=== PATIENT | male | born 1940 | race Caucasian/White ===

== ENCOUNTER 2020-08-29 13:04 | Outpatient (REF) | payer MEDICARE, SELFPAY ==
[2020-08-29 14:06] LABS: MANUAL DIFF FLAG NO
[2020-08-29 14:11] LABS: Basophils Absolute Auto 0.1 X10*3/uL (0.0-0.2); Eosinophils Absolute Auto 0.3 X10*3/uL (0.0-0.4); Hematocrit 43.5 % (42-52); Imm Gran Abs Auto 0.04 X10*3/uL (0.00-0.03); Imm Gran Pct Auto 0.7 % (0.0-0.4); Lymphocytes Absolute Auto 1.8 X10*3/uL (1.2-4.9); Lymphocytes Percent Auto 30.3 % (20-40); Mean Corpuscular HGB Conc 34.5 g/dl (31.0-36.0); Mean Corpuscular Hemoglobin 32.4 pg (27.0-33.0); Mean Platelet Volume 9.2 fL (9.4-12.4); Monocytes Absolute Auto 0.5 X10*3/uL (0.1-1.2); Monocytes Percent Auto 8.5 % (2-11); Neutrophils Absolute Auto 3.3 X10*3/uL (2.0-8.3); Neutrophils Percent Auto 54.5 % (45-73); Platelet Count 287 X10*3/uL (160-400); Red Blood Count 4.63 X10*6/uL (4.60-5.80); Red Cell Distribution Width 11.5 % (11.0-16.0)
[2020-08-29 14:41] LABS: Alanine Aminotransferase 24 U/L (0-40); Albumin Level 4.3 g/dL (3.5-5.0); Alkaline Phosphatase 68 U/L (39-117); Anion Gap 13 (12-20); Aspartate Amino Transferase 23 U/L (5-37); Bilirubin Total 0.6 mg/dL (0.0-1.0); Blood Urea Nitrogen 20 mg/dL (9-16); Calcium 9.3 mg/dL (8.4-10.2); Carbon Dioxide 26 mmol/L (22-29); Chloride 100 mmol/L (96-108); Estimated Glomerular Filt Rate > 60; Glucose Random 82 mg/dL (60-115); Sodium 134 mmol/L (135-145); Total Protein 6.9 g/dL (6.5-8.0)
[2020-08-29 15:11] LABS: Erythrocyte Sedimentation Rate 7 MM/HR (0-15)
[2020-09-02 12:42] LABS: Angiotensin Converting Enzyme 77 U/L (9-67)
== END 2020-08-29 13:05 | disposition home or self-care (01) ==
LOC: HO.10HDL 13:04
PROVIDERS: PCP Family Medicine; Visit Provider Family Medicine
DX: R53.83 Other fatigue (principal); R06.02 Shortness of breath; D86.9 Sarcoidosis, unspecified
CPT/HCPCS: 36415; 80053; 82164; 85025; 85652

== ENCOUNTER → 2021-01-02 14:10 | Outpatient (REF) | payer MEDICARE, SELFPAY ==
--- NOTE | 2021-01-02 14:22 | ECG_ITS ---
Test Reason : TACHYCARDIA Blood Pressure : / mmHG Vent. Rate : 094 BPM Atrial Rate : 094 BPM P-R Int : 166 ms QRS Dur : 070 ms QT Int : 338 ms P-R-T Axes : 064 027 054 degrees QTc Int : 422 ms Normal sinus rhythm Normal ECG No previous ECGs available Referred By: Robert Lundberg Electronically Signed By:FREDDY ROBERT
== END ==
LOC: HO.CARD 14:10
PROVIDERS: PCP Family Medicine; Visit Provider Family Medicine
DX: R00.0 Tachycardia, unspecified (principal)
CPT/HCPCS: 93005

== ENCOUNTER 2021-03-01 09:41 | Outpatient (REF) | payer MEDICARE, SELFPAY ==
--- NOTE | ~2021-03-01 | CT_ITS ---
EXAMINATION: CT CHEST WITHOUT CONTRAST CLINICAL INFORMATION: Solitary pulmonary nodule. COMPARISON: CT chest 10/19/2019 TECHNIQUE: Multidetector volumetric CT imaging of the chest was done. Axial MIP volume rendering provided. Sagittal and coronal reformatted images were obtained. This CT examination was performed using dose optimization techniques as appropriate, variously including the following: *Automated exposure control *Adjustment of mA and/or kV according to patient size (this includes techniques or standardized protocols for targeted exams where dose is matched to indication/reason for exam; i.e. extremities or head) *Use of iterative reconstruction technique DLP: 218 mGy-cm FINDINGS: CARDIOGRAPH OPERATOR: Unremarkable. LUNGS: There is diffuse centrilobular and paraseptal emphysema with areas of parenchymal thickening and scarring in both upper lobes. There are multiple pulmonary nodules. The most significant nodule in the right upper lobe, tubular shape measuring 1.1 x 0.5 cm on axial image 183/9. The largest nodule in the left upper lobe measures 1.3 x 0.8 cm on axial image 179/9, the slightly lobulated nodule in the left upper lobe axial image 111/9 measures 1.5 x 1.7 cm. These nodules are changing shape slightly, hence, the measurements may not be the same but visually they appear the same size. There is broad-based thickening of inferior left major fissure. There are subpleural cysts seen in both lung bases. There is no bronchiectasis. No intrabronchial debris or lesions seen at this time. The pulmonary secondary and third branches are enlarged especially in the right lower lobe likely from pulmonary arterial hypertension. MEDIASTINUM: The thyroid lobes are symmetric and normal. The central trachea and the bronchi are widely patent. There are multiple small mediastinal lymph nodes. The heart size and the great vessels are normal caliber. Mild coronary artery calcifications are seen. The main pulmonary artery is mildly dilated compared to the aortic root. PLEURA: There is no pleural effusion. No pleural mass or thickening. AXILLA: No abnormal axillary lymph nodes seen. The chest wall appears unremarkable. UPPER ABDOMEN: Visualized liver, spleen, pancreas, and bilateral adrenal glands are unremarkable. No radiopaque gallstones seen. OSSEOUS STRUCTURES: There is moderate ventral spondylosis with bridging osteophytes in the mid and lower dorsal spine. No lytic or sclerotic process seen. CT/CT chest wo con IMPRESSION: Centrilobular and paraseptal emphysema with areas of bilateral parenchymal thickening and multiple pulmonary nodules which are stable. The shape of the nodules may differ but overall the size is the same. No new nodules seen. Pulmonary arteries are enlarged likely from pulmonary artery hypertension.
[2021-03-01 10:40] LABS: MANUAL DIFF FLAG NO
[2021-03-01 10:55] LABS: Basophils Absolute Auto 0.1 X10*3/uL (0.0-0.2); Basophils Percent Auto 1.1 % (0-2); Eosinophils Absolute Auto 0.2 X10*3/uL (0.0-0.4); Eosinophils Percent Auto 3.2 % (0-4); Hematocrit 42.8 % (42-52); Hemoglobin 14.5 g/dl (14.0-18.0); Imm Gran Abs Auto 0.03 X10*3/uL (0.00-0.03); Imm Gran Pct Auto 0.4 % (0.0-0.4); Lymphocytes Absolute Auto 1.7 X10*3/uL (1.2-4.9); Lymphocytes Percent Auto 24.4 % (20-40); Mean Corpuscular HGB Conc 33.9 g/dl (31.0-36.0); Mean Corpuscular Hemoglobin 31.9 pg (27.0-33.0); Mean Corpuscular Volume 94.1 fL (80-98); Mean Platelet Volume 9.1 fL (9.4-12.4); Monocytes Absolute Auto 0.7 X10*3/uL (0.1-1.2); Monocytes Percent Auto 9.4 % (2-11); Neutrophils Absolute Auto 4.4 X10*3/uL (2.0-8.3); Neutrophils Percent Auto 61.5 % (45-73); Platelet Count 273 X10*3/uL (160-400); Red Blood Count 4.55 X10*6/uL (4.60-5.80); Red Cell Distribution Width 11.8 % (11.0-16.0); White Blood Count 7.1 X10*3/uL (4.8-10.8)
[2021-03-01 11:40] LABS: Alanine Aminotransferase 24 U/L (0-40); Albumin Level 4.2 g/dL (3.5-5.0); Alkaline Phosphatase 69 U/L (39-117); Anion Gap 11 (12-20); Aspartate Amino Transferase 21 U/L (5-37); Bilirubin Total 0.6 mg/dL (0.0-1.0); Blood Urea Nitrogen 18 mg/dL (9-16); Calcium 9.5 mg/dL (8.4-10.2); Carbon Dioxide 26 mmol/L (22-29); Chloride 104 mmol/L (96-108); Estimated Glomerular Filt Rate > 60; Glucose Random 76 mg/dL (60-115); Potassium 4.9 mmol/L (3.3-5.1); Sodium 136 mmol/L (135-145); Total Protein 6.7 g/dL (6.5-8.0)
[2021-03-01 12:22] LABS: Free T4 (Free Thyroxine) 0.95 ng/dL (0.71-1.85)
[2021-03-04 22:02] LABS: Angiotensin Converting Enzyme 45 U/L (9-67)
== END 2021-03-01 09:42 | disposition home or self-care (01) ==
LOC: HO.CT 09:41
PROVIDERS: PCP Family Medicine; Visit Provider Surgery
DX: R91.1 Solitary pulmonary nodule (principal)
CPT/HCPCS: 36415; 71250; 80053; 82164; 84439; 85025

== ENCOUNTER 2021-05-05 15:24 | Outpatient (REF) | payer MEDICARE, SELFPAY ==
--- NOTE | 2021-05-05 | PFT_ITS ---
Forced vital capacity, FEV1, LWI14-49, and MVV are all normal. Postbronchodilator therapy, no significant change noted. Total lung capacity, normal. Residual volume slightly decreased. Diffusion capacity is markedly decreased. CONCLUSION: Normal pulmonary function test. No significant obstructive airway disorder is noted. No significant response to bronchodilator therapy. Diffusion capacity is markedly decreased and this may be due to nonspecific factors, presence of pulmonary emphysema, and nonpulmonary factors. Clinical correlation is recommended. MD OPAL Browne/MODL / [id number]
== END 2021-05-05 15:25 | disposition home or self-care (01) ==
LOC: HO.RESP 15:24
PROVIDERS: PCP Family Medicine; Visit Provider Family Medicine
DX: R06.02 Shortness of breath (principal); J43.1 Panlobular emphysema
CPT/HCPCS: 94060; 94727; 94729

== ENCOUNTER → 2021-05-12 08:48 | Outpatient (BNVA) | payer MEDICARE, SELFPAY | PROVIDERS: PCP Family Medicine; Visit Provider Surgery | DX: R91.8 Other nonspecific abnormal finding of lung field (principal); J43.9 Emphysema, unspecified; Z87.891 Personal history of nicotine dependence | CPT/HCPCS: 99212 ==

== ENCOUNTER 2021-09-25 10:55 | Outpatient (REF) | payer MEDICARE, SELFPAY ==
[2021-09-25 13:39] LABS: MANUAL DIFF FLAG NO
[2021-09-25 13:44] LABS: Basophils Absolute Auto 0.1 X10*3/uL (0.0-0.2); Basophils Percent Auto 0.9 % (0-2); Eosinophils Absolute Auto 0.3 X10*3/uL (0.0-0.4); Eosinophils Percent Auto 5.2 % (0-4); Hematocrit 41.5 % (42.0-52.0); Hemoglobin 13.9 g/dl (14.0-18.0); Imm Gran Abs Auto 0.03 X10*3/uL (0.00-0.03); Imm Gran Pct Auto 0.6 % (0.0-0.4); Lymphocytes Absolute Auto 1.4 X10*3/uL (1.2-4.9); Lymphocytes Percent Auto 25.5 % (20-40); Mean Corpuscular HGB Conc 33.5 g/dl (31.0-36.0); Mean Corpuscular Hemoglobin 31.9 pg (27.0-33.0); Mean Corpuscular Volume 95.2 fL (80.0-98.0); Monocytes Absolute Auto 0.7 X10*3/uL (0.1-1.2); Monocytes Percent Auto 13.1 % (2-11); Neutrophils Absolute Auto 2.9 x10*3/uL (2.0-8.3); Neutrophils Percent Auto 54.7 % (45-73); Platelet Count 319 X10*3/uL (160-400); Red Blood Count 4.36 X10*6/uL (4.60-5.80); Red Cell Distribution Width 11.9 % (11.0-16.0); White Blood Count 5.3 X10*3/uL (4.8-10.8)
[2021-09-25 14:06] LABS: Anion Gap 11 (12-20); Blood Urea Nitrogen 14 mg/dL (9-16); Carbon Dioxide 26 mmol/L (22-29); Chloride 103 mmol/L (96-108); Estimated Glomerular Filt Rate > 60; Sodium 135 mmol/L (135-145)
== END 2021-09-25 10:56 | disposition home or self-care (01) ==
LOC: HO.HMGCLDS 10:55
PROVIDERS: PCP Family Medicine; Visit Provider Family Medicine
DX: I10 Essential (primary) hypertension (principal); N40.1 Benign prostatic hyperplasia with lower urinary tract symptoms; N13.8 Other obstructive and reflux uropathy; R53.83 Other fatigue
CPT/HCPCS: 36415; 80051; 82565; 84520; 85025

== ENCOUNTER → 2022-03-27 14:30 | Outpatient (REF) | payer MEDICARE, SELFPAY ==
--- NOTE | 2022-03-27 14:33 | CA_ITS ---
Transthoracic Echocardiogram Patient (Last, First, Middle): Braulio Stone F Gender: Male Date of : 1940 Age: 81 Procedure Date: 03/27/2022 Procedure Type: Transthoracic Echocardiogram Location: OP Height: 175.26 cm Weight: 83.92 kg BSA: 2.00 m2 Heart Rate: bpm BP: 124 / 70 mmHg Windows Systems Architect: Referring MD: Robert Lundberg MD Symptoms: R06.02 SOB, R53.83 FATIGUE, R06.01 ORTHOPNEA R.O CHF Study Quality: Adequate ECG Rhythm: Sinus Conclusions: - The left ventricular systolic function is normal. The visually estimated ejection fraction is between 55-60%. - Mildly increased right ventricular cavity size. - No obvious valvular pathology seen on this study. Findings Left Ventricle Normal left ventricular cavity size. There is mildly increased left ventricular wall thickness. The left ventricular systolic function is normal. The visually estimated ejection fraction is between 55-60%. There is no evidence of regional wall motion abnormalities. Diastolic function is normal for age. Right Ventricle Mildly increased right ventricular cavity size. There is normal right ventricular systolic function. Atria Both atria are normal in size. Aortic Valve There is a normal trileaflet aortic valve. There is no aortic valve stenosis. There is no aortic valve regurgitation. Mitral Valve The mitral valve appears normal. There is trace mitral valve regurgitation. There is no mitral valve stenosis. Pulmonic Valve The pulmonic valve is likely normal. Tricuspid Valve Normal tricuspid valve structure. There is trace tricuspid valve regurgitation. The pulmonary artery systolic pressure is normal. Great Vessels The asc aorta is normal in size. Venous The inferior vena cava is normal in size and collapses greater than 50% with inspiration. Pericardium/Pleural There is no evidence of pericardial effusion. Recommendations, Care & Conclusions No obvious valvular pathology seen on this study. Measurements 2D Linear Measurements IVSd: 1.23 0.6-0.9/0.6-1.0 cm LVIDd: 4.76 3.9-5.3/4.2-5.9 cm LVIDd Index: 2.38 2.4-3.2/2.2-3.1 cm/m2 LVIDs: 2.99 2.0-3.6 cm LVPWd: 1.16 0.7-1.1 cm Ao Root: 4.20 2.1-3.5 cm LA Diam: 3.60 2.7-3.8/3.0-4.0 cm LAIDs Index: 1.80 1.5-2.3 cm/m2 LV Mass: 267.98 67-162/88-224 g LV Mass Index: 133.99 43-95/49-115 g/m2 LVOT Diam: 2.40 3.0+(-)1.3 cm 2D Systolic Function EF 4C: 52.90 >55% EF 2C: 68.60 >55% EF BiP: 60.00 >55% Mitral Valve MV Pk E: 0.69 MV PK A: 0.63 MV Decel Time: 173.00 E/A: 1.10 E'Lateral: 10.20 E'Medial: 6.64 E/E' Med: 10.50 E/E' Lat: 6.80 PHT: 51.00 MVA PHT: 4.31 Decel [place]: 4.02 Aortic Valve AoV Pk Daniel: 1.23 AoV Mn Daniel: 0.70 AoV VTI: 0.27 AoV Pk Grad: 6.00 Aov Mn Grad: 2.00 BRIAN Cont.VTI: 3.33 LVOT LVOT Pk Daniel: 0.73 LVOT Mn Daniel: 0.46 LVOT VTI: 0.20 LVOT Pk Grad: 2.00 LVOT Mn Grad: 1.00 LVOT Diam: 2.40 LVOT Area: 4.52 Diastolic Function MV Pk E: 0.69 MV Pk A: 0.63 E/A: 1.10 E'Medial: 6.64 E/E' Med: 10.50 E' Laterial: 10.20 E/E' Lat: 6.80 Right Ventricle TAPSE (mm): 30.00 TVS' Daniel: 10.00 Tricuspid Valve TR Pk Daniel: 2.20 TR Pk Grad: 19.00 RA Press: 3.00 RVSP: 22.00 Great Vessels Aorta Ao Root-2D: 4.20 2.0-3.7 cm Ao Asc: 3.60 2.1-3.4 cm Pulmonary Valve PV Pk Daniel: 0.88 Peak PV Grad: 3.00 Updated in Other Vendor System with Status of Final Dereck Copeland MD electronically signed on 03/27/2022 4:29:52 PM with status of Final
== END ==
LOC: HO.CARD 14:30
PROVIDERS: PCP Family Medicine; Visit Provider Family Medicine
DX: R06.02 Shortness of breath (principal); R53.83 Other fatigue; R06.01 Orthopnea
CPT/HCPCS: 93306

== ENCOUNTER 2022-05-14 10:35 | Inpatient (IN) | payer MEDICARE, SELFPAY ==
[2022-05-14] VITALS (14 sets, daily range): BP systolic 92–139; BP diastolic 51–69; PULSE 68–93; RESP 14–26; TEMP 36.4–37.1; O2SAT 90–98; BMI 28.0
--- NOTE | ~2022-05-14 | XR_ITS ---
EXAMINATION: XR CHEST CLINICAL INFORMATION: Chest pain COMPARISON: Previous chest x-ray most recent March [address] February 2021 TECHNIQUE: Frontal view of the chest was obtained. FINDINGS: The cardiac and mediastinal contours are stable. There are emphysematous changes. There is new multilobar left-sided airspace disease greatest in the left upper lobe and airspace disease at the right lung base. This probably represents pneumonia. There is no pleural effusion or pneumothorax. There are degenerative changes of the spine. XR/XR chest 1V IMPRESSION: Bilateral airspace disease greatest in the left upper lobe probably representing pneumonia.
--- NOTE | ~2022-05-14 | US_ITS ---
EXAMINATION: US ABDOMEN LIMITED CLINICAL INFORMATION: Right upper quadrant pain, chills. COMPARISON: None TECHNIQUE: Real-time imaging of the right upper quadrant abdominal viscera. FINDINGS: PANCREAS: Visualized portions unremarkable. LIVER: Diffuse increased echotexture without focal abnormality. GALLBLADDER: Remarkable. COMMON BILE DUCT: Normal in caliber measuring 0.4 cm in diameter. RIGHT KIDNEY: 11.4 cm. Unremarkable. FREE FLUID: None. US/US abdomen limited IMPRESSION: Hepatic steatosis.
--- NOTE | ~2022-05-14 | CT_ITS ---
EXAMINATION: CT ANGIOGRAM OF THE CHEST WITH AND WITHOUT CONTRAST (CT PULMONARY ANGIOGRAM FOR PE) CLINICAL INFORMATION: Reason for Exam SOB, chest pain COMPARISON: Chest radiograph 05/14/2022, CT chest 03/01/2021 TECHNIQUE: Prior to contrast administration, noncontrast localization images were obtained. Subsequently, multidetector volumetric imaging was performed from the thoracic inlet to the pubic symphysis through the chest, abdomen, and pelvis following the administration of 70 mL Omnipaque 350 intravenous contrast. No contrast reaction reported Sagittal, coronal, and MIP oblique sagittal (through the chest only) reformatted images were obtained on the CT workstation, uploaded to PACS, and reviewed. This CT examination was performed using dose optimization techniques as appropriate, variously including the following: *Automated exposure control *Adjustment of mA and/or kV according to patient size (this includes techniques or standardized protocols for targeted exams where dose is matched to indication/reason for exam; i.e. extremities or head) *Use of iterative reconstruction technique Total exam dose-length product: 333 mGy-cm FINDINGS: QUALITY OF STUDY/CONTRAST BOLUS: Satisfactory bolus. Significant motion artifact, especially at the lung bases PULMONARY ARTERIES: No central or large segmental pulmonary emboli. THORACIC AORTA: No aneurysm or dissection. LUNG: Severe emphysematous changes are present throughout the lungs with some predominance of subpleural cysts. Extensive cystic change with fluid is present in the left upper lobe corresponding with the pneumonia seen on chest radiograph. Multiple pulmonary nodules are again seen, some irregular in shape but unchanged when compared to 03/01/2021. One of the larger areas is in the right upper lobe and is oval in shape measuring 1.2 x 0.6 cm (5:201). PLEURA: There is a new trace left pleural effusion. No right-sided effusion. MEDIASTINUM: Normal heart size. No pericardial effusion. Prominent mediastinal and hilar lymph nodes appear larger than prior, most likely reactive.. No evidence of septal bowing or right heart strain. CHEST WALL/AXILLA: No axillary or internal mammary lymphadenopathy. OSSEOUS STRUCTURES: No acute or suspicious osseous abnormality. VISUALIZED ABDOMEN: No significant findings in the upper abdomen. CT/CT angio chest aorta IMPRESSION: No convincing evidence of pulmonary emboli. Study is limited at the lung bases where there is significant motion artifact. Severe extensive emphysema with new area of infiltrate/air space disease in the left upper lobe, similar to the chest radiograph. Trace new left pleural effusion. Stable pulmonary nodules. VTE: Negative, but limited Fleischner guidelines were followed.
--- NOTE | 2022-05-14 10:37 | ECG_ITS ---
Test Reason : cp Blood Pressure : / mmHG Vent. Rate : 087 BPM Atrial Rate : 087 BPM P-R Int : 158 ms QRS Dur : 072 ms QT Int : 348 ms P-R-T Axes : 049 015 062 degrees QTc Int : 418 ms Normal sinus rhythm Nonspecific T wave abnormality Abnormal ECG When compared with ECG of 02-JAN-2021 14:29, T wave inversion now evident in Anterior leads Referred By: Generic ED Physician Electronically Signed By:COLIN JONES MD
[2022-05-14 10:59] LABS: MANUAL DIFF FLAG NO
[2022-05-14 11:00] LABS: Basophils Percent Auto 0.3 % (0-2); Eosinophils Absolute Auto 0.4 X10*3/uL (0.0-0.4); Eosinophils Percent Auto 3.2 % (0-4); Hematocrit 38.2 % (42.0-52.0); Hemoglobin 13.1 g/dl (14.0-18.0); Imm Gran Abs Auto 0.09 X10*3/uL (0.00-0.03); Imm Gran Pct Auto 0.8 % (0.0-0.4); Lymphocytes Absolute Auto 0.9 X10*3/uL (1.2-4.9); Lymphocytes Percent Auto 7.7 % (20-40); Mean Corpuscular HGB Conc 34.3 g/dl (31.0-36.0); Mean Corpuscular Hemoglobin 31.6 pg (27.0-33.0); Mean Corpuscular Volume 92.3 fL (80.0-98.0); Mean Platelet Volume 9.1 fL (9.4-12.4); Monocytes Percent Auto 9.2 % (2-11); Neutrophils Absolute Auto 8.8 x10*3/uL (2.0-8.3); Neutrophils Percent Auto 78.8 % (45-73); Platelet Count 244 X10*3/uL (160-400); Red Blood Count 4.14 X10*6/uL (4.60-5.80); Red Cell Distribution Width 11.5 % (11.0-16.0); White Blood Count 11.1 X10*3/uL (4.8-10.8)
[2022-05-14 11:14] LABS: Anion Gap 12 (12-20); Blood Urea Nitrogen 13 mg/dL (9-16); Calcium 8.3 mg/dL (8.4-10.2); Carbon Dioxide 23 mmol/L (22-29); Chloride 100 mmol/L (96-108); Creatinine Clr Calc Pharmacy 78.4; Estimated Glomerular Filt Rate > 60; Glucose Random 112 mg/dL (60-115); Potassium 4.4 mmol/L (3.3-5.1); Sodium 131 mmol/L (135-145)
[2022-05-14 11:19] LABS: COVID-19 Test Negative (Negative)
[2022-05-14 11:22] LABS: Troponin-I High Sensitivity 3.8 ng/L (<3.5-35.0)
--- NOTE | 2022-05-14 12:04 | ED.CHESTPAIN ---
HPI - Chest Pain General Chief Complaint: Chest Pain Stated Complaint: chest pain Time Seen by Provider: 05/14/22 12:02 Source: patient Mode of arrival: ambulatory History of Present Illness HPI narrative: 81-year-old male who presents with complaints left-sided chest pain since last night at 19:00 and he states that pain has gotten worse and it worsens with deep inspiration but denies any worsening with movement and denies any associated dizziness/diaphoresis/nausea. Otherwise, patient denies any GI or symptoms, denies any falls. Related Data Home Medications Medication Instructions Recorded Confirmed ibuprofen 600 mg tablet 600 mg PO BEDTIME PRN Pain 05/14/22 05/14/22 modafinil 200 mg tablet 200 mg PO BID 05/14/22 05/14/22 multivitamin 1 tab PO DAILY 05/14/22 05/14/22 terazosin 5 mg capsule 1 cap PO BEDTIME 05/14/22 05/14/22 Allergies Allergy/AdvReac Type Severity Reaction Status Date / Time No Known Allergies Allergy Verified 05/12/21 09:14 Review of Systems Review of Systems: Pertinent positives and negatives as stated in HPI 10 point review of systems is otherwise negative. PMFSH Past Medical History Source: nursing notes reviewed Medical History Former smoker, stopped smoking in distant past Multiple pulmonary nodules Pulmonary emphysema Social History Social History Patient Tobacco Use Status: Former Tobacco user Advance Directives: Yes Advance Directives Information Provided: No Advance Directives on File: No Physical Exam Vital Signs: Vital Signs: Last Vital Signs Temp 98.3 F 05/14/22 11:42 Pulse 72 05/14/22 15:16 Resp 14 05/14/22 15:16 BP 106/69 05/14/22 15:16 Pulse Ox 96 05/14/22 15:16 O2 Del Method 05/14/22 15:16 O2 Flow Rate 2 05/14/22 15:16 BMI result Body Mass Index 28.0 VITAL SIGNS: Reviewed. GENERAL: Well developed, well nourished, in no acute distress. HEAD: Normocephalic/atraumatic EYES: PERRLA, EOMI EARS: Ext canals without abnormality NOSE: Nares patent bilateral OROPHARYNX: no oral lesions noted, posterior pharynx clear LUNGS: Good inspiratory effort but patient reports pain and has to do this slowly, decreased breath sounds primarily on the left, no appreciable wheeze/rhonchi/rales. SpO2<93> room air; CHEST WALL: No pain on palpation, deformity, crepitus CARDIOVASCULAR: Regular rate and rhythm without noted murmurs, no JVD or lower extremity edema. ABDOMEN: Soft, non-tender, non-distended with bowel sounds. MUSCULOSKELETAL: No tenderness, deformities, or effusions noted on gross inspection. EXTREMITIES: No cyanosis, clubbing or edema. SKIN: Inspection of the skin reveals no rashes NEUROLOGIC: Alert and oriented x 4. Strength and sensation to light touch were grossly intact x 4. Course Course Course Narrative: 1050: 81-year-old male with history and clinical presentation and will rule out possible pleuritis, pneumonia and less likely felt to be COPD exacerbation. Patient did receive an albuterol treatment and states he does not feel any better. He was provided with combination analgesics, review of D-dimer shows elevation and chest x-ray have concerning findings that when compared to prior may be progression underlying illness. 1245: I suspect infection. Lactic acid/but culture/antibiotics given/order. 1400: Patient requiring 2 L of nasal cannula, for SpO2-86 % and on re-evaluation states that he feels better. 1414: Nursing endorses that patient is noted to have serial SBP less than 100 and sepsis fluids order. 1514: Patient doing well on 2 L nasal cannula and blood pressure has responded well to IV fluids. I discussed the case with inpatient hospitalist who accepts admission. MDM - Chest Pain Lab Data Result diagrams: 05/14/22 10:55 05/14/22 10:55 Labs: Lab Results 05/14/22 05/14/22 05/14/22 Range/Units 10:55 10:55 10:55 WBC 11.1 H (4.8-10.8) X10*3/uL RBC 4.14 L (4.60-5.80) X10*6/uL Hgb 13.1 L (14.0-18.0) g/dl Hct 38.2 L (42.0-52.0) % MCV 92.3 (80.0-98.0) fL MCH 31.6 (27.0-33.0) pg MCHC 34.3 (31.0-36.0) g/dl RDW 11.5 (11.0-16.0) % Plt Count 244 (160-400) X10*3/uL MPV 9.1 L (9.4-12.4) fL Immature Gran % (Auto) 0.8 H (0.0-0.4) % Neut % (Auto) 78.8 H (45-73) % Lymph % (Auto) 7.7 L (20-40) % Blount % (Auto) 9.2 (2-11) % Eos % (Auto) 3.2 (0-4) % Baso % (Auto) 0.3 (0-2) % Lymph # (Auto) 0.9 L (1.2-4.9) X10*3/uL Blount # (Auto) 1.0 (0.1-1.2) X10*3/uL Eos # (Auto) 0.4 (0.0-0.4) X10*3/uL Baso # (Auto) 0.0 (0.0-0.2) X10*3/uL Abs Immat Gran (auto) 0.09 H (0.00-0.03) X10*3/uL Absolute Neuts (auto) 8.8 H (2.0-8.3) x10*3/uL Absolute Nucleated RBC 0.000 (0.0-0.012) X10*3/uL Nucleated RBC % (auto) 0.0 (0.0-0.2) /100WBC D-Dimer High Sensitivty NG/ML VBG pH (7.32-7.43) VBG pCO2 mmHg VBG pO2 mmHg VBG HCO3 (22-26) mmol/L VBG O2 Saturation % VBG Base Excess mmol/L Sodium 131 L (135-145) mmol/L Potassium 4.4 (3.3-5.1) mmol/L Chloride 100 (96-108) mmol/L Carbon Dioxide 23 (22-29) mmol/L Anion Gap 12 (12-20) BUN 13 (9-16) mg/dL Creatinine 0.83 (0.5-1.4) mg/dL Estim Creat Clear Calc 78.4 Estimated GFR > 60 Random Glucose 112 D (60-115) mg/dL Lactic Acid (0.5-2.0) mmol/L Calcium 8.3 L D (8.4-10.2) mg/dL Total Bilirubin 2.1 H (0.0-1.0) mg/dL Direct Bilirubin 0.8 H (0.0-0.5) mg/dL AST 40 H D (5-37) U/L ALT 48 H (0-40) U/L Alkaline Phosphatase 95 D (39-117) U/L Troponin I High Sens 3.8 (<3.5-35.0) ng/L C-Reactive Protein 17.91 H (< or = 0.50) mg/dL B-Natriuretic Peptide 70 (<100) pg/mL Total Protein 6.2 L (6.5-8.0) g/dL Albumin 3.7 (3.5-5.0) g/dL Lipase 16 (8-78) U/L COVID-19 (NAN) (Negative) COVID-19 Clin Com 05/14/22 05/14/22 05/14/22 Range/Units 10:55 12:22 12:22 WBC (4.8-10.8) X10*3/uL RBC (4.60-5.80) X10*6/uL Hgb (14.0-18.0) g/dl Hct (42.0-52.0) % MCV (80.0-98.0) fL MCH (27.0-33.0) pg MCHC (31.0-36.0) g/dl RDW (11.0-16.0) % Plt Count (160-400) X10*3/uL MPV (9.4-12.4) fL Immature Gran % (Auto) (0.0-0.4) % Neut % (Auto) (45-73) % Lymph % (Auto) (20-40) % Blount % (Auto) (2-11) % Eos % (Auto) (0-4) % Baso % (Auto) (0-2) % Lymph # (Auto) (1.2-4.9) X10*3/uL Blount # (Auto) (0.1-1.2) X10*3/uL Eos # (Auto) (0.0-0.4) X10*3/uL Baso # (Auto) (0.0-0.2) X10*3/uL Abs Immat Gran (auto) (0.00-0.03) X10*3/uL Absolute Neuts (auto) (2.0-8.3) x10*3/uL Absolute Nucleated RBC (0.0-0.012) X10*3/uL Nucleated RBC % (auto) (0.0-0.2) /100WBC D-Dimer High Sensitivty 385 NG/ML VBG pH (7.32-7.43) VBG pCO2 mmHg VBG pO2 mmHg VBG HCO3 (22-26) mmol/L VBG O2 Saturation % VBG Base Excess mmol/L Sodium (135-145) mmol/L Potassium (3.3-5.1) mmol/L Chloride (96-108) mmol/L Carbon Dioxide (22-29) mmol/L Anion Gap (12-20) BUN (9-16) mg/dL Creatinine (0.5-1.4) mg/dL Estim Creat Clear Calc Estimated GFR Random Glucose (60-115) mg/dL Lactic Acid (0.5-2.0) mmol/L Calcium (8.4-10.2) mg/dL Total Bilirubin (0.0-1.0) mg/dL Direct Bilirubin (0.0-0.5) mg/dL AST (5-37) U/L ALT (0-40) U/L Alkaline Phosphatase (39-117) U/L Troponin I High Sens 4.2 (<3.5-35.0) ng/L C-Reactive Protein (< or = 0.50) mg/dL B-Natriuretic Peptide (<100) pg/mL Total Protein (6.5-8.0) g/dL Albumin (3.5-5.0) g/dL Lipase (8-78) U/L COVID-19 (NAN) Negative (Negative) COVID-19 Clin Com See Note 05/14/22 05/14/22 05/14/22 Range/Units 12:26 12:45 14:33 WBC (4.8-10.8) X10*3/uL RBC (4.60-5.80) X10*6/uL Hgb (14.0-18.0) g/dl Hct (42.0-52.0) % MCV (80.0-98.0) fL MCH (27.0-33.0) pg MCHC (31.0-36.0) g/dl RDW (11.0-16.0) % Plt Count (160-400) X10*3/uL MPV (9.4-12.4) fL Immature Gran % (Auto) (0.0-0.4) % Neut % (Auto) (45-73) % Lymph % (Auto) (20-40) % Blount % (Auto) (2-11) % Eos % (Auto) (0-4) % Baso % (Auto) (0-2) % Lymph # (Auto) (1.2-4.9) X10*3/uL Blount # (Auto) (0.1-1.2) X10*3/uL Eos # (Auto) (0.0-0.4) X10*3/uL Baso # (Auto) (0.0-0.2) X10*3/uL Abs Immat Gran (auto) (0.00-0.03) X10*3/uL Absolute Neuts (auto) (2.0-8.3) x10*3/uL Absolute Nucleated RBC (0.0-0.012) X10*3/uL Nucleated RBC % (auto) (0.0-0.2) /100WBC D-Dimer High Sensitivty NG/ML VBG pH 7.38 7.44 H (7.32-7.43) VBG pCO2 42 32 mmHg VBG pO2 34 61 mmHg VBG HCO3 26 22 (22-26) mmol/L VBG O2 Saturation 49.0 88.0 % VBG Base Excess 0.9 -0.8 mmol/L Sodium (135-145) mmol/L Potassium (3.3-5.1) mmol/L Chloride (96-108) mmol/L Carbon Dioxide (22-29) mmol/L Anion Gap (12-20) BUN (9-16) mg/dL Creatinine (0.5-1.4) mg/dL Estim Creat Clear Calc Estimated GFR Random Glucose (60-115) mg/dL Lactic Acid 1.1 (0.5-2.0) mmol/L Calcium (8.4-10.2) mg/dL Total Bilirubin (0.0-1.0) mg/dL Direct Bilirubin (0.0-0.5) mg/dL AST (5-37) U/L ALT (0-40) U/L Alkaline Phosphatase (39-117) U/L Troponin I High Sens (<3.5-35.0) ng/L C-Reactive Protein (< or = 0.50) mg/dL B-Natriuretic Peptide (<100) pg/mL Total Protein (6.5-8.0) g/dL Albumin (3.5-5.0) g/dL Lipase (8-78) U/L COVID-19 (NAN) (Negative) COVID-19 Clin Com ECG Data ECG #1: Attestation: I personally reviewed and interpreted this ECG as follows: Prior ECG tracings: available for review Interpretation: NSR, HR-87, no STEMI, ND/QRS/QTC are within normal limits. Critical Care Time Critical Care Time Critical Care Time: Yes Total Critical Care Time: 30 Attestation: I personally attest to this time spent taking care of the patient. Discharge Plan Discharge Clinical Impression: Sepsis, Pneumonia, Hypoxia Patient Disposition: Admitted As Inpatient
[2022-05-14] MEDS: Albuterol Sulfate (0.083%) 2.5 MG/3 ML VIAL.NEB 5 MG INHALE (12:27)
[2022-05-14] MEDS: Acetaminophen 325 MG TABLET 975 MG PO (12:33)
[2022-05-14 12:34] LABS: Venous Blood Gas Refer to POC result
[2022-05-14] MEDS: Ketorolac Tromethamine 30 MG/ML VIAL 15 MG IVPUSH (12:34)
[2022-05-14 12:35] LABS: VBG Base Excess 0.9 mmol/L; VBG HCO3 26 mmol/L (22-26); VBG pCO2 42 mmHg; VBG pH 7.38 (7.32-7.43); VBG pO2 34 mmHg
[2022-05-14 12:38] LABS: D Dimer High Sensitivity 385 NG/ML
[2022-05-14 12:41] LABS: Alanine Aminotransferase 48 U/L (0-40); Albumin Level 3.7 g/dL (3.5-5.0); Alkaline Phosphatase 95 U/L (39-117); Aspartate Amino Transferase 40 U/L (5-37); Bilirubin Direct 0.8 mg/dL (0.0-0.5); Bilirubin Total 2.1 mg/dL (0.0-1.0); Lipase 16 U/L (8-78); Total Protein 6.2 g/dL (6.5-8.0)
[2022-05-14 12:47] LABS: B Type Natriuretic Peptide 70 pg/mL (<100)
[2022-05-14 12:50] LABS: Troponin-I High Sensitivity 4.2 ng/L (<3.5-35.0)
[2022-05-14 13:01] LABS: Lactic Acid 1.1 mmol/L (0.5-2.0)
[2022-05-14] MEDS: iohexoL 350 MG/ML 100 ML INFUS..BTL IV (13:04)
[2022-05-14] MEDS: Piperacillin Sodium/Tazobactam 3.375 GM in 0.9 % Sodium Chloride 50 ML IV (14:21)
[2022-05-14] MEDS: 0.9 % Sodium Chloride 2,585.49 ML 2585.49 ML IV (14:22)
--- NOTE | 2022-05-14 14:28 | PC.NURSE ---
PT AND FAMILY AWARE OF PLAN FOR ADMISSION. [facility] WENT TO GET PT CPAP
[2022-05-14 14:37] LABS: Venous Blood Gas Refer to POC result
[2022-05-14 14:38] LABS: VBG Base Excess -0.8 mmol/L; VBG HCO3 22 mmol/L (22-26); VBG pCO2 32 mmHg; VBG pH 7.44 (7.32-7.43); VBG pO2 61 mmHg
[2022-05-14 14:41] LABS: C Reactive Protein 17.91 mg/dL (< or = 0.50)
--- NOTE | 2022-05-14 15:44 | PHA.MEDREC ---
Pharmacy Consult ? Medication Reconciliation Pharmacy has completed the medication reconciliation.
--- NOTE | 2022-05-14 15:57 | P.HPHOSP_ITS ---
History of Present Illness Date of Service: 05/14/22 Chief Complaint: chest pain, difficulty breathing a 81 years old male with PMH of emphysema, pulmonary nodules, neck roll lip C who presents to the hospital complaining of left-sided chest/axilla pain since last night. The patient reports that he started to feel pain in the left side of his chest wall axillary area yesterday evening that was associated with movement, deep breath and had Got worsen overnight. He reports feeling chills and having cough which is worse than his baseline cough. denies fevers, Sweating, palpitation, nausea, vomiting, change in bowel habit or urinary symptoms. Reports feeling short of breath after short distance usually but that had got worsened since last night. In the emergency CXR and CTA were both concerning for left-sided pneumonia with pleural effusion. Troponin negative as EKG showed new T-wave inversion in 1 lead. CTA negative for PE. Will be admitted for further evaluation and treatment. Review of Systems Review of Systems: No fever but reporting chills and weakness left-sided chest, axilla pain with nopalpitation increased shortness of breath and coughing No abdominal pain, nausea or vomiting No urinary symptoms No any rash or wounds [facility] Medical History Former smoker, stopped smoking in distant past Multiple pulmonary nodules Pulmonary emphysema Social History Household Members: Spouse and Family Housing: House Do you presently have visiting nurse or other home services: No Patient Tobacco Use Status: Former Tobacco user Quit Date: 1989 Use of substances other than those prescribed or required for medical reasons: No Currently Displaying Signs/Symptoms of Drug Intoxication Withdrawal: No Have you been hit, kicked, punched, or otherwise hurt by someone within the past year? If so, by whom?: No Do you feel safe in your current relationship?: Yes Is there a partner from a previous relationship who is making you feel unsafe now?: No Are you made to feel afraid or neglected: No Advance Directives: Yes Advance Directives Information Provided: No Advance Directives on File: No Advance Directives Date on File: 05/15/22 Do you have thoughts of harming others: None Do you have a plan to hurt others: No Plan Recently lost weight without trying: No How much weight loss: Not applicable Eating poorly because of decreased appetite: No Nutrition screen score: 0 Nutrition Risks: No Nutritional Risk Poor oral hygiene: No service: Yes Current occupational status: retired Meds Allergies Allergy/AdvReac Type Severity Reaction Status Date / Time No Known Allergies Allergy Verified 05/12/21 09:14 Active Medications: Current Medications Acetaminophen (Acetaminophen 325 Mg Tablet) 650 mg PO Q6H PRN PRN Reason: Pain, Mild (Pain Scale 1-3) Al Hydroxide/Mg Hydroxide (Magnesium Hydrox/Alum Hydrox 30 Ml Oral.Susp) 30 ml PO Q4H PRN PRN Reason: Heartburn/Nausea Albuterol/Ipratropium (Albuterol/Iprat 2.5/0.5mg 3 Ml Ampul.Neb) 3 ml INHALE RQ4H WHILE AWAKE [facility] Benzonatate (Benzonatate 100 Mg Capsule) 100 mg PO TID PRN PRN Reason: Cough Enoxaparin Sodium (Enoxaparin Sodium 40 Mg/0.4 Ml Syringe) 40 mg SUBCUT Q24H [facility] Azithromycin 500 mg/ Sodium (Chloride) 250 mls @ 125 mls/hr IV Q24H [facility] Ceftriaxone Sodium 1 gm/ (Sodium Chloride) 50 mls @ 100 mls/hr IV Q24H [facility] Magnesium Hydroxide (Milk Of Magnesia 30 Ml Oral.Susp) 30 ml PO DAILY PRN PRN Reason: Constipation Methylprednisolone Sodium Succinate (Methylprednisolone Sod Succ 40 Mg/Ml Vial) 40 mg IVPUSH Q12H [facility] Modafinil (Modafinil 100 Mg Tablet) 200 mg PO BID [facility] Multivitamins/Vitamin C (Multivitamin Tablet) 1 tab PO DAILY [facility] Non-Formulary Medication (Terazosin) 1 cap PO BEDTIME [facility] Ondansetron HCl (Ondansetron Hcl 4 Mg/2 Ml Vial) 4 mg IVPUSH Q8H PRN PRN Reason: Nausea and Vomiting Pharmacy Consult (Consult Rx Perform Med Rec) 1 each MISCELLANE ONCE PRN PRN Reason: Consult order Sodium Chloride (0.9 % Sodium Chloride Flush 3 Ml Syringe) 3 ml IVFLUSH QSHIFT [facility] Home Medications Medication Instructions Recorded Confirmed Last Taken Type ibuprofen 600 mg tablet 600 mg PO BEDTIME PRN Pain 05/14/22 05/14/22 05/13/22 History modafinil 200 mg tablet 200 mg PO BID 05/14/22 05/14/22 05/13/22 History multivitamin 1 tab PO DAILY 05/14/22 05/14/22 05/13/22 History terazosin 5 mg capsule 1 cap PO BEDTIME 05/14/22 05/14/22 05/13/22 History Physical Exam Vital Signs and Narrative: Vital Signs: Last Vital Signs Temp 98.3 F 05/14/22 11:42 Pulse 72 05/14/22 15:16 Resp 14 05/14/22 15:16 BP 106/69 05/14/22 15:16 Pulse Ox 96 05/14/22 15:16 O2 Del Method 05/14/22 15:16 O2 Flow Rate 2 05/14/22 15:16 BMI result Body Mass Index 28.0 Const: Other: Constitutional : Alert, interactive, not in distress Neck : Normal inspection, Supple Cardiovascular : RRR, no JVP, no lower extremity edema Respiratory : fair bilateral air entry, basal fine left-sided crackles, bilateral expiratory wheezes, on oxygen supplement Gastrointestinal: soft, lax, Normal bowel sounds, Non tender Skin : Warm, Dry Neurological : Alert & oriented x3, No focal deficit , CN 2-12 within normal Results Labs CBC and Chem 7: 05/15/22 05:51 05/15/22 05:51 Labs: Laboratory Results - last 24 hr 05/14/22 05/14/22 05/14/22 10:55 10:55 10:55 MCV 92.3 MCH 31.6 MCHC 34.3 RDW 11.5 Plt Count 244 MPV 9.1 L Immature Gran % (Auto) 0.8 H Neut % (Auto) 78.8 H Lymph % (Auto) 7.7 L [place] % (Auto) 9.2 Eos % (Auto) 3.2 Baso % (Auto) 0.3 Lymph # (Auto) 0.9 L [place] # (Auto) 1.0 Eos # (Auto) 0.4 Baso # (Auto) 0.0 Abs Immat Gran (auto) 0.09 H Absolute Neuts (auto) 8.8 H Absolute Nucleated RBC 0.000 Nucleated RBC % (auto) 0.0 D-Dimer High Sensitivty VBG pH VBG pCO2 VBG pO2 VBG HCO3 VBG O2 Saturation VBG Base Excess Anion Gap 12 Estim Creat Clear Calc 78.4 Estimated GFR > 60 Random Glucose 112 D Lactic Acid Calcium 8.3 L D Total Bilirubin 2.1 H Direct Bilirubin 0.8 H AST 40 H D ALT 48 H Alkaline Phosphatase 95 D C-Reactive Protein 17.91 H B-Natriuretic Peptide 70 Total Protein 6.2 L Albumin 3.7 Lipase 16 COVID-19 (NAN) COVID-19 Clin Com 05/14/22 05/14/22 05/14/22 10:55 12:22 12:26 MCV MCH MCHC RDW Plt Count MPV Immature Gran % (Auto) Neut % (Auto) Lymph % (Auto) [place] % (Auto) Eos % (Auto) Baso % (Auto) Lymph # (Auto) [place] # (Auto) Eos # (Auto) Baso # (Auto) Abs Immat Gran (auto) Absolute Neuts (auto) Absolute Nucleated RBC Nucleated RBC % (auto) D-Dimer High Sensitivty 385 VBG pH 7.38 VBG pCO2 42 VBG pO2 34 VBG HCO3 26 VBG O2 Saturation 49.0 VBG Base Excess 0.9 Anion Gap Estim Creat Clear Calc Estimated GFR Random Glucose Lactic Acid Calcium Total Bilirubin Direct Bilirubin AST ALT Alkaline Phosphatase C-Reactive Protein B-Natriuretic Peptide Total Protein Albumin Lipase COVID-19 (NAN) Negative COVID-19 Clin Com See Note 05/14/22 05/14/22 12:45 14:33 MCV MCH MCHC RDW Plt Count MPV Immature Gran % (Auto) Neut % (Auto) Lymph % (Auto) [place] % (Auto) Eos % (Auto) Baso % (Auto) Lymph # (Auto) [place] # (Auto) Eos # (Auto) Baso # (Auto) Abs Immat Gran (auto) Absolute Neuts (auto) Absolute Nucleated RBC Nucleated RBC % (auto) D-Dimer High Sensitivty VBG pH 7.44 H VBG pCO2 32 VBG pO2 61 VBG HCO3 22 VBG O2 Saturation 88.0 VBG Base Excess -0.8 Anion Gap Estim Creat Clear Calc Estimated GFR Random Glucose Lactic Acid 1.1 Calcium Total Bilirubin Direct Bilirubin AST ALT Alkaline Phosphatase C-Reactive Protein B-Natriuretic Peptide Total Protein Albumin Lipase COVID-19 (NAN) COVID-19 Clin Com Imaging Radiologist's Impressions: Impressions Chest X-Ray 05/14/22 11:12 IMPRESSION: Bilateral airspace disease greatest in the left upper lobe probably representing pneumonia. Chest CTA 05/14/22 12:50 IMPRESSION: No convincing evidence of pulmonary emboli. Study is limited at the lung bases where there is significant motion artifact. Severe extensive emphysema with new area of infiltrate/air space disease in the left upper lobe, similar to the chest radiograph. Trace new left pleural effusion. Stable pulmonary nodules. VTE: Negative, but limited Fleischner guidelines were followed. Abdomen Ultrasound 05/14/22 12:53 IMPRESSION: Hepatic steatosis. Assessment and Plan (1) Pneumonia: Status: Acute (2) Hypoxia: Status: Acute (3) Pulmonary emphysema: Status: Acute (4) COPD exacerbation: Status: Acute Plan a 81 years old male with PMH of emphysema, pulmonary nodules, neck roll lip C who presents to the hospital complaining of left-sided chest/axilla pain since last night. hypoxia Secondary to pneumonia, COPD exacerbation Patient does not meet sepsis criteria CTA negative for any acute PE But showed left-sided pneumonia with effusion Start azithromycin and ceftriaxone Start IV steroids Bronchodilator nebulizers Use CPAP at night Consider pulmonology event if no improvement Pending blood cultures Chest pain Seems to be related to pneumonia EKG showing 1 lead T-wave inversion, troponin negative Monitor on telemetry for now and repeat EKG in the morning Hyponatremia Seems to be secondary to acute illness at 131, chronically low to low normal Concern with his history of lung nodules Monitor BMP Transaminitis Ultrasound showing Hepatic steatosis Could be secondary to infection, steatosis Monitor LFT CHAVA/Nacrolepsy Use Modafinil and CPAP DVT PPX Lovenox The patient will likely need 2. Overnight hospital stay for treatment of hypoxia, pneumonia and COPD exacerbation pending final blood cultures to prevent possible decompensation into sepsis. Quality Stroke Does the patient have a stroke diagnosis?: No VTE Prior VTE?: No VTE Risk Level:: Medical - moderate - high VTE Device Contraindication: Treatment Not Indicated VTE Drug Contraindication: N/A - Med Ordered
[2022-05-14] MEDS: Albuterol/Iprat 2.5/0.5MG 3 ML AMPUL.NEB INHALE ×2 (17:03→19:15)
[2022-05-14] MEDS: methylPREDNISolone Sod Succ 40 MG/ML VIAL IVPUSH (17:14)
[2022-05-14] MEDS: Enoxaparin Sodium 40 MG/0.4 ML SYRINGE SUBCUT (17:14)
[2022-05-14] MEDS: cefTRIAXone sodium 1 GM in 0.9 % Sodium Chloride 50 ML IV (17:15)
[2022-05-14] MEDS: Azithromycin 500 MG in 0.9 % Sodium Chloride 250 ML 125 MG IV (17:56)
--- NOTE | 2022-05-14 19:00 | PC.NURSE ---
Assumed care of this pt. at 1900 - report from Ana Lopez RN
[2022-05-15] VITALS (11 sets, daily range): BP systolic 114–134; BP diastolic 57–68; PULSE 58–106; RESP 14–22; TEMP 36.2–37; O2SAT 88–99; BMI 28.0
[2022-05-15] MEDS: methylPREDNISolone Sod Succ 40 MG/ML VIAL IVPUSH ×2 (04:48→16:48)
[2022-05-15 05:58] LABS: Hematocrit 34.6 % (42.0-52.0); Hemoglobin 11.9 g/dl (14.0-18.0); Mean Corpuscular HGB Conc 34.4 g/dl (31.0-36.0); Mean Corpuscular Hemoglobin 32.1 pg (27.0-33.0); Mean Corpuscular Volume 93.3 fL (80.0-98.0); Mean Platelet Volume 9.4 fL (9.4-12.4); Platelet Count 233 X10*3/uL (160-400); Red Blood Count 3.71 X10*6/uL (4.60-5.80); Red Cell Distribution Width 11.4 % (11.0-16.0); White Blood Count 11.9 X10*3/uL (4.8-10.8)
[2022-05-15 06:20] LABS: Alanine Aminotransferase 30 U/L (0-40); Albumin Level 3.3 g/dL (3.5-5.0); Alkaline Phosphatase 79 U/L (39-117); Anion Gap 14 (12-20); Aspartate Amino Transferase 20 U/L (5-37); Bilirubin Direct 0.4 mg/dL (0.0-0.5); Bilirubin Total 0.9 mg/dL (0.0-1.0); Blood Urea Nitrogen 13 mg/dL (9-16); Calcium 8.1 mg/dL (8.4-10.2); Carbon Dioxide 21 mmol/L (22-29); Chloride 104 mmol/L (96-108); Creatinine Clr Calc Pharmacy 79.3; Estimated Glomerular Filt Rate > 60; Glucose Random 149 mg/dL (60-115); Potassium 4.6 mmol/L (3.3-5.1); Sodium 134 mmol/L (135-145); Total Protein 5.7 g/dL (6.5-8.0)
[2022-05-15] MEDS: Albuterol/Iprat 2.5/0.5MG 3 ML AMPUL.NEB INHALE ×4 (07:45→20:23)
--- NOTE | 2022-05-15 08:00 | ECG_ITS ---
Test Reason : f/u p wave Blood Pressure : / mmHG Vent. Rate : 088 BPM Atrial Rate : 088 BPM P-R Int : 164 ms QRS Dur : 080 ms QT Int : 362 ms P-R-T Axes : 066 022 062 degrees QTc Int : 438 ms Sinus rhythm with occasional Premature ventricular complexes Nonspecific T wave abnormality Abnormal ECG When compared with ECG of 14-MAY-2022 10:38, Premature ventricular complexes are now Present Referred By: Corona Sanchez Electronically Signed By:COLIN JONES MD
--- NOTE | 2022-05-15 08:19 | P.CDIC_ITS ---
CDI Concurrent Query Documentation Clarification: PHYSICIAN'S DOCUMENTATION REQUEST Date of Query: 05/15/22820 Patient Name: Braulio Stone Admit Date: 05/14/22 Dear Doctor, A review of the medical record indicates additional documentation may be needed. Please review below and update the documentation accordingly. Risk Factors/Clinical Indicators/Treatments 05/14/22: sodium 131 Received IVF NS 2,585.49 mls at 2585.49 mls/ hour Q1H STA 05/15/22: sodium 134 Based on the above, could you clarify in the Progress Notes the appropriate diagnosis, if significant, that supports the above abnormalities and additional evaluation, monitoring, and/or treatment rendered: * Based on the above, could you provide an associated diagnosis that would support the low sodium requiring additional treatment, evaluation and monitoring * Other (please specify) * Unable to determine Use of terms such as suspected, likely, concern for, or probable (associated with a specific diagnosis that is being evaluated, monitored, or treated as if it exists) are acceptable and can be coded in the inpatient setting, when documented at the time of discharge. Thank you, Nany Rivera RN Extension: [phone] Please use your independent medical judgment in providing your response. THIS QUERY IS PART OF THE PERMANENT MEDICAL RECORD Provider Response: Other Other Diagnosis: discussed in note
[2022-05-15] MEDS: 0.9 % Sodium Chloride Flush 3 ML SYRINGE IVFLUSH ×3 (08:22→21:34)
[2022-05-15] MEDS: modafiniL 100 MG TABLET 200 MG PO ×2 (08:25→13:02)
[2022-05-15] MEDS: Multivitamin TABLET 1 TAB PO (08:27)
--- NOTE | 2022-05-15 09:17 | MHC.CM.PN ---
PT REPORTS HE LIVES AT HOME WITH HIS AND IS INDEPENDENT WITH CARE PT REPORTS HE USES A CPAP FOR DME AND HAS NO HOME SERVICES PT IS A AND IS SERVICE CONNECTED PT REPORTS HIS IS HIS HCP-COPY REQUESTED PT REPORTS BEING COVID VACCINATED, NOT BOOSTED PCP: LUIS RAMOS IMM DELIVERED CURRENT DC PLAN IS HOME WITH NO SERVICES TO TRANSPORT
--- NOTE | 2022-05-15 13:53 | P.PNIM_ITS ---
Subjective Subjective Date of Service: 05/15/22 Interval History: seen and evaluated this morning Feels more comfortable, less pain and difficulty breathing No reported overnight events Review of Systems No fever but reporting chills and weakness significantly improved left-sided chest, axilla pain with nopalpitation improved shortness of breath and coughing No abdominal pain, nausea or vomiting No urinary symptoms No any rash or wounds Physical Exam Vital Signs: Vital Signs: Last Vital Signs Temp 97.2 F 05/15/22 12:00 Pulse 70 05/15/22 12:00 Resp 18 05/15/22 12:00 BP 134/64 05/15/22 12:00 Pulse Ox 94 05/15/22 12:00 O2 Del Method 05/15/22 12:00 O2 Flow Rate 2 05/14/22 21:28 BMI result Body Mass Index 28.0 Const: Other: Constitutional : Alert, interactive, not in distress Neck : Normal inspection, Supple Cardiovascular : RRR, no JVP, no lower extremity edema Respiratory : fair bilateral air entry, basal fine left-sided crackles, decreased bilateral expiratory wheezes, Gastrointestinal: soft, lax, Normal bowel sounds, Non tender Skin : Warm, Dry Neurological : Alert & oriented x3, No focal deficit , CN 2-12 within normal Objective Data Active Medications Acetaminophen (Acetaminophen 325 Mg Tablet) 650 mg PO Q6H PRN PRN Reason: Pain, Mild (Pain Scale 1-3) Al Hydroxide/Mg Hydroxide (Magnesium Hydrox/Alum Hydrox 30 Ml Oral.Susp) 30 ml PO Q4H PRN PRN Reason: Heartburn/Nausea Albuterol/Ipratropium (Albuterol/Iprat 2.5/0.5mg 3 Ml Ampul.Neb) 3 ml INHALE RQ4H WHILE AWAKE [facility] Last Admin: 05/15/22 11:05 Dose: 3 ml Documented By: MADAI Benzonatate (Benzonatate 100 Mg Capsule) 100 mg PO TID PRN PRN Reason: Cough Doxazosin Mesylate (Doxazosin Mesylate 2 Mg Tablet) 4 mg PO BEDTIME [facility] Last Admin: 05/15/22 01:16 Dose: Not Given Documented By: LIZ Non-Admin Reason: ED Enoxaparin Sodium (Enoxaparin Sodium 40 Mg/0.4 Ml Syringe) 40 mg SUBCUT Q24H [facility] Last Admin: 05/14/22 17:14 Dose: 40 mg Documented By: DEIRDRE Azithromycin 500 mg/ Sodium (Chloride) 250 mls @ 125 mls/hr IV Q24H [facility] Last Infusion: 05/15/22 01:33 Dose: 0 mls/hr Documented By: LIZ Ceftriaxone Sodium 1 gm/ (Sodium Chloride) 50 mls @ 100 mls/hr IV Q24H [facility] Last Infusion: 05/14/22 17:56 Dose: 0 mls/hr Documented By: DEIRDRE Magnesium Hydroxide (Milk Of Magnesia 30 Ml Oral.Susp) 30 ml PO DAILY PRN PRN Reason: Constipation Methylprednisolone Sodium Succinate (Methylprednisolone Sod Succ 40 Mg/Ml Vial) 40 mg IVPUSH Q12H [facility] Last Admin: 05/15/22 04:48 Dose: 40 mg Documented By: LIZ Modafinil (Modafinil 100 Mg Tablet) 200 mg PO BID@0800,1200 [facility] Last Admin: 05/15/22 13:02 Dose: 200 mg Documented By: MARGO Multivitamins/Vitamin C (Multivitamin Tablet) 1 tab PO DAILY [facility] Last Admin: 05/15/22 08:27 Dose: 1 tab Documented By: MARGO Ondansetron HCl (Ondansetron Hcl 4 Mg/2 Ml Vial) 4 mg IVPUSH Q8H PRN PRN Reason: Nausea and Vomiting Pharmacy Consult (Consult Rx Perform Med Rec) 1 each MISCELLANE ONCE PRN PRN Reason: Consult order Sodium Chloride (0.9 % Sodium Chloride Flush 3 Ml Syringe) 3 ml IVFLUSH QSHIFT [facility] Last Admin: 05/15/22 08:22 Dose: 3 ml Documented By: MARGO Labs CBC & Chem 7: 05/15/22 05:51 05/15/22 05:51 Labs: Laboratory Results - last 24 hr 05/14/22 05/14/22 05/15/22 10:55 14:33 05:51 MCV 93.3 MCH 32.1 MCHC 34.4 RDW 11.4 Plt Count 233 MPV 9.4 Absolute Nucleated RBC 0.000 Nucleated RBC % (auto) 0.0 VBG pH 7.44 H VBG pCO2 32 VBG pO2 61 VBG HCO3 22 VBG O2 Saturation 88.0 VBG Base Excess -0.8 Anion Gap Estim Creat Clear Calc Estimated GFR Random Glucose Calcium Total Bilirubin Direct Bilirubin AST ALT Alkaline Phosphatase C-Reactive Protein 17.91 H Total Protein Albumin 05/15/22 05:51 MCV MCH MCHC RDW Plt Count MPV Absolute Nucleated RBC Nucleated RBC % (auto) VBG pH VBG pCO2 VBG pO2 VBG HCO3 VBG O2 Saturation VBG Base Excess Anion Gap 14 Estim Creat Clear Calc 79.3 Estimated GFR > 60 Random Glucose 149 H Calcium 8.1 L Total Bilirubin 0.9 Direct Bilirubin 0.4 AST 20 D ALT 30 Alkaline Phosphatase 79 C-Reactive Protein Total Protein 5.7 L Albumin 3.3 L Assessment and Plan (1) COPD exacerbation: Status: Acute (2) Pneumonia: Status: Acute Plan a 81 years old male with PMH of emphysema, pulmonary nodules, neck roll lip C who presents to the hospital complaining of left-sided chest/axilla pain since last night. hypoxia Secondary to pneumonia, COPD exacerbation CTA negative for any acute PE But showed left-sided pneumonia with effusion continue azithromycin and ceftriaxone continue IV steroids Bronchodilator nebulizers Use CPAP at night Pending blood cultures Chest pain Seems to be related to pneumonia troponin negative Monitor on telemetry Repeated EKG showing nonspecific T-wave changes Hyponatremia Seems to be secondary to acute illness , chronically low to low normal Concern with his history of lung nodules improved to 134 Monitor BMP Transaminitis , resolved Ultrasound showing Hepatic steatosis Could be secondary to infection, steatosis Trended down CHAVA/Nacrolepsy Use Modafinil and CPAP DVT PPX Lovenox The patient will likely need Overnight hospital stay for treatment of hypoxia, pneumonia and COPD exacerbation pending final blood cultures to prevent possible decompensation into sepsis. Quality Stroke Does the patient have a stroke diagnosis?: No VTE Prior VTE?: No VTE Risk Level:: Medical - moderate - high VTE Device Contraindication: Treatment Not Indicated VTE Drug Contraindication: N/A - Med Ordered
[2022-05-15] MEDS: Enoxaparin Sodium 40 MG/0.4 ML SYRINGE SUBCUT (16:47)
[2022-05-15] MEDS: cefTRIAXone sodium 1 GM in 0.9 % Sodium Chloride 50 ML IV (16:48)
[2022-05-15] MEDS: Azithromycin 500 MG in 0.9 % Sodium Chloride 250 ML 125 MG IV (17:37)
[2022-05-15] MEDS: Doxazosin Mesylate 2 MG TABLET 4 MG PO (21:33)
[2022-05-16 03:13] VITALS: BP 116/60; PULSE 65; RESP 16; TEMP 36.4; O2SAT 92
[2022-05-16] MEDS: methylPREDNISolone Sod Succ 40 MG/ML VIAL IVPUSH (03:25)
[2022-05-16 07:29] VITALS: BP 143/75; PULSE 73; RESP 19; TEMP 36; O2SAT 97
[2022-05-16 07:46] LABS: Anion Gap 14 (12-20); Blood Urea Nitrogen 19 mg/dL (9-16); Calcium 8.4 mg/dL (8.4-10.2); Carbon Dioxide 21 mmol/L (22-29); Chloride 102 mmol/L (96-108); Creatinine Clr Calc Pharmacy 79.3; Estimated Glomerular Filt Rate > 60; Glucose Random 131 mg/dL (60-115); Potassium 4.8 mmol/L (3.3-5.1); Sodium 132 mmol/L (135-145)
[2022-05-16] MEDS: Albuterol/Iprat 2.5/0.5MG 3 ML AMPUL.NEB INHALE ×2 (07:56→11:07)
[2022-05-16 07:57] VITALS: PULSE 84; RESP 20; O2SAT 93
[2022-05-16] MEDS: Multivitamin TABLET 1 TAB PO (08:26)
[2022-05-16] MEDS: modafiniL 100 MG TABLET 200 MG PO (08:26)
[2022-05-16] MEDS: 0.9 % Sodium Chloride Flush 3 ML SYRINGE IVFLUSH (08:27)
--- NOTE | 2022-05-16 10:54 | PM.DS ---
DS: Providers Provider Date of Service: 05/16/22 Date of admission: 05/14/22 15:52 Primary care physician: Robert Lundberg MD DS: Diagnosis Discharge Diagnosis (1) COPD exacerbation: Status: Acute (2) Pneumonia: Status: Acute DS: Summary Hospital Course Hospital Course: admission note HPI ?a 81 years old male with PMH of emphysema, pulmonary nodules, neck roll lip C who presents to the hospital complaining of left-sided chest/axilla pain since last night.? The patient reports that he started to feel pain in the left side of his chest wall axillary area yesterday evening that was associated with movement, deep breath and had ? Got worsen overnight.? He reports feeling chills and having cough which is worse than his baseline cough. denies fevers,? Sweating, palpitation, nausea, vomiting, change in bowel habit or urinary symptoms. Reports feeling short of breath after short distance usually but that had got worsened since last night.? In the emergency CXR and CTA were both concerning for left-sided pneumonia with pleural effusion.? Troponin negative as EKG showed? new T-wave inversion in 1 lead.? CTA negative for PE. Hospital course The patient was admitted for difficulty breathing and left-sided chest pain. Found to have an evidence of left-sided pneumonia with small pleural effusion. CTA was negative for any acute PE. Started on IV antibiotics of azithromycin and ceftriaxone, IV steroids and bronchodilator nebulizers for an evidence of wheezing and decrease airflow on examination. Responded well to the treatment as he was weaned off the oxygen and became able to ambulate on room air with no significant dyspnea. Blood cultures remain negative and chest pain resolved. Noted to have hyponatremia which seems to be chronic and mild. He will need further follow-up with pulmonology as outpatient for lung nodules. Noted to have transaminitis at presentation believed to be secondary to infection that resolved the next morning as an ultrasound showed an evidence of hepatic steatosis. continue azithromycin and Ceftin as prescribed continue prednisone as prescribed Cough medication as needed to follow-up with pulmonology as outpatient for the lung nodules Time Spent with Patient Time attestation: Total time spent providing and/or coordinating discharge services: Discharge coordination time: Greater than 30 minutes Quality: Safe Use of Opioids Does Pt have an Active Cancer Diagnosis on the Problem List?: No Quality: Stroke Does the patient have a stroke diagnosis?: No Physical Exam Vital Signs: Vital Signs: Last Vital Signs Temp 96.8 F 05/16/22 07:29 Pulse 84 05/16/22 07:57 Resp 20 05/16/22 07:57 BP 143/75 H 05/16/22 07:29 Pulse Ox 97 05/16/22 07:29 O2 Del Method 05/16/22 07:29 O2 Flow Rate 2 05/14/22 21:28 BMI result Body Mass Index 28.0 Const: Other: Constitutional : Alert, interactive, not in distress Neck : Normal inspection, Supple Cardiovascular : RRR, no JVP, no lower extremity edema Respiratory : fair bilateral air entry, Decreased basal fine left-sided crackles, no expiratory wheezes, Gastrointestinal: soft, lax, Normal bowel sounds, Non tender Skin : Warm, Dry Neurological : Alert & oriented x3, No focal deficit , CN 2-12 within normal DS: Data Data Completed and Pending Labs on day of discharge: Laboratory Results - last 24 hr 05/16/22 06:42 Sodium 132 L Potassium 4.8 Chloride 102 Carbon Dioxide 21 L Anion Gap 14 BUN 19 H Creatinine 0.82 Estim Creat Clear Calc 79.3 Estimated GFR > 60 Random Glucose 131 H Calcium 8.4 Preliminary micro results at discharge 05/14/22 13:29 Blood Culture - Preliminary Blood - Venous No growth after 24 hours. 05/14/22 12:45 Blood Culture - Preliminary Blood - Venous No growth after [address] scan - chest: Radiologist's impression: ITS Impressions Chest X-Ray 05/14/22 11:12 IMPRESSION: Bilateral airspace disease greatest in the left upper lobe probably representing pneumonia. Chest CTA 05/14/22 12:50 IMPRESSION: No convincing evidence of pulmonary emboli. Study is limited at the lung bases where there is significant motion artifact. Severe extensive emphysema with new area of infiltrate/air space disease in the left upper lobe, similar to the chest radiograph. Trace new left pleural effusion. Stable pulmonary nodules. VTE: Negative, but limited Fleischner guidelines were followed. Abdomen Ultrasound 05/14/22 12:53 IMPRESSION: Hepatic steatosis. Discharge Plan Discharge Patient Disposition: Home, Self-Care Discharge Diagnosis: Hypoxia COPD exacerbation Pneumonia Referrals: Robert Lundberg MD [Primary Care Provider] - 1 Week Discharge Medications: New azithromycin 500 mg tablet 500 mg PO DAILY 5 Days Qty: 5 0RF cefuroxime axetil 500 mg tablet 500 mg PO BID Qty: 10 0RF benzonatate 100 mg Capsule 100 mg PO TID PRN (Reason: Cough) Qty: 20 0RF prednisone 20 mg tablet 40 mg PO DAILY Qty: 6 0RF Continued terazosin 5 mg capsule 1 cap PO BEDTIME multivitamin Tablet 1 tab PO DAILY modafinil 200 mg Tablet 200 mg PO BID ibuprofen 600 mg Tablet 600 mg PO BEDTIME PRN (Reason: Pain) Discharge Orders: Discharge Order (Routine); Ordered 05/16/22 Ordered By: Corona Sanchez Diet: Advance to usual diet Activity on Discharge: As tolerated Stand Alone Forms: Patient Portal Discharge page Care Plan Goals: Read below Health Concerns: Read below Plan of Treatment: Read below Assessment: you were admitted to the hospital for evaluation of chest pain and difficulty breathing. Found to have and evidence of pneumonia on your left lung and COPD exacerbation. Treated with IV antibiotics, bronchodilator nebulizers and steroids with good response over the course of hospital stay as you were weaned off the oxygen and your chest pain resolved. continue azithromycin and Ceftin as prescribed continue prednisone as prescribed Cough medication as needed to follow-up with pulmonology as outpatient for the lung nodules
--- NOTE | 2022-05-16 10:57 | MHC.CM.PN ---
Patient has been medically cleared for discharge today to Home (self-care). No 2nd IMM required.
[2022-05-16 11:09] VITALS: PULSE 91; RESP 16; O2SAT 93
== END 2022-05-16 11:49 | disposition home or self-care (01) | DRG 190 ==
LOC: HO.ED 15:14 → HO.EDOVER 16:21 → HO.IMC 20:52
PROVIDERS: Admitting Provider Student in an Organized Health Care Education/Training Program; Emergency Provider Student in an Organized Health Care Education/Training Program; PCP Family Medicine; Visit Provider Student in an Organized Health Care Education/Training Program
DX: J43.9 Emphysema, unspecified (principal); J18.9 Pneumonia, unspecified organism; E87.1 Hypo-osmolality and hyponatremia; J91.8 Pleural effusion in other conditions classified elsewhere; G47.33 Obstructive sleep apnea (adult) (pediatric); G47.429 Narcolepsy in conditions classified elsewhere without cataplexy; Z20.822 Contact with and (suspected) exposure to COVID-19; R09.02 Hypoxemia; K76.0 Fatty (change of) liver, not elsewhere classified; Z87.891 Personal history of nicotine dependence
CPT/HCPCS: 36415; 71045; 71275; 76705; 80048; 80076; 82803; 83605; 83690; 83880; 84484; 85025; 85027; 85379; 86140; 87040; 87635; 93005; 94640; 96361; 96374; 96375; 99285; J0456; J0696; J1650; J1885; J2543; J2920; Q9967

== ENCOUNTER 2023-08-13 01:54 | Emergency (ER) | payer MEDICARE, SELFPAY ==
--- NOTE | ~2023-08-13 | XR_ITS ---
EXAMINATION: XR CHEST CLINICAL INFORMATION: Pain. COMPARISON: 05/14/2022. TECHNIQUE: Frontal view of the chest was obtained. FINDINGS: The cardiomediastinal silhouette is within normal limits and stable. The lungs are hyperinflated. There is apparent atelectatic change or scarring at the left lung base. There is also right mid to upper lung field atelectatic change or scarring. Left perihilar scarring also noted. There is no definitive active infiltrate or significant pleural effusion. The bony structures and soft tissues are unremarkable. XR/XR chest 1V IMPRESSION: Hyperinflation suggests COPD. There appear to be areas of scarring and/or subsegmental atelectasis right mid to upper lung field, left perihilar region and left lung base. No definitive active infiltrate.
--- NOTE | ~2023-08-13 | CT_ITS ---
EXAMINATION: CT CERVICAL SPINE WITHOUT CONTRAST CLINICAL INFORMATION: Pain. COMPARISON: None available. TECHNIQUE: Contiguous axial noncontrast images of the cervical spine obtained. Sagittal and coronal reformatted images also obtained. This CT examination was performed using dose optimization techniques as appropriate, variously including the following: *Automated exposure control *Adjustment of mA and/or kV according to patient size (this includes techniques or standardized protocols for targeted exams where dose is matched to indication/reason for exam; i.e. extremities or head) *Use of iterative reconstruction technique DLP: 478 mGy-cm FINDINGS: There is mild diffuse thoracolumbar disc degenerative change with mild loss of disc space, endplate change and posterior osteophytes associated with diffuse facet osteoarthritic hypertrophic change with mild C6-C7 spinal canal and multilevel mild neuroforaminal narrowing. There is no fracture. The soft tissues are unremarkable. The visualized upper lung yeh are clear. CT/CT cervical spine wo IV con IMPRESSION: Cervical disc degenerative change. No fracture. Fleischner guidelines were followed.
--- NOTE | 2023-08-13 01:56 | ECG_ITS ---
Test Reason : CHEST PAIN Blood Pressure : / mmHG Vent. Rate : 090 BPM Atrial Rate : 090 BPM P-R Int : 162 ms QRS Dur : 072 ms QT Int : 364 ms P-R-T Axes : 048 -21 049 degrees QTc Int : 445 ms Normal sinus rhythm Low voltage QRS Nonspecific T wave abnormality Abnormal ECG When compared with ECG of 15-MAY-2022 08:43, Premature ventricular complexes are no longer Present Referred By: Generic ED Physician Electronically Signed By:HUY DIAZ MD
--- NOTE | 2023-08-13 01:59 | ED_ITS ---
HPI - Chest Pain General Chief Complaint: Chest Pain Stated Complaint: Chest pain Time Seen by Provider: 08/13/23 01:59 Source: patient Mode of arrival: ambulatory Limitations: no limitations History of Present Illness HPI narrative: 83 yo male with PMH of emphysema, pulmonary nodules, pneumonia presents with 4 days of L sided atraumatic neck pain worse with movements that radiates down L arm and L shoulder/pectoralis area. He has no hx of this, no rash, no fevers, no sore throat. He woke up like this and it has gotten worse. He also worked x 12 hours today and didn't take it easy. He can reproduce the pain with touching and moving. MD complaint: other (L sided neck pain) Onset (ago): day(s) (4) Timing of current episode: constant Prior episodes: No Onset: during rest Pain location: other (L neck) Pain radiation: left arm Severity: severe Quality: sharp Relieving factors: nothing Exacerbating factors: palpation and movement Treatment prior to arrival: none Related Data Home Medications Medication Instructions Recorded Confirmed ibuprofen 600 mg tablet 600 mg PO BEDTIME PRN Pain 05/14/22 05/14/22 modafinil 200 mg tablet 200 mg PO BID 05/14/22 05/14/22 multivitamin 1 tab PO DAILY 05/14/22 05/14/22 terazosin 5 mg capsule 1 cap PO BEDTIME 05/14/22 05/14/22 Previous Rx's Medication Instructions Recorded azithromycin 500 mg tablet 500 mg PO DAILY 5 days #5 tabs 05/16/22 benzonatate 100 mg capsule 100 mg PO TID PRN Cough #20 caps 05/16/22 cefuroxime axetil 500 mg tablet 500 mg PO BID #10 tabs 05/16/22 prednisone 20 mg tablet 40 mg (2 x 20 mg) PO DAILY #6 tabs 05/16/22 lidocaine 5 % topical patch 1 patch topical DAILY #30 ea 08/13/23 morphine 15 mg immediate release 15 mg PO TID PRN pain #10 tabs 08/13/23 tablet Allergies Allergy/AdvReac Type Severity Reaction Status Date / Time No Known Allergies Allergy Verified 05/12/21 09:14 Review of Systems 2 Review of Systems: Constitutional : No Fever, No Chills, No Fatigue ENT/Mouth : No sore throat, No Rhinorrhea Eyes: No Eye Pain, No Swelling, No Redness Cardiovascular : pos Chest Pain, No SOB, No Dyspnea on Exertion Respiratory : No Cough, No Sputum Gastrointestinal : No Nausea, No Vomiting, No Diarrhea, No abdominal Pain Genitourinary : No Dysuria, No Urinary Frequency, No Hematuria, Musculoskeletal : No joint pain, No Myalgias, No Joint Swelling, pos neck pain Skin : No Skin Lesions, No rash Neuro : No Weakness, No Numbness, No Dizziness, no Headache Psych : No Anxiety/Panic, No Depression Heme/Lymph: No Bruising, No Bleeding,No Lymphadenopathy Endocrine : No Polyuria, No Polydipsia All other systems reviewed and are negative [facility] Past Medical History Attestation statement: The following information was validated with the patient. Source: old records reviewed Medical History Former smoker, stopped smoking in distant past Pulmonary emphysema Multiple pulmonary nodules Social History Social History Household Members: Spouse and Family Housing: House Do you presently have visiting nurse or other home services: No Patient Tobacco Use Status: Former Tobacco user Quit Date: 1989 Smoked in Last 30 Days: No Use of substances other than those prescribed or required for medical reasons: No Advance Directives: Yes Advance Directives on File: Yes Advance Directives Date on File: 05/15/22 service: Yes Current occupational status: retired Physical Exam 2 Vital Signs: Vital Signs: Last Vital Signs Temp 97.7 F 08/13/23 04:28 Pulse 66 08/13/23 04:28 Resp 14 08/13/23 04:28 BP 142/83 H 08/13/23 04:28 Pulse Ox 93 08/13/23 04:28 O2 Del Method Room Air 08/13/23 04:28 BMI result Body Mass Index 29.5 Appearance: Alert. Oriented X3. No acute distress. Eyes: Pupils equal, round and reactive to light. ENT: Pharynx normal. Neck: no mass noted sig ttp along lateral cervical spine C4-C6 that reproduces pain, neg spurling Chest: ttp along L pectoralis, pain in neck and chest with raising L arm - distal L arm SILT and strength 5/5 2+ radial pulse CVS: Normal heart rate and rhythm. Pulses normal. Respiratory: No respiratory distress. Breath sounds normal. Abdomen: Soft and nontender. Skin: Skin warm and dry. Normal skin color. Normal skin turgor. Extremities: No lower extremity edema. No calf ttp Neuro: Oriented X 3. No motor deficit. No sensory deficit. Medications Administered Discontinued Medications Generic Name Dose Route Start Last Admin Trade Name Jeffery PRN Reason Stop Dose Admin Morphine Sulfate 4 mg 08/13/23 02:34 08/13/23 02:59 Morphine Sulfate 4 Mg/Ml Cartridge IVPUSH 08/13/23 02:35 4 mg ONCE ONE Administration Protocol Ondansetron HCl 4 mg 08/13/23 02:34 08/13/23 02:59 Ondansetron Hcl 4 Mg/2 Ml Vial IVPUSH 08/13/23 02:35 4 mg ONCE ONE Administration Medical Decision Making Medical Decision Making [facility] Narrative: 83 yo male with PMH of emphysema, pulmonary nodules, pneumonia presents with 4 days of L sided atraumatic neck pain at this time the pain seems MSK in nature worse with movements and I can reproduce it - make worse today due to working x 12 hours. He has no associated dyspnea, nausea, headaches. He is NV intact in UE. I am going to obtain EKG, troponin x 1 given pain > [address] scan of cervical spine for signs of cervical disease. He is NV intact so no compressive concerns or need for emergeny NSGY. IV morphine for pain ordered. No infectious symptoms reported. Differential Diagnosis Differential Diagnoses: The differential diagnosis associated with the presentation includes atypical chest pain, cervical radiculopathy, spinal stenosis, arthritis Admission/Observation Consideration of admission/observation: Escalation of care including admission/observation considered feels better stable for DC negative EKG and trop Lab Data [facility] Lab Attestation statement: I reviewed the patient's lab results. 08/13/23 02:04 08/13/23 02:04 Labs: Lab Results 08/13/23 Range/Units 02:04 WBC 8.8 (4.8-10.8) X10*3/uL RBC 4.52 L D (4.60-5.80) X10*6/uL Hgb 14.5 D (14.0-18.0) g/dl Hct 41.0 L (42.0-52.0) % MCV 90.7 (80.0-98.0) fL MCH 32.1 (27.0-33.0) pg MCHC 35.4 (31.0-36.0) g/dl RDW 11.9 (11.0-16.0) % Plt Count 280 (160-400) X10*3/uL MPV 9.0 L (9.4-12.4) fL Immature Gran % (Auto) 0.6 H (0.0-0.4) % Neut % (Auto) 60.3 (45-73) % Lymph % (Auto) 24.4 (20-40) % [place] % (Auto) 7.9 (2-11) % Eos % (Auto) 6.1 H (0-4) % Baso % (Auto) 0.7 (0-2) % Lymph # (Auto) 2.2 (1.2-4.9) X10*3/uL [place] # (Auto) 0.7 (0.1-1.2) X10*3/uL Eos # (Auto) 0.5 H (0.0-0.4) X10*3/uL Baso # (Auto) 0.1 (0.0-0.2) X10*3/uL Abs Immat Gran (auto) 0.05 H (0.00-0.03) X10*3/uL Absolute Neuts (auto) 5.3 (2.0-8.3) x10*3/uL Absolute Nucleated RBC 0.000 (0.0-0.012) X10*3/uL Nucleated RBC % (auto) 0.0 (0.0-0.2) /100WBC Sodium 137 (135-145) mmol/L Potassium 4.1 (3.3-5.1) mmol/L Chloride 106 (96-108) mmol/L Carbon Dioxide 20 L (22-29) mmol/L Anion Gap 15 (12-20) BUN 21 H (9-16) mg/dL Creatinine 1.10 (0.5-1.4) mg/dL Estim Creat Clear Calc 58.6 Estimated GFR > 60 Random Glucose 95 (60-115) mg/dL Calcium 9.8 D (8.4-10.2) mg/dL Total Bilirubin 0.5 (0.0-1.0) mg/dL AST 27 (5-37) U/L ALT 22 (0-40) U/L Alkaline Phosphatase 65 (39-117) U/L Troponin I High Sens 4.8 (<3.5-35.0) ng/L Total Protein 7.1 (6.5-8.0) g/dL Albumin 4.0 (3.5-5.0) g/dL Independent Interpretation I performed an independent interpretation of an: EKG, Plain X-Ray and CT Scan (cervical disease) Interpretation: Rate: 90 Rhythm: NSR [place]: left Normal P waves. Normal REGGIE. Normal QRS complex. ST T wave : no VANESSA, slight t wave inversion V1-V2-V3 qTC: normal prior studies: t wave inversion in V1-V2 noted in 2021 The study has been interpreted contemporaneously by me. . Radiology Impression Discussion of test interpretation with radiology: I have reviewed the radiologist's reading. External Record Review External record reviewed: Inpatient record Prescription Management I considered prescription management with: Pain Medication Discharge Plan Discharge Clinical Impression: Cervical radiculopathy, Atypical chest pain Patient Disposition: Home, Self-Care Instructions: Chest Pain (ED), Neck Pain (ED) Additional Instructions: take it easy today. return for numbness, weakness, shortness of breath, severe headaches, dizziness, pain with exertion or any other concerns. follow up with your doctor FINDINGS: There is mild diffuse thoracolumbar disc degenerative change with mild loss of disc space, endplate change and posterior osteophytes associated with diffuse facet osteoarthritic hypertrophic change with mild C6-C7 spinal canal and multilevel mild neuroforaminal narrowing. There is no fracture. The soft tissues are unremarkable. The visualized upper lung yeh are clear. CT/CT cervical spine wo IV con IMPRESSION: Cervical disc degenerative change. No fracture. Fleischner guidelines were followed. Prescriptions: New lidocaine 5 % adhesive patch,medicated 1 patch topical DAILY Qty: 30 0RF Rx Instructions: leave on most painful area for up to 12 hrs morphine 15 mg tablet 15 mg PO TID PRN (Reason: pain) Qty: 10 0RF Rx Instructions: partial fill okay; Partial Fill upon patient request. No Action terazosin 5 mg capsule 1 cap PO BEDTIME multivitamin Tablet 1 tab PO DAILY modafinil 200 mg Tablet 200 mg PO BID ibuprofen 600 mg Tablet 600 mg PO BEDTIME PRN (Reason: Pain) azithromycin 500 mg tablet 500 mg PO DAILY 5 Days Qty: 5 0RF cefuroxime axetil 500 mg tablet 500 mg PO BID Qty: 10 0RF benzonatate 100 mg Capsule 100 mg PO TID PRN (Reason: Cough) Qty: 20 0RF prednisone 20 mg tablet 40 mg PO DAILY Qty: 6 0RF
[2023-08-13 02:08] LABS: MANUAL DIFF FLAG NO
[2023-08-13 02:09] VITALS: BP 165/100; PULSE 82; RESP 17; TEMP 36.7; O2SAT 93; BMI 29.5
[2023-08-13 02:12] LABS: Basophils Absolute Auto 0.1 X10*3/uL (0.0-0.2); Basophils Percent Auto 0.7 % (0-2); Eosinophils Absolute Auto 0.5 X10*3/uL (0.0-0.4); Eosinophils Percent Auto 6.1 % (0-4); Hemoglobin 14.5 g/dl (14.0-18.0); Imm Gran Abs Auto 0.05 X10*3/uL (0.00-0.03); Imm Gran Pct Auto 0.6 % (0.0-0.4); Lymphocytes Absolute Auto 2.2 X10*3/uL (1.2-4.9); Lymphocytes Percent Auto 24.4 % (20-40); Mean Corpuscular HGB Conc 35.4 g/dl (31.0-36.0); Mean Corpuscular Hemoglobin 32.1 pg (27.0-33.0); Mean Corpuscular Volume 90.7 fL (80.0-98.0); Monocytes Absolute Auto 0.7 X10*3/uL (0.1-1.2); Monocytes Percent Auto 7.9 % (2-11); Neutrophils Absolute Auto 5.3 x10*3/uL (2.0-8.3); Neutrophils Percent Auto 60.3 % (45-73); Platelet Count 280 X10*3/uL (160-400); Red Blood Count 4.52 X10*6/uL (4.60-5.80); Red Cell Distribution Width 11.9 % (11.0-16.0); White Blood Count 8.8 X10*3/uL (4.8-10.8)
[2023-08-13 02:18] VITALS: BP 159/94; PULSE 75; PULSE 79; RESP 20; TEMP 37; O2SAT 95
[2023-08-13 02:25] LABS: Alanine Aminotransferase 22 U/L (0-40); Alkaline Phosphatase 65 U/L (39-117); Anion Gap 15 (12-20); Aspartate Amino Transferase 27 U/L (5-37); Bilirubin Total 0.5 mg/dL (0.0-1.0); Blood Urea Nitrogen 21 mg/dL (9-16); Calcium 9.8 mg/dL (8.4-10.2); Carbon Dioxide 20 mmol/L (22-29); Chloride 106 mmol/L (96-108); Creatinine Clr Calc Pharmacy 58.6; Estimated Glomerular Filt Rate > 60; Glucose Random 95 mg/dL (60-115); Potassium 4.1 mmol/L (3.3-5.1); Sodium 137 mmol/L (135-145); Total Protein 7.1 g/dL (6.5-8.0)
[2023-08-13 02:31] LABS: Troponin-I High Sensitivity 4.8 ng/L (<3.5-35.0)
[2023-08-13] MEDS: ondansetron HCL 4 MG/2 ML VIAL IVPUSH (02:59)
[2023-08-13] MEDS: Morphine Sulfate 4 MG/ML CARTRIDGE IVPUSH (02:59)
[2023-08-13 04:28] VITALS: BP 142/83; PULSE 66; RESP 14; TEMP 36.5; O2SAT 93
[2023-08-13 04:56] VITALS: BP 134/76; PULSE 58; RESP 16; O2SAT 93
== END 2023-08-13 05:03 | disposition home or self-care (01) ==
PROVIDERS: Emergency Provider Emergency Medicine
DX: R07.89 Other chest pain (principal); M54.12 Radiculopathy, cervical region; Z87.891 Personal history of nicotine dependence
CPT/HCPCS: 36415; 71045; 72125; 80053; 84484; 85025; 93005; 96361; 96374; 96375; 99284; 99285; J2270; J2405

== ENCOUNTER 2023-12-03 10:52 | Inpatient (IN) | payer MEDICARE, SELFPAY ==
[2023-12-03] VITALS (7 sets, daily range): BP systolic 128–148; BP diastolic 78–88; PULSE 77–100; RESP 16–22; TEMP 36.3–37.1; O2SAT 88–97; BMI 28.1
--- NOTE | ~2023-12-03 | CT_ITS ---
EXAMINATION: CT ANGIOGRAM OF THE CHEST WITH AND WITHOUT CONTRAST (CT PULMONARY ANGIOGRAM FOR PE) CLINICAL INFORMATION: Reason for Exam hypoxia, pleuritic CP COMPARISON: Chest radiograph 12/03/2023. CT angiography chest 05/14/2022. CT chest 03/01/2021. CT chest 10/19/2019. TECHNIQUE: Prior to contrast administration, noncontrast localization images were obtained. Subsequently, multidetector volumetric imaging was performed from the thoracic inlet to below the diaphragms following the administration of 65 mL Omnipaque 350 intravenous contrast. No contrast reaction reported Sagittal, coronal, and MIP oblique sagittal reformatted images were obtained on the CT workstation, uploaded to PACS, and reviewed. This CT examination was performed using dose optimization techniques as appropriate, variously including the following: *Automated exposure control *Adjustment of mA and/or kV according to patient size (this includes techniques or standardized protocols for targeted exams where dose is matched to indication/reason for exam; i.e. extremities or head) *Use of iterative reconstruction technique Total exam dose-length product 337 mGy-cm FINDINGS: QUALITY OF STUDY/CONTRAST BOLUS: Satisfactory. PULMONARY ARTERIES: No intraluminal filling defects are identified to suggest the presence of pulmonary emboli. The left and right pulmonary arteries remain ectatic measuring 2.6 cm in diameter each. The interlobar artery measures 1.6 cm in diameter. These findings are suspicious for the sequela of chronic pulmonary hypertension. THORACIC AORTA: Moderate scattered calcific atherosclerosis. Normal caliber. LUNG: Marked centrilobular emphysematous changes are present similar degree to findings present 10/19/2019. A 7 mm x 6 mm noncalcified right upper lobe pulmonary nodule (series 7 image 123) is unchanged compared with 10/19/2019 on the basis of the 2017 modified Fleischner Society criteria is benign in appearance given the long-term interval stability. This finding warrants no additional imaging follow-up. Additional, smaller bilateral upper lobe noncalcified nodules and coarse reticular opacities within the left upper and to lesser degree the right upper pulmonary lobe are similarly unchanged compared with 10/19/2019 and are benign in appearance requiring no additional imaging follow-up on the basis of the 2017 modified Fleischner criteria. A 13 mm x 7 mm noncalcified nodule within the base of the right upper pulmonary lobe is unchanged compared with 10/19/2019 and the basis of the above Fleischner criteria requires no additional imaging follow-up and is benign in appearance. Mild bibasilar posterior dependent atelectasis of the lungs is visualized. An 8mm by 6 mm right upper lobe pulmonary nodule (series 7 image 183) is slightly decreased in size compared with 10/19/2019 and is benign in appearance and requires no additional imaging follow-up on the basis of the Fleischner Society criteria. No pneumothoraces or pleural effusions visualized. PLEURA: No pneumothoraces or pleural effusions visualized. MEDIASTINUM: No mediastinal lymphadenopathy. Ectasia of the central pulmonary arteries as detailed above. Partial visualization of moderate-marked scattered coronary artery calcific atherosclerosis No evidence of septal bowing or right heart strain. Normal heart size. No pericardial thickening or fluid collections. CORONARY ARTERY CALCIFICATION: Moderate-marked scattered coronary artery calcific atherosclerosis. CHEST WALL/AXILLA: No axillary or internal mammary lymphadenopathy. OSSEOUS STRUCTURES: Confluent bridging anterior endplate osteophytosis of the thoracic spine consistent with diffuse idiopathic skeletal hyperostosis. No thoracic vertebral body compression deformities. UPPER ABDOMEN: Partially visualized small hiatal hernia. No reflux of contrast into the hepatic veins to suggest elevated right heart pressures. CT/CT angio chest PE protocol IMPRESSION: 1. CT pulmonary angiogram negative for pulmonary emboli. 2. No acute abnormalities identified. 3. Marked centrilobular emphysematous changes. 4. Pulmonary artery ectasia suspicious for the sequela of chronic pulmonary hypertension. 5. Moderate-marked coronary artery calcific atherosclerosis. 6. Small hiatal hernia. VTE: negative.
--- NOTE | ~2023-12-03 | XR_ITS ---
EXAMINATION: XR CHEST CLINICAL INFORMATION: SOB COMPARISON: Chest 08/13/2023 TECHNIQUE: 2 views of the chest were obtained. FINDINGS: The lung is well expanded. Density in the medial right lung base corresponds to a prominent vessel. Emphysematous changes are noted. Scarring is noted within the peripheral right and left midlung as well as the peripheral right upper lobe. No focal consolidation. No pleural effusion. No significant abnormality is noted involving the heart, mediastinum, bony thorax or soft tissues. XR/XR chest 2V IMPRESSION: No acute cardiopulmonary disease.
--- NOTE | 2023-12-03 10:58 | ECG_ITS ---
Test Reason : sob Blood Pressure : / mmHG Vent. Rate : 112 BPM Atrial Rate : 112 BPM P-R Int : 158 ms QRS Dur : 070 ms QT Int : 308 ms P-R-T Axes : 046 014 067 degrees QTc Int : 420 [address] and T wave abnormality Abnormal ECG When compared with ECG of 13-AUG-2023 01:57, No significant change was found Referred By: Generic ED Physician Electronically Signed By:COLIN JONES MD
[2023-12-03 11:18] LABS: MANUAL DIFF FLAG NO
[2023-12-03 11:19] LABS: Basophils Absolute Auto 0.1 X10*3/uL (0.0-0.2); Basophils Percent Auto 0.9 % (0-2); Eosinophils Absolute Auto 0.2 X10*3/uL (0.0-0.4); Eosinophils Percent Auto 4.1 % (0-4); Hematocrit 45.3 % (42.0-52.0); Hemoglobin 15.2 g/dl (14.0-18.0); Imm Gran Abs Auto 0.03 X10*3/uL (0.00-0.03); Imm Gran Pct Auto 0.5 % (0.0-0.4); Lymphocytes Absolute Auto 1.3 X10*3/uL (1.2-4.9); Lymphocytes Percent Auto 22.5 % (20-40); Mean Corpuscular HGB Conc 33.6 g/dl (31.0-36.0); Mean Corpuscular Hemoglobin 31.3 pg (27.0-33.0); Mean Corpuscular Volume 93.4 fL (80.0-98.0); Mean Platelet Volume 8.7 fL (9.4-12.4); Monocytes Absolute Auto 0.4 X10*3/uL (0.1-1.2); Monocytes Percent Auto 6.7 % (2-11); Neutrophils Absolute Auto 3.6 x10*3/uL (2.0-8.3); Neutrophils Percent Auto 65.3 % (45-73); Platelet Count 289 X10*3/uL (160-400); Red Blood Count 4.85 X10*6/uL (4.60-5.80); Red Cell Distribution Width 12.4 % (11.0-16.0); White Blood Count 5.6 X10*3/uL (4.8-10.8)
[2023-12-03 11:25] LABS: Prothrombin Time 11.8 SEC (11.1-13.3)
[2023-12-03 11:33] LABS: Anion Gap 10 (12-20); Blood Urea Nitrogen 17 mg/dL (9-16); Calcium 9.6 mg/dL (8.4-10.2); Carbon Dioxide 28 mmol/L (22-29); Chloride 104 mmol/L (96-108); Estimated Glomerular Filt Rate > 60; Glucose Random 105 mg/dL (60-115); Potassium 4.1 mmol/L (3.3-5.1); Sodium 138 mmol/L (135-145)
[2023-12-03 11:35] LABS: IDNOW Serial# 152EDE1D; Influenza A Negative (Negative); Influenza B2 Negative (Negative)
[2023-12-03 11:36] LABS: COVID-19 Test Negative (Negative); IDNOW Serial# 08D9AD1C
[2023-12-03 11:40] LABS: B Type Natriuretic Peptide 21 pg/mL (<100)
[2023-12-03 11:44] LABS: Troponin-I High Sensitivity < 2.7 ng/L (<3.5-35.0)
--- NOTE | 2023-12-03 11:55 | ECG_ITS ---
Test Reason : sob Blood Pressure : / mmHG Vent. Rate : 124 BPM Atrial Rate : 124 BPM P-R Int : 162 ms QRS Dur : 078 ms QT Int : 308 ms P-R-T Axes : 048 009 056 degrees QTc Int : 442 ms Sinus tachycardia Otherwise normal ECG When compared with ECG of 03-DEC-2023 11:06, No significant change was found Referred By: Sharad Edwards Electronically Signed By:COLIN JONES MD
--- NOTE | 2023-12-03 12:43 | ED_ITS ---
HPI - General Adult General Chief complaint: Upper Respiratory Symptoms Stated complaint: Diff Breathing Sent by Time Seen by Provider: 12/03/23 12:40 Source: patient and RN notes reviewed Mode of arrival: ambulatory Limitations: no limitations History of Present Illness HPI narrative: This is a 83-year-old male, with a past medical history of emphysema and pulmonary nodules, who presents to the emergency department with complaints of dry cough and shortness of breath x 4 weeks. Patient reports that over the last several weeks he has been extremely short of breath especially when walking and climbing stairs. Patient reports that he becomes extremely dyspneic upon exertion. He endorses pleuritic chest pain. He denies any fevers, chills, palpitations, abdominal pain, nausea, vomiting or diarrhea. He followed up with his primary care physician approximately 2-3 weeks ago and was started on prednisone as well as a ?antibiotic?, unclear which antibiotic he took. He states that he took this and completed it, states he had minimal relief with this. Denies history of CHF. Denies any lower extremity swelling. No recent travel, surgeries, hospitalizations. He has a former smoker, states that he smoked 3 packs of cigarettes per day for many years . No other complaints or concerns at this time. MD complaint: dry cough, SOB Onset (ago): week(s) Radiation: non-radiation Quality: aching Pain Consistency: constant Relieving factors: none Exacerbating factors: none Associated symptoms: denies other symptoms Treatments prior to arrival: none Related Data Home Medications Medication Instructions Recorded Confirmed ibuprofen 600 mg tablet 600 mg PO BEDTIME PRN Pain 05/14/22 05/14/22 modafinil 200 mg tablet 200 mg PO BID 05/14/22 05/14/22 multivitamin 1 tab PO DAILY 05/14/22 05/14/22 terazosin 5 mg capsule 1 cap PO BEDTIME 05/14/22 05/14/22 Previous Rx's Medication Instructions Recorded azithromycin 500 mg tablet 500 mg PO DAILY 5 days #5 tabs 05/16/22 benzonatate 100 mg capsule 100 mg PO TID PRN Cough #20 caps 05/16/22 cefuroxime axetil 500 mg tablet 500 mg PO BID #10 tabs 05/16/22 prednisone 20 mg tablet 40 mg (2 x 20 mg) PO DAILY #6 tabs 05/16/22 lidocaine 5 % topical patch 1 patch topical DAILY #30 ea 08/13/23 morphine 15 mg immediate release 15 mg PO TID PRN pain #10 tabs 08/13/23 tablet Allergies Allergy/AdvReac Type Severity Reaction Status Date / Time No Known Allergies Allergy Verified 12/03/23 10:55 Review of Systems 2 Review of Systems: Yes all other systems are reviewed and are negative Constitutional: Constitutional: Reports as per [facility] Past Medical History Attestation statement: The following information was validated with the patient. Medical History Former smoker, stopped smoking in distant past Pulmonary emphysema Multiple pulmonary nodules Social History Social History Household Members: Spouse and Family Housing: House Do you presently have visiting nurse or other home services: No Alcohol intake: former Patient Tobacco Use Status: Former Tobacco user Quit Date: 1989 Smoked in Last 30 Days: No Use of substances other than those prescribed or required for medical reasons: No Advance Directives: No Advance Directives Information Provided: Yes Advance Directives Date on File: 05/15/22 service: Yes Current occupational status: retired Physical Exam ED Vital Signs: Vital Signs - 24 hr 12/03/23 10:55 12/03/23 12:25 12/03/23 12:25 Temperature 98 F Pulse Rate 100 88 Respiratory Rate 19 18 Blood Pressure 128/83 148/78 H Pulse Oximetry 93 94 Oxygen Delivery Method Room Air Room Air Oxygen Flow Rate 12/03/23 13:18 12/03/23 14:00 Temperature Pulse Rate 77 Respiratory Rate 18 Blood Pressure Pulse Oximetry 97 Oxygen Delivery Method Nasal Cannula Oxygen Flow Rate 2 BMI result Body Mass Index 28.1 Const General: cooperative, comfortable and no acute distress Orientation/consciousness: patient oriented x3 Limitations: no limitations HENMT Head: Yes normal to inspection, Yes normocephalic and Yes atraumatic Ears: hearing grossly normal bilaterally General nose exam: Normal external nose present Face and sinus: Yes normal facial exam Mouth: Normal oral and palatal mucosa present, oropharynx normal and moist mucous membranes Throat: Yes posterior oropharynx normal Eyes General: appearance normal, both eyes and all related structures Eyelids: Yes eyelids normal Conjunctivae: conjunctivae normal Sclerae: sclerae normal Pupils: Equal, round and reactive pupils present EOM: EOMs intact bilaterally Neck Neck: Yes normal visual inspection, Yes full ROM and Yes no lymphadenopathy Lymphatic: no lymphadenopathy noted Chest Chest palpation & inspection: normal inspection of the chest Resp Other: Diminished lung sounds throughout, no wheezes, rales or rhonchi auscultated Effort & Inspection: normal respiratory effort and able to speak in complete sentences Cardio Rate: regular rate Rhythm: regular rhythm Heart sounds: S1 normal heart sound present and S2 normal heart sound present GI Inspection: Yes normal to inspection Skin General skin exam: no rashes or lesions noted Trauma: no lacerations or abrasions Wounds: no wounds Neuro General: patient oriented x3 and moves all extremities Cranial nerves: Yes Equal, round and reactive pupils present Extrem General: Yes normal to inspection Right upper extremity: normal to inspection Left upper extremity: normal to inspection Right lower extremity: normal to inspection Left lower extremity: normal to inspection Course Reevaluation(s) Reevaluation #1: Patient re-evaluated, upon evaluation, patient found to be hypoxic at 83% feeling slightly improved after updraft however still reporting significant pleuritic chest pain. Faint crackles auscultated in bilateral lung bases. Will obtain CTA given symptoms, hypoxia and tachycardia. Time: 14:12 Reevaluation #2: CTA negative for pulmonary embolism, there is marked centrilobular emphysematous changes there is also pulmonary artery ectasia suspicious for sequela of chronic pulmonary hypertension. There is moderately marked coronary artery calcific atherosclerosis. There is a small hiatal hernia. Time: 16:15 Reevaluation #3: Walking oxygen saturation down to 88% on room air. Given hypoxia, will admit for hypoxia, emphysema, further hospitalization needed for management. He is agreeable. Time: 16:31 Medications Administered Discontinued Medications Generic Name Dose Route Start Last Admin Trade Name Freq PRN Reason Stop Dose Admin Albuterol Sulfate 2.5 mg/ 0 mg 12/03/23 13:11 12/03/23 13:17 Albuterol/Ipratropium 3 ml INHALE 12/03/23 13:12 1 dose ONCE ONE Administration Iohexol 65 ml 12/03/23 14:35 12/03/23 14:35 Iohexol 350 Mg/Ml 75 Ml Infus..Btl IV 12/03/23 14:36 65 ml ONCE ONE Administration Methylprednisolone Sodium Succinate 125 mg 12/03/23 12:56 12/03/23 13:08 Methylprednisolone Sod Succ 125 Mg/2 Ml Vial IVPUSH 12/03/23 12:57 125 mg ONCE ONE Administration Medical Decision Making Medical Decision Making [facility] Narrative: This is a 83-year-old male, with a past medical history of emphysema and pulmonary nodules, who presents to the emergency department with complaints of dry cough and shortness of breath x 4 weeks. On arrival, vital signs within normal limits, however during my interview, patient became hypoxic at 86% on room air. He is placed on 1 L nasal cannula, now saturating at 94%. Lungs are diminished, no wheezes, rales, or rhonchi auscultated. Patient endorsing cough and shortness breath for the last 4 weeks as well as pleuritic chest pain. He states the shortness of breath worsens at night. He has no history of CHF. Plan: Labs, EKG, chest x-ray, viral swabs Differential Diagnosis Differential Diagnoses: The differential diagnosis associated with the presentation includes Pneumonia, CHF, COPD exacerbation, emphysema, hypoxia, PE, ACS Admission/Observation Consideration of admission/observation: Escalation of care including admission/observation considered Lab Data [facility] Lab Attestation statement: I reviewed the patient's lab results. No leukocytosis, stable H&H, chemistry nondiagnostic, negative COVID and flu 12/03/23 11:10 12/03/23 11:10 Labs: Lab Results 12/03/23 Range/Units 11:10 WBC 5.6 (4.8-10.8) X10*3/uL RBC 4.85 (4.60-5.80) X10*6/uL Hgb 15.2 (14.0-18.0) g/dl Hct 45.3 (42.0-52.0) % MCV 93.4 (80.0-98.0) fL MCH 31.3 (27.0-33.0) pg MCHC 33.6 (31.0-36.0) g/dl RDW 12.4 (11.0-16.0) % Plt Count 289 (160-400) X10*3/uL MPV 8.7 L (9.4-12.4) fL Immature Gran % (Auto) 0.5 H (0.0-0.4) % Neut % (Auto) 65.3 (45-73) % Lymph % (Auto) 22.5 (20-40) % [place] % (Auto) 6.7 (2-11) % Eos % (Auto) 4.1 H (0-4) % Baso % (Auto) 0.9 (0-2) % Lymph # (Auto) 1.3 (1.2-4.9) X10*3/uL [place] # (Auto) 0.4 (0.1-1.2) X10*3/uL Eos # (Auto) 0.2 (0.0-0.4) X10*3/uL Baso # (Auto) 0.1 (0.0-0.2) X10*3/uL Abs Immat Gran (auto) 0.03 (0.00-0.03) X10*3/uL Absolute Neuts (auto) 3.6 (2.0-8.3) x10*3/uL Absolute Nucleated RBC 0.000 (0.0-0.012) X10*3/uL Nucleated RBC % (auto) 0.0 (0.0-0.2) /100WBC PT 11.8 (11.1-13.3) SEC INR 1.0 (0.9-1.1) Sodium 138 (135-145) mmol/L Potassium 4.1 (3.3-5.1) mmol/L Chloride 104 (96-108) mmol/L Carbon Dioxide 28 (22-29) mmol/L Anion Gap 10 L (12-20) BUN 17 H (9-16) mg/dL Creatinine 1.05 (0.5-1.4) mg/dL Estim Creat Clear Calc 60.0 Estimated GFR > 60 Random Glucose 105 (60-115) mg/dL Calcium 9.6 (8.4-10.2) mg/dL Troponin I High Sens < 2.7 (<3.5-35.0) ng/L B-Natriuretic Peptide 21 (<100) pg/mL COVID-19 (NAN) Negative (Negative) COVID-19 Clin Com See Note Influenza Type A (ARIELLE) Negative (Negative) Influenza Type B (ARIELLE) Negative (Negative) Influenza A & B Note See Note Independent Interpretation I performed an independent interpretation of an: EKG Interpretation: EKG sinus tachycardia at a ventricular rate of 124 beats per minute, NC interval 162, QTC 442, no ST elevation or depression noted. Radiology Impression Discussion of test interpretation with radiology: I have reviewed the radiologist's reading. Radiologist Impression: EXAMINATION: CT ANGIOGRAM OF THE CHEST WITH AND WITHOUT CONTRAST (CT PULMONARY ANGIOGRAM FOR PE) CLINICAL INFORMATION: Reason for Exam hypoxia, pleuritic CP COMPARISON: Chest radiograph 12/03/2023. CT angiography chest 05/14/2022. CT chest 03/01/2021. CT chest 10/19/2019. TECHNIQUE: Prior to contrast administration, noncontrast localization images were obtained. Subsequently, multidetector volumetric imaging was performed from the thoracic inlet to below the diaphragms following the administration of 65 mL Omnipaque 350 intravenous contrast. No contrast reaction reported Sagittal, coronal, and MIP oblique sagittal reformatted images were obtained on the CT workstation, uploaded to PACS, and reviewed. This CT examination was performed using dose optimization techniques as appropriate, variously including the following: *Automated exposure control *Adjustment of mA and/or kV according to patient size (this includes techniques or standardized protocols for targeted exams where dose is matched to indication/reason for exam; i.e. extremities or head) *Use of iterative reconstruction technique Total exam dose-length product 337 mGy-cm FINDINGS: QUALITY OF STUDY/CONTRAST BOLUS: Satisfactory. PULMONARY ARTERIES: No intraluminal filling defects are identified to suggest the presence of pulmonary emboli. The left and right pulmonary arteries remain ectatic measuring 2.6 cm in diameter each. The interlobar artery measures 1.6 cm in diameter. These findings are suspicious for the sequela of chronic pulmonary hypertension. THORACIC AORTA: Moderate scattered calcific atherosclerosis. Normal caliber. LUNG: Marked centrilobular emphysematous changes are present similar degree to findings present 10/19/2019. A 7 mm x 6 mm noncalcified right upper lobe pulmonary nodule (series 7 image 123) is unchanged compared with 10/19/2019 on the basis of the 2017 modified Fleischner Society criteria is benign in appearance given the long-term interval stability. This finding warrants no additional imaging follow-up. Additional, smaller bilateral upper lobe noncalcified nodules and coarse reticular opacities within the left upper and to lesser degree the right upper pulmonary lobe are similarly unchanged compared with 10/19/2019 and are benign in appearance requiring no additional imaging follow-up on the basis of the 2017 modified Fleischner criteria. A 13 mm x 7 mm noncalcified nodule within the base of the right upper pulmonary lobe is unchanged compared with 10/19/2019 and the basis of the above Fleischner criteria requires no additional imaging follow-up and is benign in appearance. Mild bibasilar posterior dependent atelectasis of the lungs is visualized. An 8mm by 6 mm right upper lobe pulmonary nodule (series 7 image 183) is slightly decreased in size compared with 10/19/2019 and is benign in appearance and requires no additional imaging follow-up on the basis of the Fleischner Society criteria. No pneumothoraces or pleural effusions visualized. PLEURA: No pneumothoraces or pleural effusions visualized. MEDIASTINUM: No mediastinal lymphadenopathy. Ectasia of the central pulmonary arteries as detailed above. Partial visualization of moderate-marked scattered coronary artery calcific atherosclerosis No evidence of septal bowing or right heart strain. Normal heart size. No pericardial thickening or fluid collections. CORONARY ARTERY CALCIFICATION: Moderate-marked scattered coronary artery calcific atherosclerosis. CHEST WALL/AXILLA: No axillary or internal mammary lymphadenopathy. OSSEOUS STRUCTURES: Confluent bridging anterior endplate osteophytosis of the thoracic spine consistent with diffuse idiopathic skeletal hyperostosis. No thoracic vertebral body compression deformities. UPPER ABDOMEN: Partially visualized small hiatal hernia. No reflux of contrast into the hepatic veins to suggest elevated right heart pressures. CT/CT angio chest PE protocol IMPRESSION: 1. CT pulmonary angiogram negative for pulmonary emboli. 2. No acute abnormalities identified. 3. Marked centrilobular emphysematous changes. 4. Pulmonary artery ectasia suspicious for the sequela of chronic pulmonary hypertension. 5. Moderate-marked coronary artery calcific atherosclerosis. 6. Small hiatal hernia. VTE: negative. Dictated By: Bernardo Madera MD EXAMINATION: XR CHEST CLINICAL INFORMATION: SOB COMPARISON: Chest 08/13/2023 TECHNIQUE: 2 views of the chest were obtained. FINDINGS: The lung is well expanded. Density in the medial right lung base corresponds to a prominent vessel. Emphysematous changes are noted. Scarring is noted within the peripheral right and left midlung as well as the peripheral right upper lobe. No focal consolidation. No pleural effusion. No significant abnormality is noted involving the heart, mediastinum, bony thorax or soft tissues. XR/XR chest 2V IMPRESSION: No acute cardiopulmonary disease. Dictated By: Elizabeth Segal MD External Record Review External record reviewed: Inpatient record Chronic Conditions Patient?s care impacted by: Other (Emphysema) Discharge Plan Discharge Clinical Impression: Hypoxia, Emphysema/COPD Patient Disposition: Still a Patient Prescriptions: No Action terazosin 5 mg capsule 1 cap PO BEDTIME multivitamin Tablet 1 tab PO DAILY modafinil 200 mg Tablet 200 mg PO BID ibuprofen 600 mg Tablet 600 mg PO BEDTIME PRN (Reason: Pain) azithromycin 500 mg tablet 500 mg PO DAILY 5 Days Qty: 5 0RF cefuroxime axetil 500 mg tablet 500 mg PO BID Qty: 10 0RF benzonatate 100 mg Capsule 100 mg PO TID PRN (Reason: Cough) Qty: 20 0RF prednisone 20 mg tablet 40 mg PO DAILY Qty: 6 0RF lidocaine 5 % adhesive patch,medicated 1 patch topical DAILY Qty: 30 0RF Rx Instructions: leave on most painful area for up to 12 hrs morphine 15 mg tablet 15 mg PO TID PRN (Reason: pain) Qty: 10 0RF Rx Instructions: partial fill okay; Partial Fill upon patient request.
[2023-12-03] MEDS: methylPREDNISolone Sod Succ 125 MG/2 ML VIAL IVPUSH (13:08)
[2023-12-03] MEDS: Albuterol Sulfate 2.5 MG, Albuterol/Iprat 2.5/0.5MG 3 ML 3 ML INHALE (13:17)
[2023-12-03] MEDS: iohexoL 350 MG/ML 75 ML INFUS..BTL 65 ML IV (14:35)
--- NOTE | 2023-12-03 17:20 | PC.NURSE ---
During walking trial patient de sated to 88% on RA. Patient with sob and coughing during exertion, provider aware
--- NOTE | 2023-12-03 17:39 | P.HPHOSP_ITS ---
History of Present Illness Date of Service: 12/03/23 Attending physician on admission: Yary Arroyo Chief Complaint: sob 83-year-old male with history of emphysema, pulmonary hypertension presents to the ED earlier today for evaluation of dyspnea and occasionally productive cough ongoing for 4 weeks but worsening. He states that initially, he was experiencing nasal congestion which has resolved. He then developed primarily dry cough with occasionally clear sputum production and significant dyspnea primarily with exertion but also with rest. States dyspnea has been worsening over the last few days especially at night. He does endorse orthopnea and PND. He has been having to sleep with multiple pillows. There is also pleuritic chest pain He is also becoming quite fatigued with exertion. No known sick contacts. Denies any fevers, chills, sore throat, abdominal pain, nausea, vomiting, diarrhea, urinary symptoms, lightheadedness, palpitations, wheezing, chest pressure. He is a former smoker who quit 35 years ago with a 70+ pack year history. While in the ED, patient was noted to be hypoxic to 83% on room air and was placed on 2 L supplemental O2 maintaining oximetry around 96%. He has also been tachypneic but is afebrile and stable blood pressures. There is no leukocytosis. Renal function is baseline, electrolyte levels normal. Troponin below detectable limits. BNP 21. Negative for COVID-19, influenza. CTA chest negative for PE and is without any acute abnormalities. Does show marked centrilobular emphysematous changes as well as pulmonary artery ectasia suspicious for the sequela of chronic pulmonary hypertension and moderate to marked coronary artery calcific atherosclerosis. EKG shows sinus tachycardia, rate 124, no ST or depressions. In the ED, given 125 mg IV methylprednisolone, and DuoNeb. Review of Systems 2 Review of Systems: General: No fevers, malaise, unintentional weight loss HEENT: No blurred vision, diplopia. No sore throat, nasal congestion, rhinorrhea, sinus pain, ear pain Cardiovascular: +pleuritic chest pain. No palpitations, or leg edema Respiratory: +sob, +cough, +orthopnea. No wheezing GI: No abdominal pain, nausea, vomiting, diarrhea, constipation, melena, hematochezia : No dysuria, hematuria, increased urinary frequency, decreased urinary output MSK: No myalgia, back pain Neuro: No headaches, weakness, paresthesias Skin: No rashes or lesions [facility] Medical History (Updated 12/03/23 @ 17:53 by DONIS Snow) COPD exacerbation Former smoker, stopped smoking in distant past Pulmonary emphysema Multiple pulmonary nodules Social History Household Members: Spouse and Family Housing: House Do you presently have visiting nurse or other home services: No Alcohol intake: former Patient Tobacco Use Status: Former Tobacco user Quit Date: 1989 Smoked in Last 30 Days: No Use of substances other than those prescribed or required for medical reasons: No Advance Directives: No Advance Directives Information Provided: Yes Advance Directives Date on File: 05/15/22 service: Yes Current occupational status: retired [employer] Allergies Allergy/AdvReac Type Severity Reaction Status Date / Time No Known Allergies Allergy Verified 12/03/23 10:55 Home Medications Medication Instructions Recorded Confirmed Last Taken Type modafinil 200 mg tablet 200 mg PO BID 05/14/22 05/14/22 05/13/22 History multivitamin 1 tab PO DAILY 05/14/22 05/14/22 05/13/22 History terazosin 5 mg capsule 1 cap PO BEDTIME 05/14/22 05/14/22 05/13/22 History albuterol sulfate 90 mcg/actuation 2 puff inhalation Q4-6H PRN 12/03/23 Unknown History aerosol inhaler Shortness Of Breath fluticasone 500 mcg-salmeterol 50 1 inh inhalation BID 12/03/23 Unknown History mcg/dose blistr powdr for inhalation (Wixela Inhub) fluticasone propionate 50 1 spray intranasal BID 12/03/23 Unknown History mcg/actuation nasal spray,suspension ketotifen fumarate 0.025 % (0.035 1 drp ophthalmic (eye) BID 12/03/23 Unknown History %) eye drops Physical Exam 2 Vital Signs and Narrative: Vital Signs: Last Vital Signs Temp 97.4 F 12/03/23 16:54 Pulse 86 12/03/23 16:54 Resp 16 12/03/23 16:54 BP 130/88 12/03/23 16:54 Pulse Ox 96 12/03/23 16:54 O2 Del Method Room Air 12/03/23 16:54 O2 Flow Rate 2 12/03/23 14:00 BMI result Body Mass Index 28.1 Constitutional - Awake and Alert, No apparent distress Eyes - PERRLA, EOMI Cardiovascular - S1S2, RRR, No edema Respiratory - Normal lung expansion, Normal respiratory effort, No respiratory distress, scattered crackles b/l lower lobes, diminished Gastrointestinal - NT / ND; +BS; No rebound or guarding Extremities - no calf tenderness bilaterally, no swelling Skin - Warm/Dry Neurological - Alert & oriented x3 Psychological - Appropriate affect Results Labs 12/03/23 11:10 12/03/23 11:10 Labs: Laboratory Results - last 24 hr 12/03/23 11:10 MCV 93.4 MCH 31.3 MCHC 33.6 RDW 12.4 Plt Count 289 MPV 8.7 L Immature Gran % (Auto) 0.5 H Neut % (Auto) 65.3 Lymph % (Auto) 22.5 [place] % (Auto) 6.7 Eos % (Auto) 4.1 H Baso % (Auto) 0.9 Lymph # (Auto) 1.3 [place] # (Auto) 0.4 Eos # (Auto) 0.2 Baso # (Auto) 0.1 Abs Immat Gran (auto) 0.03 Absolute Neuts (auto) 3.6 Absolute Nucleated RBC 0.000 Nucleated RBC % (auto) 0.0 PT 11.8 INR 1.0 Anion Gap 10 L Estim Creat Clear Calc 60.0 Estimated GFR > 60 Random Glucose 105 Calcium 9.6 Troponin I High Sens < 2.7 B-Natriuretic Peptide 21 COVID-19 (NAN) Negative COVID-19 Clin Com See Note Influenza Type A (ARIELLE) Negative Influenza Type B (ARIELLE) Negative Influenza A & B Note See Note Imaging Radiologist's Impressions: Impressions Chest X-Ray 12/03/23 11:29 IMPRESSION: No acute cardiopulmonary disease. Chest CTA 12/03/23 14:44 IMPRESSION: 1. CT pulmonary angiogram negative for pulmonary emboli. 2. No acute abnormalities identified. 3. Marked centrilobular emphysematous changes. 4. Pulmonary artery ectasia suspicious for the sequela of chronic pulmonary hypertension. 5. Moderate-marked coronary artery calcific atherosclerosis. 6. Small hiatal hernia. VTE: negative. Assessment and Plan (1) COPD exacerbation: Status: Acute (2) Hypoxia: Status: Acute Plan 83-year-old male with history of emphysema, pulmonary hypertension admitted for further management of acute COPD exacerbation. # acute COPD exacerbation with acute hypoxemic respiratory failure -CTA chest negative for any acute cardiopulmonary abnormality but does show evidence of chronic pulmonary hypertension, and emphysematous changes as well as moderate to severe coronary atherosclerosis -question underlying right-sided heart failure, Lasix 40 mg x 1 ordered. Echocardiogram ordered -IV methylprednisolone 40 mg b.i.d. -DuoNebs q.4h while awake -albuterol p.r.n. -azithromycin 500 mg IV daily for pleiotropic effect -continue maintenance inhalers -respiratory viral panel pending -continue supplemental O2 to maintain oximetry 90-92%, wean as tolerated # coronary atherosclerosis -moderate-marked on CTA chest -EKG without acute ischemic changes, troponin below detectable limits -outpatient follow-up recommended DVT prophylaxis-Lovenox Full code Patient requires inpatient stay at least 2 midnights for management of acute COPD exacerbation with hypoxemic respiratory failure requiring IV steroids, IV antibiotics, scheduled nebulizer treatments and supplemental O2 with close monitoring for any cardiopulmonary decompensation Quality Stroke Does the patient have a stroke diagnosis?: No VTE Prior VTE?: No VTE Risk Level:: Medical - moderate - high VTE Device Contraindication: Treatment Not Indicated VTE Drug Contraindication: N/A - Med Ordered
[2023-12-03] MEDS: Furosemide 40 MG/4 ML VIAL IVPUSH (17:58)
[2023-12-03] MEDS: Azithromycin 500 MG in 0.9 % Sodium Chloride 250 ML 125 MG IV (17:58)
[2023-12-03] MEDS: Enoxaparin Sodium 40 MG/0.4 ML SYRINGE SUBCUT (17:58)
--- NOTE | 2023-12-03 18:01 | PHA.MEDREC ---
Pharmacy Consult ? Medication Reconciliation Pharmacy has completed the medication reconciliation. Patient confirmed medications with help of . Patient reported not taking terazosin due to not feeling well from it.
--- NOTE | 2023-12-03 19:16 | PC.NURSE ---
Assumed care of pt at 19:00, pt ambulated to restroom with steady gait. Offers no complaints @ this itme. Plan of care ongoing.
[2023-12-04] VITALS (9 sets, daily range): BP systolic 108–136; BP diastolic 68–78; PULSE 87–107; RESP 16–20; TEMP 36.1–36.6; O2SAT 84–96
[2023-12-04 05:16] LABS: MANUAL DIFF FLAG NO
[2023-12-04 05:17] LABS: Basophils Percent Auto 0.1 % (0-2); Hematocrit 44.9 % (42.0-52.0); Hemoglobin 15.4 g/dl (14.0-18.0); Imm Gran Abs Auto 0.03 X10*3/uL (0.00-0.03); Imm Gran Pct Auto 0.3 % (0.0-0.4); Lymphocytes Absolute Auto 0.8 X10*3/uL (1.2-4.9); Lymphocytes Percent Auto 9.1 % (20-40); Mean Corpuscular HGB Conc 34.3 g/dl (31.0-36.0); Mean Corpuscular Hemoglobin 31.4 pg (27.0-33.0); Mean Corpuscular Volume 91.6 fL (80.0-98.0); Mean Platelet Volume 8.8 fL (9.4-12.4); Monocytes Absolute Auto 0.1 X10*3/uL (0.1-1.2); Monocytes Percent Auto 1.3 % (2-11); Neutrophils Absolute Auto 7.8 x10*3/uL (2.0-8.3); Neutrophils Percent Auto 89.2 % (45-73); Platelet Count 326 X10*3/uL (160-400); Red Cell Distribution Width 12.5 % (11.0-16.0); White Blood Count 8.7 X10*3/uL (4.8-10.8)
[2023-12-04 05:35] LABS: Anion Gap 15 (12-20); Blood Urea Nitrogen 28 mg/dL (9-16); Carbon Dioxide 24 mmol/L (22-29); Chloride 103 mmol/L (96-108); Creatinine Clr Calc Pharmacy 40.9; Estimated Glomerular Filt Rate 44; Glucose Random 129 mg/dL (60-115); Potassium 4.3 mmol/L (3.3-5.1); Sodium 138 mmol/L (135-145)
--- NOTE | 2023-12-04 07:00 | CA_ITS ---
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 Normal LV ejection fraction of 60 65% with grade 1 diastolic dysfunction 2. Normal cardiac valvular Doppler 3. Normal RV systolic pressure 4. Mildly dilated ascending aorta 5. No gross pericardial effusion Findings Procedure Information The quality of the study was technically difficult. The study quality is limited by lung artifact. Left Ventricle Normal left ventricular size, thickness, and systolic function. The visually estimated ejection fraction is between 60-65%. Spectral Doppler is indicative of an impaired relaxation filling pattern. E/E prime ratio is <8, consistent with normal filling pressures. Evidence suggests grade I (mild) diastolic dysfunction. Peak GLS is -15.5%, which is mildly reduced. Right Ventricle Normal right ventricular cavity size and systolic function. Atria Both atria are normal in size. Interatrial shunt cannot be excluded. Aortic Valve There is mild calcification of the aortic valve. There is no aortic valve stenosis. There is no aortic valve regurgitation. Mitral Valve There is mild anterior and posterior mitral leaflet thickening. There is trace mitral valve regurgitation. There is no mitral valve stenosis. Pulmonic Valve The pulmonic valve was not well visualized. Tricuspid Valve Likely normal tricuspid valve structure and function. There is trace tricuspid valve regurgitation. The right ventricular systolic pressure is normal. The right ventricular systolic pressure is 26 mmHg. Normal right atrial pressure. There is no evidence of pulmonary hypertension. Great Vessels The pulmonary artery was not well visualized. There is mild dilatation of the ascending aorta measuring 3.70 cm. Venous The inferior vena cava is normal in size and collapses greater than 50% with inspiration. Pericardium/Pleural There is no evidence of pericardial effusion. Prior Study Comparison Changes noted compared to prior study dated: 03/27/2022. Ascending aorta is mildly dilated Measurements 2D Linear Measurements IVSd: 1.47 0.6-0.9/0.6-1.0 cm LVIDd: 3.61 3.9-5.3/4.2-5.9 cm LVIDd Index: 1.79 2.4-3.2/2.2-3.1 cm/m2 LVIDs: 2.13 2.0-3.6 cm LVPWd: 0.95 0.7-1.1 cm LA Diam: 3.40 2.7-3.8/3.0-4.0 cm LAIDs Index: 1.68 1.5-2.3 cm/m2 LV Mass: 178.53 67-162/88-224 g LV Mass Index: 88.38 43-95/49-115 g/m2 LVOT Diam: 2.30 3.0+(-)1.3 cm 2D Systolic Function EF 4C: 59.60 >55% EF 2C: 60.00 >55% EF BiP: 60.30 >55% Mitral Valve MV Pk E: 0.71 MV PK A: 0.91 MV Decel Time: 123.00 E/A: 0.80 E'Lateral: 7.40 E'Medial: 7.62 E/E' Med: 9.30 E/E' Lat: 9.60 PHT: 36.00 MVA PHT: 6.11 Decel Quay: 5.79 Aortic Valve AoV Pk Daniel: 1.09 AoV Pk Grad: 5.00 BRIAN: 3.66 LVOT LVOT Pk Daniel: 0.96 LVOT Mn Daniel: 0.69 LVOT VTI: 0.18 LVOT Pk Grad: 4.00 LVOT Mn Grad: 2.00 LVOT Diam: 2.30 LVOT Area: 4.15 Diastolic Function MV Pk E: 0.71 MV Pk A: 0.91 E/A: 0.80 E'Medial: 7.62 E/E' Med: 9.30 E' Laterial: 7.40 E/E' Lat: 9.60 Right Ventricle TAPSE (mm): 19.40 TVS' Daniel: 11.00 Tricuspid Valve TR Pk Daniel: 2.39 TR Pk Grad: 23.00 RA Press: 3.00 RVSP: 26.00 Great Vessels Aorta Sinus of Valsalva: 4.30 2.0-3.5 cm Ao Asc: 3.70 2.1-3.4 cm Pulmonary Valve PV Pk Daniel: 0.87 Peak PV Grad: 3.00 Updated in Other Vendor System with Status of Final Sylvester Amaya MD electronically signed on 12/04/2023 12:54:15 PM with status of Final
[2023-12-04] MEDS: Fluticasone/Vilanterol 200/25 BLST.W.DEV 1 PUFF INHALE (07:43)
[2023-12-04] MEDS: Albuterol/Iprat 2.5/0.5MG 3 ML AMPUL.NEB INHALE ×4 (07:43→20:16)
[2023-12-04 08:58] LABS: Adenovirus PCR Not Detected (Not Detect.); Bordetella parapertussis PCR Not Detected (Not Detect.); Bordetella pertussis PCR Not Detected (Not Detect.); Chlamydia pneumoniae PCR Not Detected (Not Detect.); Coronavirus 229E PCR Not Detected (Not Detect.); Coronavirus HKU1 PCR Not Detected (Not Detect.); Coronavirus NL63 PCR Not Detected (Not Detect.); Coronavirus OC43 PCR Not Detected (Not Detect.); Human metapneumovirus PCR Not Detected (Not Detect.); Influenza A PCR Not Detected (Not Detect.); Influenza B PCR Not Detected (Not Detect.); Mycoplasma pneumoniae PCR Not Detected (Not Detect.); Parainfluenza 1 PCR Not Detected (Not Detect.); Parainfluenza 2 PCR Not Detected (Not Detect.); Parainfluenza 3 PCR Not Detected (Not Detect.); Parainfluenza 4 PCR Not Detected (Not Detect.); RSV PCR Not Detected (Not Detect.); Rhino/Enterovirus PCR Not Detected (Not Detect.)
[2023-12-04] MEDS: methylPREDNISolone Sod Succ 40 MG/ML VIAL IVPUSH ×2 (09:26→17:30)
[2023-12-04] MEDS: modafiniL 100 MG TABLET 200 MG PO (09:27)
[2023-12-04] MEDS: Multivitamin TABLET 1 TAB PO (09:27)
[2023-12-04] MEDS: Loratadine 10 MG TABLET PO (09:27)
[2023-12-04] MEDS: Magnesium Oxide 400 MG TABLET 200 MG PO (09:27)
[2023-12-04] MEDS: Folic Acid 1 MG TABLET PO (09:27)
[2023-12-04] MEDS: Enoxaparin Sodium 40 MG/0.4 ML SYRINGE 30 MG SUBCUT (09:31)
[2023-12-04 09:59] LABS: SARS-CoV-2 PCR Not Detected (Not Detect.)
--- NOTE | 2023-12-04 10:57 | HO.PM.IMPN ---
Subjective Subjective Date of Service: 12/04/23 Interval History: Seen and evaluated this morning Cr increased to 1.5 still on 4L O2 denies any fever or chills Review of Systems Review of Systems: Yes all other systems are reviewed and are negative Physical Exam Vital Signs: Vital Signs: Last Vital Signs Temp 98.8 F 12/03/23 18:28 Pulse 95 12/04/23 07:45 Resp 16 12/04/23 07:45 BP 130/88 12/03/23 16:54 Pulse Ox 95 12/03/23 18:28 O2 Del Method Nasal Cannula 12/03/23 18:28 O2 Flow Rate 2 12/03/23 18:28 BMI result Body Mass Index 28.1 Const: Other: Constitutional : Awake, interactive, not in distress Neck : Normal inspection, Supple Cardiovascular : RRR, no JVP, no lower extremity edema Respiratory : good bilateral air entry, no crackles, scattered wheezes Gastrointestinal: soft, lax, Normal bowel sounds, Non tender Skin : Warm, Dry Neurological : Alert & oriented x3, No focal deficit Objective Data Active Medications Acetaminophen (Acetaminophen 325 Mg Tablet) 650 mg PO Q6H PRN PRN Reason: Pain, Mild (Pain Scale 1-3) Albuterol Sulfate (Albuterol Sulfate (0.083%) 2.5 Mg/3 Ml Vial.Neb) 2.5 mg INHALE Q2H PRN PRN Reason: Shortness of Breath/Wheezing Albuterol/Ipratropium (Albuterol/Iprat 2.5/0.5mg 3 Ml Ampul.Neb) 3 ml INHALE RQ4H WHILE AWAKE [facility] Last Admin: 12/04/23 07:43 Dose: 3 ml Documented By: ZEKE Calcium Carbonate (Calcium Carbonate 500 Mg Tablet) 500 mg PO DAILY [facility] Last Admin: 12/04/23 09:27 Dose: 500 mg Documented By: ADEEL Enoxaparin Sodium (Enoxaparin Sodium 40 Mg/0.4 Ml Syringe) 30 mg SUBCUT Q24H [facility] Last Admin: 12/04/23 09:31 Dose: 30 mg Documented By: ADEEL Fluticasone/Vilanterol (Fluticasone/Vilanterol 200/25 Blst.W.Dev) 1 puff INHALE RDAILY [facility] Last Admin: 12/04/23 07:43 Dose: 1 puff Documented By: ZEKE Folic Acid (Folic Acid 1 Mg Tablet) 1 mg PO DAILY [facility] Last Admin: 12/04/23 09:27 Dose: 1 mg Documented By: ADEEL Guaifenesin (Guaifenesin 200 Mg/10 Ml 10 Ml Liquid) 10 ml PO Q4H PRN PRN Reason: Cough Azithromycin 500 mg/ Sodium (Chloride) 250 mls @ 125 mls/hr IV Q24H [facility] Last Infusion: 12/03/23 19:58 Dose: Infused Documented By: SHARIFA Loratadine (Loratadine 10 Mg Tablet) 10 mg PO DAILY [facility] Last Admin: 12/04/23 09:27 Dose: 10 mg Documented By: ADEEL Magnesium Oxide (Magnesium Oxide 400 Mg Tablet) 200 mg PO DAILY [facility] Last Admin: 12/04/23 09:27 Dose: 200 mg Documented By: ADEEL Methylprednisolone Sodium Succinate (Methylprednisolone Sod Succ 40 Mg/Ml Vial) 40 mg IVPUSH Q12H [facility] Last Admin: 12/04/23 09:26 Dose: 40 mg Documented By: ADEEL Modafinil (Modafinil 100 Mg Tablet) 200 mg PO BID [facility] Last Admin: 12/04/23 09:27 Dose: 200 mg Documented By: ADEEL Multivitamins/Vitamin C (Multivitamin Tablet) 1 tab PO DAILY [facility] Last Admin: 12/04/23 09:27 Dose: 1 tab Documented By: ADEEL Ondansetron HCl (Ondansetron Hcl 4 Mg/2 Ml Vial) 4 mg IVPUSH Q8H PRN PRN Reason: Nausea and Vomiting Senna (Sennosides 8.6 Mg Tablet) 17.2 mg PO BEDTIME PRN PRN Reason: Constipation Sodium Chloride (0.9 % Sodium Chloride Flush 3 Ml Syringe) 3 ml IVFLUSH QSHIFT [facility] Last Admin: 12/04/23 07:16 Dose: Not Given Documented By: ADEEL Non-Admin Reason: Med Not Available Labs 12/04/23 04:46 12/04/23 04:46 Labs: Laboratory Results - last 24 hr 12/03/23 12/03/23 12/04/23 11:10 18:53 04:46 MCV 93.4 91.6 MCH 31.3 31.4 MCHC 33.6 34.3 RDW 12.4 12.5 Plt Count 289 326 MPV 8.7 L 8.8 L Immature Gran % (Auto) 0.5 H 0.3 Neut % (Auto) 65.3 89.2 H Lymph % (Auto) 22.5 9.1 L [place] % (Auto) 6.7 1.3 L Eos % (Auto) 4.1 H 0.0 Baso % (Auto) 0.9 0.1 Lymph # (Auto) 1.3 0.8 L [place] # (Auto) 0.4 0.1 Eos # (Auto) 0.2 0.0 Baso # (Auto) 0.1 0.0 Abs Immat Gran (auto) 0.03 0.03 Absolute Neuts (auto) 3.6 7.8 Absolute Nucleated RBC 0.000 0.000 Nucleated RBC % (auto) 0.0 0.0 PT 11.8 INR 1.0 Anion Gap 10 L 15 Estim Creat Clear Calc 60.0 40.9 Estimated GFR > 60 44 Random Glucose 105 129 H Calcium 9.6 10.0 Troponin I High Sens < 2.7 B-Natriuretic Peptide 21 Respiratory Panel [place] See Note Adenovirus (Rapid PCR) Not Detected B.pert (TEM-PCR) Not Detected B.parapertussis DNA PCR Not Detected C. pneumoniae DNA (PCR) Not Detected Coronavirus OC43 (PCR) Not Detected Coronavirus HKU1 (PCR) Not Detected Coronavirus 229E (PCR) Not Detected COVID-19 (NAN) Negative COVID-19 Clin Com See Note Coronavirus NL63 (PCR) Not Detected Human Metapneumovir PCR Not Detected Influenza Type A (ARIELLE) Negative Influenza A (RT-PCR) Not Detected Influenza Type B (ARIELLE) Negative Influenza B (RT-PCR) Not Detected Influenza A & B Note See Note M. pneumoniae (PCR) Not Detected Parainfluenza 1 (PCR) Not Detected Parainfluenza 2 (PCR) Not Detected Parainfluenza 3 (PCR) Not Detected Parainfluenza 4 (PCR) Not Detected RSV (PCR) Not Detected Entero/Rhino (PCR) Not Detected SARS-CoV-2 RNA (RT-PCR) Not Detected Assessment and Plan (1) COPD exacerbation: Status: Acute (2) Emphysema/COPD: Status: Acute Plan 83-year-old male with history of emphysema, pulmonary hypertension admitted for further management of acute COPD exacerbation. # acute COPD exacerbation with acute hypoxemic respiratory failure CTA chest negative for any acute cardiopulmonary abnormality but does show evidence of chronic pulmonary hypertension, and emphysematous changes as well as moderate to severe coronary atherosclerosis Echocardiogram pending for right CHF ? IV methylprednisolone 40 mg b.i.d. DuoNebs q.4h while awake, albuterol p.r.n. azithromycin daily for pleiotropic effect respiratory viral panel negative Wean O2 down as tolerated # coronary atherosclerosis moderate-marked on CTA chest EKG without acute ischemic changes, troponin below detectable limits outpatient follow-up recommended # Acute kidney injury Likely related to Lasix? Abx? check urine studies hold nephrotoxic repeat BMP DVT prophylaxis-Lovenox Full code Patient requires inpatient stay overnight for management of acute COPD exacerbation with hypoxemic respiratory failure requiring IV steroids, IV antibiotics, scheduled nebulizer treatments and supplemental O2 with close monitoring for any cardiopulmonary decompensation Quality Stroke Does the patient have a stroke diagnosis?: No VTE Prior VTE?: No VTE Risk Level:: Medical - moderate - high VTE Device Contraindication: Treatment Not Indicated VTE Drug Contraindication: N/A - Med Ordered
--- NOTE | 2023-12-04 11:04 | PC.NURSE ---
assumed care of pt at 0700. pt a&o x4, pleasant, calm, and cooperative. pt found to be sating 84% on 2L. titrated up to 93% on 4L O2. pt also stated when he coughs up phlegm, he notices his O2 rises. pt received echocardiogram and was medicated per dec. pt resting quietly on stretcher in no apparent distress. rr even/unlabored. call graves within reach. plan of care ongoing. awaiting transport to inpatient room once report is complete.
[2023-12-04] MEDS: Azithromycin 250 MG TABLET PO (13:26)
[2023-12-04] MEDS: guaiFENesin 200 MG/10 ML 10 ML LIQUID PO ×2 (13:28→21:53)
[2023-12-04] MEDS: 0.9 % Sodium Chloride Flush 3 ML SYRINGE IVFLUSH ×2 (15:25→21:54)
--- NOTE | 2023-12-04 15:25 | MHC.CM.PN ---
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
[2023-12-05] VITALS (7 sets, daily range): BP systolic 119–133; BP diastolic 63–77; PULSE 80–99; RESP 16–20; TEMP 36.4–36.6; O2SAT 90–94
[2023-12-05 05:30] LABS: Hematocrit 41.2 % (42.0-52.0); Hemoglobin 13.8 g/dl (14.0-18.0); Mean Corpuscular HGB Conc 33.5 g/dl (31.0-36.0); Mean Corpuscular Hemoglobin 31.3 pg (27.0-33.0); Mean Corpuscular Volume 93.4 fL (80.0-98.0); Mean Platelet Volume 9.1 fL (9.4-12.4); Platelet Count 308 X10*3/uL (160-400); Red Blood Count 4.41 X10*6/uL (4.60-5.80); Red Cell Distribution Width 12.4 % (11.0-16.0); White Blood Count 18.3 X10*3/uL (4.8-10.8)
[2023-12-05 05:44] LABS: Anion Gap 14 (12-20); Blood Urea Nitrogen 36 mg/dL (9-16); Calcium 9.4 mg/dL (8.4-10.2); Carbon Dioxide 24 mmol/L (22-29); Chloride 103 mmol/L (96-108); Estimated Glomerular Filt Rate > 60; Glucose Random 124 mg/dL (60-115); Potassium 4.6 mmol/L (3.3-5.1); Sodium 136 mmol/L (135-145)
[2023-12-05] MEDS: methylPREDNISolone Sod Succ 40 MG/ML VIAL IVPUSH ×2 (06:15→17:32)
[2023-12-05] MEDS: Albuterol/Iprat 2.5/0.5MG 3 ML AMPUL.NEB INHALE ×4 (08:17→20:23)
[2023-12-05] MEDS: Loratadine 10 MG TABLET PO (08:17)
[2023-12-05] MEDS: Fluticasone/Vilanterol 200/25 BLST.W.DEV 1 PUFF INHALE (08:17)
[2023-12-05] MEDS: Folic Acid 1 MG TABLET PO (08:17)
[2023-12-05] MEDS: modafiniL 100 MG TABLET 200 MG PO (08:17)
[2023-12-05] MEDS: Magnesium Oxide 400 MG TABLET 200 MG PO (08:17)
[2023-12-05] MEDS: Multivitamin TABLET 1 TAB PO (08:17)
[2023-12-05] MEDS: Enoxaparin Sodium 40 MG/0.4 ML SYRINGE 30 MG SUBCUT (08:19)
[2023-12-05] MEDS: 0.9 % Sodium Chloride Flush 3 ML SYRINGE IVFLUSH ×2 (08:19→22:17)
[2023-12-05] MEDS: guaiFENesin 200 MG/10 ML 10 ML LIQUID PO ×3 (12:11→22:16)
[2023-12-05] MEDS: Azithromycin 250 MG TABLET PO (12:11)
--- NOTE | 2023-12-05 13:56 | HO.PM.IMPN ---
Subjective Subjective Date of Service: 12/05/23 Interval History: Seen and evaluated this morning Cr resolved down to 2L O2 , O2 sat dropped Mid 80s upon ambulation denies any fever or chills Review of Systems Review of Systems: Yes all other systems are reviewed and are negative Physical Exam Vital Signs: Vital Signs: Last Vital Signs Temp 97.8 F 12/05/23 11:18 Pulse 86 12/05/23 11:43 Resp 16 12/05/23 11:43 BP 131/72 12/05/23 11:18 Pulse Ox 94 12/05/23 11:18 O2 Del Method Nasal Cannula 12/05/23 11:18 O2 Flow Rate 2 12/05/23 11:18 BMI result Body Mass Index 28.1 Const: Other: Constitutional : Awake, interactive, not in distress Neck : Normal inspection, Supple Cardiovascular : RRR, no JVP, no lower extremity edema Respiratory : fair bilateral air entry, no crackles, bilateral scattered wheezes Gastrointestinal: soft, lax, Normal bowel sounds, Non tender Skin : Warm, Dry Neurological : Alert & oriented x3, No focal deficit Objective Data Active Medications Acetaminophen (Acetaminophen 325 Mg Tablet) 650 mg PO Q6H PRN PRN Reason: Pain, Mild (Pain Scale 1-3) Albuterol Sulfate (Albuterol Sulfate (0.083%) 2.5 Mg/3 Ml Vial.Neb) 2.5 mg INHALE Q2H PRN PRN Reason: Shortness of Breath/Wheezing Albuterol/Ipratropium (Albuterol/Iprat 2.5/0.5mg 3 Ml Ampul.Neb) 3 ml INHALE RQ4H WHILE AWAKE [facility] Last Admin: 12/05/23 11:42 Dose: 3 ml Documented By: COREY Azithromycin (Azithromycin 250 Mg Tablet) 250 mg PO Q24H [facility] Last Admin: 12/05/23 12:11 Dose: 250 mg Documented By: MARCELO Calcium Carbonate (Calcium Carbonate 500 Mg Tablet) 500 mg PO DAILY [facility] Last Admin: 12/05/23 08:17 Dose: 500 mg Documented By: MARCELO Enoxaparin Sodium (Enoxaparin Sodium 40 Mg/0.4 Ml Syringe) 30 mg SUBCUT Q24H [facility] Last Admin: 12/05/23 08:19 Dose: 30 mg Documented By: MARCELO Fluticasone/Vilanterol (Fluticasone/Vilanterol 200/25 Blst.W.Dev) 1 puff INHALE RDAILY [facility] Last Admin: 12/05/23 08:17 Dose: 1 puff Documented By: COREY Folic Acid (Folic Acid 1 Mg Tablet) 1 mg PO DAILY [facility] Last Admin: 12/05/23 08:17 Dose: 1 mg Documented By: MARCELO Guaifenesin (Guaifenesin 200 Mg/10 Ml 10 Ml Liquid) 10 ml PO Q4H PRN PRN Reason: Cough Last Admin: 12/05/23 12:11 Dose: 10 ml Documented By: MARCELO Loratadine (Loratadine 10 Mg Tablet) 10 mg PO DAILY [facility] Last Admin: 12/05/23 08:17 Dose: 10 mg Documented By: MARCELO Magnesium Oxide (Magnesium Oxide 400 Mg Tablet) 200 mg PO DAILY [facility] Last Admin: 12/05/23 08:17 Dose: 200 mg Documented By: MARCELO Methylprednisolone Sodium Succinate (Methylprednisolone Sod Succ 40 Mg/Ml Vial) 40 mg IVPUSH Q12H [facility] Last Admin: 12/05/23 06:15 Dose: 40 mg Documented By: NGUYEN Modafinil (Modafinil 100 Mg Tablet) 200 mg PO BID [facility] Last Admin: 12/05/23 08:17 Dose: 200 mg Documented By: MARCELO Multivitamins/Vitamin C (Multivitamin Tablet) 1 tab PO DAILY [facility] Last Admin: 12/05/23 08:17 Dose: 1 tab Documented By: MARCELO Ondansetron HCl (Ondansetron Hcl 4 Mg/2 Ml Vial) 4 mg IVPUSH Q8H PRN PRN Reason: Nausea and Vomiting Senna (Sennosides 8.6 Mg Tablet) 17.2 mg PO BEDTIME PRN PRN Reason: Constipation Sodium Chloride (0.9 % Sodium Chloride Flush 3 Ml Syringe) 3 ml IVFLUSH QSHIFT [facility] Last Admin: 12/05/23 08:19 Dose: 3 ml Documented By: MARCELO Labs 12/05/23 04:55 12/05/23 04:55 Labs: Laboratory Results - last 24 hr 12/05/23 04:55 MCV 93.4 MCH 31.3 MCHC 33.5 RDW 12.4 Plt Count 308 MPV 9.1 L Absolute Nucleated RBC 0.000 Nucleated RBC % (auto) 0.0 Anion Gap 14 Estim Creat Clear Calc 67.0 Estimated GFR > 60 Random Glucose 124 H Calcium 9.4 Assessment and Plan (1) COPD exacerbation: Status: Acute (2) Emphysema/COPD: Status: Acute Plan 83-year-old male with history of emphysema, pulmonary hypertension admitted for further management of acute COPD exacerbation. # acute COPD exacerbation with acute hypoxemic respiratory failure CTA chest negative for any acute cardiopulmonary abnormality but does show evidence of chronic pulmonary hypertension, and emphysematous changes as well as moderate to severe coronary atherosclerosis Echocardiogram showed normal EF with no WMA IV methylprednisolone 40 mg b.i.d. DuoNebs q.4h while awake, albuterol p.r.n. azithromycin daily for pleiotropic effect Incentive spirometry Wean O2 down as tolerated # coronary atherosclerosis moderate-marked on CTA chest EKG without acute ischemic changes, troponin below detectable limits outpatient follow-up recommended # Acute kidney injury Likely related to Lasix? Abx? check urine studies hold nephrotoxic repeat BMP DVT prophylaxis-Lovenox Full code Patient requires inpatient stay overnight for management of acute COPD exacerbation with hypoxemic respiratory failure requiring IV steroids, IV antibiotics, scheduled nebulizer treatments and supplemental O2 with close monitoring for any cardiopulmonary decompensation Quality Stroke Does the patient have a stroke diagnosis?: No VTE Prior VTE?: No VTE Risk Level:: Medical - moderate - high VTE Device Contraindication: Treatment Not Indicated VTE Drug Contraindication: N/A - Med Ordered
[2023-12-06 03:36] VITALS: BP 138/86; PULSE 75; RESP 18; TEMP 36.6; O2SAT 91
[2023-12-06] MEDS: guaiFENesin 200 MG/10 ML 10 ML LIQUID PO (05:30)
[2023-12-06] MEDS: methylPREDNISolone Sod Succ 40 MG/ML VIAL IVPUSH (05:30)
[2023-12-06] MEDS: Albuterol/Iprat 2.5/0.5MG 3 ML AMPUL.NEB INHALE (07:52)
[2023-12-06 07:53] VITALS: BP 154/93; PULSE 75; PULSE 83; RESP 16; RESP 18; TEMP 36.4; O2SAT 82; O2SAT 94
[2023-12-06] MEDS: Fluticasone/Vilanterol 200/25 BLST.W.DEV 1 PUFF INHALE (07:53)
[2023-12-06] MEDS: modafiniL 100 MG TABLET 200 MG PO (09:27)
[2023-12-06] MEDS: Magnesium Oxide 400 MG TABLET 200 MG PO (09:27)
[2023-12-06] MEDS: Multivitamin TABLET 1 TAB PO (09:27)
[2023-12-06] MEDS: Loratadine 10 MG TABLET PO (09:28)
[2023-12-06] MEDS: Azithromycin 250 MG TABLET PO (09:28)
[2023-12-06] MEDS: Folic Acid 1 MG TABLET PO (09:28)
[2023-12-06] MEDS: 0.9 % Sodium Chloride Flush 3 ML SYRINGE IVFLUSH (09:29)
--- NOTE | 2023-12-06 11:18 | PM.DS ---
DS: Providers Provider Date of Service: 12/06/23 Date of admission: 12/03/23 17:36 Primary care physician: Robert Lundberg MD DS: Diagnosis Discharge Diagnosis (1) COPD exacerbation: Status: Acute (2) Emphysema/COPD: Status: Acute (3) Hypoxia: Status: Acute DS: Summary Hospital Course Hospital Course: Admission note HPI 83-year-old male with history of emphysema, pulmonary hypertension presents to the ED earlier today for evaluation of dyspnea and occasionally productive cough ongoing for 4 weeks but worsening. He states that initially, he was experiencing nasal congestion which has resolved. He then developed primarily dry cough with occasionally clear sputum production and significant dyspnea primarily with exertion but also with rest. States dyspnea has been worsening over the last few days especially at night. He does endorse orthopnea and PND. He has been having to sleep with multiple pillows. There is also pleuritic chest pain He is also becoming quite fatigued with exertion. No known sick contacts. Denies any fevers, chills, sore throat, abdominal pain, nausea, vomiting, diarrhea, urinary symptoms, lightheadedness, palpitations, wheezing, chest pressure. He is a former smoker who quit 35 years ago with a 70+ pack year history. While in the ED, patient was noted to be hypoxic to 83% on room air and was placed on 2 L supplemental O2 maintaining oximetry around 96%. He has also been tachypneic but is afebrile and stable blood pressures. There is no leukocytosis. Renal function is baseline, electrolyte levels normal. Troponin below detectable limits. BNP 21. Negative for COVID-19, influenza. CTA chest negative for PE and is without any acute abnormalities. Does show marked centrilobular emphysematous changes as well as pulmonary artery ectasia suspicious for the sequela of chronic pulmonary hypertension and moderate to marked coronary artery calcific atherosclerosis. EKG shows sinus tachycardia, rate 124, no ST or depressions. In the ED, given 125 mg IV methylprednisolone, and DuoNeb. Hospital course # acute COPD exacerbation with acute hypoxemic respiratory failure CTA chest negative for any acute cardiopulmonary abnormality but does show evidence of chronic pulmonary hypertension, and emphysematous changes as well as moderate to severe coronary atherosclerosis. Echocardiogram showed normal EF with no WMA,. Treated with IV methylprednisolone 40 mg b.i.d, DuoNebs q.4h while awake, albuterol p.r.n. and azithromycin daily for pleiotropic effect with good response as he was weaned off O2 and was able to ambulate on room air with no dyspnea. # coronary atherosclerosis moderate-marked on CTA chest. EKG without acute ischemic changes, troponin below detectable limits. For outpatient follow-up recommended # Acute kidney injury Likely related to Lasix as Cr increased to 1.5 before improving back to normal baseline by holding nephrotoxins. use your home inhalors 4 times daily for the next 3 days then as needed Continue Prednisone and Azithromycin as prescribed To follow up as outpatient with cardiology for further work up Time Attestation Discharge coordination time: Greater than 30 minutes Quality: Safe Use of Opioids Does Pt have an Active Cancer Diagnosis on the Problem List?: No Quality: Stroke Does the patient have a stroke diagnosis?: No Physical Exam Vital Signs: Vital Signs: Last Vital Signs Temp 97.6 F 12/06/23 07:53 Pulse 83 12/06/23 07:53 Resp 16 12/06/23 07:53 BP 154/93 H 12/06/23 07:53 Pulse Ox 94 12/06/23 07:53 O2 Del Method Room Air 12/06/23 07:53 O2 Flow Rate 2 12/05/23 11:18 BMI result Body Mass Index 28.1 Const: Other: Constitutional : Awake, interactive, not in distress Neck : Normal inspection, Supple Cardiovascular : RRR, no JVP, no lower extremity edema Respiratory : fair bilateral air entry, no crackles, no wheezes Gastrointestinal: soft, lax, Normal bowel sounds, Non tender Skin : Warm, Dry Neurological : Alert & oriented x3, No focal deficit DS: Data Imaging Chest x-ray: Radiologist's impression: ITS Impressions Chest X-Ray 12/03/23 11:29 IMPRESSION: No acute cardiopulmonary disease. Chest CTA 12/03/23 14:44 IMPRESSION: 1. CT pulmonary angiogram negative for pulmonary emboli. 2. No acute abnormalities identified. 3. Marked centrilobular emphysematous changes. 4. Pulmonary artery ectasia suspicious for the sequela of chronic pulmonary hypertension. 5. Moderate-marked coronary artery calcific atherosclerosis. 6. Small hiatal hernia. VTE: negative. Discharge Plan Discharge Anticipated Discharge Date/Time: 12/06/23 11:15 Patient Disposition: Home, Self-Care Discharge Diagnosis: COPD exacerbation with hypoxia Referrals: Robert Lundberg MD [Primary Care Provider] - 1 Week Discharge Medications: New azithromycin 250 mg Tablet 250 mg PO Q24H Qty: 3 0RF guaifenesin 100 mg/5 mL Liquid 200 mg PO Q4H PRN (Reason: Cough) Qty: 473 0RF prednisone 20 mg tablet 40 mg PO DAILY Qty: 6 0RF Continued multivitamin Tablet 1 tab PO DAILY modafinil 200 mg Tablet 200 mg PO BID fluticasone propion-salmeterol [Wixela Inhub] 500-50 mcg/dose Blister With Device 1 inh INHALATION BID albuterol sulfate 90 mcg/actuation Hfa Aerosol Inhaler 2 puff INHALATION Q4-6H PRN (Reason: Shortness Of Breath) calcium carbonate 500 mg calcium (1,250 mg) Tablet 500 mg PO DAILY folic acid 1 mg Tablet 1 mg PO DAILY magnesium 250 mg Tablet 250 mg PO DAILY loratadine 10 mg Tablet 10 mg PO DAILY Discharge Orders: Discharge Order (Routine); Ordered 12/06/23 Ordered By: Corona Sanchez Diet: Advance to usual diet Activity on Discharge: As tolerated Stand Alone Forms: Patient Portal Discharge page Care Plan Goals: Read below Health Concerns: Read below Plan of Treatment: Read below Assessment: You were treated for COPD exacerbation with IV steroids, nebulizers and antibiotic with good response over the course of hospital stay. use your home inhalors 4 times daily for the next 3 days then as needed Continue Prednisone and Azithromycin as prescribed To follow up as outpatient with cardiology for further work up
--- NOTE | 2023-12-06 11:24 | MHC.CM.PN ---
PT WILL DC HOME TODAY WITH NO SERVICES PT TO ARRANGE TRANSPORT
== END 2023-12-06 12:01 | disposition home or self-care (01) | DRG 190 ==
LOC: HO.ED 16:37 → HO.EDOVER 17:48 → HO.S3 12-04 09:00
PROVIDERS: Admitting Provider Physician Assistant; Emergency Provider Emergency Medicine; PCP Family Medicine; Visit Provider Student in an Organized Health Care Education/Training Program
DX: J43.2 Centrilobular emphysema (principal); J96.01 Acute respiratory failure with hypoxia; N17.9 Acute kidney failure, unspecified; I25.10 Atherosclerotic heart disease of native coronary artery without angina pectoris; I27.20 Pulmonary hypertension, unspecified; Z20.822 Contact with and (suspected) exposure to COVID-19; T50.1X5A Adverse effect of loop [high-ceiling] diuretics, initial encounter; Z87.891 Personal history of nicotine dependence; Z79.51 Long term (current) use of inhaled steroids; Z79.899 Other long term (current) drug therapy
CPT/HCPCS: 36415; 71046; 71275; 80048; 83880; 84484; 85025; 85027; 85610; 87502; 87633; 87635; 93005; 93306; 93356; 94640; 99285; J0456; J1650; J1940; J2920; J2930; Q9967

== ENCOUNTER → 2023-12-03 10:58 | Outpatient (BNV) | payer MEDICARE, SELFPAY | PROVIDERS: Emergency Provider Emergency Medicine; PCP Family Medicine; Visit Provider Internal Medicine Cardiovascular Disease | DX: R00.0 Tachycardia, unspecified (principal) | CPT/HCPCS: 93010 ==

== ENCOUNTER 2023-12-03 17:36 | Outpatient (BNV) | payer MEDICARE, SELFPAY | END 2023-12-04 07:00 | PROVIDERS: Admitting Provider Physician Assistant; Emergency Provider Emergency Medicine; PCP Family Medicine; Visit Provider Internal Medicine Cardiovascular Disease | DX: I34.89 Other nonrheumatic mitral valve disorders (principal) | CPT/HCPCS: 93306 ==

== ENCOUNTER → 2023-12-03 17:36 | Outpatient (BNV) | payer MEDICARE, SELFPAY | PROVIDERS: Admitting Provider Physician Assistant; Emergency Provider Emergency Medicine; PCP Family Medicine; Visit Provider Student in an Organized Health Care Education/Training Program | DX: J96.01 Acute respiratory failure with hypoxia (principal); J44.1 Chronic obstructive pulmonary disease with (acute) exacerbation; J43.9 Emphysema, unspecified | CPT/HCPCS: 99223; 99232; 99233; 99238 ==

== ENCOUNTER 2024-03-05 08:58 | Outpatient (REF) | payer MEDICARE, SELFPAY ==
--- NOTE | 2024-03-05 09:35 | HM_ITS ---
* Total monitoring time 3 days. * Underlying rhythm is sinus with an average rate of 82/Min. Range 50 to 150/Min. About 5% of the time, rate > 100/Min. * Rare supraventricular ectopy. * Rare ventricular ectopy with a burden of 0.5%. Multiple morphologies. Rare couplets. One short run of 3 beats. * No significant pauses or AV blocks. * No patient markers or diary events. MTDD
== END 2024-03-05 08:59 | disposition home or self-care (01) ==
LOC: HO.LAB 08:58
PROVIDERS: PCP Family Medicine; Visit Provider Family Medicine
DX: R42 Dizziness and giddiness (principal); R55 Syncope and collapse
CPT/HCPCS: 93242

== ENCOUNTER → 2024-03-05 09:35 | Outpatient (BNV) | payer MEDICARE, SELFPAY | PROVIDERS: PCP Family Medicine; Visit Provider Internal Medicine | DX: I49.3 Ventricular premature depolarization (principal) | CPT/HCPCS: 93244 ==

== ENCOUNTER 2024-04-28 09:33 | Outpatient (REF) | payer MEDICARE, SELFPAY ==
[2024-04-28 13:21] LABS: Glucose Fasting 95 mg/dL (60-99)
[2024-04-28 13:33] LABS: Estimated Average Glucose 108 mg/dL; Hemoglobin A1C 138.5506 umol/L; Hemoglobin A1c % 5.4 % (<6.0)
== END 2024-04-28 09:34 | disposition home or self-care (01) ==
LOC: HO.HMGCLDS 09:33
PROVIDERS: PCP Family Medicine; Visit Provider Family Medicine
DX: R73.9 Hyperglycemia, unspecified (principal)
CPT/HCPCS: 36415; 82947; 83036

== ENCOUNTER 2024-07-29 11:58 | Outpatient (REF) | payer MEDICARE, SELFPAY ==
[2024-07-29 13:16] LABS: MANUAL DIFF FLAG NO
[2024-07-29 13:39] LABS: Basophils Absolute Auto 0.1 X10*3/uL (0.0-0.2); Basophils Percent Auto 0.9 % (0-2); Eosinophils Absolute Auto 0.3 X10*3/uL (0.0-0.4); Eosinophils Percent Auto 5.2 % (0-4); Hematocrit 43.7 % (42.0-52.0); Imm Gran Abs Auto 0.06 X10*3/uL (0.00-0.03); Imm Gran Pct Auto 0.9 % (0.0-0.4); Lymphocytes Absolute Auto 1.6 X10*3/uL (1.2-4.9); Lymphocytes Percent Auto 24.5 % (20-40); Mean Corpuscular HGB Conc 34.3 g/dl (31.0-36.0); Mean Corpuscular Hemoglobin 32.1 pg (27.0-33.0); Mean Corpuscular Volume 93.4 fL (80.0-98.0); Mean Platelet Volume 9.4 fL (9.4-12.4); Monocytes Absolute Auto 0.7 X10*3/uL (0.1-1.2); Neutrophils Absolute Auto 3.7 x10*3/uL (2.0-8.3); Neutrophils Percent Auto 57.5 % (45-73); Platelet Count 282 X10*3/uL (160-400); Red Blood Count 4.68 X10*6/uL (4.60-5.80); Red Cell Distribution Width 11.8 % (11.0-16.0); White Blood Count 6.4 X10*3/uL (4.8-10.8)
[2024-07-29 14:15] LABS: Alanine Aminotransferase 22 U/L (0-40); Albumin Level 4.1 g/dL (3.5-5.0); Alkaline Phosphatase 61 U/L (39-117); Anion Gap 12 (12-20); Aspartate Amino Transferase 23 U/L (5-37); Bilirubin Total 0.5 mg/dL (0.0-1.0); Blood Urea Nitrogen 18 mg/dL (9-16); Calcium 9.7 mg/dL (8.4-10.2); Carbon Dioxide 27 mmol/L (22-29); Chloride 101 mmol/L (96-108); Estimated Glomerular Filt Rate 58; Glucose Random 107 mg/dL (60-115); Potassium 4.3 mmol/L (3.3-5.1); Sodium 136 mmol/L (135-145); Total Protein 6.7 g/dL (6.5-8.0)
== END 2024-07-29 11:59 | disposition home or self-care (01) ==
LOC: HO.HMGCLDS 11:58
PROVIDERS: PCP Family Medicine; Visit Provider Family Medicine
DX: R06.02 Shortness of breath (principal); I10 Essential (primary) hypertension; K21.9 Gastro-esophageal reflux disease without esophagitis
CPT/HCPCS: 36415; 80053; 85025

== ENCOUNTER 2024-07-31 13:39 | Emergency (ER) | payer MEDICARE, SELFPAY ==
[2024-07-31 13:43] VITALS: BP 126/93; PULSE 108; RESP 18; TEMP 36.4; O2SAT 96; BMI 30.1
--- NOTE | 2024-07-31 13:43 | ED.GENADULT ---
HPI - General Adult General Chief complaint: Extremity Injury, Lower Stated complaint: stepped in a hole, heard a pop in leg Time Seen by Provider: 07/31/24 13:59 History of Present Illness HPI narrative: Patient complains of pain in left upper calf area just below the knee This happened when he stepped in a hole and extended the leg and felt a very immediate and sharp tear and pop in the back of his leg, this happened a couple of hours ago and then immediately had pain with bearing weight and in the back of his leg He has no knee pain, he did not fall he sustained no other injury, he did Bang his head there is no head injury no head pain no headache no neck pain no back pain no other extremity pains or injuries Related Data Home Medications ?Medication ?Instructions ?Recorded ?Confirmed modafinil 200 mg tablet 200 mg PO BID 05/14/22 12/03/23 multivitamin 1 tab PO DAILY 05/14/22 12/03/23 albuterol sulfate 90 mcg/actuation 2 puff inhalation Q4-6H PRN 12/03/23 12/03/23 aerosol inhaler Shortness Of Breath calcium carbonate 500 mg PO DAILY 12/03/23 12/03/23 fluticasone 500 mcg-salmeterol 50 1 inh inhalation BID 12/03/23 12/03/23 mcg/dose blistr powdr for inhalation (Wixela Inhub) folic acid 1 mg tablet 1 mg PO DAILY 12/03/23 12/03/23 loratadine 10 mg tablet 10 mg PO DAILY 12/03/23 12/03/23 magnesium 250 mg tablet 250 mg PO DAILY 12/03/23 12/03/23 Previous Rx's ?Medication ?Instructions ?Recorded azithromycin 250 mg tablet 250 mg PO Q24H #3 tabs 12/06/23 guaifenesin 100 mg/5 mL oral liquid 200 mg (10 mL) PO Q4H PRN Cough 12/06/23 #473 mL prednisone 20 mg tablet 40 mg (2 x 20 mg) PO DAILY #6 tabs 12/06/23 Allergies Allergy/AdvReac Type Severity Reaction Status Date / Time No Known Allergies Allergy Verified 07/31/24 13:44 [facility] Past Medical History Source: nursing notes reviewed Medical History (Updated 07/31/24 @ 14:39 by DONIS Torres) Emphysema/COPD COPD exacerbation Former smoker, stopped smoking in distant past Pulmonary emphysema Multiple pulmonary nodules Social History Social History Household Members: Spouse and Family Housing: House Do you presently have visiting nurse or other home services: No Alcohol intake: former Patient Tobacco Use Status: Former Tobacco user Tobacco use type: Cigarette Cigarette Packs Per Day: 3 Cigarettes Per Day: 60.0 Years Smoked: 37 e-Cigarette/Vaping Use: Never Used Second Hand Smoke Exposure: No Advance Directives: No Advance Directives Information Provided: Yes Advance Directives Date on File: 05/15/22 Do you have a plan to hurt others: No Plan service: No Current occupational status: retired Physical Exam ED Vital Signs: Vital Signs - 24 hr 07/31/24 13:43 07/31/24 14:00 07/31/24 15:02 Temperature 97.5 F 97.4 F 97.4 F Pulse Rate 108 H 91 91 Respiratory Rate 18 16 16 Blood Pressure 126/93 H 137/85 137/85 Pulse Oximetry 96 96 96 Oxygen Delivery Method Room Air Room Air Room Air BMI result Body Mass Index 30.1 General appearance no distress Head normocephalic atraumatic Neck is supple nontender No respiratory distress Extremities the left leg has no tenderness in the knee which has full range of motion, there is no injury to the skin There is no popliteal tenderness or posterior thigh tenderness The upper calf had tenderness right where the patient said he had felt a popping sound when he stepped into the hole, there was no significant swelling or ecchymosis there was no other tenderness anywhere else in the calf no redness no warmth no changes to the skin full range of motion in knee and ankle Neurovascular intact distal Course Course Course Narrative: This is a rapid medical exam performed by Neil Tse NP: Additional HPI, ROS, PE not included below will be deferred to primary provider. Patient is an 84-year-old male with history of COPD, emphysema, pulmonary nodules presenting to the ED with complaint of left knee pain. Stepped in a hole in his yard at home and heard a pop. States pain is severe, worse with movement. Plan: xray Exam is not consistent with a knee injury but is consistent with a torn upper calf muscle with an abrupt onset of pain and a popping sensation in the area of the upper calf and patient is given an Lauro bandage and crutches and will follow with orthopedics Discharge Plan Discharge Clinical Impression: Muscle tear Patient Disposition: Home, Self-Care Additional Instructions: It is likely you tore a muscle in the back of her leg, in the back of her calf Is very likely that you will get bruising with black and blue from bleeding under the skin which usually surfaces the next day Usually patients are able to limp more comfortably without the crutches after 2 or 3 days but you will probably be limping for several weeks and full recovery take 6-8 weeks in most cases Follow with primary care doctor or orthopedist for physical therapy Return to the ER any time any worse condition or any concerns Prescriptions: No Action multivitamin Tablet 1 tab PO DAILY modafinil 200 mg Tablet 200 mg PO BID fluticasone propion-salmeterol [Wixela Inhub] 500-50 mcg/dose Blister With Device 1 inh INHALATION BID albuterol sulfate 90 mcg/actuation Hfa Aerosol Inhaler 2 puff INHALATION Q4-6H PRN (Reason: Shortness Of Breath) calcium carbonate 500 mg calcium (1,250 mg) Tablet 500 mg PO DAILY folic acid 1 mg Tablet 1 mg PO DAILY magnesium 250 mg Tablet 250 mg PO DAILY loratadine 10 mg Tablet 10 mg PO DAILY azithromycin 250 mg Tablet 250 mg PO Q24H Qty: 3 0RF guaifenesin 100 mg/5 mL Liquid 200 mg PO Q4H PRN (Reason: Cough) Qty: 473 0RF prednisone 20 mg tablet 40 mg PO DAILY Qty: 6 0RF Referrals: Victor Manuel Ohara MD [Physician] - (Calf muscle tear) Interventions: ED Discharge Assessment Last Done: 07/31/24 15:02 Discharge Date/Time: 07/31/24 15:03 Print Language: Yoruba
[2024-07-31 14:00] VITALS: BP 137/85; PULSE 91; RESP 16; TEMP 36.3; O2SAT 96
--- NOTE | 2024-07-31 14:13 | PC.NURSE ---
patient discussion with MD to trial OLESYA wrap and crutches for stability. OLESYA wrap applied to right knee and crutches supplied.
[2024-07-31 15:02] VITALS: BP 137/85; PULSE 91; RESP 16; TEMP 36.3; O2SAT 96
== END 2024-07-31 15:03 | disposition home or self-care (01) ==
PROVIDERS: Emergency Provider Internal Medicine; PCP Family Medicine
DX: S86.912A Strain of unspecified muscle(s) and tendon(s) at lower leg level, left leg, initial encounter (principal); X58.XXXA Exposure to other specified factors, initial encounter; Y93.9 Activity, unspecified; Y92.9 Unspecified place or not applicable; Y99.9 Unspecified external cause status; Z79.899 Other long term (current) drug therapy; M79.605 Pain in left leg; J44.9 Chronic obstructive pulmonary disease, unspecified
CPT/HCPCS: 99283

== ENCOUNTER 2024-08-18 08:22 | Outpatient (AMB) | payer MEDICARE, SELFPAY ==
--- NOTE | 2024-08-18 08:36 | MHC.OFFVIS ---
Intake Visit Reasons: [employer]- ED f/u LT torn upper calf muscle Intake Note: Braulio is a 84 year old male who presents today as a new patient for a evaluation of his left calf muscle, DOI 07/31/24. Patient reports he stepped in a pot hole and extended the leg which gave him immediate/sharp pain. He mentions having mild discomfort and soreness today. Patient has noticed that the swelling has gone down. 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 The patient presented to the ED on 07/31/24 status post when he stepped in a pothole and extended his left lower extremity, resulting in immediate pain, and felt a pop in the back of his left lower extremity. He developed pain with weight bearing in the back of his left lower extremity. He was referred to [facility] for further evaluation and treatment. While in the office today, the patient currently reports experiencing mild discomfort and soreness in the left lower extremity. He noticed an edema that has improved. [facility] Medical History (Updated 08/18/24 @ 09:49 by Monica Simpson) Emphysema/COPD COPD exacerbation Former smoker, stopped smoking in distant past Pulmonary emphysema Multiple pulmonary nodules Social History Household Members: Spouse and Family Housing: House Do you presently have visiting nurse or other home services: No Alcohol intake: former Patient Tobacco Use Status: Former Tobacco user Tobacco use type: Cigarette Cigarette Packs Per Day: 3 Cigarettes Per Day: 60.0 Years Smoked: 37 e-Cigarette/Vaping Use: Never Used Second Hand Smoke Exposure: No Advance Directives Date on File: 05/15/22 service: No Current occupational status: retired Review of Systems Const All systems reviewed & are unremarkable except as noted in HPI and below Physical Exam Const General: cooperative and no acute distress Orientation/consciousness: patient oriented x3 Resp Effort & Inspection: normal respiratory effort and able to speak in complete sentences Cardio Peripheral pulses: Peripheral pulses 2+ throughout Skin General skin exam: no rashes or lesions noted Neuro General: patient oriented x3 Extrem Other: Left calf: Mild to moderate edema compared to the contralateral side. Pain with dorsiflexion in the muscle belly. Tenderness with calf squeeze in the muscle belly. Achilles tendon is palpable. Negative Ross's test. NVI. Assessment & Plan Assessment & Plan (1) Gastrocnemius tear: Code(s): S86.119A - Strain of other muscle(s) and tendon(s) of posterior muscle group at lower leg level, unspecified leg, initial encounter Category: Medical Plan Mr. Stone is a 84-year-old male who presents in the office today, as a new patient, for an evaluation of left torn upper calf muscle. The patient presented to the ED on 07/31/24 status post when he stepped in a pothole and extended his left lower extremity, resulting in immediate pain, and felt a pop in the back of his left lower extremity. He developed pain with weight bearing in the back of his left lower extremity. He was referred to [facility] for further evaluation and treatment. While in the office today, the patient currently reports experiencing mild discomfort and soreness in the left lower extremity. He noticed an edema that has improved. We discussed the role of a walking boot to assist with ambulation as well as formal physical therapy. However, the patient declined both at this time, as he feels his injury is improving and also his need for work. I demonstrated some gentle stretching exercises while in the office today. Follow-up will be PRN, or sooner if needed. X-rays of the left lower extremity, which were obtained while in the office today and were reviewed by me, Emma Cox PA-C, revealed: Evidence of osteoarthritis and negative for any acute fracture or dislocation. Orders: Orders XR knee LT 3V 08/18/24 M25.562 - Pain in left knee Patient Instructions: Scribed by Monica Simpson, medical lab tech instructor, for Emma Cox PA-C on 08/18/24 at 8:57 pm EST. Coding Level of Care Code New Pt Level 3 (53828) Diagnoses Gastrocnemius tear S86.119A
== END 2024-08-18 09:01 | disposition home or self-care (01) ==
LOC: HO.HOS 08:23
PROVIDERS: PCP Family Medicine; Visit Provider Physician Assistant
DX: S86.112A Strain of other muscle(s) and tendon(s) of posterior muscle group at lower leg level, left leg, initial encounter (principal)
CPT/HCPCS: 99203

== ENCOUNTER 2024-08-18 09:27 | Outpatient (REF) | payer MEDICARE, SELFPAY | END 2024-08-18 09:28 | disposition home or self-care (01) | LOC: HO.HOSX 09:27 | PROVIDERS: Visit Provider Orthopaedic Surgery | DX: M25.562 Pain in left knee (principal); S86.119A Strain of other muscle(s) and tendon(s) of posterior muscle group at lower leg level, unspecified leg, initial encounter | CPT/HCPCS: 73562; 99202 ==

== ENCOUNTER 2024-09-30 13:23 | Outpatient (AMB) | payer MEDICARE, SELFPAY ==
[2024-09-30 13:42] VITALS: BP 132/80; PULSE 87; O2SAT 98; BMI 30.1
--- NOTE | 2024-09-30 13:42 | MHC.OFFWIV ---
Intake Vital Signs 09/30/24 13:42 Height 5 ft 8.5 in Weight 201 lb BMI 30.1 BP 132/80 Blood Pressure Location Rt brachial Position Sitting Pulse 87 Pulse Source Pulse Oximeter Pulse Oximetry (%) 98 Intake Visit Reasons: EP LT ear (something stuck) Patient Tobacco Use Status: Former Tobacco user Allergies No Known Allergies Allergy (Verified 09/30/24 13:42) Do you need a note to return to daycare/school/sports/work: No HPI HPI Comments History of Present Illness Details History of Present Illness The patient is an 84-year-old male presenting with retrieval of a foreign body from the left ear. The patient reports that a component of his hearing aid became lodged in his left ear. The event occurred yesterday and involved a small plastic piece or cap from the hearing aid. He did not initially notice the piece was missing until later. The attempted retrieval initially stems from the lack of an appointment with his regular physician, Dr. Lundberg, who was unavailable due to illness. On examination, the piece was easily visible and located superficially in the ear canal. Physical Exam General: Cooperative, healthy appearing, comfortable, no acute distress and well developed Orientation: Patient oriented x3 Limitations: No limitations Head: Normal to inspection Ears: Hearing grossly normal bilaterally, but left ear slightly red and irritated, no infection noted, plastic piece from hearing aid noted in left EAC Nose: Normal external nose present Face and sinus: Normal facial exam Eyes: Appearance normal, both eyes and all related structures Neck: Normal visual inspection and Yes full ROM Respiratory: Normal respiratory effort and able to speak in complete sentences. Skin: No rashes or lesions noted Neuro: Patient oriented x3 Extremities: Normal to inspection [facility] Medical History (Updated 09/30/24 @ 13:50 by Maggy Heller PA-C) Emphysema/COPD COPD exacerbation Former smoker, stopped smoking in distant past Pulmonary emphysema Multiple pulmonary nodules Social History Household Members: Spouse and Family Housing: House Do you presently have visiting nurse or other home services: No Alcohol intake: former Patient Tobacco Use Status: Former Tobacco user Tobacco use type: Cigarette Cigarette Packs Per Day: 3 Cigarettes Per Day: 60.0 Years Smoked: 37 e-Cigarette/Vaping Use: Never Used Second Hand Smoke Exposure: No Advance Directives Date on File: 05/15/22 service: No Current occupational status: retired Review of Systems Const All systems reviewed & are unremarkable except as noted in HPI and below Physical Exam Vital Signs: Last Vital Signs Pulse 87 09/30/24 13:42 BP 132/80 09/30/24 13:42 Pulse Ox 98 09/30/24 13:42 BMI result Body Mass Index 30.1 Assessment & Plan Assessment & Plan (1) Foreign body in left ear: Code(s): T16.2XXA - Foreign body in left ear, initial encounter Qualifiers: Encounter type: initial encounter Qualified Code(s): T16.2XXA - Foreign body in left ear, initial encounter Plan: Plan - The foreign body was removed using tweezers without complications. - The patient was advised to contact his health care specialist to secure the hearing aid component to prevent recurrence. - Examination showed no signs of infection, thus no additional treatment for infection necessary. - The patient was counseled regarding proper inspection and maintenance of hearing aids to avoid further incidents. Patient was informed and verbally consented to the use of an ambient scribe for clinic note documentation during this visit. Coding Level of Care Code New Pt Level 3 (56811) Diagnoses Foreign body of left ear, initial encounter T16.2XXA Encounter type: initial encounter
== END 2024-09-30 14:05 | disposition home or self-care (01) ==
PROVIDERS: PCP Family Medicine; Visit Provider Physician Assistant
DX: T16.2XXA Foreign body in left ear, initial encounter (principal)

== ENCOUNTER → 2024-09-30 13:23 | Outpatient (BNVA) | payer MEDICARE, SELFPAY | PROVIDERS: PCP Family Medicine; Visit Provider Physician Assistant | DX: T16.2XXA Foreign body in left ear, initial encounter (principal) | CPT/HCPCS: 99202 ==

== ENCOUNTER 2024-10-28 11:39 | Emergency (ER) | payer MEDICARE, SELFPAY ==
--- NOTE | ~2024-10-28 | XR_ITS ---
EXAMINATION: XR LUMBOSACRAL SPINE CLINICAL INFORMATION: pain COMPARISON: None available. TECHNIQUE: Three views of the lumbosacral spine. FINDINGS: No acute cortical disruption or malalignment. No lytic or blastic lesions. Multilevel marginal osteophyte formation and endplate sclerosis. Decreased intervertebral disc height at L5-S1. Vascular calcifications, aorta. XR/XR lumbar spine 2-3V IMPRESSION: Multilevel thoracolumbar spondylosis without acute fracture or trauma-related listhesis. Atherosclerosis disease. Electronically signed by: Paul Pettit MD 10/28/2024 01:25 PM EST
[2024-10-28 12:04] VITALS: BP 127/94; PULSE 95; RESP 20; TEMP 36.4; O2SAT 94; BMI 29.5
--- NOTE | 2024-10-28 12:05 | ED.GENADULT ---
HPI - General Adult General Chief complaint: Back Pain/Injury Stated complaint: Back Pain Time Seen by Provider: 10/28/24 17:19 History of Present Illness HPI narrative: Patient complains of right-sided back pain and sacroiliac area similar to many many prior episodes it started gradually over the last 2 days he is not sure what triggered it he says it happens once or twice a year and it follows the exact same pattern, he has pain in his back in the sacral area, but no changes to bowel or bladder no incontinence no new constipation, no abdominal pain no chest pain no radiation of pain no weakness or loss of sensation Pain is worse with movement and relieved fully when he is in a comfortable position He has had no fever no recent illness no difficulty breathing no chest pain no abdominal pain Related Data Home Medications ?Medication ?Instructions ?Recorded ?Confirmed modafinil 200 mg tablet 200 mg PO BID 05/14/22 12/03/23 multivitamin 1 tab PO DAILY 05/14/22 12/03/23 albuterol sulfate 90 mcg/actuation 2 puff inhalation Q4-6H PRN 12/03/23 12/03/23 aerosol inhaler Shortness Of Breath calcium carbonate 500 mg PO DAILY 12/03/23 12/03/23 fluticasone 500 mcg-salmeterol 50 1 inh inhalation BID 12/03/23 12/03/23 mcg/dose blistr powdr for inhalation (Wixela Inhub) folic acid 1 mg tablet 1 mg PO DAILY 12/03/23 12/03/23 loratadine 10 mg tablet 10 mg PO DAILY 12/03/23 12/03/23 magnesium 250 mg tablet 250 mg PO DAILY 12/03/23 12/03/23 meloxicam 15 mg tablet 15 mg PO QAM 08/18/24 Previous Rx's ?Medication ?Instructions ?Recorded cyclobenzaprine 5 mg tablet 5 mg PO TID PRN muscle spasm #10 10/28/24 tabs lidocaine 4 % topical patch 1 patch topical DAILY PRN pain #10 10/28/24 (Aspercreme (lidocaine)) ea Allergies Allergy/AdvReac Type Severity Reaction Status Date / Time No Known Allergies Allergy Verified 10/28/24 12:08 [facility] Past Medical History Source: nursing notes reviewed Medical History (Updated 10/28/24 @ 17:55 by DONIS Torres) Emphysema/COPD COPD exacerbation Former smoker, stopped smoking in distant past Pulmonary emphysema Multiple pulmonary nodules Social History Social History Household Members: Spouse and Family Housing: House Do you presently have visiting nurse or other home services: No Alcohol intake: former Patient Tobacco Use Status: Former Tobacco user Tobacco use type: Cigarette Cigarette Packs Per Day: 3 Cigarettes Per Day: 60.0 Years Smoked: 37 e-Cigarette/Vaping Use: Never Used Second Hand Smoke Exposure: No Advance Directives: No Advance Directives Information Provided: No Advance Directives Date on File: 05/15/22 Do you have a plan to hurt others: No Plan service: No Current occupational status: retired Physical Exam ED Vital Signs: Vital Signs - 24 hr 10/28/24 12:04 Temperature 97.5 F Pulse Rate 95 Respiratory Rate 20 Blood Pressure 127/94 H Pulse Oximetry 94 Oxygen Delivery Method Room Air BMI result Body Mass Index 29.5 General appearance laying in bed comfortable, cooperative in no distress The neck is supple Chest is clear to auscultation bilateral The heart no murmur auscultated Abdomen soft nontender The back had some right-sided sacroiliac area tenderness, no focal bony tenderness over the spine, skin of the back was normal, pain in the area is reproduced with movements and relieved with finding comfortable position Extremities full range of motion x4 Skin no rash Neuro motor is 5/5 x4 sensation intact, no focal neurologic deficits Course Course Course Narrative: RME, this is a rapid medical exam performed by Nash Landaverde please refer to primary provider for complete H&P- 84-year-old male presents for evaluation of lower back pain. This happened 2 days ago, denies any specific injury. He reports that his back occasionally gives out. He had previously gotten relief from a chiropractor but was told ?there is something wrong and you need to be seen by a doctor. ? Plan for x-ray of the lumbar spine Patient with back pain similar to many many prior episodes and says this 1 is no different, in past it was relieved with visit to the chiropractor Pain began 2 days ago without any fall or trauma, with no accompanying neurologic symptoms no change to bowel or bladder He is treated with a medication for narcolepsy so can not take any narcotic pain medication cause of risk of interaction and is prescribed Flexeril and lidocaine patch He will follow with his doctor and is advised there may be a sacroiliac injection which might help if the pain does not just go away Discharge Plan Discharge Clinical Impression: Back pain Patient Disposition: Home, Self-Care Additional Instructions: X-ray showed some arthritis in her back but nothing worrisome You can take Tylenol as needed, we are also trying lidocaine patch and you can try Flexeril which is a muscle relaxer Flexeril can cause drowsiness so if the medication is not helping do not use Follow with primary doctor for referral to a back specialist as sacroiliac pain can sometimes benefit from an injection so ask for referral to a specialist Return to the ER any time any worse condition or any concerns Prescriptions: New lidocaine [Aspercreme (lidocaine)] 4 % adhesive patch,medicated 1 patch topical DAILY PRN (Reason: pain) Qty: 10 0RF cyclobenzaprine 5 mg tablet 5 mg PO TID PRN (Reason: muscle spasm) Qty: 10 0RF Rx Instructions: May cause drowsiness no driving for 8 hours after taking No Action multivitamin Tablet 1 tab PO DAILY modafinil 200 mg Tablet 200 mg PO BID fluticasone propion-salmeterol [Wixela Inhub] 500-50 mcg/dose Blister With Device 1 inh INHALATION BID albuterol sulfate 90 mcg/actuation Hfa Aerosol Inhaler 2 puff INHALATION Q4-6H PRN (Reason: Shortness Of Breath) calcium carbonate 500 mg calcium (1,250 mg) Tablet 500 mg PO DAILY folic acid 1 mg Tablet 1 mg PO DAILY magnesium 250 mg Tablet 250 mg PO DAILY loratadine 10 mg Tablet 10 mg PO DAILY meloxicam 15 mg tablet 15 mg PO QAM Print Language: Montserratian
--- OUTSIDE RECORDS SUMMARY | 2024-10-28 13:54 | XMS_ITS ---
Author Name [facility] [place] [facility] [place] Address [address] [place] [id number] Care Team Providers Care Shrimp Header Name Role Phone MATTY RONDON Primary Care Provide r Unavailable Insurance Providers: All historical and current Section Date Range: From patient's date of to the date document was created. This section includes the names of all active insurance providers for the patient. Insurance Provider Type of Coverage Plan Name Start of Policy Coverage End of Policy Coverage Group Number Member ID Insurance Provider's Telephone Number Policy Mccain's Name Patient's Relationship to Policy Mccain [place] MED[place] SUPPLE[employer] Oct 14, 2018 [id number] Tito BENAVIDES [place] MED[place] SUPP[employer] Oct 14, 2018 [id number] Tito BENAVIDES U[place] PATIENT BC[place] OF [place] ([place]ARD) MEDICARE SUPPLEMEN JOHAN MEDEX BRONZ E Oct 14, 2018 [id number] [phone] Tito BENAVIDES UANE PATIENT BCBS OF [facility] (BLUECARD) MEDIGAP PLAN C MEDEX BRONZ E-AB Oct 14, 2018 [id number] Tito BENAVIDES UANE PATIENT BLUE [place] BLUE SHIELD OF [facility] MEDICARE SUPPLEMEN JOHAN [employer] Oct 14, 2018 [id number] PARADAY,D UANE PATIENT [place] MEDICARE [facility] SUZIE REEVES Oct 14, 2018 [id number] PARADAY,D UANE PATIENT MEDICARE (WNR) MEDICARE () PART B Jul 14, 2007 PART B [id number] PARADAY,D UANE PATIENT MEDICARE (WNR) MEDICARE () PART B Jul 14, 2007 PART B [id number] PARADAY,D UANE PATIENT MEDICARE (WNR) MEDICARE () PART B Jul 14, 2007 PART B [id number] PARADAY,D UANE PATIENT MEDICARE (WNR) MEDICARE () PART B Jul 14, 2007 PART B [id number] PARADAY,D UANE PATIENT MEDICARE (WNR) MEDICARE () PART A Jun 14, 2007 PART A [id number] [id number] PARADAY,D UANE PATIENT MEDICARE (WNR) MEDICARE () PART A Jun 14, 2007 PART A [id number] [phone] [id number] PARADAY,D UANE PATIENT MEDICARE (WNR) MEDICARE () PART A Jun 14, 2007 PART A [id number] PARADAY,D UANE PATIENT MEDICARE (WNR) MEDICARE () PART B Jun 14, 2007 PART B [id number] PARADAY,D UANE PATIENT MEDICARE (WNR) MEDICARE () PART A Jun 14, 2007 PART A [id number] PARADAY,D UANE PATIENT MEDICARE (WNR) MEDICARE () PART B Jun 14, 2007 PART B [id number] [id number] [id number] PARADAY,D UANE PATIENT MEDICARE (WNR) MEDICARE () PART A Jun 14, 2007 PART A [id number] [phone] [id number] PARADAY,D UANE PATIENT MEDICARE (WNR) MEDICARE () PART A Jun 14, 2007 PART A [id number] [phone] Tito BENAVIDES PATIENT Selected Encounter This section includes the information on record at [place] for the Encounter. Date/Time Encounter Type Encounter Description Reason Provider Source May 22, 2024 11:00 AM COMPRE OPH EXAM EST PT 1/> OPTOMETRY ICD-10-CM H26.491 Other secondary cataract, right eye LUIS ROJAS [facility] Encounter Template Text not used by [place] Assessments - Encounter Diagnoses This section includes the primary and secondary diagnoses documented for the Encounter. Date/Time Primary/Secondary Diagnosis Diagnosis Name Provider Source Sep 19, 2024 10:06 AM PRIMARY Other secondary cataract, right eye LUIS ROJAS [facility] Sep 19, 2024 10:06 AM SECONDARY Epithelial (juvenile) corneal dystrophy, bilateral LUIS ROJAS [facility] Sep 19, 2024 10:06 AM SECONDARY Unspecified disorder of refraction LUIS ROJAS [facility] Plan of Treatment: Future Appointments (+ 6 months) and Future Tests (+/- 45 days) The Plan of Treatment section includes future care activities for the patient from all [place] [facility] This section includes future appointments and future orders which are active, pending or scheduled. Future Appointments This section includes appointments that were scheduled to occur 6 months from the date of the Encounter, up to a maximum of 20 appointments. The data comes from all [place] treatment facilities. Appointment Date/Time Appointment Type Appointme nt Facility Name Jul 28, 2024 08:05 AM [facility] Oct 27, 2024 04:30 PM [facility] Encounter Notes: All associated encounter notes This section contains the clinical notes associated to the Encounter. Date/Time Encounter Note(s) Provider Source Oct 13, 2024 03:49 AM ADDENDUM: LOCAL TITLE: Addendum STANDARD TITLE: ADDENDUM DATE OF NOTE: OCT 13, 2024@03:49:24 ENTRY DATE: OCT 13, 2024@03:49:25 AUTHOR: Luis RONDON COSIGNER: URGENCY: STATUS: COMPLETED Could you please place order for [facility] MRI brain and orbits to evaluate for pituitary lesion or other compressive lesion involving the mid optic chiasm- patient with bitemporal hemianopsia. Thank you /samuel/ MATTY RONDON MD PHYSICIAN Signed: 10/13/2024 03:50 Receipt Acknowledged By: 10/15/2024 11:36 /es/ BRY PARKS RN REGISTERED NURSE --- Original Document --- 05/22/24 OPTOMETRY NOTE(T): I saw this patient in conjunction with the student and agree to the stated findings and plan after reviewing both history and repeating walker elements of physical exam. Patient presents for annual comprehensive exam well-known to me with history of pseudophakia OU with posterior capsular opacity OD probably accounting for reduced acuity, and anterior basement membrane dystrophy OU. Otherwise no other acute ocular disease was seen today. Will order consult to Dr. Cruz for YAG laser. The patient will return in 12 months or sooner if any problems arise. Ordered new PAL. /samuel/ LUIS ROJAS OD STAFF TRANSACTION COORDINATOR Signed: 05/22/2024 11:59 10/12/2024 ADDENDUM STATUS: COMPLETED received call from Dr. Kovacs - patient has had cataract surgery bilaterally, and now YAG capsulotomy bilaterally, still complaining of worsening vision, with worse acuity on exam. No macular edema. He had him back for a visual field today which showed a bitemporal hemianopia. He contacted optometry for assistance getting imaging ordered for patient. He does not see optic disc pallor. Alerting PCP to assist in ordering head CT as requested by community aircraft electrician due to bitemporal hemianopia /samuel/ ONELIA RENDON OD Tire Molder Signed: 10/12/2024 16:07 Receipt Acknowledged By: 10/13/2024 03:48 /samuel/ MATTY RONDON MD PHYSICIAN 10/15/2024 ADDENDUM STATUS: COMPLETED Consult placed as requested and held for PCP signature. /samuel/ BRY PARKS RN REGISTERED NURSE Signed: 10/15/2024 11:36 MATTY RONDON [facility] Oct 12, 2024 04:03 PM ADDENDUM: LOCAL TITLE: Addendum STANDARD TITLE: ADDENDUM DATE OF NOTE: OCT 12, 2024@16:03:47 ENTRY DATE: OCT 12, 2024@16:03:47 AUTHOR: ONELIA RENDON EXP COSIGNER: URGENCY: STATUS: COMPLETED received call from Dr. Kovacs - patient has had cataract surgery bilaterally, and now YAG capsulotomy bilaterally, still complaining of worsening vision, with worse acuity on exam. No macular edema. He had him back for a visual field today which showed a bitemporal hemianopia. He contacted optometry for assistance getting imaging ordered for patient. He does not see optic disc pallor. Alerting PCP to assist in ordering head CT as requested by community aircraft electrician due to bitemporal hemianopia /samuel/ ONELIA RENDON OD Tire Molder Signed: 10/12/2024 16:07 Receipt Acknowledged By: 10/13/2024 03:48 /samuel/ MATTY RONDON MD PHYSICIAN --- Original Document --- 05/22/24 OPTOMETRY NOTE(T): I saw this patient in conjunction with the student and agree to the stated findings and plan after reviewing both history and repeating walker elements of physical exam. Patient presents for annual comprehensive exam well-known to me with history of pseudophakia OU with posterior capsular opacity OD probably accounting for reduced acuity, and anterior basement membrane dystrophy OU. Otherwise no other acute ocular disease was seen today. Will order consult to Dr. Cruz for YAG laser. The patient will return in 12 months or sooner if any problems arise. Ordered new PAL. /samuel/ LUIS ROJAS OD STAFF TRANSACTION COORDINATOR Signed: 05/22/2024 11:59 ONELIA RENDON [facility] May 22, 2024 11:21 AM OPTOMETRY NOTE: LOCAL TITLE: OPTOMETRY NOTE(T) STANDARD TITLE: OPTOMETRY NOTE DATE OF NOTE: MAY 22, 2024@11:21 ENTRY DATE: MAY 22, 2024@11:21:41 AUTHOR: LUIS ROJAS COSIGNER: URGENCY: STATUS: COMPLETED OPTOMETRY NOTE(T) Has ADDENDA I saw this patient in conjunction with the student and agree to the stated findings and plan after reviewing both history and repeating walker elements of physical exam. Patient presents for annual comprehensive exam well-known to me with history of pseudophakia OU with posterior capsular opacity OD probably accounting for reduced acuity, and anterior basement membrane dystrophy OU. Otherwise no other acute ocular disease was seen today. Will order consult to Dr. Cruz for YAG laser. The patient will return in 12 months or sooner if any problems arise. Ordered new PAL. /samuel/ LUIS ROJAS OD STAFF TRANSACTION COORDINATOR Signed: 05/22/2024 11:59 10/12/2024 ADDENDUM STATUS: COMPLETED received call from Dr. Kovacs - patient has had cataract surgery bilaterally, and now YAG capsulotomy bilaterally, still complaining of worsening vision, with worse acuity on exam. No macular edema. He had him back for a visual field today which showed a bitemporal hemianopia. He contacted optometry for assistance getting imaging ordered for patient. He does not see optic disc pallor. Alerting PCP to assist in ordering head CT as requested by community aircraft electrician due to bitemporal hemianopia /samuel/ ONELIA RENDON OD Tire Molder Signed: 10/12/2024 16:07 Receipt Acknowledged By: 10/13/2024 03:48 /samuel/ MATTY RONDON MD PHYSICIAN 10/13/2024 ADDENDUM STATUS: COMPLETED Could you please place order for [facility] brain and orbits to evaluate for pituitary lesion or other compressive lesion involving the mid optic chiasm- patient with bitemporal hemianopsia. Thank you /samuel/ MATTY RONDON MD PHYSICIAN Signed: 10/13/2024 03:50 Receipt Acknowledged By: 10/15/2024 11:36 /samuel/ BRY PARKS RN REGISTERED NURSE 10/15/2024 ADDENDUM STATUS: COMPLETED Consult placed as requested and held for PCP signature. /samuel/ BRY PARKS RN REGISTERED NURSE Signed: 10/15/2024 11:36 LUIS ROJAS [facility] [place] [facility] May 22, 2024 10:43 AM OPTOMETRY NOTE: LOCAL TITLE: OPTOMETRY NOTE STANDARD TITLE: OPTOMETRY NOTE DATE OF NOTE: MAY 22, 2024@10:43 ENTRY DATE: MAY 22, 2024@10:48:10 AUTHOR: SAHARA BATES JR EXP COSIGNER: LIUS ROJAS URGENCY: STATUS: COMPLETED Active problems - Computerized Problem List is the source for the followin. Hiatal hernia 2. CAD - Coronary Artery Disease ([facility] [id number]) 3. Peripheral neuropathic pain 4. 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 Sleep apnea 7. Cataract, Nuclear Sclerosis 8. Acquired trigger finger 9. Narcolepsy 10. Surgical Arthroscopy of the Shoulder Region with Limited Debridement 11. Umbilical hernia 12. Bilateral inguinal hernia, without mention of obstruction or gangrene Active Outpatient Medications (including Supplies): Active Outpatient Medications Status 1) ALBUTEROL 3/IPRATROP 0.5MG/3ML INHL 3ML INHALE 1 VIAL ACTIVE (3ML) IN NEBULIZER FOUR TIMES A DAY FOR BRONCHOSPASM 2) ALBUTEROL 90MCG (CFC-F) 200D ORAL INHL INHALE 2 PUFFS ACTIVE BY MOUTH EVERY 4 HOURS NEEDED FOR BRONCHOSPASM 3) FLUTICAS 500/SALMETEROL 50 INHL DISK 60 INHALE 1 PUFF ACTIVE BY MOUTH TWICE DAILY FOR CONTROLLER MEDICATION FOR ASTHMA - RINSE MOUTH AFTER USE 4) MODAFINIL 200MG TAB TAKE ONE TABLET BY MOUTH TWICE ACTIVE DAILY FOR NARCOLEPSY AND HYPERSOMNIA DESPITE CPAP ADHERENCE 5) TAMSULOSIN HCL 0.4MG CAP TAKE ONE CAPSULE BY MOUTH AT ACTIVE BEDTIME FOR ENLARGED PROSTATE Allergies: Patient has answered NKA All medications including those prescribed by outside VA's, community providers, and all OTC meds were reviewed and reconciled with patient to the best of their abilities. This 83 year old MALE is seen today for ENOCH CHAIM: 04/2023 Chief Complaint: Pt. states that vision is still foggy OU and has not gone away since last year. Feels cataracts have helped night vision a lot but everything else is blurry and is kind of regretting getting PCIOLs. He feels he can see but not as clearly as he'd like. May have gotten slightly worse since last year. He states that often the foggy vision will go away when he puts on sunglasses OHx: - EBMD OU - Pseudophakia OU - Low risk open angle glaucoma suspect VS phys cupping OU - S/p LASIK OU - RE & presbyopia OU Ocular Medications: - None (-) Pain: (-) ROYAL: (-) Diplopia: (-) Flashes: (-) Floaters: (-) Amaurosis Fugax/Tia's: (-) Eye Injury: (+) Eye Surgery: CE w. PCIOL OU ~ (Dr. Kovacs), LASIK OU (-) TBI FOHx: (-) Glaucoma/ARMD/Blindness VITALS (most recent, as listed in the electronic record): B/P: 126/80 (12/10/2023 08:30) Pulse: 90 (12/10/2023 08:30) Temperature: 97.3 F [36.3 C] (10/30/2022 11:15) Weight: 199.4 lb [90.45 kg] (12/10/2023 08:30) Height: 70 in [177.8 cm] (11/21/2017 13:07) BMI: BMI: 28.7 PERTINENT LABS: HEMOGLOBIN A1C TREND Collection DT Spec HGBA1c 11/28/2023 07:37 BLOOD 5.5 01/23/2021 10:20 BLOOD 5.3 12/03/2019 10:39 BLOOD 5.4 05/16/2017 08:10 BLOOD 5.4 03/15/2014 08:09 BLOOD 5.6 (-) Smoker/Length of Time/PPD: Current Rx with last BCVA: OD: +1.00-1.52v505 20/20- slow OS: +0.75 SPH 20/20- slow Add: +2.50 DVA ( )sc ( x )cc - phoropter OD: 20/40 OS: 20/25-2 Pupils: PERRL (-)APD EOMs: SAFE OU, (-)Pain/Diplopia CVF (facial, peripheral): FTFC OU Subjective Refraction: OD: +1.00-1.41j355 20/40; no improvement from current OS: +0.50-0.85z888 20/25-2; no improvement from current Add: +2.50 Final Rx: OD: +1.00-1.88l996 OS: +0.75 SPH Add: +2.50 OU All the above performed by student, reviewed by attending Anterior segment: Performed by student, repeated by attending * Lids: dermatochalasis, scalloped lid margins, capped MGs OU Conj: tr injection OU Cornea: mild EBMD OS>OD with negative NaFl staining, LASIK scars OU AC: D&Q OU Angles: 4x4 OU Iris: flat and clear OU Lens: PCIOL OU with moderate PCO OD, mild and more peripheral OS Tonometry: Performed by student, reviewed by attending * [x ] GAT [ ] iCare OD 11 mmHg OS 11 mmHg Time:11:23am Fundus exam: Dilated: XX 11:23am Dilating Drops: 1GTT 1 % Tropicamide OU & 1GTT 2.5% Phenylephrine OU (Pt. ed. on side effects, dilation warning given and verbal consent obtained) Patient advised not to drive if they feel they have any symptoms which could affect their ability to drive safely. Patient advised not to engage in any activities which could put themselves or others at risk if they feel they have any symptoms which could affect their ability to perform those activities safely. Performed by student, repeated by attending * Vit: Syneresis OU (+) PVD OU C/D: 0.40 OD, 0.50 OS; pink healthy and distinct OU Macula: flat and clear OU PPole: clear A/V: 2/3 Vessels: normal caliber OU Periph: flat and intact (-)holes, tears, detachments 360 OU few peripheral drusen OS>OD Assessment/Plan: 1. Pseudophakia OU; with visually significant posterior capsular opacification OD - Consult being put in with [facility] for YAG capsulotomy OD - Pt. ed. on findings - Monitor 2. Epithelial basement membrane dystrophy OU - Stable at this time - Pt. not symptomatic - Ed. to contact us if worsening - Monitor 3. S/p LASIK OU - Stable appearance today - Monitor 4. Hyperopia with astigmatism and presbyopia OU - Pt. ed. on findings - Ordering duplicate PAL - Monitor Return to Clinic 1 Year or earlier PRN Education: After discussion and answering all 's questions, demonstrated and verbalized understanding of diagnosis and treatment. Yes [x] No [ ] Medication Reconciliation: Outpatient: Has the patient been taking medications as documented in the EMLR? YES: The patient has been taking medications as documented in the EMLR. Essential Medication List for Review used to complete this medication reconciliation. INCLUDED IN THIS LIST: Alphabetical list of active outpatient prescriptions dispensed from this [place] (local) and dispensed from another VA or [facility]D facility (remote) as well as inpatient orders (local, pending and active), local clinic medications, locally documented non-VA medications, and local prescriptions that have or been discontinued in the past 90 days. - All changes in medications, including all non-VA/Herbal/OTC medications were entered into CPRS. - If there were any medications the patient should no longer take, they were discontinued. - The patient/caregiver was instructed to update this list, discard old lists, and take this list to the next appointment, whether with a VA or non-VA provider. /samuel/ SAHARA BATES JR OPTOMETRY STUDENT Signed: 05/22/2024 12:08 /samuel/ LUIS ROJAS STAFF TRANSACTION COORDINATOR Cosigned: 05/22/2024 12:08 SAHARA BATES JR [facility]
--- OUTSIDE RECORDS SUMMARY | 2024-10-28 13:54 | XMS_ITS ---
Author Name [facility] [place] Organization [facility] [place] Address [address] [place] [address] Care Team Providers Care Leather Fitter Name Role Phone MATTY RONDON Primary Care [...] Relationship to Policy [place] RAQUEL [place] OF [place] MEDICARE SUPPLEMEN [facility] Oct 14, 2018 [id number] [phone] Tito BENAVIDES U[place] PATIENT [place] MED[place] SUPPLEMEN [facility] Oct 14, 2018 [id number] Tito BENAVIDES [place] OF [place] MEDICARE SUPPLEMEN JOHAN MEDEX BRONZ E Oct 14, 2018 [id number] [phone] Tito BENAVIDES UANE PATIENT BCBS OF [facility] (BLUECARD) MEDIGAP PLAN C MEDEX BRONZ E-AB Oct 14, 2018 [id number] [phone] Tito BENAVIDES UANE PATIENT [place]UE [place] MEDICARE SUPPLEMEN [facility] [facility] [employer] Oct 14, 2018 [id number] PARADAY,D UANE PATIENT [facility] [place] MEDICARE [facility] SUZIE REEVES Oct 14, 2018 [id number] PARADAY,D UANE PATIENT MEDICARE (WNR) MEDICARE () PART B Jul 14, 2007 PART B [id number] PARADAY,D UANE PATIENT MEDICARE (WNR) MEDICARE () PART B Jul 14, 2007 PART B [id number] PARADAY,D UANE PATIENT MEDICARE (WNR) MEDICARE () PART B Jul 14, 2007 PART B [id number] PARADAY,D UANE PATIENT MEDICARE (WNR) MEDICARE () PART B Jul 14, 2007 PART B [id number] PARADAY,D UANE PATIENT MEDICARE (WNR) MEDICARE () PART A Jun 14, 2007 PART A [id number] [phone] PARADAY,D UANE PATIENT MEDICARE (WNR) MEDICARE () PART A Jun 14, 2007 PART A [id number] [phone] PARADAY,D UANE PATIENT MEDICARE (WNR) MEDICARE () PART A Jun 14, 2007 PART A [id number] PARADAY,D UANE PATIENT MEDICARE (WNR) MEDICARE () PART B Jun 14, 2007 PART B [id number] PARADAY,D UANE PATIENT MEDICARE (WNR) MEDICARE () PART A Jun 14, 2007 PART A [id number] PARADAY,D UANE PATIENT MEDICARE (WNR) MEDICARE () PART B Jun 14, 2007 PART B [id number] [phone] PARADAY,D UANE PATIENT MEDICARE (WNR) MEDICARE () PART A Jun 14, 2007 PART A [id number] PARADAY,D UANE PATIENT MEDICARE (WNR) MEDICARE () PART A Jun 14, 2007 PART A [id number] [phone] Tito BENAVIDES PATIENT Selected Encounter This section includes the information on record at [place] for the Encounter. Date/Time Encounter Type Encounter Description Reason Pro vider Source Jul 11, 2024 08:38 AM Outpatient Encounter TELEPHONE PRIMARY CARE IHE Encounter Template Text not used by [place] Plan of Treatment: Future Appointments (+ 6 months) and Future Tests (+/- 45 days) The Plan of Treatment section includes future care activities for the patient from all [place] treatmentfacilities. This section includes future appointments and future orders which are active, pending or scheduled. Future Appointments This section includes appointments that were scheduled to occur 6 months from the date of the Encounter, up to a maximum of 20 appointments. The data comes from all [place] treatment facilities. Appointment Date/Time Appointment Type Appointme nt Facility Name Jul 28, 2024 08:05 AM AMBULATORY - MEDICINE [facility] [place] [facility] Oct 27, 2024 04:30 PM [facility] Encounter Notes: All associated encounter notes This section contains the clinical notes associated to the Encounter. Date/Time Encounter Note(s) Provider Source Jul 11, 2024 08:38 AM ACCOUNTING OF DISCLOSURES NOTE: LOCAL TITLE: STATE PRESCRIPTION DRUG MONITORING PROGRAM STANDARD TITLE: ACCOUNTING OF DISCLOSURES NOTE DATE OF NOTE: JUL 11, 2024@08:38:23 ENTRY DATE: JUL 11, 2024@08:38:23 AUTHOR: FABIANO RICHTER COSIGNER: URGENCY: STATUS: COMPLETED This PDMP query was submitted by Fabiano Richter. The clinical justification for this PDMP query is to review controlled substances prescribed outside of the [facility], and any additional information that may become available, as an important component of standard clinical care, and in accordance with [facility] policy. Patient information was shared with the PDMP Appriss [place]. No prescription(s) for controlled substances outside the [facility] were found in the last 90 days. /samuel/ FABIANO RICHTER NP NURSE PRACTITIONER Signed: 07/11/2024 08:38 FABIANO RICHTER [facility]
--- OUTSIDE RECORDS SUMMARY | 2024-10-28 13:54 | XMS_ITS ---
Author Name [facility] [place] Address [address] [place] [address] Care Team Providers Care Prism Measurer Name Role Phone COREY RONDON Primary Care Provide r Unavailable Insurance [...] [facility] [employer] Oct 14, 2018 [id number] Tito BENAVIDES UANE PATIENT BCBS [place] MEDICARE SUPPLEMEN [facility] Oct 14, 2018 [id number] [phone] Tito BENAVIDES U[place] PATIENT [place] OF [place] ([place]) MEDICARE SUPPLEMEN JOHAN MEDEX [facility]Z E Oct 14, 2018 [id number] Tito BENAVIDES UANE PATIENT BC[facility] OF [facility] MEDIGAP PLAN C MEDEX [facility]ONZ E-AB Oct 14, 2018 [id number] [phone] Tito BENAVIDES UANE PATIENT BLUE CROSS BLUE [facility] MEDICARE SUPPLEMEN [facility] [facility] [employer] Oct 14, 2018 [id number] [phone] PARADAY,D U[place] PATIENT [facility] [place] MEDICARE [facility] SUZIE REEVES Oct 14, 2018 [id number] PARADAY,D UANE PATIENT MEDICARE (WNR) MEDICARE () PART B Jul 14, 2007 PART B [id number] PARADAY,D UANE PATIENT MEDICARE (WNR) MEDICARE () PART B Jul 14, 2007 PART B [id number] PARADAY,D UANE PATIENT MEDICARE (WNR) MEDICARE () PART B Jul 14, 2007 PART B [id number] PARADAY,D UANE PATIENT MEDICARE (WNR) MEDICARE () PART B Jul 14, 2007 PART B [id number] [id number] [phone] PARADAY,D UANE PATIENT MEDICARE (WNR) MEDICARE () PART A Jun 14, 2007 PART A [id number] [phone] PARADAY,D UANE PATIENT MEDICARE (WNR) MEDICARE () PART A Jun 14, 2007 PART A [id number] [phone] PARADAY,D UANE PATIENT MEDICARE (WNR) MEDICARE () PART A Jun 14, 2007 PART A [id number] PARADAY,D UANE PATIENT MEDICARE (WNR) MEDICARE () PART B Jun 14, 2007 PART B [id number] PARADAY,D UANE PATIENT MEDICARE (WNR) MEDICARE () PART A Jun 14, 2007 PART A [id number] PARADAY,D UANE PATIENT MEDICARE (WNR) MEDICARE () PART B Jun 14, 2007 PART B [id number] PARADAY,D UANE PATIENT MEDICARE (WNR) MEDICARE () PART A Jun 14, 2007 PART A [id number] PARADAY,D UANE PATIENT MEDICARE (WNR) MEDICARE () PART A Jun 14, 2007 PART A [id number] CELINEELLIETito ADAM PATIENT Selected Encounter This section includes the information on record at [place] for the Encounter. Date/Time Encounter Type Encounter Description Reason Pro vider Source Dec 11, 2023 01:11 AM Outpatient Encounter PRIMARY CARE/MEDICINE I[facility] Encounter Template Text not used by [place] Plan of Treatment: Future Appointments (+ 6 months) and Future Tests (+/- 45 days) The Plan of Treatment section includes future care activities for the patient from all [place] treatmentfacilities. This section includes future appointments and future orders which are active, pending or scheduled. Future Appointments This section includes appointments that were scheduled to occur 6 months from the date of the Encounter, up to a maximum of 20 appointments. The data comes from all [place] treatment facilities. Appointment Date/Time Appointment Type Appointme nt Facility Name May 22, 2024 11:00 AM AMBULATORY - MEDICINE [facility] Lab Results: +/- 30 days of the encounter This section includes the Chemistry and Hematology Lab Results on record with [place] for the patient. Radiology Reports and Pathology Reports are provided separately, in subsequent sections. Lab Results This section contains the Chemistry/Hematology Results that were resulted 30 days before or 30 daysafter the date of the Encounter. Date/Time Source Result Type Result - Unit Interpretation Reference Range Comment Nov 28, 2023 07:37 AM [place] LIPID PANEL FASTING Specimen Type: SERUM No comment entered. Ordering Provider: COREY NICHOLS Report Released Date/Time: Nov 22, 2023 12:26 PM Reporting Lab: [facility] [address] [facility] [address] Performing Lab: [facility] [address] [facility] [address] CHOLESTEROL 182 mg/dL TRIGLYCERIDE 121 mg/dL 0-150 LDL calculated 127 mg/dL 0-129 CHOL/HDL 5.9 HDL CHOLESTEROL 31 mg/dL L 40-60 Nov 28, 2023 07:37 AM [place] LIVER FUNCTION Specimen Type: SERUM No comment entered. Ordering Provider: COREY NICHOLS Report Released Date/Time: Nov 22, 2023 12:26 PM Reporting Lab: [facility] [address] [address] Performing Lab: [address] [address] PROTEIN,TOTAL 7.0 g/dL 6.0-8.3 ALBUMIN 3.8 g/dL 3.5-5.0 ALKALINE PHOSPHATASE 68 U/L 40-150 AST 22 U/L 5-34 ALT 25 U/L BILIRUBIN, TOTAL 0.7 mg/dL 0.2-1.2 Nov 28, 2023 07:37 AM [place] BASIC METABOLIC PANEL (fasting) Specime n Type: SERUM No comment entered. Ordering Provider: COREY NICHOLS Report Released Date/Time: Nov 22, 2023 12:26 PM Reporting Lab: [address] [address] Performing Lab: [address] [address] UREA NITROGEN 18 mg/dL 7-25 GLUCOSE 99 mg/dL 65-100 SODIUM 136 mmol/L 135-145 POTASSIUM 4.7 mmol/L 3.5-5.0 CHLORIDE 103 mmol/L 100-110 CO2 26 meq/L 20-30 CREATININE, Serum 0.99 mg/dL 0.50-1.40 eGFR(CKD-EPI 2020) 76 mL/min >60 Nov 28, 2023 07:37 AM [place] HEMOGLOBIN A1C PANEL Specimen Type: BLOOD Comment: Values obtained from A1C measurements can vary. For atypical A1C assays, a reported value of 7.0 could actually be between 6.72 and 7.28 if measured by a reference method. A reported value of 9.0 could actually be between 8.73 and 9.27. Ref: http://www.ngs p.org/CAPdata. asp Ordering Provider: COREY NICHOLS Report Released Date/Time: Nov 22, 2023 12:26 PM Reporting Lab: [address] [address] Performing Lab: [address] [address] HEMOGLOBIN A1C 5.5 4.0-5.6 Nov 28, 2023 07:37 AM [place] TSH Specimen Type: SERUM No comment entered. Ordering Provider: COREY NICHOLS Report Released Date/Time: Nov 22, 2023 12:26 PM Reporting Lab: [address] [address] Performing Lab: [address] [address] TSH 2.45 u[IU]/mL 0.35-5.00 Nov 28, 2023 07:37 AM [place] CBC AND DIFF (AUTO) Specimen Type: BLOOD No comment entered. Ordering Provider: COREY NICHOLS Report Released Date/Time: Nov 22, 2023 12:26 PM Reporting Lab: [address] [address] Performing Lab: [address] [address] WBC 5.84 10*3/uL 4.50-11.00 RBC 4.91 10*6/uL 4.23-5.66 HGB 15.3 g/dL 12.8-17 HCT 46.3 39.2-50.4 MCV 94.3 fL 82-99 MCHC 33.0 g/dL 30.8-35.1 PLT 336 10*3/uL 140-360 RDW-CV 12.6 12.0-16.0 Metcalfe, Abs 0.61 10*3/uL 0.30-1.10 MCH 31.2 pg 26.2-32.6 Neut % 58.3 43.7-75.8 Lymph % 23.8 14.0-42.3 Metcalfe % 10.4 5.1-13.7 Eos % 5.5 0.4-6.8 Baso % 1.0 0.1-2.0 Neut, Abs 3.40 10*3/uL 2.20-7.60 Lymph, Abs 1.39 10*3/uL 1.00-3.20 Eos, Abs 0.32 10*3/uL 0.03-0.44 Baso, Abs 0.06 10*3/uL 0.01-0.13 Immature Gran % 1.0 H 0.0-0.7 Immature Gran, Abs 0.06 10*3/uL 0.00-0.06 Encounter Notes: All associated encounter notes This section contains the clinical notes associated to the Encounter. Date/Time Encounter Note(s) Provider Source Dec 11, 2023 01:33 AM LETTERS: LOCAL TITLE: PATIENT LETTER (B) STANDARD TITLE: LETTERS DATE OF NOTE: DEC 11, 2023@01:33 ENTRY DATE: DEC 11, 2023@01:33:06 AUTHOR: Luis RONDON EXP COSIGNER: URGENCY: STATUS: COMPLETED DEC 11, 2023 CARLOS BENAVIDES [address], [place], [address] Dear CARLOS BENAVIDES, Thank you for coming in for your lab tests. Your recent test results are as follows: [facility] LAB CHEMISTRY & HEMATOLOGY Collection DT Specimen Test Name Result Units Ref Range 11/28/2023 07:37 BLOOD WBC 5.84 K/cmm 4.50 - 11.00 RBC 4.91 M/cmm 4.23 - 5.66 HGB 15.3 g/dL 12.8 - 17 HCT 46.3 % 39.2 - 50.4 MCV 94.3 fl 82 - 99 MCH 31.2 pg 26.2 - 32.6 MCHC 33.0 g/dL 30.8 - 35.1 RDW-CV 12.6 % 12.0 - 16.0 PLT 336 K/cmm 140 - 360 CREATININE, Serum 0.99 mg/dL 0.50 - 1.40 eGFR(CKD-EPI 2020 76 mL/min Ref: >=60 SODIUM 136 mmol/L 135 - 145 POTASSIUM 4.7 mmol/L 3.5 - 5.0 CHLORIDE 103 mmol/L 100 - 110 CO2 26 mEq/L 20 - 30 UREA NITROGEN 18 mg/dL 7 - 25 GLUCOSE 99 mg/dL 65 - 100 PROTEIN,TOTAL 7.0 g/dL 6.0 - 8.3 ALBUMIN 3.8 g/dL 3.5 - 5.0 ALK SHAY 68 U/L 40 - 150 AST 22 U/L 5 - 34 BILIRUBIN, TOTAL 0.7 mg/dL 0.2 - 1.2 ALT 25 U/L <6 - 55 Lipid Profile Collection DT Specimen Test Name Result Units Ref Range 11/28/2023 07:37 SERUM CHOLESTEROL 182 mg/dL <7 - 199 11/28/2023 07:37 SERUM TRIGLYCERIDE 121 mg/dL 0 - 150 11/28/2023 07:37 SERUM HDL CHOLESTEROL 31 L mg/dL 40 - 60 11/28/2023 07:37 SERUM LDL calculated 127 mg/dL 0 - 129 11/28/2023 07:37 SERUM CHOL/HDL 5.9 11/28/2023 07:37 BLOOD !! HEMOGLOBIN A1C 5.5 % 4.0 - 5.6 Thyroid Test Collection DT Spec TSH 11/28/2023 07:37 SERUM 2.45 If you do not already do so, going forward, I invite you to view your labs in [employer]. If you are not able to view them, you might need to upgrade your account to premium. Please call [phone] and speak with my nurse Dax if you have any questions or concerns. Sincerely, Corey Holloway MD [facility] - Primary Care [address] [place] [id number] [phone] FLACO RONDON [facility]
--- OUTSIDE RECORDS SUMMARY | 2024-10-28 13:54 | XMS_ITS | Encounter Summary ---
Author Name [facility] [facility] [place] Address [address] [place] [id number] Care Team Providers Care Alarm Operator Name Role Phone MATTY RONDON Primary Care [...] Relationship to Policy [place] RAQUEL [place]BS OF [place] MEDICARE SUPPLEMEN JOHAN [facility] Oct 14, 2018 [id number] MAKAYLA,D UANE PATIENT [place]BS [place] MEDICARE SUPPLEMEN JOHAN PSE[employer] [facility] GROUP Oct 14, 2018 [id number] MAKAYLA,D UANE PATIENT BCBS OF [place] (BLUECARD) MEDICARE SUPPLEMEN JOHAN MEDEX BRONZ E Oct 14, 2018 [id number] MAKAYLA,D UANE PATIENT BCBS OF [facility] (BLUECARD) MEDIGAP PLAN C MEDEX BRONZ E-AB Oct 14, 2018 [id number] MAKAYLA,D UANE PATIENT BLUE CROSS BLUE SHIELD OF [facility] MEDICARE SUPPLEMEN JOHAN PSEUD O GROUP Oct 14, 2018 [id number] PARADAY,D UANE PATIENT [place] ([place]) MEDICARE [facility] SZUIE Galan AB Oct 14, 2018 [id number] PARADAY,D UANE PATIENT MEDICARE (WNR) MEDICARE () PART B Jul 14, 2007 PART B [id number] [phone] PARADAY,D UANE PATIENT MEDICARE ([place]NR) MEDICARE () PART B Jul 14, 2007 PART B [id number] PARADAY,D UANE PATIENT MEDICARE ([place]NR) MEDICARE () PART B Jul 14, 2007 PART B [id number] PARADAY,D UANE PATIENT MEDICARE ([place]NR) MEDICARE () PART B Jul 14, 2007 PART B [id number] PARADAY,D UANE PATIENT MEDICARE (WN) MEDICARE () PART B Jun 14, 2007 PART B [id number] PARADAY,D UANE PATIENT MEDICARE (WN) MEDICARE () PART A Jun 14, 2007 PART A [id number] PARADAY,D UANE PATIENT MEDICARE (WN) MEDICARE () PART A Jun 14, 2007 PART A [id number] PARADAY,D UANE PATIENT MEDICARE ([place]) MEDICARE () PART A Jun 14, 2007 PART A [id number] PARADAY,D UANE PATIENT MEDICARE (WNR) MEDICARE () PART A Jun 14, 2007 PART A [id number] [phone] PARADAY,D UANE PATIENT MEDICARE (WNR) MEDICARE () PART B Jun 14, 2007 PART B [id number] PARADAY,D UANE PATIENT MEDICARE (WNR) MEDICARE () PART A Jun 14, 2007 PART A [id number] PARADAY,D UANE PATIENT MEDICARE ([place]) MEDICARE () PART A Jun 14, 2007 PART A [id number] [phone] Tito BENAVIDES PATIENT Selected Encounter This section includes the information on record at [place] for the Encounter. 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 MATTY Glynn [place] Sep 21, 2024 12:01 PM SECONDARY Benign prostatic hyperplasia without lower urinry tract symp CAMMY-MATTY JONES [place] Sep 21, 2024 12:01 PM SECONDARY Chronic obstructive pulmonary disease w (acute) exacerbation MATTY NICHOLS [place] Sep 21, 2024 12:01 PM SECONDARY Emphysema, unspecified CAMMY-MATTY JONES [place] Sep 21, 2024 12:01 PM SECONDARY Narcolepsy without cataplexy MATTY NICHOLS [place] Sep 21, 2024 12:01 PM SECONDARY Obstructive sleep apnea (adult) (pediatric) MATTY NICHOLS [facility] Plan of Treatment: Future Appointments (+ 6 months) and Future Tests (+/- 45 days) The Plan of Treatment section includes future care activities for the patient [facility] [place] [facility] This section includes future appointments and future orders which are active, pending or scheduled. Future Appointments This section includes appointments that were scheduled to occur 6 months from the date of the Encounter, up to a maximum of 20 appointments. The data comes from all [place] treatment facilities. Appointment Date/Time Appointment Type Appointme nt Facility Name May 22, 2024 11:00 AM AMBULATORY - [place]ICINE [place] [facility] Lab Results: +/- 30 days of the encounter This section includes the Chemistry and Hematology Lab Results on record with [place] for the patient. Radiology Reports and Pathology Reports are provided separately, in subsequent sections. Lab Results This section contains the Chemistry/Hematology Results that were resulted 30 days before or 30 daysafter the date of the Encounter. Date/Time Source Result Type Result - Unit Interpretation Reference Range Comment Nov 28, 2023 07:37 AM [place] LIPID PANEL FASTING Specimen Type: SERUM No comment entered. Ordering Provider: MATTY NICHOLS Report Released Date/Time: Nov 22, 2023 12:26 PM Reporting Lab: [address] [address] Performing Lab: [address] [address] CHOLESTEROL 182 mg/dL TRIGLYCERIDE 121 mg/dL 0-150 LDL calculated 127 mg/dL 0-129 CHOL/HDL 5.9 HDL CHOLESTEROL 31 mg/dL L 40-60 Nov 28, 2023 07:37 AM [place] LIVER FUNCTION Specimen Type: SERUM No comment entered. Ordering Provider: MATTY NICHOLS Report Released Date/Time: Nov 22, 2023 12:26 PM Reporting Lab: [address] [address] Performing Lab: [address] [address] PROTEIN,TOTAL 7.0 g/dL 6.0-8.3 ALBUMIN 3.8 g/dL 3.5-5.0 ALKALINE PHOSPHATASE 68 U/L 40-150 AST 22 U/L 5-34 ALT 25 U/L BILIRUBIN, TOTAL 0.7 mg/dL 0.2-1.2 Nov 28, 2023 07:37 AM [place] BASIC METABOLIC PANEL (fasting) Specime n Type: SERUM No comment entered. Ordering Provider: MATTY NICHOLS Report Released Date/Time: Nov 22, 2023 12:26 PM Reporting Lab: [address] [address] Performing Lab: [address] [address] UREA NITROGEN 18 mg/dL 7-25 GLUCOSE 99 mg/dL 65-100 SODIUM 136 mmol/L 135-145 POTASSIUM 4.7 mmol/L 3.5-5.0 CHLORIDE 103 mmol/L 100-110 CO2 26 meq/L 20-30 CREATININE, Serum 0.99 mg/dL 0.50-1.40 eGFR(CKD-EPI 2020) 76 mL/min >60 Nov 28, 2023 07:37 AM [place] HEMOGLOBIN A1C PANEL Specimen Type: BLOOD Comment: Values obtained from A1C measurements can vary. For atypical A1C assays, a reported value of 7.0 could actually be between 6.72 and 7.28 if measured by a reference method. A reported value of 9.0 could actually be between 8.73 and 9.27. Ref: http://www.ngs p.org/CAPdata. asp Ordering Provider: MATTY NICHOLS Report Released Date/Time: Nov 22, 2023 12:26 PM Reporting Lab: [facility] [employer] [address] Performing Lab: [facility] [employer] [address] [address] HEMOGLOBIN A1C 5.5 4.0-5.6 Nov 28, 2023 07:37 AM [place] TSH Specimen Type: SERUM No comment entered. Ordering Provider: MATTY NICHOLS Report Released Date/Time: Nov 22, 2023 12:26 PM Reporting Lab: [place] [employer] [facility] [place] [address] [address] Performing Lab: [facility] [address] TSH 2.45 u[IU]/mL 0.35-5.00 Nov 28, 2023 07:37 AM [place] CBC AND DIFF (AUTO) Specimen Type: BLOOD No comment entered. Ordering Provider: MATTY NICHOLS Report Released Date/Time: Nov 22, 2023 12:26 PM Reporting Lab: [place] [employer] [address] Performing Lab: [place] [facility] [employer] [facility] [address] [facility] [address] WBC 5.84 10*3/uL 4.50-11.00 RBC 4.91 10*6/uL 4.23-5.66 HGB 15.3 g/dL 12.8-17 HCT 46.3 39.2-50.4 MCV 94.3 fL 82-99 MCHC 33.0 g/dL 30.8-35.1 PLT 336 10*3/uL 140-360 RDW-CV 12.6 12.0-16.0 Clark, Abs 0.61 10*3/uL 0.30-1.10 MCH 31.2 pg 26.2-32.6 Neut % 58.3 43.7-75.8 Lymph % 23.8 14.0-42.3 Clark % 10.4 5.1-13.7 Eos % 5.5 0.4-6.8 Baso % 1.0 0.1-2.0 Neut, Abs 3.40 10*3/uL 2.20-7.60 Lymph, Abs 1.39 10*3/uL 1.00-3.20 Eos, Abs 0.32 10*3/uL 0.03-0.44 Baso, Abs 0.06 10*3/uL 0.01-0.13 Immature Gran % 1.0 H 0.0-0.7 Immature Gran, Abs 0.06 10*3/uL 0.00-0.06 Vital Signs: All taken on the encounter date This section contains inpatient and outpatient Vital Signs collected on the date of the Encounter. Date/Time Temperature Pulse Blood Pressure Respiratory Rate SP02 Pain Height Weight Body Mass Index Source Dec 10, 2023 08:30 AM 90 126/80 16 96 199.4 29 [place] Social History: Smoking Status (Most current) and Tobacco Use (All prior to encounter date) This section includes the most current, and the historical, smoking and tobacco- related health factors from the [place] facility where the Encounter took place. Current Smoking Status This section includes the most current smoking, or tobacco-related health factor, from the [place] facility where the Encounter took place. Date/Time Current Smoking Status Anna douglas Dec 10, 2023 08:30 AM [place]-TOBAC[place] FORMER USER [place] Tobacco Use History This section includes a history of the smoking, or tobacco-related health factors, that were collected on or before the date of the Encounter. The data comes from the [place] facility where the Encounter took place. Date/Time Smoking Status/Tobacco Use Comment F acility Dec 10, 2023 08:30 AM VA-TOBACCO QUIT 15 YRS OR MORE [place] Oct 30, 2022 10:30 AM VA-TOBACCO FORMER USER [place] Oct 30, 2022 10:30 AM VA-TOBACCO QUIT 15 YRS OR MORE [place] May 09, 2020 03:08 PM VA-TOBACCO NEVER USED [place] Feb 03, 2019 08:40 AM VA-TOBACCO NEVER USED [place] May 21, 2017 01:03 PM QUIT TOBACCO USE > 7 YEARS AGO reports quitting 1989 [place] Mar 26, 2016 10:18 AM QUIT TOBACCO USE > 7 YEARS AGO quit in 1989 [place] Nov 10, 2012 10:14 AM QUIT TOBACCO USE > 7 YEARS AGO Pt reports quitting 1989 [place] Encounter Notes: All associated encounter notes This section contains the clinical notes associated to the Encounter. Date/Time Encounter Note(s) Provider Source February 19, 2024 12:23 PM ADDENDUM: LOCAL TITLE: Addendum STANDARD TITLE: ADDENDUM DATE OF NOTE: FEBRUARY 19, 2024@12:23:28 ENTRY DATE: FEBRUARY 19, 2024@12:23:28 AUTHOR: FRITZ REY EXP COSIGNER: URGENCY: STATUS: COMPLETED [place] came in to check on the status of his medication refill request. Medication waiting on provider signature. [place] will come back either later today or tomorrow for medication. /samuel/ FRITZ KEMP Signed: 02/19/2024 12:25 Receipt Acknowledged By: 02/19/2024 13:14 /es/ Jennifer Crisostomo RN Registered Nurse (RN) for DAX GARCIA 02/19/2024 14:28 /samuel/ ML DENG LPN LPN --- Original Document --- 02/17/24 OUTPATIENT MEDICATION REQUEST: Medication Request Date of Request: February MODAFINIL TAB 200MG TAKE ONE TABLET BY MOUTH TWICE DAILY FOR NARCOLEPSY AND HYPERSOMNIA DESPITE CPAP ADHERENCE Quantity: 60 Refills: 2 Requests for WINDOW /samuel/ DAX GARCIA RN REGISTERED NURSE Signed: 02/17/2024 12:56 Receipt Acknowledged By: 02/19/2024 12:39 /francisco javier RONDON MD PHYSICIAN FRITZ REY February 17, 2024 12:57 PM ACCOUNTING OF DISC LOSURES NOTE: LOCAL TITLE: STATE PRESCRIPTION DRUG MONITORING PROGRAM STANDARD TITLE: ACCOUNTING OF DISCLOSURES NOTE DATE OF NOTE: FEBRUARY 17, 2024@12:57:23 ENTRY DATE: FEBRUARY 17, 2024@12:57:23 AUTHOR: DAX GARCIA EXP COSIGNER: MATTY RONDON URGENCY: STATUS: COMPLETED This PDMP query was submitted by Dax Garcia on behalf of Matty Rondon. The clinical justification for this PDMP query is to review controlled substances prescribed outside of the [facility], and any additional information that may become available, as an important component of standard clinical care, and in accordance with [facility] policy. Patient information was shared with the PDMP Appriss [place]. The VA prescriber, for which I am a delegate, will be alerted of these PDMP findings through co-signature of this progress note. No prescription(s) for controlled substances outside the [facility] were found in the last 90 days. /francisco javier GARCIA RN REGISTERED NURSE Signed: 02/17/2024 12:57 /smauel/ MATTY RONDON MD PHYSICIAN Cosigned: 02/19/2024 12:39 DAX GARCIA February 17, 2024 12:56 PM MEDICATION MGT NOT E: LOCAL TITLE: OUTPATIENT MEDICATION REQUEST STANDARD TITLE: MEDICATION MGT NOTE DATE OF NOTE: FEBRUARY 17, 2024@12:56 ENTRY DATE: FEBRUARY 17, 2024@12:56:28 AUTHOR: DAX GARCIA EXP COSIGNER: URGENCY: STATUS: COMPLETED OUTPATIENT MEDICATION REQUEST Has ADDENDA Medication Request Date of Request: February MODAFINIL TAB 200MG TAKE ONE TABLET BY MOUTH TWICE DAILY FOR NARCOLEPSY AND HYPERSOMNIA DESPITE CPAP ADHERENCE Quantity: 60 Refills: 2 Requests for WINDOW /samuel/ DAX GARCIA RN REGISTERED NURSE Signed: 02/17/2024 12:56 Receipt Acknowledged By: 02/19/2024 12:39 /samuel/ MATTY RONDON MD PHYSICIAN 02/19/2024 ADDENDUM STATUS: COMPLETED [place] came in to check on the status of his medication refill request. Medication waiting on provider signature. [place] will come back either later today or tomorrow for medication. /samuel/ FRITZ KEMP Signed: 02/19/2024 12:25 Receipt Acknowledged By: * AWAITING SIGNATURE * DAX GARCIA * AWAITING SIGNATURE * ML DENG PAUL [place] February 17, 2024 12:41 PM MEDICATION MGT NOT E: LOCAL TITLE: OUTPATIENT MEDICATION REQUEST STANDARD TITLE: MEDICATION MGT NOTE DATE OF NOTE: FEBRUARY 17, 2024@12:41 ENTRY DATE: FEBRUARY 17, 2024@12:41:47 AUTHOR: DAX GARCIA EXP COSIGNER: URGENCY: STATUS: COMPLETED Medication Request Date of Request: February Date: February Prescriber Name/Tel/Fax: Robert Lundberg MD [facility] [phone] RX: Ipratropium-Albuterol 0.5-3(2.5) mg/3ml 0.5mg-3 mg (2.5 mg base)/3ml Sig: Inhale One vial four times a day, dx J43.1 Disp: 360 ml Refills: 3 Notes: Prescription placed in right fax PACT 5 folder /samuel/ DAX GARCIA RN REGISTERED NURSE Signed: 02/17/2024 12:54 Receipt Acknowledged By: 02/19/2024 12:39 /samuel/ MATTY RONDON MD PHYSICIAN DAX GARCIA Dec 10, 2023 08:30 AM PHYSICIAN NOTE: LOCAL TITLE: MD NOTE STANDARD TITLE: PHYSICIAN NOTE DATE OF NOTE: DEC 10, 2023@08:30 ENTRY DATE: DEC 09, 2023@23:21:17 AUTHOR: Luis RONDON EXP COSIGNER: URGENCY: STATUS: COMPLETED 83 y/o M with PMH of 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, narcolepsy, GERD, COPD/severe emphysema/chronic cough, 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 Despite treatment patient had worsening dyspnea, orthopnea, paroxysmal nocturnal dyspnea, pleuritic chest pain, fatigue. On November patient was admitted to [facility] for acute hypoxemic respiratory failure. he tested negative for COVID and influenza CT angio chest was negative for PE without any acute abnormalities Showed marked centrilobular emphysematous changes and pulmonary artery ectasia suspicious for the sequela of chronic hypertension and moderate to marked coronary artery calcification. EKG sinus tachycardia at [address] changes Echo normal EF with no WMA Troponin and BNP normal Patient was treated with IV prednisone and azithromycin, during hospitalization weaned off oxygen. Patient was discharged home on Breo Ellipta 200/25 and albuterol To follow-up with cardiology as outpatient #pulmonary nodules- multiple, in 2018 had PET scan f/bt negative biopsy f/w non [place] pcp Dr Reid thoracic surgeon at [facility] Dr Tuttle - CT chest 2023 with stable nodule > 100 PPDY tobacco history, quit >15y/ago, strong fhx of lung cancer #BPH - terazosin discontinued for dizziness Reports nocturia 2-3 times, frequency, urgency #on modafinil for narcolepsy - takes BID, tolerates fine with no SE, normotensive, no palpitations VA today 90, denies diarrhea, h/a could not live w/o modafinil PAST MEDICAL HISTORY: -- Narcolepsy without cataplexy -- 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 -- Severe emphysema -- COVID 2021 -- pulmonary nodules chest CT, PET scan 2018 - neg biopsy -- GERD -- BPH -- Cataract, Nuclear Sclerosis -- Acquired trigger finger -- peripheral neuropathy mild LE b/l(EMG 07/2020)- no evidence of tarsal syndrome- could not tolerate gabapentin - drowsy PAST SURGICAL HISTORY: -- Surgical Arthroscopy of the Shoulder Region with Limited Debridement -- Umbilical hernia s/p repair -- Bilateral inguinal hernia repair ALLERGIES:NKDA MEDICATIONS: -FLUTICASONE PROP 50MCG 120D NASAL -ALBUTEROL 90MCG (CFC-F) 200D -FLUTICAS 500/SALMETEROL 50 -MODAFINIL 200MG BID FOR NARCOLEPSY AND HYPERSOMNIA DESPITE CPAP ADHERENCE -TERAZOSIN HCL 5MG --discontinued for lightheadedness -KETOTIFEN 0.025% OPH SOLN Family history: --DM: --Cancer: Brother: kidney ca, Sister: 55 lung ca, smoker, etoh Brother: 58 lung ca, smoker --ME:Brother: CAd s/p ME, Sister: CAD s/p CABG, valve replacement --CVA: --Mental Health/addiction: Mother: 69 chronic lung ds, smoker Father: 78 ESRD, peripheral vasc ds, SOCIAL HISTORY: --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 no intention to retire soon, per pt he was retired for 6 years and did not like it Not working since October due to COPD exacerbation --Cohabitation:, lives with his --Children:2 adopted daughters --Diet: well balanced --Exercise: active, still working --Caffeine: 2 cups day --EtOH:none --Tob: quit 1989, h/o > 100 xPPDY (3 ppd x 35 yrs) --MJ: denies --Illicits:denies --Sexual activity: --[facility]: [facility] --Dental: UTD --Hospitalizations: 2021 hospitalized for pneumonia at [facility] ROS: stable weight Constitutional: no fever/no chills, no ns Eyes: no decreased vision/blurry vision Ears/Nose/Throat: no hearing change Respiratory: cough +/no wheezing/SOB/GARCIA + Cardiovascular: no CP /palpitations/ le edema Gastrointestinal: no abdominal pain/bloody/black stools :no dysuria/hematuria/trouble voiding MSK: feet neuropathic pain -chronic unchanged Neuro: no dizziness/H/A Skin: no pruritus/rash PHYSICAL EXAM: Vital Signs: Blood Pressure: 126/80 (12/10/2023 08:30) 106/69 (10/30/2022 11:15) Pulse: 90 (12/10/2023 08:30) Respiration: 16 (12/10/2023 08:30) Temperature: 97.3 F [36.3 C] (10/30/2022 11:15) BMI: 28.4 199.4 lb [90.45 kg] (12/10/2023 08:30) 197.6 lb [89.63 kg] (10/30/2022 11:15) 197.6 lb [89.8 kg] (12/03/2019 09:56) GA: NAD, AOx3 NECK: supple, no JVD, no LAD CVS: RRR Lungs: Distant breath sounds bilaterally, no wheezing no rhonchi no rales ABD:Soft, NT/ND EXT: no edema LABORATORY:11/2023 WBC: 5.84 HGB: 15.3 HCT: 46.3 MCV: 94.3 PLT: 336 HGB A1C (WR): 5.5 GLUCOSE: 99 UREA NITROGEN: 18 CREATININE-EGFR: 0.99 eGFR CKD-EPI 2020: 76 SODIUM: 136 POTASSIUM: 4.7 CHLORIDE: 103 CO2: 26 PROTEIN,TOTAL: 7.0 ALBUMIN: 3.8 ALKALINE PHOSPHATASE: 68 BILIRUBIN,TOT.: 0.7 SGOT: 22 SGPT: 25 CHOLESTEROL: 182 TRIGLYCERIDE: 121 LDL CHOL: 127 CHOL/HDL RATIO: 5.9 HDL: 31 L TSH (Access): 2.45 IMAGING: #CT Chest with contrast oct 2019: f/u pulm nodules Severe emphysema, pulmonary nodules, basically unchanged, multiple b/l, mediastinal LNs upper size of normal-stable. Unchanged from Mar 2019 scan. Pulmonary activity suggestive of pulmonary artery hypertension. Coronary artery calcifications. #EKG 11/2023 sinus tachycardia at 124 bpm, no ischemic changes #CTA chest 11/2023 negative for PE without any acute abnormalities No new pulmonary nodules, several pulmonary nodules stable over 2 years, given the mcfp interval stability no additional imaging follow-up required, Showed marked centrilobular emphysematous changes and pulmonary artery ectasia suspicious for the sequela of chronic hypertension and moderate to marked coronary artery calcification. 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) #COPD exacerbation: Clinically improving, saturating 96 on room air #severe emphysema (remote h/o heavy smoking), chronic GARCIA since covid 2021 -ICS/LABA +SILVINA prn #PND:fluticasone nasal #CAD: Evidence of moderate coronary calcification on CT chest Patient asymptomatic, normotensive, euvolemic -To address statin with cardiology-referred by non-VA provider #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: fully compliant #BPH: -Trial of tamsulosin, could not tolerate terazosin discontinued for dizziness #Narcolepsy: well controlled on modafinil no SE: ROYAL, palpitations, HTN, diarrheas -c/w Modafinil 200mg bid #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): #h/o multiple pulmonary nodules: 2019 had negative biopsy (bronch wash/LNs) f/u CT chest 2023 -stable nodule- f/w non VA PCP #peripheral neuropathy mild LE b/l(EMG 07/2020) -could not tolerate gabapentin due to dizziness Healthcare maintenance: --Lipids: LDL 127 (11/2023) --Diabetes: A1c 5.5 (11/2023) --Colon CA (50-75): Colonoscopy: last 10-12 yrs ago, f/b outside PCP per pt never had abnormal colonoscopy - screening dc/d --Lung CA: f/w non VA PCP - stable nodule 2019, negative LN Bx 2018 --PSA PSA 1.82 (2014) --AAA (smoker/65): 2012 negative --Influenza (yrly): 2021 --COVID 19 moderna x2 2020 --PCV13 2015 --PCV23: 2013 --RZV (>50yrs, x2): --TDAP: 2012 --Hep C screen: 2016 negative --HIV screen: --DEXA: --Advanced Directives: Return to clinic to see me in 12 months, sooner PRN. Virtual ( ), F2F ( x ) (x )fasting labs ordered prior to f/u ( x)request records from outside providers -now Tobacco Use Screening: The patient is a former tobacco user. The patient quit fifteen or more years ago. Medication Reconciliation: Outpatient: Has the patient been taking medications as documented in the EMLR? YES: The patient has been taking medications as documented in the EMLR. Essential Medication List for Review used to complete this medication reconciliation. INCLUDED IN THIS LIST: Alphabetical list of active outpatient prescriptions dispensed from this [place] (local) and dispensed from another [place] or [facility] facility (remote) as well as inpatient orders [...] with a VA or non-VA provider. /samuel/ MATTY RONDON MD PHYSICIAN Signed: 12/11/2023 01:32 JOSE R RONDON [place]
--- OUTSIDE RECORDS SUMMARY | 2024-10-28 13:54 | XMS_ITS | Encounter Summary ---
Author Name [facility] [place] Address [address] [place] [address] Care Team Providers Care Data Analytics Specialist Name Role Phone MATTY RONDON Primary Care [...] Relationship to Policy M[place]ain RAQUEL [place] OF [place] MEDICARE [facility] [employer] Oct 14, 2018 [id number] Tito BENAVIDES UANE PATIENT BCBS [place] MEDICARE [facility] [facility] [facility] [employer] Oct 14, 2018 [id number] Tito BENAVIDES UANE PATIENT BCBS OF [place] (BLUECARD) MEDICARE SUPPLEMEN JOHAN MEDEX BRONZ E Oct 14, 2018 [id number] Tito BENAVIDES UANE PATIENT BCBS OF [facility] (BLUECARD) MEDIGAP PLAN C MEDEX BRONZ E-AB Oct 14, 2018 [id number] Tito BENAVIDES UANE PATIENT BLUE CROSS BLUE SHIELD OF [facility] MEDICARE SUPPLEMEN JOHAN [facility] [facility] [employer] Oct 14, 2018 [id number] [phone] PAR[place]AY,D UANE PATIENT [place] BS [place] ([place] MEDICARE [facility] SUZIE REEVES Oct 14, 2018 [id number] PARADAY,D UANE PATIENT MEDICARE (WNR) MEDICARE () PART B Jul 14, 2007 PART B [id number] [phone] PARADAY,D UANE PATIENT MEDICARE (WNR) MEDICARE () PART B Jul 14, 2007 PART B [id number] PARADAY,D UANE PATIENT MEDICARE (WNR) MEDICARE () PART B Jul 14, 2007 PART B [id number] [phone] PARADAY,D UANE PATIENT MEDICARE (WNR) MEDICARE () PART B Jul 14, 2007 PART B [id number] PARADAY,D UANE PATIENT MEDICARE (WNR) MEDICARE () PART A Jun 14, 2007 PART A [id number] PARADAY,D UANE PATIENT MEDICARE (WNR) MEDICARE () PART A Jun 14, 2007 PART A [id number] PARADAY,D UANE PATIENT MEDICARE (WNR) MEDICARE () PART A Jun 14, 2007 PART A [id number] PARADAY,D UANE PATIENT MEDICARE (WNR) MEDICARE () PART B Jun 14, 2007 PART B [id number] PARADAY,D UANE PATIENT MEDICARE (WNR) MEDICARE () PART A Jun 14, 2007 PART A [id number] PARADAY,D UANE PATIENT MEDICARE (WNR) MEDICARE () PART B Jun 14, 2007 PART B [id number] PARADAY,D UANE PATIENT MEDICARE (WNR) MEDICARE () PART A Jun 14, 2007 PART A [id number] PARADAY,D UANE PATIENT MEDICARE (WNR) MEDICARE () PART A Jun 14, 2007 PART A [id number] CELINEELLIETito ADAM PATIENT Selected Encounter This section includes the information on record at [place] for the Encounter. Date/Time Encounter Type Encounter Description Reason Pro vider Source Dec 03, 2023 12:00 AM Outpatient Encounter EVENT (HISTORICAL) IHE Encounter Template Text not used by [...] Date/Time Appointment Type Appointme nt Facility Name Dec 10, 2023 08:30 AM AMBULATORY - MEDICINE [facility] May 22, 2024 11:00 AM AMBULATORY - MEDICINE [facility] Lab Results: +/- 30 days of the [...] Range Comment Nov 28, 2023 07:37 AM ANAMOOSE LIPID PANEL FASTING Specimen Type: SERUM No comment entered. Ordering Provider: MATTY NICHOLS Report Released Date/Time: Nov 22, 2023 12:26 PM Reporting Lab: [facility] [address] [facility] [address] Performing Lab: [facility] [address] [facility] [address] CHOLESTEROL 182 mg/dL TRIGLYCERIDE 121 mg/dL 0-150 LDL calculated 127 mg/dL 0-129 CHOL/HDL 5.9 HDL CHOLESTEROL 31 mg/dL L 40-60 Nov 28, 2023 07:37 AM ANAMOOSE LIVER FUNCTION Specimen Type: SERUM No comment entered. Ordering Provider: MATTY NICHOLS Report Released Date/Time: Nov 22, 2023 12:26 PM Reporting Lab: [address] [address] Performing Lab: [address] [address] PROTEIN,TOTAL 7.0 g/dL 6.0-8.3 ALBUMIN 3.8 g/dL 3.5-5.0 ALKALINE PHOSPHATASE 68 U/L 40-150 AST 22 U/L 5-34 ALT 25 U/L BILIRUBIN, TOTAL 0.7 mg/dL 0.2-1.2 Nov 28, 2023 07:37 AM ANAMOOSE BASIC METABOLIC PANEL (fasting) Specime n Type: SERUM No comment entered. Ordering Provider: MATTY NICHOLS Report Released Date/Time: Nov 22, 2023 12:26 PM Reporting Lab: [address] [address] Performing Lab: [address] [address] UREA NITROGEN 18 mg/dL 7-25 GLUCOSE 99 mg/dL 65-100 SODIUM 136 mmol/L 135-145 POTASSIUM 4.7 mmol/L 3.5-5.0 CHLORIDE 103 mmol/L 100-110 CO2 26 meq/L 20-30 CREATININE, Serum 0.99 mg/dL 0.50-1.40 eGFR(CKD-EPI 2020) 76 mL/min >60 Nov 28, 2023 07:37 AM ANAMOOSE HEMOGLOBIN A1C PANEL Specimen Type: BLOOD Comment: [...] Nov 22, 2023 12:26 PM Reporting Lab: [address] [address] Performing Lab: [address] [place] [address] HEMOGLOBIN A1C 5.5 4.0-5.6 Nov 28, 2023 07:37 AM ANAMOOSE TSH Specimen Type: SERUM No comment entered. Ordering Provider: MATTY NICHOLS Report Released Date/Time: Nov 22, 2023 12:26 PM Reporting Lab: [address] [address] Performing Lab: [facility] [place] [id number] TSH 2.45 u[IU]/mL 0.35-5.00 Nov 28, 2023 07:37 AM ANAMOOSE CBC AND DIFF (AUTO) Specimen Type: BLOOD No comment entered. Ordering Provider: MATTY NICHOLS Report Released Date/Time: Nov 22, 2023 12:26 PM Reporting Lab: [address] [address] Performing Lab: [facility] [address] [address] WBC 5.84 10*3/uL 4.50-11.00 RBC 4.91 10*6/uL 4.23-5.66 HGB 15.3 g/dL 12.8-17 HCT 46.3 39.2-50.4 MCV 94.3 fL 82-99 MCHC 33.0 g/dL 30.8-35.1 PLT 336 10*3/uL 140-360 RDW-CV 12.6 12.0-16.0 [place], Abs 0.61 10*3/uL 0.30-1.10 MCH 31.2 pg 26.2-32.6 Neut % 58.3 43.7-75.8 Lymph % 23.8 14.0-42.3 [place] % 10.4 5.1-13.7 Eos % 5.5 0.4-6.8 [...] Encounter. Date/Time Encounter Note(s) Provider Source Dec 03, 2023 12:00 AM NONVA NOTE: LOCAL TITLE: NON-VA HOSPITALIZATIONS/ER STANDARD TITLE: NONVA NOTE DATE OF NOTE: DEC 03, 2023 ENTRY DATE: DEC 17, 2023@11:59:16 AUTHOR: AGUSTIN ESCOBAR EXP COSIGNER: URGENCY: STATUS: COMPLETED VistA Imaging - Scanned Document SCANNED DOCUMENT SIGNATURE NOT REQUIRED Electronically Filed: 12/17/2023 by: AGUSTIN MOJICA CNTL WSTRN [facility]
--- OUTSIDE RECORDS SUMMARY | 2024-10-28 13:54 | XMS_ITS | Encounter Summary ---
Author Name [place] Address [address] [place] [address] Care Team Providers Care Psychologist Counseling Name Role Phone MATTY RONDON Primary Care [...] Relationship to Policy [place] RAQUEL [place] OF [place] MEDICARE [facility] [facility] [employer] Oct 14, 2018 [id number] [phone] Tito BENAVIDES UANE PATIENT BCBS [place] MEDICARE SUPP[employer]MEN [facility] [facility] [employer] Oct 14, 2018 [id number] [phone] Tito BENAVIDES UANE PATIENT BCBS OF [place] (BLUECARD) MEDICARE SUPPLEMEN JOHAN MEDEX BRONZ E Oct 14, 2018 [id number] Tito BENAVIDES UANE PATIENT BCBS OF [facility] (BLUECARD) MEDIGAP PLAN C MEDEX BRONZ E-AB Oct 14, 2018 [id number] Tito BENAVIDES UANE PATIENT BLUE CROSS BLUE SHIELD OF [facility] MEDICARE SUPPLEMEN [facility] [employer] [facility] [employer] Oct 14, 2018 [id number] [phone] PARADAY,D UANE PATIENT [place] MEDICARE [facility] SUZIE REEVES Oct 14, 2018 [id number] PARADAY,D UANE PATIENT MEDICARE (WNR) MEDICARE () PART B Jul 14, 2007 PART B [id number] PARADAY,D UANE PATIENT MEDICARE (WNR) MEDICARE () PART B Jul 14, 2007 PART B [id number] PARADAY,D UANE PATIENT MEDICARE (WNR) MEDICARE () PART B Jul 14, 2007 PART B [id number] PARADAY,D UANE PATIENT MEDICARE (WNR) MEDICARE () PART B Jul 14, 2007 PART B [id number] [id number] [phone] PARADAY,D UANE PATIENT MEDICARE (WNR) MEDICARE () PART A Jun 14, 2007 PART A [id number] [id number] [phone] PARADAY,D UANE PATIENT MEDICARE (WNR) MEDICARE () PART A Jun 14, 2007 PART A [id number] PARADAY,D UANE PATIENT MEDICARE (WNR) MEDICARE () PART A Jun 14, 2007 PART A [id number] PARADAY,D UANE PATIENT MEDICARE (WNR) MEDICARE () PART B Jun 14, 2007 PART B [id number] PARADAY,D UANE PATIENT MEDICARE (WNR) MEDICARE () PART A Jun 14, 2007 PART A [id number] PARADAY,D UANE PATIENT MEDICARE (WNR) MEDICARE () PART B Jun 14, 2007 PART B [id number] PARADAY,D UANE PATIENT MEDICARE (WNR) MEDICARE () PART A Jun 14, 2007 PART A [id number] PARADAY,D UANE PATIENT MEDICARE (WNR) MEDICARE () PART A Jun 14, 2007 PART A [id number] CELINEELLIETito PATIENT Selected Encounter This section includes the information on record at [place] for the Encounter. Date/Time Encounter Type Encounter Description Reason Pro vider Source February 17, 2024 12:00 AM Outpatient Encounter EVENT (HISTORICAL) IHE [...] 22, 2024 11:00 AM [facility] Jul 28, 2024 08:05 AM AMBULATORY MEDICINE [facility] Encounter Notes: All associated encounter notes This section contains the clinical notes associated to the Encounter. Date/Time Encounter Note(s) Provider Source February 17, 2024 12:00 AM NURSING ADMINISTRATIVE NOTE: LOCAL TITLE: NON-VA PRESCRIPTION STANDARD TITLE: NURSING ADMINISTRATIVE NOTE DATE OF NOTE: FEBRUARY 17, 2024 ENTRY DATE: APR 15, 2024@14:22:16 AUTHOR: GHASSAN ELLIS EXP COSIGNER: URGENCY: STATUS: COMPLETED VistA Imaging - Scanned Document SCANNED DOCUMENT SIGNATURE NOT REQUIRED Electronically Filed: 04/15/2024 by: GHASSAN ELLIS LICENSED PRACTICAL NURSE GHASSAN ELLIS [facility]
--- OUTSIDE RECORDS SUMMARY | 2024-10-28 13:54 | XMS_ITS | Encounter Summary ---
Author Name [facility] [place] Address [address] [place] [address] Care Team Providers Care Pick Up Truck Driver Name Role Phone MATTY RONDON Primary Care [...] Relationship to Policy Mccain RAQUEL BCBS OF [place] MEDICARE SUPPLEMEN [facility] [facility] Oct 14, 2018 [id number] Tito BENAVIDES UANE PATIENT [place]BS [place] MEDICARE SUPP[employer]MEN [facility] [facility] [employer] Oct 14, 2018 [id number] Tito BENAVIDES UANE PATIENT BCBS OF [place] (BLUECARD) MEDICARE SUPPLEMEN JOHAN MEDEX BRONZ E Oct 14, 2018 [id number] Tito BENAVIDES UANE PATIENT BCBS OF [facility] (BLUECARD) MEDIGAP PLAN C MEDEX BRONZ E-AB Oct 14, 2018 [id number] [phone] Tito BENAVIDES UANE PATIENT BLUE CROSS BLUE SHIELD OF [facility] MEDICARE SUPPLEMEN JOHAN [employer] [facility] GROUP Oct 14, 2018 [id number] PARADAY,D UANE PATIENT [place] ([place] MEDICARE [facility] SUZIE REEVES Oct 14, 2018 [id number] PARADAY,D UANE PATIENT MEDICARE (WNR) MEDICARE () PART B Jul 14, 2007 PART B [id number] [phone] PARADAY,D UANE PATIENT MEDICARE (WNR) MEDICARE () PART B Jul 14, 2007 PART B [id number] PARADAY,D UANE PATIENT MEDICARE (WNR) MEDICARE () PART B Jul 14, 2007 PART B [id number] PARADAY,D UANE PATIENT MEDICARE (WNR) MEDICARE () PART B Jul 14, 2007 PART B [id number] PARADAY,D UANE PATIENT MEDICARE (WNR) MEDICARE () PART A Jun 14, 2007 PART A [id number] [phone] PARADAY,D UANE PATIENT MEDICARE (WNR) MEDICARE () PART A Jun 14, 2007 PART A [id number] PARADAY,D UANE PATIENT MEDICARE (WNR) MEDICARE () PART A Jun 14, 2007 PART A [id number] PARADAY,D UANE PATIENT MEDICARE (WNR) MEDICARE () PART B Jun 14, 2007 PART B [id number] PARADAY,D UANE PATIENT MEDICARE (WNR) MEDICARE () PART A Jun 14, 2007 PART A [id number] [id number] [phone] PARADAY,D UANE PATIENT MEDICARE (WNR) MEDICARE () PART B Jun 14, 2007 PART B [id number] PARADAY,D UANE PATIENT MEDICARE (WNR) MEDICARE () PART A Jun 14, 2007 PART A [id number] PARADAY,D UANE PATIENT MEDICARE (WNR) MEDICARE () PART A Jun 14, 2007 PART A [id number] Tito BENAVIDES PATIENT Selected Encounter This section includes the information on record at [place] for the Encounter. Date/Time Encounter Type Encounter Description Reason Pro vider Source Jul 09, 2024 03:36 PM Outpatient Encounter ADMIN PAT ACTIVTIES (MASNONCT) IHE Encounter Template Text not used by [place] Plan of Treatment: Future Appointments (+ 6 months) and Future Tests (+/- 45 days) The Plan of Treatment section includes future care activities for the patient from all [place] treatmentfacilities. This section includes future appointments and future orders which are active, pending or scheduled. Future Appointments This section includes appointments that were scheduled to occur 6 months from the date of the Encounter, up to a maximum of 20 appointments. The data comes from all [place] treatment facilities. Appointment Date/Time Appointment Type Appointme nt Facility Name Jul 28, 2024 08:05 AM [facility] Oct 27, 2024 04:30 PM AM[facility]ULATORY MED[facility]INE [facility] Encounter Notes: All associated encounter notes This section contains the clinical notes associated to the Encounter. Date/Time Encounter Note(s) Provider Source Jul 09, 2024 03:36 PM PHARMACY NOTE: LOCAL TITLE: PHARMACY CUSTOMER CARE MEDICATION RENEWAL STANDARD TITLE: PHARMACY NOTE DATE OF NOTE: JUL 09, 2024@15:36 ENTRY DATE: JUL 09, 2024@15:36:55 AUTHOR: JOSE JUAN LUNA COSIGNER: URGENCY: STATUS: COMPLETED Date: Jun Division: [place] Pt referred by Pharmacy Call Center for medication renewal: Controlled substance Medications requested: [id number]$ MODAFINIL 200MG TAB Defer to primary care provider To be mailed . Please review and renew if appropriate. *This note was generated by [facility]/[place] Pharmacy Customer Care. If you have any questions or need assistance, do not contact this author. Please refer all questions to your local, on-site pharmacy departments. /samuel/ JOSE JUAN LUNA CPhT Inhalation Therapy Aides Teacher, [place]/Pharmacy Customer Care Signed: 07/09/2024 15:37 Receipt Acknowledged By: 07/11/2024 08:40 /samuel/ JASMIN RICHTER NP NURSE PRACTITIONER for MATTY RONDON 07/14/2024 15:40 /es/ BRY PARKS RN REGISTERED NURSE [facility]AN LUNA [facility]
--- OUTSIDE RECORDS SUMMARY | 2024-10-28 13:54 | XMS_ITS ---
Author Name [place] Address [address] [place] [address] Care Team Providers Care Field Health Officer Name Role Phone MATTY RONDON Primary Care [...] Relationship to Policy [place]ccain RAQUEL [place] MEDICARE [facility]PP[employer]MEN [facility] [facility] [employer] Oct 14, 2018 [id number] Tito BENAVIDES UANE PATIENT BCBS [place] MEDICARE SUPPLEMEN J[facility]AN [employer] GROUP Oct 14, 2018 [id number] Tito BENAVIDES UANE PATIENT BCBS OF [place] (BLUECARD) MEDICARE SUPPLEMEN JOHAN MEDEX BRONZ E Oct 14, 2018 [id number] [phone] Tito BENAVIDES UANE PATIENT BCBS OF [facility] (BLUECARD) MEDIGAP PLAN C MEDEX BRONZ E-AB Oct 14, 2018 [id number] Tito BENAVIDES UANE PATIENT BLUE CROSS BLUE [place]ELD OF [place] MEDICARE SUPPLEMEN JOHAN P[employer] GROUP Oct 14, 2018 [id number] [phone] PARADAY,D UANE [facility]IENT [facility] [place] [facility] MEDICARE [facility] SUZIE REEVES Oct 14, 2018 [id number] PARADAY,D UANE PATIENT MEDICARE (WNR) MEDICARE () PART B Jul 14, 2007 PART B [id number] PARADAY,D UANE PATIENT MEDICARE (WNR) MEDICARE () PART B Jul 14, 2007 PART B [id number] [phone] PARADAY,D UANE PATIENT MEDICARE (WNR) MEDICARE () PART B Jul 14, 2007 PART B [id number] PARADAY,D UANE PATIENT MEDICARE (WNR) MEDICARE () PART B Jul 14, 2007 PART B [id number] PARADAY,D UANE PATIENT MEDICARE (WNR) MEDICARE () PART A Jun 14, 2007 PART A [id number] [id number] [phone] PARADAY,D UANE PATIENT MEDICARE (WNR) MEDICARE () PART A Jun 14, 2007 PART A [id number] [phone] PARADAY,D UANE PATIENT MEDICARE (WNR) MEDICARE () PART A Jun 14, 2007 PART A [id number] PARADAY,D UANE PATIENT MEDICARE (WNR) MEDICARE () PART B Jun 14, 2007 PART B [id number] PARADAY,D UANE PATIENT MEDICARE (WNR) MEDICARE () PART A Jun 14, 2007 PART A [id number] [phone] PARADAY,D UANE PATIENT MEDICARE (WNR) MEDICARE () PART A Jun 14, 2007 PART A [id number] [phone] PARADAY,D UANE PATIENT MEDICARE (WNR) MEDICARE () PART B Jun 14, 2007 PART B [id number] [phone] PARADAY,D UANE PATIENT MEDICARE (WNR) MEDICARE () PART A Jun 14, 2007 PART A [id number] CELINEELLIETito PATIENT Selected Encounter This section includes the information on record at [place] for the Encounter. Date/Time Encounter Type Encounter Description Reason Pro vider Source Jul 28, 2024 12:00 AM Outpatient Encounter COMMUNITY CARE CONSULT IHE Encounter Template Text not used by [place] Plan of Treatment: Future Appointments (+ 6 months) and Future Tests (+/- 45 days) The Plan of Treatment section includes future care activities for the patient from all [place] treatmentfacilities. This section includes future appointments and future orders which are active, pending or scheduled. Future Appointments This section includes appointments that were scheduled to occur 6 months from the date of the Encounter, up to a maximum of 20 appointments. The data comes from all [place] treatment facilities. Appointment Date/Time Appointment Type Appointme nt Facility Name Oct 27, 2024 04:30 PM AMBULATORY - [facility]INE [facility] Encounter Notes: All associated encounter notes This section contains the clinical notes associated to the Encounter. Date/Time Encounter Note(s) Provider Source Jul 28, 2024 12:00 AM NONVA CONSULT: LOCAL TITLE: COMMUNITY CARE-CONSULT RESULT NOTE STANDARD TITLE: NONVA CONSULT DATE OF NOTE: JUL 28, 2024 ENTRY DATE: AUG 20, 2024@07:50:56 AUTHOR: AMANDA CARRILLO EXP COSIGNER: URGENCY: STATUS: COMPLETED VistA Imaging - Scanned Document SCANNED DOCUMENT SIGNATURE NOT REQUIRED Electronically Filed: 08/20/2024 by: AMANDA CARRILLO METAL LOADER AMANDA CARRILLO [facility]
--- OUTSIDE RECORDS SUMMARY | 2024-10-28 13:54 | XMS_ITS | Encounter Summary ---
Author Name [facility] [place] Address [address] [place] [address] Care Team Providers Care Credentialing Manager Name Role Phone MATTY RONDON Primary Care [...] Relationship to Policy Mccain RAQUEL [place] OF [place] MEDICARE SUPPLEMEN [facility] Oct 14, 2018 [id number] [phone] Tito BENAVIDES UANE PATIENT BCBS [place] MEDICARE SUPPLEMEN [facility] Oct 14, 2018 [id number] Tito BENAVIDES UANE PATIENT [place] OF [place] ([place]ARD) MEDICARE SUPPLEMEN JOHAN MEDEX BRONZ E Oct 14, 2018 [id number] [phone] Tito BENAVIDES UANE PATIENT BCBS OF [facility] (BLUECARD) MEDIGAP PLAN C MEDEX BRONZ E-AB Oct 14, 2018 [id number] [phone] Tito BENAVIDES UANE PATIENT BLUE CROSS BLUE SHIELD OF [facility] MEDICARE SUPPLEMEN JOHAN [facility] Oct 14, 2018 [id number] [phone] PARADAY,D UANE PATIENT [place] (BLUECARD) MEDICARE [facility] SUZIE REEVES Oct 14, 2018 [id number] PARADAY,D UANE PATIENT MEDICARE (WNR) MEDICARE () PART B Jul 14, 2007 PART B [id number] [phone] PARADAY,D UANE PATIENT MEDICARE (WNR) MEDICARE () PART B Jul 14, 2007 PART B [id number] PARADAY,D UANE PATIENT MEDICARE (WNR) MEDICARE () PART B Jul 14, 2007 PART B [id number] PARADAY,D UANE PATIENT MEDICARE (WNR) MEDICARE () PART B Jul 14, 2007 PART B [id number] [phone] [id number] PARADAY,D UANE PATIENT MEDICARE (WNR) MEDICARE () PART A Jun 14, 2007 PART A [id number] [phone] PARADAY,D UANE PATIENT MEDICARE (WNR) MEDICARE () PART A Jun 14, 2007 PART A [id number] PARADAY,D UANE PATIENT MEDICARE (WNR) MEDICARE () PART A Jun 14, 2007 PART A [id number] PARADAY,D UANE PATIENT MEDICARE (WNR) MEDICARE () PART B Jun 14, 2007 PART B [id number] PARADAY,D UANE PATIENT MEDICARE (WNR) MEDICARE () PART A Jun 14, 2007 PART A [id number] PARADAY,D UANE PATIENT MEDICARE (WNR) MEDICARE () PART B Jun 14, 2007 PART B [id number] PARADAY,D UANE PATIENT MEDICARE (WNR) MEDICARE () PART A Jun 14, 2007 PART A [id number] PARADAY,D UANE PATIENT MEDICARE (WNR) MEDICARE () PART A Jun 14, 2007 PART A [id number] CELINEELLIETito PATIENT Selected Encounter This section includes the information on record at [place] for the Encounter. Date/Time Encounter Type Encounter Description Reason Pro vider Source Nov 12, 2023 03:09 PM Outpatient Encounter PRIMARY CARE/MEDICINE IHE Encounter Template [...] 10, 2023 08:30 AM AMBULATORY - MEDICINE [facility] Lab Results: +/- 30 days of the encounter This section includes the Chemistry and Hematology Lab Results on record with [place] for the patient. Radiology Reports and Pathology Reports are provided separately, in subsequent sections. Lab Results This section contains the Chemistry/Hematology Results that were resulted 30 days before or 30 daysafter the date of the Encounter. Date/Time Source Result Type Result - Unit Interpretation Reference Range Comment Nov 28, 2023 07:37 AM [facility] LIPID PANEL FASTING Specimen Type: SERUM No comment entered. Ordering Provider: MATTY NICHOLS Report Released Date/Time: Nov 22, 2023 12:26 PM Reporting Lab: [address] [address] Performing Lab: [address] [address] CHOLESTEROL 182 mg/dL TRIGLYCERIDE 121 mg/dL 0-150 LDL calculated 127 mg/dL 0-129 CHOL/HDL 5.9 HDL CHOLESTEROL 31 mg/dL L 40-60 Nov 28, 2023 07:37 AM [facility] LIVER FUNCTION Specimen Type: SERUM No comment entered. Ordering Provider: MATTY NICHOLS Report Released Date/Time: Nov 22, 2023 12:26 PM Reporting Lab: [address] [address] Performing Lab: [address] [address] PROTEIN,TOTAL 7.0 g/dL 6.0-8.3 ALBUMIN 3.8 g/dL 3.5-5.0 ALKALINE PHOSPHATASE 68 U/L 40-150 AST 22 U/L 5-34 ALT 25 U/L BILIRUBIN, TOTAL 0.7 mg/dL 0.2-1.2 Nov 28, 2023 07:37 AM [facility] BASIC METABOLIC PANEL (fasting) Specime n Type: SERUM No comment entered. Ordering Provider: MATTY NICHOLS Report Released Date/Time: Nov 22, 2023 12:26 PM Reporting Lab: [address] [address] Performing Lab: [address] [address] UREA NITROGEN 18 mg/dL 7-25 GLUCOSE 99 mg/dL 65-100 SODIUM 136 mmol/L 135-145 POTASSIUM 4.7 mmol/L 3.5-5.0 CHLORIDE 103 mmol/L 100-110 CO2 26 meq/L 20-30 CREATININE, Serum 0.99 mg/dL 0.50-1.40 eGFR(CKD-EPI 2020) 76 mL/min >60 Nov 28, 2023 07:37 AM [facility] HEMOGLOBIN A1C PANEL Specimen Type: BLOOD Comment: [...] Nov 22, 2023 12:26 PM Reporting Lab: [address] [address] Performing Lab: [address] [address] HEMOGLOBIN A1C 5.5 4.0-5.6 Nov 28, 2023 07:37 AM [facility] TSH Specimen Type: SERUM No comment entered. Ordering Provider: MATTY NICHOLS Report Released Date/Time: Nov 22, 2023 12:26 PM Reporting Lab: [address] [address] Performing Lab: [address] [address] TSH 2.45 u[IU]/mL 0.35-5.00 Nov 28, 2023 07:37 AM [facility] CBC AND DIFF (AUTO) Specimen Type: BLOOD No comment entered. Ordering Provider: MATTY NICHOLS Report Released Date/Time: Nov 22, 2023 12:26 PM Reporting Lab: [address] [address] Performing Lab: [address] [address] WBC 5.84 10*3/uL 4.50-11.00 RBC 4.91 10*6/uL 4.23-5.66 HGB 15.3 g/dL 12.8-17 HCT 46.3 39.2-50.4 MCV 94.3 fL 82-99 MCHC 33.0 g/dL 30.8-35.1 PLT 336 10*3/uL 140-360 RDW-CV 12.6 12.0-16.0 Galax, Abs 0.61 10*3/uL 0.30-1.10 MCH 31.2 pg 26.2-32.6 Neut % 58.3 43.7-75.8 Lymph % 23.8 14.0-42.3 Galax % 10.4 5.1-13.7 Eos % 5.5 0.4-6.8 [...] the Encounter. Date/Time Encounter Note(s) Provider Source Nov 12, 2023 03:09 PM NURSING ADMINISTRA [place] NOTE: LOCAL TITLE: NON-VA PRESCRIPTION STANDARD TITLE: NURSING ADMINISTRATIVE NOTE DATE OF NOTE: NOV 12, 2023@15:09 ENTRY DATE: NOV 12, 2023@15:09:27 AUTHOR: WANDA TOMPKINS COSIGNER: URGENCY: STATUS: COMPLETED NON VA Prescription Date: Oct Prescriber Name/Tel/Fax :Dr. Robert Lundberg [phone] RX : Terazosin 5mg capsule Sig: Take 1 capsult daily at bedtime Qty: 30 Refills: 2 RX: Symbicort 160-4.5 mcg inhaler mcg/actuation Sig: Inhale 2 puffs twice a day Qty: 6 grams Refill: 5 RX: Albuterol HFA 90 mcg inhaler Sig: Inhale 3 puffs every 4 hours as needed for SOB Qty: 25.5 gram Refill: 3 Mail to patient Waiting? No [facility] RX? No - ([facility] Primary Payer) Requested office notes from prescriber - Yes, placed in provider's Right Fax folder. Active Outpatient Medications (including Supplies): Issue Date Status Last Fill Active Outpatient Medications Refills Expiration = 1) FLUTICASONE PROP 50MCG 120D NASAL INHL ACTIVE Issu:03-28-23 Qty: 2 for 60 days Sig: INSTILL 1 Refills: 5 Last:03-29-23 SPRAY INTO EACH NOSTRIL TWICE DAILY Expr:03-28-24 NEEDED FOR NASAL IRRITATION/INFLAMMATION 2) KETOTIFEN 0.025% OPH SOLN Qty: 5 for 90 ACTIVE Issu:04-24-23 days Sig: INSTILL 1 DROP INTO EACH Refills: 2 Last:04-24-23 EYE EVERY 12 HOURS FOR ALLERGIC Expr:04-24-24 CONJUNCTIVITIS (IF YOU WEAR CONTACT LENSES, WAIT 10 MINUTES BEFORE INSERTING LENSES) 3) MODAFINIL 200MG TAB Qty: 60 for 30 days ACTIVE Issu:07-26-23 Sig: TAKE ONE TABLET BY MOUTH TWICE Refills: 0 Last:10-21-23 DAILY FOR NARCOLEPSY AND HYPERSOMNIA Expr:01-26-24 DESPITE CPAP ADHERENCE Start Date Active Non-VA Medications Refills Expiration = 1) Non-VA TERAZOSIN HCL 5MG CAP SiMG ACTIVE BY MOUTH ONCE DAILY 4 Total Medications Medication (Local) Status DICLOFENAC NA 1% TOP GEL Directions: APPLY 2 GRAMS TOPICALLY FOUR TIMES A DAY FOR OSTEOARTHRITIS - USE DOSING CARD PROVIDED IN BOX Quantity: 100 for 30 days Provider: MATYT RONDON Expires: 10/31/23 Status: Medication (Remote) Status No remote medications found. /es/ WANDA TOMPKINS RN REGISTERED NURSE Signed: 11/12/2023 15:14 Receipt Acknowledged By: 11/13/2023 00:14 /es/ MATTY RONDON MD PHYSICIAN WANDA TOMPKINS
--- OUTSIDE RECORDS SUMMARY | 2024-10-28 13:54 | XMS_ITS | Encounter Summary ---
Author Name [facility] [place] Address [address] [place] [address] Care Team Providers Care Private Sector Executive Name Role Phone MATTY RONDON Primary Care [...] [facility] Oct 14, 2018 [id number] [phone] MAKAYLA,Tito UANE PATIENT BCBS CT MEDICARE SUPPLEMEN [facility] Oct 14, 2018 [id number] [phone] MAKAYLA,D UANE PATIENT BCBS OF [place] (BLUECARD) MEDICARE SUPPLEMEN JOHAN MEDEX BRONZ E Oct 14, 2018 [id number] [phone] MAKAYLA,D UANE PATIENT BCBS OF [facility] (BLUECARD) MEDIGAP PLAN C MEDEX BRONZ E-AB Oct 14, 2018 [id number] [phone] Tito BENAVIDES UANE PATIENT BLUE CROSS BLUE [place] MEDICARE SUPPLEMEN [facility]AN [facility] Oct 14, 2018 [id number] [phone] PARADAY,D UANE PATIENT [facility] [place] MEDICARE [facility] SUZIE REEVES Oct 14, 2018 [id number] [phone] PARADAY,D UANE PATIENT MEDICARE (WNR) MEDICARE () PART B Jul 14, 2007 PART B [id number] [phone] PARADAY,D UANE PATIENT MEDICARE (WNR) MEDICARE () PART B Jul 14, 2007 PART B [id number] PARADAY,D UANE PATIENT MEDICARE (WNR) MEDICARE () PART B Jul 14, 2007 PART B [id number] PARADAY,D UANE PATIENT MEDICARE (WNR) MEDICARE () PART B Jul 14, 2007 PART B [id number] PARADAY,D UANE PATIENT MEDICARE (WNR) MEDICARE () PART A Jun 14, 2007 PART A [id number] PARADAY,D UANE PATIENT MEDICARE (WNR) MEDICARE () PART A Jun 14, 2007 PART A [id number] [id number] [phone] [id number] PARADAY,D UANE PATIENT MEDICARE (WNR) MEDICARE () PART A Jun 14, 2007 PART A [id number] PARADAY,D UANE PATIENT MEDICARE (WNR) MEDICARE () PART B Jun 14, 2007 PART B [id number] PARADAY,D UANE PATIENT MEDICARE (WNR) MEDICARE () PART A Jun 14, 2007 PART A [id number] PARADAY,D UANE PATIENT MEDICARE (WNR) MEDICARE () PART B Jun 14, 2007 PART B [id number] PARADAY,D UANE PATIENT MEDICARE (WNR) MEDICARE () PART A Jun 14, 2007 PART A [id number] PARADAY,D UANE PATIENT MEDICARE (WNR) MEDICARE () PART A Jun 14, 2007 PART A [id number] CELINEELLIETito ADAM PATIENT Selected Encounter This section includes the information on record at [place] for the Encounter. Date/Time Encounter Type Encounter Description Reason Pro vider Source Jul 07, 2024 09:21 AM Outpatient Encounter OPTOMETRY IHE Encounter Template Text not used by [place] Plan of Treatment: Future Appointments (+ 6 months) and Future Tests (+/- 45 days) The Plan of Treatment section includes future care activities for the patient from all [place] treatmentfacilities. This section includes future appointments and future orders which are active, pending or scheduled. Future Appointments This section includes appointments that were scheduled to occur 6 months from the date of the Encounter, up to a maximum of 20 appointments. The data comes from all [place] treatment facilities. Appointment Date/Time Appointment Type Appointme nt Facility Name Jul 28, 2024 08:05 AM AMBULATORY - MEDICINE [facility] Oct 27, 2024 04:30 PM AMBULATORY MEDICINE [facility] Encounter Notes: All associated encounter notes This section contains the clinical notes associated to the Encounter. Date/Time Encounter Note(s) Provider Source Jul 07, 2024 09:21 AM TELEPHONE ENCOUNTE R NOTE: LOCAL TITLE: TELEPHONE NOTE/SPECIALTY CLINIC STANDARD TITLE: TELEPHONE ENCOUNTER NOTE DATE OF NOTE: JUL 07, 2024@09:21 ENTRY DATE: JUL 07, 2024@09:21:42 AUTHOR: SEVEN ZEPEDA EXP COSIGNER: URGENCY: STATUS: COMPLETED called stating he has been waiting for a phone call from [facility]. stated he has not heard from anyone. Last consult on file was 10/2022. Veterans phone number on file has been confirmed. /samuel/ SEVEN ZEPEDA ANALYST SALES Signed: 07/07/2024 09:23 Receipt Acknowledged By: 07/08/2024 09:23 /samuel/ LUIS ROJAS OD STAFF SENSITIZED PAPER TESTER SEVEN [facility]EPEDA [facility]
--- OUTSIDE RECORDS SUMMARY | 2024-10-28 13:54 | XMS_ITS | Encounter Summary ---
Author Name [facility] [place] Organization [place] Address [address] [place] [address] Care Team Providers Care Collision Worker Name Role Phone MATTY RONDON Primary Care [...] Relationship to Policy Mccain RAQUEL BCBS OF [place] MEDICARE SUPPLEMEN [facility] Oct 14, 2018 [id number] Tito BENAVIDES UANE PATIENT BCBS [place] MEDICARE SUPPLEMEN J[facility]AN [facility] Oct 14, 2018 [id number] [phone] Tito BENAVIDES UANE PATIENT BCBS OF [place] (BLUECARD) MEDICARE SUPPLEMEN JOHAN MEDEX BRONZ E Oct 14, 2018 [id number] Tito BENAVIDES UANE PATIENT BCBS OF [facility] (BLUECARD) MEDIGAP PLAN C MEDEX BRONZ E-AB Oct 14, 2018 [id number] [phone] Tito BENAVIDES UANE PATIENT BLUE CROSS BLUE SHIELD OF [facility] MEDICARE SUPPLEMEN JOHAN PSEUD [facility] GROUP Oct 14, 2018 [id number] PARADAY,D UANE PATIENT [place] ([place] MEDICARE [facility] SUZIE REEVES Oct 14, 2018 [id number] PARADAY,D UANE PATIENT MEDICARE (WNR) MEDICARE () PART B Jul 14, 2007 PART B [id number] PARADAY,D UANE PATIENT MEDICARE (WNR) MEDICARE () PART B Jul 14, 2007 PART B [id number] PARADAY,D UANE PATIENT MEDICARE (WNR) MEDICARE () PART B Jul 14, 2007 PART B [id number] PARADAY,D UANE PATIENT MEDICARE (WNR) MEDICARE () PART B Jul 14, 2007 PART B [id number] [id number] [phone] [id number] PARADAY,D UANE PATIENT MEDICARE (WNR) MEDICARE () PART A Jun 14, 2007 PART A [id number] [id number] [phone] PARADAY,D UANE PATIENT MEDICARE (WNR) MEDICARE () PART A Jun 14, 2007 PART A [id number] [id number] [phone] [id number] PARADAY,D UANE PATIENT MEDICARE (WNR) MEDICARE () PART A Jun 14, 2007 PART A [id number] PARADAY,D UANE PATIENT MEDICARE (WNR) MEDICARE () PART B Jun 14, 2007 PART B [id number] PARADAY,D UANE PATIENT MEDICARE (WNR) MEDICARE () PART A Jun 14, 2007 PART A [id number] PARADAY,D UANE PATIENT MEDICARE (WNR) MEDICARE () PART B Jun 14, 2007 PART B [id number] [id number] [id number] PARADAY,D UANE PATIENT MEDICARE (WNR) MEDICARE () PART A Jun 14, 2007 PART A [id number] PARADAY,D UANE PATIENT MEDICARE (WNR) MEDICARE () PART A Jun 14, 2007 PART A [id number] Tito BENAVIDES PATIENT Selected Encounter This section includes the information on record at [place] for the Encounter. Date/Time Encounter Type Encounter Description Reason Pro vider Source February 17, 2024 09:37 AM Outpatient Encounter ADMIN PAT ACTIVTIES (MASNONCT) IHE Encounter Template Text not used by [place] Plan of Treatment: Future Appointments (+ 6 months) and Future Tests (+/- 45 days) The Plan of Treatment section includes future care activities for the patient from all [place] treatmentfacilities. This section includes future appointments and future orders which are active, pending or scheduled. Future Appointments This section includes appointments that were scheduled to occur 6 months from the date of the Encounter, up to a maximum of 20 appointments. The data comes from all [place] treatment facilities. Appointment Date/Time Appointment Type Appointme nt Facility Name May 22, 2024 11:00 AM AMBULATORY - MEDICINE [facility] Jul 28, 2024 08:05 AM [facility] MEDICINE [facility] Encounter Notes: All associated encounter notes This section contains the clinical notes associated to the Encounter. Date/Time Encounter Note(s) Provider Source February 17, 2024 09:37 AM ADMINISTRATIVE NOTE: LOCAL TITLE: CCC: SCHEDULING ADMINISTRATION STANDARD TITLE: ADMINISTRATIVE NOTE DATE OF NOTE: FEBRUARY 17, 2024@09:37:10 ENTRY DATE: FEBRUARY 17, 2024@09:37:10 AUTHOR: BLANE DELEON EXP COSIGNER: URGENCY: STATUS: COMPLETED Patient Demographics Patient Name: CARLOS BENAVIDES Patient Primary Phone: [phone] Patient Primary [address]: [address] [place] [address] Patient : 1940 Patient Age: 83 Caller/Recipient Relation to Patient: Self Administrative Administrative Note Reason: Medication Renewal [place] Medications Refill/Renewal Request: Rx # - Medication Name - Dosage - SIG - Number of Refills - Facility - Status [id number] - MODAFINIL 200MG TAB - Medication - 1 TABLET - TAKE ONE TABLET BY MOUTH TWICE DAILY FOR NARCOLEPSY AND HYPERSOMNIA DESPITE CPAP ADHERENCE - 0 - [place] - [id number] - stated that they have a couple tablets remaining and would like to flower buncher or picker at [place] on [facility]. [place] also stated that Dr. Lundberg, with [facility], prescribed ipratropium bromide and albuterol sulfate inhalation solution, and last time the received it, Dr. Lundberg sent directly to [facility]. [place] would like to also flower buncher or picker this medication at [facility] pharmacy. Advised to have the provider fax the prescription with office notes to our primary care fax number. [place] did not have Dr. Lundberg's telephone number available, but stated that they will look it up in their phone and call Dr. Lundberg this morning. /es/ BLANE PENNINGTON 1 [facility] Signed: 02/17/2024 09:37 Receipt Acknowledged By: 02/17/2024 14:31 /es/ ROJELIO BERRY RN REGISTERED NURSE 02/19/2024 12:42 /es/ MATTY RONDON MD PHYSICIAN [facility]
--- OUTSIDE RECORDS SUMMARY | 2024-10-28 13:54 | XMS_ITS | Encounter Summary ---
Author Name [place] Address [address] [place] [address] Care Team Providers Care Supervisor Core Shop Name Role Phone MATTY RONDON Primary Care [...] Relationship to Policy Mccain RAQUEL BCBS OF [place] MEDICARE SUPPLEMEN [facility] Oct 14, 2018 [id number] [phone] Tito BENAVIDES UANE PATIENT [place]BS [place] MEDICARE SUPPLEMEN [facility] Oct 14, 2018 [id number] Tito BENAVIDES UANE PATIENT BCBS OF [place] (BLUECARD) MEDICARE SUPPLEMEN JOHAN MEDEX BRONZ E Oct 14, 2018 [id number] [phone] Tito BENAVIDES UANE PATIENT BCBS OF [facility] (BLUECARD) MEDIGAP PLAN C MEDEX BRONZ E-AB Oct 14, 2018 [id number] [phone] Tito BENAVIDES UANE PATIENT BLUE CROSS BLUE [place] MEDICARE SUPPLEMEN [facility]AN [facility] Oct 14, 2018 [id number] PARADAY,D UANE PATIENT [place] ([place] MEDICARE [facility] SUZIE REEVES Oct 14, 2018 [id number] PARADAY,D UANE PATIENT MEDICARE (WNR) MEDICARE () PART B Jul 14, 2007 PART B [id number] PARADAY,D UANE PATIENT MEDICARE (WNR) MEDICARE () PART B Jul 14, 2007 PART B [id number] PARADAY,D UANE PATIENT MEDICARE (WNR) MEDICARE () PART B Jul 14, 2007 PART B [id number] [id number] [id number] PARADAY,D UANE PATIENT MEDICARE (WNR) MEDICARE () PART B Jul 14, 2007 PART B [id number] PARADAY,D UANE PATIENT MEDICARE (WNR) MEDICARE () PART A Jun 14, 2007 PART A [id number] [id number] PARADAY,D UANE PATIENT MEDICARE (WNR) MEDICARE () PART A Jun 14, 2007 PART A [id number] PARADAY,D UANE PATIENT MEDICARE (WNR) MEDICARE () PART A Jun 14, 2007 PART A [id number] PARADAY,D UANE PATIENT MEDICARE (WNR) MEDICARE () PART B Jun 14, 2007 PART B [id number] PARADAY,D UANE PATIENT MEDICARE (WNR) MEDICARE () PART A Jun 14, 2007 PART A [id number] PARADAY,D UANE PATIENT MEDICARE (WNR) MEDICARE () PART B Jun 14, 2007 PART B [id number] PARADAY,D UANE PATIENT MEDICARE (WNR) MEDICARE () PART A Jun 14, 2007 PART A [id number] PARADAY,D UANE PATIENT MEDICARE (WNR) MEDICARE () PART A Jun 14, 2007 PART A [id number] Tito BENAVIDES PATIENT Selected Encounter This section includes the information on record at [place] for the Encounter. Date/Time Encounter Type Encounter Description Reason Provider Source May 22, 2024 01:24 PM FIT SPECTACLES MULTIFOCAL OPTOMETRY ICD-10-CM Z46.0 Encounter for fit/adjst of spectacles and contact lenses LUIS ROJAS [place] Encounter Template Text not used by [place] Assessments - Encounter Diagnoses This section includes the primary and secondary diagnoses documented for the Encounter. Date/Time Primary/Secondary Diagnosis Diagnosis Name Provider Source May 22, 2024 01:24 PM PRIMARY Encounter for fit/adjst of spectacles and contact lenses JESSEE COLEY [facility] Plan of Treatment: Future Appointments (+ 6 months) and Future Tests (+/- 45 days) The Plan of Treatment section includes future care activities for the patient from all [place] treatmentfacilities. This section includes future appointments and future orders which are active, pending or scheduled. Future Appointments This section includes appointments that were scheduled to occur 6 months from the date of the Encounter, up to a maximum of 20 appointments. The data comes from all [place] treatment facilities. Appointment Date/Time Appointment Type Appointme nt Facility Name Jul 28, 2024 08:05 AM AMBULATORY - MEDICINE [facility] Oct 27, 2024 04:30 PM AMBULATORY MEDICINE [facility] Encounter Notes: All associated encounter notes This section contains the clinical notes associated to the Encounter. Date/Time Encounter Note(s) Provider Source May 22, 2024 01:24 PM OPTOMETRY NOTE: LOCAL TITLE: OPTOMETRY NOTE STANDARD TITLE: OPTOMETRY NOTE DATE OF NOTE: MAY 22, 2024@13:24 ENTRY DATE: MAY 22, 2024@13:24:22 AUTHOR: SOFÍA OLIVA COSIGNER: URGENCY: STATUS: COMPLETED OPTOMETRY NOTE Has ADDENDA The quote provided below is for informational purposes only. Please verify prior to the creation of a purchase order. CARLOS BENAVIDES [id number] RX INFORMATION OD +1.00 -1.00 X100 Add:+2.50 Pzm:0.00 Dir: Prz2:0.00 Dir2: OS +0.75 0.00 X Add:+2.50 Pzm:0.00 Dir: Prz2:0.00 Dir2: FITTING INFORMATION FPD: NPD: [place]:R:30 L:31 SEG HT:R:21 L:21 Tint:None Shade:None VA Billable Items FRAME: [id number] [facility] [phone] Right Lens: POLY VA PROGRESSIVE 1.586 POLY Left Lens: POLY VA PROGRESSIVE 1.586 POLY KLEAR ANTI-REFLECTIVE COATING /samuel/ SOFÍA OLIVA SUPERVISOR STENO POOL Signed: 05/22/2024 13:24 Receipt Acknowledged By: 05/22/2024 14:15 /samuel/ Arin Banegas [employer] Battery Inspector And Tester 05/22/2024 ADDENDUM STATUS: COMPLETED PDS casing man fit 1 PALS eyeglasses on 05/22/2024. OPT HT entered consult as requested for provider signature. /es/ JESSEE COLEY Optometry Tech Signed: 05/22/2024 14:13 SOFÍA OLIVA CNTRL WSTRN [facility]
--- OUTSIDE RECORDS SUMMARY | 2024-10-28 13:54 | XMS_ITS | Encounter Summary ---
Author Name [facility] [place] Address [address] [place] [address] Care Team Providers Care Rn Circulating Name Role Phone MATTY RONDON Primary Care [...] Relationship to Policy Mccain RAQUEL [place] MEDICARE [facility] Oct 14, 2018 [id number] Tito BENAVIDES UANE PATIENT BCBS [place] MEDICARE [facility] [facility] [facility] [employer] Oct 14, 2018 [id number] [phone] Tito BENAVIDES UANE PATIENT [place] OF [place] ([place]ARD) MEDICARE SUPPLEMEN JOHAN MEDEX [facility]ONZ E Oct 14, 2018 [id number] Tito BENAVIDES UANE PATIENT BCBS OF [facility] (BLUECARD) MEDIGAP PLAN C MEDEX BRONZ E-AB Oct 14, 2018 [id number] Tito BENAVIDES UANE PATIENT BLUE CROSS BLUE SHIELD OF [facility] MEDICARE SUPPLEMEN J[facility]AN P[employer] [facility] [employer] Oct 14, 2018 [id number] PARADAY,D UANE PATIENT [place] [place] ([place] MEDICARE [facility] SUZIE REEVES Oct 14, 2018 [id number] PARADAY,D UANE PATIENT MEDICARE (WNR) MEDICARE () PART B Jul 14, 2007 PART B [id number] PARADAY,D UANE PATIENT MEDICARE (WNR) MEDICARE () PART B Jul 14, 2007 PART B [id number] PARADAY,D UANE PATIENT MEDICARE (WNR) MEDICARE () PART B Jul 14, 2007 PART B [id number] PARADAY,D UANE PATIENT MEDICARE (WNR) MEDICARE () PART B Jul 14, 2007 PART B [id number] [phone] PARADAY,D UANE PATIENT MEDICARE (WNR) MEDICARE () PART B Jun 14, 2007 PART B [id number] PARADAY,D UANE PATIENT MEDICARE (WNR) MEDICARE () PART A Jun 14, 2007 PART A [id number] [phone] PARADAY,D UANE PATIENT MEDICARE (WNR) MEDICARE () PART A Jun 14, 2007 PART A [id number] PARADAY,D UANE PATIENT MEDICARE (WNR) MEDICARE () PART A Jun 14, 2007 PART A [id number] PARADAY,D UANE PATIENT MEDICARE (WNR) MEDICARE () PART A Jun 14, 2007 PART A [id number] PARADAY,D UANE PATIENT MEDICARE (WNR) MEDICARE () PART B Jun 14, 2007 PART B [id number] PARADAY,D UANE PATIENT MEDICARE (WNR) MEDICARE () PART A Jun 14, 2007 PART A [id number] PARADAY,D UANE PATIENT MEDICARE (WNR) MEDICARE () PART A Jun 14, 2007 PART A [id number] CELINEELLIETito PATIENT Selected Encounter This section includes the information on record at [place] for the Encounter. Date/Time Encounter Type Encounter Description Reason Pro vider Source Nov 12, 2023 11:28 AM Outpatient Encounter PRIMARY CARE/MEDICINE IHE Encounter [...] 10, 2023 08:30 AM [facility] Lab Results: +/- 30 days of the [...] Range Comment Nov 28, 2023 07:37 AM [facility] LIPID PANEL FASTING Specimen Type: SERUM No comment entered. Ordering Provider: MATTY NICHOLS Report Released Date/Time: Nov 22, 2023 12:26 PM Reporting Lab: [address] [address] Performing Lab: [address] [address] CHOLESTEROL 182 mg/dL TRIGLYCERIDE 121 mg/dL 0-150 LDL calculated 127 mg/dL 0-129 CHOL/HDL 5.9 HDL CHOLESTEROL 31 mg/dL L 40-60 Nov 28, 2023 07:37 AM [facility] LIVER FUNCTION Specimen Type: SERUM No comment entered. Ordering Provider: MATTY NICHOLS Report Released Date/Time: Nov 22, 2023 12:26 PM Reporting Lab: [address] [address] Performing Lab: [address] [address] PROTEIN,TOTAL 7.0 g/dL 6.0-8.3 ALBUMIN 3.8 g/dL 3.5-5.0 ALKALINE PHOSPHATASE 68 U/L 40-150 AST 22 U/L 5-34 ALT 25 U/L BILIRUBIN, TOTAL 0.7 mg/dL 0.2-1.2 Nov 28, 2023 07:37 AM [facility] BASIC METABOLIC PANEL (fasting) Specime n Type: SERUM No comment entered. Ordering Provider: MATTY NICHOLS Report Released Date/Time: Nov 22, 2023 12:26 PM Reporting Lab: [address] [address] Performing Lab: [address] [address] UREA NITROGEN 18 mg/dL 7-25 GLUCOSE 99 mg/dL 65-100 SODIUM 136 mmol/L 135-145 POTASSIUM 4.7 mmol/L 3.5-5.0 CHLORIDE 103 mmol/L 100-110 CO2 26 meq/L 20-30 CREATININE, Serum 0.99 mg/dL 0.50-1.40 eGFR(CKD-EPI 2020) 76 mL/min >60 Nov 28, 2023 07:37 AM [facility] HEMOGLOBIN A1C PANEL Specimen Type: BLOOD Comment: [...] Nov 22, 2023 12:26 PM Reporting Lab: [address] [address] Performing Lab: [address] [address] HEMOGLOBIN A1C 5.5 4.0-5.6 Nov 28, 2023 07:37 AM [facility] TSH Specimen Type: SERUM No comment entered. Ordering Provider: MATTY NICHOLS Report Released Date/Time: Nov 22, 2023 12:26 PM Reporting Lab: [address] [address] Performing Lab: [address] [address] TSH 2.45 u[IU]/mL 0.35-5.00 Nov 28, 2023 07:37 AM [facility] CBC AND DIFF (AUTO) Specimen Type: BLOOD No comment entered. Ordering Provider: MATTY NICHOLS Report Released Date/Time: Nov 22, 2023 12:26 PM Reporting Lab: [address] [address] Performing Lab: [address] [address] WBC 5.84 10*3/uL 4.50-11.00 RBC 4.91 10*6/uL 4.23-5.66 HGB 15.3 g/dL 12.8-17 HCT 46.3 39.2-50.4 MCV 94.3 fL 82-99 MCHC 33.0 g/dL 30.8-35.1 PLT 336 10*3/uL 140-360 RDW-CV 12.6 12.0-16.0 [place], Abs 0.61 10*3/uL 0.30-1.10 MCH 31.2 pg 26.2-32.6 Neut % 58.3 43.7-75.8 Lymph % 23.8 14.0-42.3 [place] % 10.4 5.1-13.7 Eos % 5.5 0.4-6.8 [...] Encounter Note(s) Provider Source Nov 12, 2023 11:28 AM ADMINISTRATIVE NOT E: LOCAL TITLE: ADMINISTRATIVE NOTE STANDARD TITLE: ADMINISTRATIVE NOTE DATE OF NOTE: NOV 12, 2023@11:28 ENTRY DATE: NOV 12, 2023@11:28:56 AUTHOR: WANDA TOMPKINS EXP COSIGNER: URGENCY: STATUS: COMPLETED ADMINISTRATIVE NOTE Has ADDENDA Received prescriptions via fax from Non-VA provider Robert Lundberg MD. Will forward to PACT AMSA to please obtain most recent office visit notes in order to medication to be prescribed. Office phone number is [phone]. /francisco javier TOMPKINS RN REGISTERED NURSE Signed: 11/12/2023 11:30 Receipt Acknowledged By: 11/12/2023 11:57 /francisco javier KEMP 11/12/2023 ADDENDUM STATUS: COMPLETED COLOR CONTROL SUPERVISOR REQUESTED RECORDS. /francisco javier KEMP Signed: 11/12/2023 11:57 WANDA TOPMKINS
--- OUTSIDE RECORDS SUMMARY | 2024-10-28 13:55 | XMS_ITS | Encounter Summary ---
Author Name [facility] [place] Address [address] [place] [address] Care Team Providers Care Ironer Or Presser Name Role Phone MATTY RONDON Primary Care [...] Relationship to Policy Mccain RAQUEL BCBS OF [place] MEDICARE [facility] [facility] [facility] [employer] Oct 14, 2018 [id number] MAKAYLA,Tito UANE PATIENT BCBS [place] MEDICARE SUPP[employer]MEN [facility] [employer] Oct 14, 2018 [id number] MAKAYLA,D UANE PATIENT BCBS OF [place] ([place]ARD) MEDICARE SUPPLEMEN JOHAN MEDEX [facility]ONZ E Oct 14, 2018 [id number] [phone] MAKAYLA,D UANE PATIENT BCBS OF [facility] (BLUECARD) MEDIGAP PLAN C MEDEX BRONZ E-AB Oct 14, 2018 [id number] [phone] Tito BENAVIDES UANE PATIENT BLUE CROSS BLUE [place] MED[place]ARE SUPP[employer]MEN [facility] [facility] [employer] Oct 14, 2018 [id number] [phone] PARADAY,D UANE PATIENT [facility] [place] ([place] MEDICARE [facility] SUZIE REEVES Oct 14, 2018 [id number] [phone] PARADAY,D UANE PATIENT MEDICARE (WNR) MEDICARE () PART B Jul 14, 2007 PART B [id number] [phone] PARADAY,D UANE PATIENT MEDICARE (WNR) MEDICARE () PART B Jul 14, 2007 PART B [id number] [id number] [phone] PARADAY,D UANE PATIENT MEDICARE (WNR) MEDICARE () PART B Jul 14, 2007 PART B [id number] PARADAY,D UANE PATIENT MEDICARE (WNR) MEDICARE () PART B Jul 14, 2007 PART B [id number] PARADAY,D UANE PATIENT MEDICARE (WNR) MEDICARE () PART A Jun 14, 2007 PART A [id number] PARADAY,D UANE PATIENT MEDICARE (WNR) MEDICARE () PART A Jun 14, 2007 PART A [id number] [id number] [phone] PARADAY,D UANE PATIENT MEDICARE (WNR) MEDICARE () PART A Jun 14, 2007 PART A [id number] PARADAY,D UANE PATIENT MEDICARE (WNR) MEDICARE () PART B Jun 14, 2007 PART B [id number] PARADAY,D UANE PATIENT MEDICARE (WNR) MEDICARE () PART A Jun 14, 2007 PART A [id number] PARADAY,D UANE PATIENT MEDICARE (WNR) MEDICARE () PART A Jun 14, 2007 PART A [id number] PARADAY,D UANE PATIENT MEDICARE (WNR) MEDICARE () PART B Jun 14, 2007 PART B [id number] PARADAY,D UANE PATIENT MEDICARE (WNR) MEDICARE () PART A Jun 14, 2007 PART A [id number] Tito BENAVIDES PATIENT Selected Encounter This section includes the information on record at [place] for the Encounter. Date/Time Encounter Type Encounter Description Reason Pro vider Source Jul 28, 2024 08:05 AM Outpatient Encounter OPTOMETRY IHE Encounter Template Text not used by [place] Plan of Treatment: Future Appointments (+ 6 months) and Future Tests (+/- 45 days) The Plan of Treatment section includes future care activities for the patient from all [place] treatmentfacilities. This section includes future appointments and future orders which are active, pending or scheduled. Future Appointments This section includes appointments that were scheduled to occur 6 months from the date of the Encounter, up to a maximum of 20 appointments. The data comes from all [place] treatment facilities. Appointment Date/Time Appointment Type Appointme nt Facility Name Oct 27, 2024 04:30 PM AMBULATORY - MEDICINE [place] [facility] [place] [facility]
--- OUTSIDE RECORDS SUMMARY | 2024-10-28 13:55 | XMS_ITS ---
Author Name [place] Address [address] [place] [address] Care Team Providers Care Film Flat Inspector Name Role Phone MATTY RONDON Primary Care [...] Relationship to Policy Mccain RAQUEL BCBS OF [place] MEDICARE SUPP[employer]MEN [facility] [facility] [employer] Oct 14, 2018 [id number] Tito BENAVIDES UANE PATIENT BCBS [place] MEDICARE SUPP[employer]MEN [facility] [employer] Oct 14, 2018 [id number] Tito BENAVIDES UANE PATIENT BCBS OF [place] (BLU[place]ARD) MEDICARE SUPPLEMEN JOHAN MEDEX BRONZ E Oct 14, 2018 [id number] Tito BENAVIDES UANE PATIENT BCBS OF [facility] (BLUECARD) MEDIGAP PLAN C MEDEX BRONZ E-AB Oct 14, 2018 [id number] Tito BENAVIDES UANE PATIENT BLUE CROSS BLUE SHIELD OF [facility] MEDICARE SUPPLEMEN J[facility]AN [employer] [facility] [employer] Oct 14, 2018 [id number] [phone] PARADAY,D UANE PATIENT [place] ([place] MEDICARE [facility] SUZIE REEVES Oct 14, 2018 [id number] PARADAY,D UANE PATIENT MEDICARE (WNR) MEDICARE () PART B Jul 14, 2007 PART B [id number] PARADAY,D UANE PATIENT MEDICARE (WNR) MEDICARE () PART B Jul 14, 2007 PART B [id number] PARADAY,D UANE PATIENT MEDICARE (WNR) MEDICARE () PART B Jul 14, 2007 PART B [id number] [id number] [phone] PARADAY,D UANE PATIENT MEDICARE (WNR) MEDICARE () PART B Jul 14, 2007 PART B [id number] PARADAY,D UANE PATIENT MEDICARE (WNR) MEDICARE () PART A Jun 14, 2007 PART A [id number] [id number] [phone] PARADAY,D UANE PATIENT MEDICARE (WNR) MEDICARE () PART A Jun 14, 2007 PART A [id number] PARADAY,D UANE PATIENT MEDICARE (WNR) MEDICARE () PART A Jun 14, 2007 PART A [id number] PARADAY,D UANE PATIENT MEDICARE (WNR) MEDICARE () PART B Jun 14, 2007 PART B [id number] PARADAY,D UANE PATIENT MEDICARE (WNR) MEDICARE () PART A Jun 14, 2007 PART A [id number] PARADAY,D UANE PATIENT MEDICARE (WNR) MEDICARE () PART B Jun 14, 2007 PART B [id number] [id number] [phone] PARADAY,D UANE PATIENT MEDICARE (WNR) MEDICARE () PART A Jun 14, 2007 PART A [id number] [id number] [phone] PARADAY,D UANE PATIENT MEDICARE (WNR) MEDICARE () PART A Jun 14, 2007 PART A [id number] CELINEELLIETito ADAM PATIENT Selected Encounter This section includes the information on record at [place] for the Encounter. Date/Time Encounter Type Encounter Description Reason Pro vider Source Nov 06, 2023 12:00 AM Outpatient Encounter EVENT (HISTORICAL) [...] 10, 2023 08:30 AM AMBULATORY - MEDICINE [facility] Lab Results: +/- 30 days of the encounter This section includes the Chemistry and Hematology Lab Results on record with [place] for the patient. Radiology Reports and Pathology Reports are provided separately, in subsequent sections. Lab Results This section contains the Chemistry/Hematology Results that were resulted 30 days before or 30 daysafter the date of the Encounter. Date/Time Source Result Type Result - Unit Interpretation Reference Range Comment Nov 28, 2023 07:37 AM BOW LIVER FUNCTION Specimen Type: SERUM No comment entered. Ordering Provider: MATTY NICHOLS Report Released Date/Time: Nov 22, 2023 12:26 PM Reporting Lab: [address] [address] Performing Lab: [address] [address] PROTEIN,TOTAL 7.0 g/dL 6.0-8.3 ALBUMIN 3.8 g/dL 3.5-5.0 ALKALINE PHOSPHATASE 68 U/L 40-150 AST 22 U/L 5-34 ALT 25 U/L BILIRUBIN, TOTAL 0.7 mg/dL 0.2-1.2 Nov 28, 2023 07:37 AM B[facility] BASIC METABOLIC PANEL (fasting) Specime n Type: SERUM No comment entered. Ordering Provider: MATTY NICHOLS Report Released Date/Time: Nov 22, 2023 12:26 PM Reporting Lab: [address] [address] Performing Lab: [address] [address] UREA NITROGEN 18 mg/dL 7-25 GLUCOSE 99 mg/dL 65-100 SODIUM 136 mmol/L 135-145 POTASSIUM 4.7 mmol/L 3.5-5.0 CHLORIDE 103 mmol/L 100-110 CO2 26 meq/L 20-30 CREATININE, Serum 0.99 mg/dL 0.50-1.40 eGFR(CKD-EPI 2020) 76 mL/min >60 Nov 28, 2023 07:37 AM BOW LIPID PANEL FASTING Specimen Type: SERUM No comment entered. Ordering Provider: MATTY NICHOLS Report Released Date/Time: Nov 22, 2023 12:26 PM Reporting Lab: [address] [address] Performing Lab: [address] [address] CHOLESTEROL 182 mg/dL TRIGLYCERIDE 121 mg/dL 0-150 LDL calculated 127 mg/dL 0-129 CHOL/HDL 5.9 HDL CHOLESTEROL 31 mg/dL L 40-60 Nov 28, 2023 07:37 AM BOW HEMOGLOBIN A1C PANEL Specimen Type: BLOOD Comment: [...] 22, 2023 12:26 PM Reporting Lab: [address] [address] Performing Lab: [address] [address] HEMOGLOBIN A1C 5.5 4.0-5.6 Nov 28, 2023 07:37 AM BOW TSH Specimen Type: SERUM No comment entered. Ordering Provider: MATTY NICHOLS Report Released Date/Time: Nov 22, 2023 12:26 PM Reporting Lab: [address] [address] Performing Lab: [address] [address] TSH 2.45 u[IU]/mL 0.35-5.00 Nov 28, 2023 07:37 AM BOW CBC AND DIFF (AUTO) Specimen Type: BLOOD No comment entered. Ordering Provider: MATTY NICHOLS Report Released Date/Time: Nov 22, 2023 12:26 PM Reporting Lab: [address] [address] Performing Lab: [address] [address] WBC 5.84 10*3/uL 4.50-11.00 RBC 4.91 10*6/uL 4.23-5.66 HGB 15.3 g/dL 12.8-17 HCT 46.3 39.2-50.4 MCV 94.3 fL 82-99 MCHC 33.0 g/dL 30.8-35.1 PLT 336 10*3/uL 140-360 RDW-CV 12.6 12.0-16.0 [place], Abs 0.61 10*3/uL 0.30-1.10 MCH 31.2 pg 26.2-32.6 Neut % 58.3 43.7-75.8 Lymph % 23.8 14.0-42.3 [place] % 10.4 5.1-13.7 Eos % 5.5 0.4-6.8 [...] Encounter. Date/Time Encounter Note(s) Provider Source Nov 06, 2023 12:00 AM NURSING ADMINISTRA TIVE NOTE: LOCAL TITLE: NON-VA PRESCRIPTION STANDARD TITLE: NURSING ADMINISTRATIVE NOTE DATE OF NOTE: NOV 06, 2023 ENTRY DATE: NOV 19, 2023@06:40:58 AUTHOR: ROSA RUSSO EXP COSIGNER: URGENCY: STATUS: COMPLETED VistA Imaging - Scanned Document SCANNED DOCUMENT SIGNATURE NOT REQUIRED Electronically Filed: 11/19/2023 by: ROSA CHATMAN [facility] Nov 06, 2023 12:00 AM NONVA NOTE: LOCAL TITLE: NON-VA OUTPATIENT NOTES STANDARD TITLE: NONVA NOTE DATE OF NOTE: NOV 06, 2023 ENTRY DATE: DEC 17, 2023@08:02:54 AUTHOR: PAZ MI EXP COSIGNER: URGENCY: STATUS: COMPLETED VistA Imaging - Scanned Document SCANNED DOCUMENT SIGNATURE NOT REQUIRED Electronically Filed: 12/17/2023 by: PAZ MI RELIGIOUS EDUCATOR PAZ MI [facility]
--- OUTSIDE RECORDS SUMMARY | 2024-10-28 13:55 | XMS_ITS ---
Author Name [place] Organization [place] Address [address] [place] [address] Care Team Providers Care Brush Holder Assembler Name Role Phone MATTY RONDON Primary Care [...] Relationship to Policy Mccain RAQUEL BCBS OF [place] MEDICARE SUPPLEMEN [employer] Oct 14, 2018 [id number] [phone] MAKAYLA,Tito UANE PATIENT BCBS [place] MEDICARE SUPPLEMEN J[facility]AN [employer] GROUP Oct 14, 2018 [id number] [phone] MAKAYLA,D UANE PATIENT BCBS OF [place] (BLUECARD) MEDICARE SUPPLEMEN JOHAN MEDEX BRONZ E Oct 14, 2018 [id number] MAKAYLA,D UANE PATIENT BCBS OF [facility] (BLUECARD) MEDIGAP PLAN C MEDEX BRONZ E-AB Oct 14, 2018 [id number] MAKAYLA,Tito UANE PATIENT BLUE CROSS BLUE [place] MEDICARE SUPPLEMEN J[facility]AN P[employer] GROUP Oct 14, 2018 [id number] [phone] PARADAY,D [facility] [place] [facility] MEDICARE [facility] SUZIE REEVES Oct 14, 2018 [id number] PARADAY,D UANE PATIENT MEDICARE (WNR) MEDICARE () PART B Jul 14, 2007 PART B [id number] PARADAY,D UANE PATIENT MEDICARE (WNR) MEDICARE () PART B Jul 14, 2007 PART B [id number] PARADAY,D UANE PATIENT MEDICARE (WNR) MEDICARE () PART B Jul 14, 2007 PART B [id number] PARADAY,D UANE PATIENT MEDICARE (WNR) MEDICARE () PART B Jul 14, 2007 PART B [id number] PARADAY,D UANE PATIENT MEDICARE (WNR) MEDICARE () PART A Jun 14, 2007 PART A [id number] [phone] PARADAY,D UANE PATIENT MEDICARE (WNR) MEDICARE () PART A Jun 14, 2007 PART A [id number] PARADAY,D UANE PATIENT MEDICARE (WNR) MEDICARE () PART A Jun 14, 2007 PART A [id number] [phone] PARADAY,D UANE PATIENT MEDICARE (WNR) MEDICARE () PART B Jun 14, 2007 PART B [id number] PARADAY,D UANE PATIENT MEDICARE (WNR) MEDICARE () PART A Jun 14, 2007 PART A [id number] [phone] PARADAY,D UANE PATIENT MEDICARE (WNR) MEDICARE () PART B Jun 14, 2007 PART B [id number] PARADAY,D UANE PATIENT MEDICARE (WNR) MEDICARE () PART A Jun 14, 2007 PART A [id number] PARADAY,D UANE PATIENT MEDICARE (WNR) MEDICARE () PART A Jun 14, 2007 PART A [id number] Tito BENAVIDES PATIENT Selected Encounter This section includes the information on record at [place] for the Encounter. Date/Time Encounter Type Encounter Description Reason Pro vider Source Oct 28, 2024 09:29 AM Outpatient Encounter TELEPHONE TRIAGE IHE Encounter Template Text not used by [place] Plan of Treatment: Future Appointments (+ 6 months) and Future Tests (+/- 45 days) The Plan of Treatment section includes future care activities for the patient from all [place] treatmentfacilities. This section includes future appointments and future orders which are active, pending or scheduled. Active, Pending, and Scheduled Orders This section includes a listing of several types of active, pending, and scheduled orders, including clinic medications orders, diagnostic test orders, procedure orders and consult orders; where the start date of the order is 45 days before the date of the Encounter or 45 days after the date of theEncounter. The data comes from all [place] treatment facilities. Test Date/Time Test Type Test Details Facility Name Oct 16, 2024 09:03 AM Consult Order [facility] Cons [facility] [place] Encounter Notes: All associated encounter notes This section contains the clinical notes associated to the Encounter. Date/Time Encounter Note(s) Provider Source Oct 28, 2024 09:29 AM RN PROGRESS NOTE: LOCAL TITLE: CCC: CLINICAL TRIAGE STANDARD TITLE: RN PROGRESS NOTE DATE OF NOTE: OCT 28, 2024@09:29:20 ENTRY DATE: OCT 28, 2024@09:29:20 AUTHOR: MARCY SEN COSIGNER: URGENCY: STATUS: COMPLETED Patient Demographics Patient Name: CARLOS BENAVIDES Patient Primary Address: [address] [place] [address] Patient Primary Phone: [phone] Patient : 1940 Patient Age: 84 Current Location: home Call Back Number: in chart Caller/Recipient Relation to Patient: Self Caller Name: CARLOS BENAVIDES Emergency Contact: CR BERGERELLIE Triage Summary Conducted triage/discussed symptoms Pain Score: 10 (Severe Pain) Utilized the Triage Tool: Yes Chief Complaint: Low Back Pain System WHEN: Now, 911 Nurse's Recommendation / WHEN: 911 System WHERE: Emergency department Nurse's Recommendation / WHERE: ED [facility] Patient Disposition Patient/Caregiver agrees to plan of care: Yes Patient WHERE: ED Other Other - Patient Where Disposition: Emergency Department Patient WHEN: Now Nursing Plan and Disposition Referred patient to higher level of care Instructed to go to Emergency Room (ER) Advised of Financial Disclaimer: Patient advised that recommendation for care provided during the call does not constitute an approval or authorization for payment by the [place] or its staff. Patient advised to report a community ED visit to the [facility] Office of Community Care at within 72 hours. Other course(s) of action Generated msg to PACT/Provider Nurse Summary Nurse Summary: calls today stating that he has lower back/pelvis pain. Pain is 10/10. [place] is having to use crutches to ambulate. Advised to be evaluated now at the emergency department. [place] will go to [address] [address] Main number: [phone] Will forward message to PCP Care Team for follow up. Clinical Contact Center Codes Clinic/Location: V1 CWM PHONE CCC RN Decision Support System Output: Triage Complete Triage Date: 10/28/2024, 09:23 AM Triage Note: Decision Support Tool Used: [facility] Phone Triage 28 Oct 2024 14:21:11 +0000 [facility] Demographics 84 y/o Male Results CC: Low Back Pain Software suggested: Now, 911 Software suggested follow-up location: Emergency department Values and Measures Duration of CC: 2 Days Positive Responses HPI: back pain, lower back HPI: back pain, severe HPI: weakness, unable to stand Negative Responses Denies: HPI: back injury, recent Denies: HPI: back pain, duration longer than 1 month Denies: HPI: weakness, with diaphoresis Denies: PMH: abdominal aortic aneurysm IMPORTANT: This note was created by [facility] Clinical Contact Center staff. Please do not alert the staff member by adding them as a signer for future communications. Alerts are not monitored by this user. /samuel/ MARCY SEN Signed: 10/28/2024 09:29 Receipt Acknowledged By: * AWAITING SIGNATURE * ML DENG * AWAITING SIGNATURE * BRY PARKS JENNIFER L [place] CNT [facility]
[2024-10-28 18:00] VITALS: BP 175/100; PULSE 72; RESP 14; O2SAT 95
[2024-10-28 18:24] VITALS: BP 175/100; PULSE 72; RESP 14; TEMP 36.8; O2SAT 95
--- OUTSIDE RECORDS SUMMARY | 2024-10-28 18:45 | XMS_ITS | Continuity of Care Document ---
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 It does not include entries that were removed or entered in error. 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) Active Condition Dec 11, 2023 Entered By: MATTY RONDON Comment: CT 2023 moderate to marked coronary artery calcific atherosclerosis [place] Cataract, Nuclear Sclerosis Active Condition [facility] Hiatal hernia Active Condition [facility] 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 [place] Peripheral neuropathic pain Active Condition March 09, 2021 Entered By: MATTY RONDON Comment: EMG 07/2020 ---> LE - feet b/l [place] Pulmonary emphysema Active Condition March 08, 2021 Entered By: MATTY RONDON Comment: Ct 2019 ; severe emphysema [place] [facility] Arthroscopy of the Shoulder Region with Limited Debridement Active Condition [place] Umbilical hernia Active Condition Nov 10, 2012 Entered By: DANISHA MALDONADO Comment: s/p repair [place] Community acquired pneumonia Inactive Condition 03/14/2015 [facility] Elevated blood pressure reading without diagnosis of hypertension (ICD-9-CM 796. Inactive Condition 03/14/2015 [place] Diagnosis: ICD-10-CM Z46.0 Encounter for fit/adjst of spectacles and contact lenses Active Diagnosis [facility] Diagnosis: ICD-10-CM H26.491 Other secondary cataract, right eye Active Diagnosis [facility] Diagnosis: ICD-10-CM I25.10 Athscl heart disease of [place] coronary artery w/o ang pctrs Active Diagnosis [place] Medications Combined list of outpatient medications from Department of Defense and Veterans Affairs facilities.Medications provided include 1) outpatient medications from the last 15 months, and 2) patient-reported medications. Medication Details Route Status Patient Instructions Prescription Expires Prescription Number Last Dispense Date Ordering Provider Order Date Order Qty Source ALBUTEROL 90MCG/ACTUA T (CFC-F) INHL,ORAL,8 .5GM DOSE COUNTER INHALE 2 PUFFS BY MOUTH EVERY 4 HOURS NEEDED FOR [place] RESPIR ATORY (INHAL ATION) ACTIVE 11/13/2024 [id number] MATTY VALENTINO 2023 1 [place] ALBUTEROL SO4 3MG/IPRATRO PIUM BR 0.5MG/3ML INHL,3ML INHALE 1 VIAL (3ML) IN NEBULIZE R FOUR TIMES A DAY FOR [place] RESPIR ATORY (INHAL ATION) ACTIVE 02/19/2025 [id number] 4 MATTY VALENTINO 2023 360 [place] FLUTICASONE 500MCG/SALM ETEROL 50MCG INHL,ORAL,D ISKUS,60 INHALE 1 PUFF BY MOUTH TWICE DAILY FOR CONTROLL ER MEDICATI ON FOR ASTHMA - RINSE MOUTH AFTER USE RESPIR ATORY (INHAL ATION) ACTIVE 11/13/2024 [id number] 4 MATTY VALENTINO 2023 1 [place] FLUTICASONE PROPIONATE 50MCG/SPRAY SOLN,NASAL, 16GM INSTILL 1 SPRAY INTO EACH NOSTRIL TWICE DAILY NEEDED FOR NASAL IRRITATI ON/INFLA MMATION NASAL 03/28/2024 [id number] 4 MATTY VALENTINO 2022 2 [place] MODAFINIL 200MG TAB TAKE ONE TABLET BY MOUTH TWICE DAILY FOR NARCOLEP SY AND HYPERSOM KEE DESPITE CPAP ADHERENC E ORAL ACTIVE 01/11/2025 [id number] RA JENNIFER RICHTER 2023 60 [facility] MODAFINIL 200MG TAB TAKE ONE TABLET BY MOUTH TWICE DAILY FOR NARCOLEP SY AND HYPERSOM KEE DESPITE CPAP ADHERENC E ORAL DISCONT INUED 08/21/2024 [id number] 4 MATTY VALENTINO M 2023 60 [place] MODAFINIL 200MG TAB TAKE ONE TABLET BY MOUTH TWICE DAILY FOR NARCOLEP SY AND HYPERSOM KEE DESPITE CPAP ADHERENC E ORAL DISCONT INUED 01/26/2024 [id number] 4 MATTY VALENTINO 2022 60 [place] TAMSULOSIN HCL 0.4MG CAP TAKE ONE CAPSULE BY MOUTH AT BEDTIME FOR ENLARGED PROSTATE ORAL ACTIVE 12/11/2024 [id number] 4 MATTY VALENTINO 2023 30 [place] TERAZOSIN HCL 5MG CAP TAKE ONE CAPSULE BY MOUTH AT BEDTIME FOR ENLARGED PROSTATE ORAL DISCONT INUED BY PROVIDE R 11/13/2024 [id number] 4 MATTY VALENTINO M 2023 30 [place] Immunizations Combined list of available immunizations from the Department of Defense and Veterans Affairs facilities. 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 Status Comments Source COVID-19 (MODERNA), MRNA, LNP-S, BIVALENT BOOSTER, PF, 50 MCG/0.5 ML OR 25MCG/0.25 ML DOSE 1 2021 229 complet ed [facility] ZOSTER RECOMBINANT 2 2020 187 complet ed [place] COVID-19 (MODERNA), MRNA, LNP-S, PF, 100 MCG/0.5 ML DOSE 2 2020 207 complet ed [facility] COVID-19 (MODERNA), MRNA, LNP-S, PF, 100 MCG/0.5 ML DOSE 1 2020 207 complet ed [facility] ZOSTER RECOMBINANT 1 2019 187 complet ed [place] ZOSTER (SHINGLES) (HISTORICAL) 2015 121 complet ed Proximal Left Arm [place] PNEUMOCOCCAL CONJUGATE PCV 13 2014 133 complet ed [place] DTAP, UNSPECIFIED FORMULATION 2012 107 complet ed Site: Right Deltoid [place] PNEUMOCOCCAL, UNSPECIFIED FORMULATION 2012 109 complet ed [place] Results Combined list of recent chemistry, hematology and other laboratory results from Department of Defense and Veterans Affairs, ranging from 15 months to all on record, depending upon the facility. Order Name Results Value Reference Range Date Interpretation Specimen Comments Source BASIC METABOLIC PANEL (fasting) UREA NITROGEN [MASS/VOLUM E] IN SERUM OR PLASMA 18 mg/dL 7 - 25 11/28 Specimen Type: SERUM No comment entered. Ordering Provider: JOSE R LOCK Report Released Date/Time: Nov 22, 2023 12:26 PM Reporting Lab: [facility] [address] [address] Performing Lab: [address] [address] [place] BASIC METABOLIC PANEL (fasting) GLUCOSE [MASS/VOLUM E] IN SERUM OR PLASMA 99 mg/dL 65 - 100 11/28 Specimen Type: SERUM No comment entered. Ordering Provider: JOSE R LOCK Report Released Date/Time: Nov 22, 2023 12:26 PM Reporting Lab: [facility] [address] [facility] [address] Performing Lab: [address] [address] [place] BASIC METABOLIC PANEL (fasting) SODIUM [MOLES/VOLU ME] IN SERUM OR PLASMA 136 mmol/L 135 - 145 11/28 Specimen Type: SERUM No comment entered. Ordering Provider: JOSE R LOCKKA M Report Released Date/Time: Nov 22, 2023 12:26 PM Reporting Lab: [facility]RN [address] [address] Performing Lab: [facility]ERN [address] [address] [place] BASIC METABOLIC PANEL (fasting) POTASSIUM [MOLES/VOLU ME] IN SERUM OR PLASMA 4.7 mmol/L 3.5 - 5.0 11/28 Specimen Type: SERUM No comment entered. Ordering Provider: JOSE R LOCK Report Released Date/Time: Nov 22, 2023 12:26 PM Reporting Lab: [facility] [address] [address] Performing Lab: [facility] [address] [address] [place] BASIC METABOLIC PANEL (fasting) CHLORIDE [MOLES/VOLU ME] IN SERUM OR PLASMA 103 mmol/L 100 - 110 11/28 Specimen Type: SERUM No comment entered. Ordering Provider: JOSE R LOCK Report Released Date/Time: Nov 22, 2023 12:26 PM Reporting Lab: [facility]ERN [address] [address] Performing Lab: [facility] [address] [address] [place] BASIC METABOLIC PANEL (fasting) CARBON DIOXIDE, TOTAL [MOLES/VOLU ME] IN SERUM OR PLASMA 26 meq/L 20 - 30 11/28 Specimen Type: SERUM No comment entered. Ordering Provider: JOSE R LOCK Report Released Date/Time: Nov 22, 2023 12:26 PM Reporting Lab: [facility]RC[facility]RN [address] [address] Performing Lab: [facility]ERN [address] [address] [place] BASIC METABOLIC PANEL (fasting) CREATININE [MASS/VOLUM E] IN SERUM OR PLASMA 0.99 mg/dL 0.50 - 1.40 11/28 Specimen Type: SERUM No comment entered. Ordering Provider: JOSE R LOCK Report Released Date/Time: Nov 22, 2023 12:26 PM Reporting Lab: [address] [address] Performing Lab: [address] [address] [place] BASIC METABOLIC PANEL (fasting) GLOMERULAR FILTRATION RATE/1.73 SQ M.PREDICTED [VOLUME RATE/AREA] IN SERUM, PLASMA OR BLOOD BY CREATININE- BASED FORMULA (CKD-EPI 2020) 76 mL/min 60 11/28 Specimen Type: SERUM No comment entered. Ordering Provider: JOSE R LOCK Report Released Date/Time: Nov 22, 2023 12:26 PM Reporting Lab: [address] [address] Performing Lab: [address] [address] [place] CBC AND DIFF (AUTO) LEUKOCYTES [#/VOLUME] IN BLOOD BY AUTOMATED COUNT 5.84 10*3/u L 4.50 - 11.00 11/28 Specimen Type: BLOOD No comment entered. Ordering Provider: JOSE R LOCK Report Released Date/Time: Nov 22, 2023 12:26 PM Reporting Lab: [address] [address] Performing Lab: [address] [address] [place] CBC AND DIFF (AUTO) ERYTHROCYTE S [#/VOLUME] IN BLOOD BY AUTOMATED COUNT 4.91 10*6/u L 4.23 - 5.66 11/28 Specimen Type: BLOOD No comment entered. Ordering Provider: JOSE R LOCK Report Released Date/Time: Nov 22, 2023 12:26 PM Reporting Lab: [address] [place] [address] Performing Lab: [facility] [place] [facility] [address] [address] [place] CBC AND DIFF (AUTO) HEMOGLOBIN [MASS/VOLUM E] IN BLOOD 15.3 g/dL 12.8 - 17 11/28 Specimen Type: BLOOD No comment entered. Ordering Provider: JOSE R LOCK Report Released Date/Time: Nov 22, 2023 12:26 PM Reporting Lab: [facility] [place] [address] [address] Performing Lab: [facility]ITALRCLEBURNE [facility] N[facility] HOMETRN [facility]USE[address] [address] [place] CBC AND DIFF (AUTO) HEMATOCRIT [VOLUME FRACTION] OF BLOOD BY AUTOMATED COUNT 46.3 39.2 - 50.4 11/28 Specimen Type: BLOOD No comment entered. Ordering Provider: JOSE R LOCK Report Released Date/Time: Nov 22, 2023 12:26 PM Reporting Lab: [facility]ITALRL TRN [facility]ITALUSETS [address] [address] Performing Lab: [facility]ITALRL TRN [facility]CH[facility] [address] [address] [place] CBC AND DIFF (AUTO) MCV [ENTITIC VOLUME] BY AUTOMATED COUNT 94.3 fL 82 - 99 11/28 Specimen Type: BLOOD No comment entered. Ordering Provider: JOSE R LOCK Report Released Date/Time: Nov 22, 2023 12:26 PM Reporting Lab: [facility] [place] [address] [address] Performing Lab: [facility]ITALRCLE[facility] HOMETRN [place] [address] [address] [place] CBC AND DIFF (AUTO) MCHC [MASS/VOLUM E] BY AUTOMATED COUNT 33.0 g/dL 30.8 - 35.1 11/28 Specimen Type: BLOOD No comment entered. Ordering Provider: JOSE R LOCK Report Released Date/Time: Nov 22, 2023 12:26 PM Reporting Lab: [facility] [place] [address] [address] Performing Lab: [facility] [place] [address] [address] [place] CBC AND DIFF (AUTO) PLATELETS [#/VOLUME] IN BLOOD BY AUTOMATED COUNT 336 10*3/u L 140 - 360 11/28 Specimen Type: BLOOD No comment entered. Ordering Provider: JOSE R LOCK Report Released Date/Time: Nov 22, 2023 12:26 PM Reporting Lab: [facility] [place] [address] [address] Performing Lab: [facility] [place] [address] [address] [place] CBC AND DIFF (AUTO) ERYTHROCYTE DISTRIBUTIO N WIDTH [RATIO] BY AUTOMATED COUNT 12.6 12.0 - 16.0 11/28 Specimen Type: BLOOD No comment entered. Ordering Provider: JOSE R LOCK Report Released Date/Time: Nov 22, 2023 12:26 PM Reporting Lab: [facility] [place] [address] [address] Performing Lab: [facility] [place] [address] [address] [place] CBC AND DIFF (AUTO) MONOCYTES [#/VOLUME] IN BLOOD BY AUTOMATED COUNT 0.61 10*3/u L 0.30 - 1.10 11/28 Specimen Type: BLOOD No comment entered. Ordering Provider: JOSE R LOCK Report Released Date/Time: Nov 22, 2023 12:26 PM Reporting Lab: [facility] [place] [address] [address] Performing Lab: [facility] [place] [address] [address] [place] CBC AND DIFF (AUTO) MCH [ENTITIC MASS] BY AUTOMATED COUNT 31.2 pg 26.2 - 32.6 11/28 Specimen Type: BLOOD No comment entered. Ordering Provider: JOSE R LOCK Report Released Date/Time: Nov 22, 2023 12:26 PM Reporting Lab: [facility] [place] [address] [address] Performing Lab: [facility] [address] [address] [place] CBC AND DIFF (AUTO) NEUTROPHILS /100 LEUKOCYTES IN BLOOD BY AUTOMATED COUNT 58.3 43.7 - 75.8 11/28 Specimen Type: BLOOD No comment entered. Ordering Provider: JOSE R LOCK Report Released Date/Time: Nov 22, 2023 12:26 PM Reporting Lab: [facility] [address] [address] Performing Lab: [facility] [address] [address] [place] CBC AND DIFF (AUTO) LYMPHOCYTES /100 LEUKOCYTES IN BLOOD BY AUTOMATED COUNT 23.8 14.0 - 42.3 11/28 Specimen Type: BLOOD No comment entered. Ordering Provider: JOSE R LOCK Report Released Date/Time: Nov 22, 2023 12:26 PM Reporting Lab: [facility] [address] [address] Performing Lab: [facility] [address] [address] [place] CBC AND DIFF (AUTO) MONOCYTES/1 00 LEUKOCYTES IN BLOOD BY AUTOMATED COUNT 10.4 5.1 - 13.7 11/28 Specimen Type: BLOOD No comment entered. Ordering Provider: JOSE R LOCK Report Released Date/Time: Nov 22, 2023 12:26 PM Reporting Lab: [facility] [place] [address] [address] Performing Lab: [facility] [address] [address] [place] CBC AND DIFF (AUTO) EOSINOPHILS /100 LEUKOCYTES IN BLOOD BY AUTOMATED COUNT 5.5 0.4 - 6.8 11/28 Specimen Type: BLOOD No comment entered. Ordering Provider: JOSE R LOCK Report Released Date/Time: Nov 22, 2023 12:26 PM Reporting Lab[facility] [address] Performing Lab: [facility] [place] [address] [place] CBC AND DIFF (AUTO) BASOPHILS/1 00 LEUKOCYTES IN BLOOD BY AUTOMATED COUNT 1.0 0.1 - 2.0 11/28 Specimen Type: BLOOD No comment entered. Ordering Provider: JOSE R LOCK Report Released Date/Time: Nov 22, 2023 12:26 PM Reporting Lab: [place] [address] Performing Lab: [facility] [place] [address] [place] CBC AND DIFF (AUTO) NEUTROPHILS [#/VOLUME] IN BLOOD BY AUTOMATED COUNT 3.40 10*3/u L 2.20 - 7.60 11/28 Specimen Type: BLOOD No comment entered. Ordering Provider: JOSE R LOCK Report Released Date/Time: Nov 22, 2023 12:26 PM Reporting Lab: [facility] [place] [address] Performing Lab: [facility]ITALRGEOR[facility]ERN [facility]USE[address] [address] [place] CBC AND DIFF (AUTO) LYMPHOCYTES [#/VOLUME] IN BLOOD BY AUTOMATED COUNT 1.39 10*3/u L 1.00 - 3.20 11/28 Specimen Type: BLOOD No comment entered. Ordering Provider: JOSE R LOCK Report Released Date/Time: Nov 22, 2023 12:26 PM Reporting Lab: [facility] [place] [address] Performing Lab: [facility] [address] [facility] [address] [place] CBC AND DIFF (AUTO) EOSINOPHILS [#/VOLUME] IN BLOOD BY AUTOMATED COUNT 0.32 10*3/u L 0.03 - 0.44 11/28 Specimen Type: BLOOD No comment entered. Ordering Provider: JOSE R LOCK Report Released Date/Time: Nov 22, 2023 12:26 PM Reporting Lab: [facility] [address] [facility] [facility] [address] Performing Lab: [facility] [address] [place] CBC AND DIFF (AUTO) BASOPHILS [#/VOLUME] IN BLOOD BY AUTOMATED COUNT 0.06 10*3/u L 0.01 - 0.13 11/28 Specimen Type: BLOOD No comment entered. Ordering Provider: JOSE R LOCK Report Released Date/Time: Nov 22, 2023 12:26 PM Reporting Lab: [facility] [address] [address] Performing Lab: [facility] [address] [place] CBC AND DIFF (AUTO) IMMATURE GRANULOCYTE S/100 LEUKOCYTES IN BLOOD BY AUTOMATED COUNT 1.0 0.0 - 0.7 11/28 H Specimen Type: BLOOD No comment entered. Ordering Provider: JOSE R LOCK Report Released Date/Time: Nov 22, 2023 12:26 PM Reporting Lab: [facility] [address] [address] Performing Lab: [facility]N [facility] [address] [place] CBC AND DIFF (AUTO) IMMATURE GRANULOCYTE S [#/VOLUME] IN BLOOD 0.06 10*3/u L 0.00 - 0.06 11/28 Specimen Type: BLOOD No comment entered. Ordering Provider: JOSE R LOCK Report Released Date/Time: Nov 22, 2023 12:26 PM Reporting Lab: [facility] [address] [address] Performing Lab: [facility] [address] [address] [place] HEMOGLOBI N A1C PANEL HEMOGLOBIN A1C/HEMOGLO BIN.TOTAL IN BLOOD BY HPLC 5.5 4.0 - 5.6 11/28 Specimen Type: BLOOD Comment: Values obtained from A1C measurement s can vary. For atypical A1C assays, a reported value of 7.0 could actually be between 6.72 and 7.28 if measured by a reference method. A reported value of 9.0 could actually be between 8.73 and 9.27. Ref: http://www. ngsp.org/[place] Pdata.asp Ordering Provider: JOSE R LOCK Report Released Date/Time: Nov 22, 2023 12:26 PM Reporting Lab: [facility] [address] Performing Lab: [facility] [address] [address] [place] LIPID PANEL FASTING CHOLESTEROL [MASS/VOLUM E] IN SERUM OR PLASMA 182 mg/dL 11/28 Specimen Type: SERUM No comment entered. Ordering Provider: JOSE R LOCK Report Released Date/Time: Nov 22, 2023 12:26 PM Reporting Lab: [facility] [address] Performing Lab: [facility] [address] [place] LIPID PANEL FASTING TRIGLYCERID E [MASS/VOLUM E] IN SERUM OR PLASMA 121 mg/dL 0 - 150 11/28 Specimen Type: SERUM No comment entered. Ordering Provider: JOSE R LOCK Report Released Date/Time: Nov 22, 2023 12:26 PM Reporting Lab: [facility] [address] Performing Lab: [facility] [address] [address] [place] LIPID PANEL FASTING CHOLESTEROL IN LDL [MASS/VOLUM E] IN SERUM OR PLASMA BY CALCULATION 127 mg/dL 0 - 129 11/28 Specimen Type: SERUM No comment entered. Ordering Provider: JOSE R LOCK Report Released Date/Time: Nov 22, 2023 12:26 PM Reporting Lab: [address] [address] Performing Lab: [address] [address] [place] LIPID PANEL FASTING CHOLESTEROL .TOTAL/CHOL ESTEROL IN HDL [MASS RATIO] IN SERUM OR PLASMA 5.9 11/28 Specimen Type: SERUM No comment entered. Ordering Provider: JOSE R LOCK Report Released Date/Time: Nov 22, 2023 12:26 PM Reporting Lab: [address] [address] Performing Lab: [address] [address] [place] LIPID PANEL FASTING CHOLESTEROL IN HDL [MASS/VOLUM E] IN SERUM OR PLASMA 31 mg/dL 40 - 60 11/28 L Specimen Type: SERUM No comment entered. Ordering Provider: JOSE R LOCK Report Released Date/Time: Nov 22, 2023 12:26 PM Reporting Lab: [address] [address] Performing Lab: [address] [address] [place] LIVER FUNCTION PROTEIN [MASS/VOLUM E] IN SERUM OR PLASMA 7.0 g/dL 6.0 - 8.3 11/28 Specimen Type: SERUM No comment entered. Ordering Provider: JOSE R LOCK Report Released Date/Time: Nov 22, 2023 12:26 PM Reporting Lab: [facility]TRN [facility]USEBR[facility] [address] [facility] [facility] [address] Performing Lab: [facility]ITALRGEORGIANA [facility] CENTERN [facility]ITALUSEBRUNSWICK [facility] [address] [address] [place] LIVER FUNCTION ALBUMIN [MASS/VOLUM E] IN SERUM OR PLASMA 3.8 g/dL 3.5 - 5.0 11/28 Specimen Type: SERUM No comment entered. Ordering Provider: JOSE R LOCK Report Released Date/Time: Nov 22, 2023 12:26 PM Reporting Lab: [facility] [address] [address] Performing Lab: [facility] [address] [address] [place] LIVER FUNCTION ALKALINE PHOSPHATASE [ENZYMATIC ACTIVITY/VO LUME] IN SERUM OR PLASMA 68 U/L 40 - 150 11/28 Specimen Type: SERUM No comment entered. Ordering Provider: JOSE R LOCK Report Released Date/Time: Nov 22, 2023 12:26 PM Reporting Lab: [facility]ITALRGEOR[facility]ENTERN [address] [address] Performing Lab: [facility]ITALRGEORGIA[facility]ENTERN [facility] [address] [place] LIVER FUNCTION ASPARTATE AMINOTRANSF ERASE [ENZYMATIC ACTIVITY/VO LUME] IN SERUM OR PLASMA 22 U/L 5 - 34 11/28 Specimen Type: SERUM No comment entered. Ordering Provider: JOSE R LOCK Report Released Date/Time: Nov 22, 2023 12:26 PM Reporting Lab: [facility]ITALRGEORGIANA [facility]ENTERN [facility] [address] [address]: [facility]ITAL[facility] [address] [place] LIVER FUNCTION ALANINE AMINOTRANSF ERASE [ENZYMATIC ACTIVITY/VO LUME] IN SERUM OR PLASMA 25 U/L 11/28 Specimen Type: SERUM No comment entered. Ordering Provider: JOSE R LOCK Report Released Date/Time: Nov 22, 2023 12:26 PM Reporting Lab: [facility]PITALRL W[facility]N [facility]ITALUSETS [address] [address] Performing Lab: [facility]ITALRL TRN [facility]ITALUSETS [address] [address] [place] LIVER FUNCTION BILIRUBIN.T OTAL [MASS/VOLUM E] IN SERUM OR PLASMA 0.7 mg/dL 0.2 - 1.2 11/28 Specimen Type: SERUM No comment entered. Ordering Provider: JOSE R LOCK Report Released Date/Time: Nov 22, 2023 12:26 PM Reporting Lab: [facility] [address] Performing Lab: [facility] [address] [address] [place] TSH THYROTROPIN [UNITS/VOLU ME] IN SERUM OR PLASMA 2.45 u[IU]/ mL 0.35 - 5.00 11/28 Specimen Type: SERUM No comment entered. Ordering Provider: JOSE R LOCK Report Released Date/Time: Nov 22, 2023 12:26 PM Reporting Lab: [facility] [address] [address] Performing Lab: [facility] [address] [address] [place] LIPID PANEL FASTING CHOLESTEROL [MASS/VOLUM E] IN SERUM OR PLASMA 148 mg/dL 7 - 199 10/30 Specimen Type: SERUM No comment entered. Ordering Provider: JOSE R LOCK Report Released Date/Time: Oct 17, 2022 01:13 PM Reporting Lab: [facility] [place] [address] [address] Performing Lab: [facility] [address] [address] [place] LIPID PANEL FASTING TRIGLYCERID E [MASS/VOLUM E] IN SERUM OR PLASMA 155 mg/dL 0 - 150 10/30 H Specimen Type: SERUM No comment entered. Ordering Provider: JOSE R LOCK Report Released Date/Time: Oct 17, 2022 01:13 PM Reporting Lab: [facility] [address] [facility] [id number] Performing Lab: [facility] [address] [address] [place] LIPID PANEL FASTING CHOLESTEROL IN LDL [MASS/VOLUM E] IN SERUM OR PLASMA BY CALCULATION 92 mg/dL 0 - 129 10/30 Specimen Type: SERUM No comment entered. Ordering Provider: JOSE R LOCK Report Released Date/Time: Oct 17, 2022 01:13 PM Reporting Lab: [facility] [address] [facility] [address] Performing Lab: [facility] [address] [address] [place] LIPID PANEL FASTING CHOLESTEROL .TOTAL/CHOL ESTEROL IN HDL [MASS RATIO] IN SERUM OR PLASMA 5.9 10/30 Specimen Type: SERUM No comment entered. Ordering Provider: JOSE R LOCK Report Released Date/Time: Oct 17, 2022 01:13 PM Reporting Lab: [facility] [address] [address] Performing Lab: [facility] [address] [place] LIPID PANEL FASTING CHOLESTEROL IN HDL [MASS/VOLUM E] IN SERUM OR PLASMA 25 mg/dL 40 - 60 10/30 L Specimen Type: SERUM No comment entered. Ordering Provider: JOSE R LOCK Report Released Date/Time: Oct 17, 2022 01:13 PM Reporting Lab: [facility] [address] [address] Performing Lab: [facility] [address] [place] TSH THYROTROPIN [UNITS/VOLU ME] IN SERUM OR PLASMA 2.89 u[IU]/ mL 0.35 - 5.00 10/30 Specimen Type: SERUM No comment entered. Ordering Provider: JOSE R LOCK Report Released Date/Time: Oct 17, 2022 01:13 PM Reporting Lab: [address] [address] Performing Lab: [address] [address] [place] VITAMIN B-1 (THIAMINE )-(QU) THIAMINE [MOLES/VOLU ME] IN SERUM OR PLASMA 12 nmol/L 8 - 30 10/30 Specimen Type: PLASMA Comment: Vitamin supplementa tion within 24 hours prior to blood draw may affect the accuracy of the results. This test was developed and its analytical performance characteris tics have been determined by [employer] [place], [place]. It has not been cleared or approved by the U.S. Food and Drug Administrat ion. This assay has been validated pursuant to the CLIA regulations and is used for clinical purposes. Test Performed by [facility], [facility], [address] [place] [address] Hernan Fernandez M.D., Ph.D., Director of Laboratorie s , CLIA [id number] TEST PERFORMED AT: , Ordering Provider: JOSE R LOCK Report Released Date/Time: Oct 17, 2022 01:13 PM Reporting Lab: [address] [address] Performing Lab: [place] [id number] [address] [place] VITAMIN B12 COBALAMIN (VITAMIN B12) [MASS/VOLUM E] IN SERUM OR PLASMA 619 pg/mL 200 - 900 10/30 Specimen Type: SERUM No comment entered. Ordering Provider: JOSE R LOCK Report Released Date/Time: Oct 17, 2022 01:13 PM Reporting Lab: [address] [place] [address] Performing Lab: [facility] [facility] [address] [facility] [address] [place] Vital Signs Combined list of inpatient and outpatient Vital Signs from Department of Defense and Veterans Affairs, ranging from 12 months to all on record, depending upon the facility. Vital Sign Value Date Comments Source SYSTOLIC BLOOD PRESSURE 126 12/10/2023 08:30:00 [facility] DIASTOLIC BLOOD PRESSURE 80 12/10/2023 08:30:00 [facility] PULSE OXIMETRY 96 12/10/2023 08:30:00 [facility] 199.4 12/10/2023 08:30:00 [facility] BMI 29kg/m2 12/10/2023 08:30:00 [facility] PULSE 90 12/10/2023 08:30:00 [facility] RESPIRATION 16 12/10/2023 08:30:[address] [facility] Encounters Combined list of: 1) Encounters from Department of Veterans Affairs facilities going back up to thelast 18 months. 2) Encounters from the Department of Defense facilities going back up to 280 months. Location Location Details Encounter Type Encounter Number Reason For Visit Attending Provider ADM Date DC Date Status Disposition Source [facility] [id number] 07[facility]26 [facility] [id number] 07/26 [facility] En[facility] [id number] 11/06 [facility] En[facility] [id number] 11/12 [facility] [id number] 11/12 [facility] En[facility] [id number] 12/03 [facility] OFFICE O/P EST MOD 30 MIN [id number] Diagnos is: ICD-10- CM I25.10 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, right eye<br/ > ALONA ROJAS 05/22 [facility] FIT SPECTACLES MULTIFOCAL [id number] Diagnos is: ICD-10- CM Z46.0 Encount er for fit/adj st of spectac les and contact lenses< br/> ALONA ROJAS 05/22 [facility] En[facility] [id number] 07/07 [facility] En[facility] [id number] 1.07/09 [facility] En[facility] [id number] 07/11 [facility] En[facility] [id number] 07/28 [facility] En[facility] [id number] 07/28 [facility] En[facility] [id number] 10/28 [facility] Social History Combined list of available smoking, tobacco, and other social history from Department of Defense and Veterans Affairs facilities. Social History Type Response Date Comment Sourc e Tobacco smoking status NHIS PA-TOBACCO FORMER USER 12/10/2023 [facility] History of tobacco use PA-TOBACCO QUIT 15 YRS OR MORE 12/10/2023 [facility] History of tobacco use PA-TOBACCO FORMER USER 10/30/2022 [facility] History of tobacco use PA-TOBACCO NEVER USED 05/09/2020 [facility] History of tobacco use PA-TOBACCO NEVER USED 02/03/2019 [facility] D History of tobacco use QUIT TOBACCO USE > 7 YEARS AGO 05/21/2017 reports quitting 1989 [facility] History of tobacco use QUIT TOBACCO USE > 7 YEARS AGO 03/26/2016 quit in 1989 [facility] History of tobacco use QUIT TOBACCO USE > 7 YEARS AGO 11/10/2012 Pt reports quitting 1989 [facility] Plan of Care List of future care activities from Department of Veterans Affairs facilities. Additional future care activities may be listed in the Assessment and Plan section. Date/Time Care Activity Care Activity Detail Facili ty 10/16/2024 Consult Order [facility] Cons Con carlos's [facility]
== END 2024-10-28 18:25 | disposition home or self-care (01) ==
PROVIDERS: Emergency Provider Emergency Medicine; PCP Family Medicine
DX: M54.50 Low back pain, unspecified (principal); Z79.899 Other long term (current) drug therapy; Z87.891 Personal history of nicotine dependence
CPT/HCPCS: 72100; 99283

== ENCOUNTER → 2024-10-28 12:06 | Outpatient (BNV) | payer MEDICARE, SELFPAY | PROVIDERS: PCP Family Medicine; Visit Provider Radiology Diagnostic Radiology | DX: M47.895 Other spondylosis, thoracolumbar region (principal); I70.0 Atherosclerosis of aorta | CPT/HCPCS: 72100 ==

== ENCOUNTER 2024-11-28 14:33 | Emergency (ER) | payer OTHER, SELFPAY ==
--- NOTE | ~2024-11-28 | XR_ITS ---
CLINICAL HISTORY: SOB 2 view chest x-ray Comparison: CT/SR - CT ANGIO CHEST PE PROTOCOL - 12/03/23 14:27 EST CR/SR - XR CHEST 2V - 12/03/23 11:28 EST Findings: The lungs are clear. No dense consolidation or effusion. Heart size is stable. Prominent pulmonary artery similar to the prior CTA. No acute fracture. IMPRESSION: 1. No acute process. This document has been electronically signed by: Blanca Montez MD on 11/28/2024 17:18:55
[2024-11-28 14:48] VITALS: BP 127/71; PULSE 110; RESP 20; TEMP 36.6; O2SAT 93; BMI 29.5
--- NOTE | 2024-11-28 14:48 | ED_ITS ---
HPI - General Adult General Chief complaint: Dyspnea Stated complaint: difficulty breathing Time Seen by Provider: 11/28/24 16:58 Source: patient Mode of arrival: ambulatory Limitations: no limitations History of Present Illness ED Provider: Dr. Pierce Quiroz HPI narrative: 84-year-old male with a history of COPD who presents emergency department for evaluation of shortness of breath, cough, bilateral pleuritic chest pain x2 days. Patient states he has a frequent, nonproductive cough. States he is having intermittent headaches. he feels short of breath at rest and has dyspnea on exertion. He states he is feeling very weak and fatigued. The patient states he is having diffuse chest pain which is a sharp pain worse with coughing and with breathing. He denied fever or chills. He denied nausea, vomiting or diarrhea. He states he does have diffuse myalgias. Related Data Home Medications ?Medication ?Instructions ?Recorded ?Confirmed modafinil 200 mg tablet 200 mg PO BID 05/14/22 12/03/23 multivitamin 1 tab PO DAILY 05/14/22 12/03/23 albuterol sulfate 90 mcg/actuation 2 puff inhalation Q4-6H PRN 12/03/23 12/03/23 aerosol inhaler Shortness Of Breath calcium carbonate 500 mg PO DAILY 12/03/23 12/03/23 fluticasone 500 mcg-salmeterol 50 1 inh inhalation BID 12/03/23 12/03/23 mcg/dose blistr powdr for inhalation (Wixela Inhub) folic acid 1 mg tablet 1 mg PO DAILY 12/03/23 12/03/23 loratadine 10 mg tablet 10 mg PO DAILY 12/03/23 12/03/23 magnesium 250 mg tablet 250 mg PO DAILY 12/03/23 12/03/23 meloxicam 15 mg tablet 15 mg PO QAM 08/18/24 Previous Rx's ?Medication ?Instructions ?Recorded cyclobenzaprine 5 mg tablet 5 mg PO TID PRN muscle spasm #10 10/28/24 tabs lidocaine 4 % topical patch 1 patch topical DAILY PRN pain #10 10/28/24 (Aspercreme (lidocaine)) ea amoxicillin 875 mg-potassium 1 tab PO Q12H 5 days #5 tabs 11/28/24 clavulanate 125 mg tablet azithromycin 250 mg tablet See Rx Instructions PO .COMPLEX #6 11/28/24 (Zithromax Z-Franco) tabs benzonatate 100 mg capsule 200 mg (2 x 100 mg) PO TID PRN 11/28/24 cough #20 caps oseltamivir 75 mg capsule (Tamiflu) 75 mg PO Q12H 5 days #10 caps 11/28/24 prednisone 20 mg tablet 60 mg (3 x 20 mg) PO DAILY 5 days 11/28/24 #15 tabs Allergies Allergy/AdvReac Type Severity Reaction Status Date / Time No Known Allergies Allergy Verified 11/28/24 14:52 Review of Systems 2 Review of Systems: Yes all other systems are reviewed and are negative [facility] Past Medical History [facility] Narrative: Social history: Denies tobacco, alcohol and drug use. Medical History (Updated 11/29/24 @ 00:01 by Vira Meraz) Emphysema/COPD COPD exacerbation Former smoker, stopped smoking in distant past Pulmonary emphysema Multiple pulmonary nodules Social History Social History Household Members: Spouse and Family Housing: House Do you presently have visiting nurse or other home services: No Alcohol intake: former Patient Tobacco Use Status: Former Tobacco user Tobacco use type: Cigarette Cigarette Packs Per Day: 3 Cigarettes Per Day: 60.0 Years Smoked: 37 e-Cigarette/Vaping Use: Never Used Second Hand Smoke Exposure: No Advance Directives: No Advance Directives Information Provided: Yes Advance Directives Date on File: 05/15/22 service: No Current occupational status: retired Physical Exam ED Vital Signs: Vital Signs - 24 hr 11/28/24 14:48 11/28/24 15:08 Temperature 97.9 F Pulse Rate 110 H 104 H Respiratory Rate 20 27 H Blood Pressure 127/71 Pulse Oximetry 93 Oxygen Delivery Method Room Air BMI result Body Mass Index 29.5 Vital signs revealed an elevated respiratory rate of 20,elevated heart rate of 110 otherwise unremarkable. Exam: General: Awake, alert in no distress, mild tachypnea Head: Normocephalic, atraumatic EENT: PERRL, Lids normal, sclera normal, conjunctiva normal, nose normal , ears normal, throat without erythema or exudates Neck: Supple, no adenopathy Lung: breath sounds symmetric, diffuse wheezing on inspiration and expiration , rales at the right base, no rhonchi Chest: symmetric movement, nontender Heart: tachycardia with regular rhythm, normal S1, S2 no murmurs or rubs Abdomen: soft, non-tender, nondistended, normal bowel sounds Back: no vertebral tenderness, no CVAT Extremities: no deformities, moves all extremities symmetrically Neuro: Awake, alert, oriented, normal speech, cranial nerves intact, moves all extremities symmetrically Psych: Pleasant, cooperative Course Course Course Narrative: RME performed by Luzma Saldana PA-C. Patient is a 84 year old assigned male at presenting to the emergency department with a cough and shortness of breath. Patient states he has had a significant cough over the last few days and coughing is making him short of breath. Detailed physical exam and review of systems are deferred to the primary counselor. EKG, labs, imaging, and swabs ordered. Patient placed back in the waiting room pending room availability and results. Medications Administered Discontinued Medications Generic Name Dose Route Start Last Admin Trade Name Freq PRN Reason Stop Dose Admin Amoxicillin/Clavulanate Potassium 875 mg 11/28/24 17:17 11/28/24 17:46 Amoxicillin/Potassium Clav 875 Mg Tablet PO 11/28/24 17:18 875 mg ONCE ONE Administration Azithromycin 500 mg 11/28/24 17:17 11/28/24 17:46 Azithromycin 500 Mg Tablet PO 11/28/24 17:18 500 mg ONCE ONE Administration Albuterol Sulfate 2.5 mg/ 0 mg 11/28/24 15:08 11/28/24 15:13 Albuterol/Ipratropium 3 ml INHALE 11/28/24 15:09 5 dose ONCE ONE Administration Oseltamivir Phosphate 75 mg 11/28/24 17:17 11/28/24 17:46 Oseltamivir Phosphate 75 Mg Capsule PO 11/28/24 17:18 75 mg ONCE ONE Administration Prednisone 60 mg 11/28/24 17:17 11/28/24 17:46 Prednisone 20 Mg Tablet PO 11/28/24 17:18 60 mg ONCE ONE Administration Medical Decision Making Medical Decision Making [facility] Narrative: 84-year-old male with a history of COPD who presents emergency department for evaluation of shortness of breath, dyspnea on exertion, frequent, nonproductivecough, myalgias, fatigue and weakness,, bilateral pleuritic chest pain x2 days. vital signs were unremarkable except for an elevated heart rate and tachypnea. Physical revealed rales at the right base with diffuse wheezing on inspiration and expiration Differential diagnosis: Includes but is not limited to pneumonia, bronchitis, COPD exacerbation viral syndrome, influenza, RSV, COVID-19, electrolyte abnormalities, anemia, myocardial infarction, myocardial ischemia Course: My independent interpretation patient's laboratory evaluation is as follows: CBC was normal. Serum bicarb was low at 20. high sensitive troponin I was detectable but not elevated at 5.1. COVID-19 and RSV were negative. Influenza was positive for influenza A. I my independent interpretation of the patient's two chest x-ray there is a right lower lobe infiltrate, interpretation is different from the radiologist's beating. The patient's 12 EKG was unremarkable. Patient's presentation is consistent with acute influenza a and I did discuss this with the patient. The patient's symptoms are most likely consistent with acute influenza with right lower lobe pneumonia and COPD exacerbation. the patient was treated with Nebulizer containing albuterol 5 mg and ipratropium 0.5 mg x 1 with improvement of his wheezing. He was also given prednisone 60 mg orally. Patient was given prescriptions for amoxicillin 1000 mg 3 times a day for 5 days and azithromycin Z-Franco x5 days, Tamiflu 75 mg b.i.d. x5 days. he was given his 1st dose of all of these medications in the emergency department. The patient is feeling better at the time of discharge and was given printed and verbal instructions and discharged home. Admission/Observation Consideration of admission/observation: Escalation of care including admission/observation considered Lab Data MDM Lab Attestation statement: I reviewed the patient's lab results. 11/28/24 15:31 11/28/24 15:31 Labs: Lab Results 11/28/24 Range/Units 15:31 WBC 8.4 (4.8-10.8) X10*3/uL RBC 4.56 L (4.60-5.80) X10*6/uL Hgb 14.5 (14.0-18.0) g/dl Hct 41.5 L (42.0-52.0) % MCV 91.0 (80.0-98.0) fL MCH 31.8 (27.0-33.0) pg MCHC 34.9 (31.0-36.0) g/dl RDW 12.5 (11.0-16.0) % Plt Count 256 (160-400) X10*3/uL MPV 8.7 L (9.4-12.4) fL Immature Gran % (Auto) 0.7 H (0.0-0.4) % Neut % (Auto) 72.8 (45-73) % Lymph % (Auto) 14.5 L (20-40) % [place] % (Auto) 9.5 (2-11) % Eos % (Auto) 1.9 (0-4) % Baso % (Auto) 0.6 (0-2) % Lymph # (Auto) 1.2 (1.2-4.9) X10*3/uL [place] # (Auto) 0.8 (0.1-1.2) X10*3/uL Eos # (Auto) 0.2 (0.0-0.4) X10*3/uL Baso # (Auto) 0.1 (0.0-0.2) X10*3/uL Abs Immat Gran (auto) 0.06 H (0.00-0.03) X10*3/uL Absolute Neuts (auto) 6.1 (2.0-8.3) x10*3/uL Absolute Nucleated RBC 0.000 (0.0-0.012) X10*3/uL Nucleated RBC % (auto) 0.0 (0.0-0.2) /100WBC Sodium 135 (135-145) mmol/L Potassium 4.2 (3.3-5.1) mmol/L Chloride 105 (96-108) mmol/L Carbon Dioxide 20 L (22-29) mmol/L Anion Gap 14 (12-20) BUN 12 (9-16) mg/dL Creatinine 1.38 (0.5-1.4) mg/dL Estim Creat Clear Calc 45.9 Estimated GFR 49 Random Glucose 90 (60-115) mg/dL Calcium 8.9 D (8.4-10.2) mg/dL Magnesium 1.9 (1.6-2.6) mg/dL Total Bilirubin 0.8 (0.0-1.0) mg/dL AST 33 (5-37) U/L ALT 26 (0-40) U/L Alkaline Phosphatase 68 (39-117) U/L Troponin I High Sens 5.1 D (<3.5-35.0) ng/L Total Protein 6.9 (6.5-8.0) g/dL Albumin 3.9 (3.5-5.0) g/dL Influenza Type A (PCR) POSITIVE A (Negative) Influenza Type B (PCR) NEGATIVE (Negative) RSV RNA Qual (PCR) NEGATIVE (Negative) SARS-CoV-2 RNA (RT-PCR) NEGATIVE (Negative) Independent Interpretation I performed an independent interpretation of an: EKG and Plain X-Ray Interpretation: My independent interpretation of patient's 12 EKG done on 11/28/2024 at 15:21 hours is as follows: Sinus tachycardia with a rate of 106, normal WI interval, QRS duration QTC interval, no ST segment elevation, no ST segment depression, nonspecific T-wave flattening, no PACs, no PVCs My independent interpretation the patient's chest x-ray is as follows: No acute disease Radiology Impression Discussion of test interpretation with radiology: I have reviewed the radiologist's reading. Radiologist Impression: 2 view chest x-ray Comparison: CT/SR - CT ANGIO CHEST PE PROTOCOL - 12/03/23 14:27 EST CR/SR - XR CHEST 2V - 12/03/23 11:28 EST Findings: The lungs are clear. No dense consolidation or effusion. Heart size is stable. Prominent pulmonary artery similar to the prior CTA. No acute fracture. IMPRESSION: 1. No acute process. This document has been electronically signed by: Blanca Montez MD on 11/28/2024 17:18:55 External Record Review External record reviewed: Inpatient record Prescription Management I considered prescription management with: Antiviral ( Tamiflu), Antibiotic ( Amoxicillin and azithromycin) and Other anti-inflammatory steroid: Prednisone Discharge Plan Discharge Clinical Impression: Influenza A, Pneumonia, COPD exacerbation Patient Disposition: Home, Self-Care Instructions: Influenza (ED), Community Acquired Pneumonia (ED) Additional Instructions: Your blood work was unremarkable. Your COVID-19 and RSV tests were negative Your influenza test was positive, your symptoms are consistent with influenza A. This can sometimes last 1-2 weeks. There was a medicine called Tamiflu that helps reduce the number of days that your sick with the flu. Take Tamiflu 75 mg pills, 1 pill every 12 hours x5 days. On your chest x-ray you may have a lower lobe pneumonia in your lungs. Therefore I am going to treat you with 2 antibiotics. Take Augmentin (amoxicillin and clavulanic acid) 875 mg/125 mg, 1 pill every 12 hours for 5 days. Take Zithromax Z-Franco as prescribed (day 1 take 2 pills, then on day day for through day 5 take 1 pill for a total of 5 days) Take prednisone 20 mg pills, 3 pills once a day for 5 days. While you ?are taking prednisone, do not take any NSAIDs (Motrin, Advil, ibuprofen, Aleve, naproxen). Take Tylenol (acetaminophen) 500 mg pills, 2 pills every 6 hours as needed for pain or fever. Take Tessalon Perles (benzanote) 200 mg pills, 1 pill 3 times a day as needed for cough. Follow-up with your doctor in 2 days. Please return to the emergency department if your symptoms get worse or if you develop any symptoms that are concerning to you. Prescriptions: New amoxicillin-pot clavulanate 875-125 mg tablet 1 tab PO Q12H 5 Days Qty: 5 0RF benzonatate 100 mg capsule 200 mg PO TID PRN (Reason: cough) Qty: 20 0RF azithromycin [Zithromax Z-Franco] 250 mg tablet See Rx Instructions .ROUTE .COMPLEX Qty: 6 0RF Rx Instructions: take 500 mg today (day 1), then 250 mg for 4 days (days 2-5) prednisone 20 mg tablet 60 mg PO DAILY 5 Days Qty: 15 0RF oseltamivir [Tamiflu] 75 mg capsule 75 mg PO Q12H 5 Days Qty: 10 0RF No Action multivitamin Tablet 1 tab PO DAILY modafinil 200 mg Tablet 200 mg PO BID fluticasone propion-salmeterol [Wixela Inhub] 500-50 mcg/dose Blister With Device 1 inh INHALATION BID albuterol sulfate 90 mcg/actuation Hfa Aerosol Inhaler 2 puff INHALATION Q4-6H PRN (Reason: Shortness Of Breath) calcium carbonate 500 mg calcium (1,250 mg) Tablet 500 mg PO DAILY folic acid 1 mg Tablet 1 mg PO DAILY magnesium 250 mg Tablet 250 mg PO DAILY loratadine 10 mg Tablet 10 mg PO DAILY lidocaine [Aspercreme (lidocaine)] 4 % adhesive patch,medicated 1 patch topical DAILY PRN (Reason: pain) Qty: 10 0RF cyclobenzaprine 5 mg tablet 5 mg PO TID PRN (Reason: muscle spasm) Qty: 10 0RF Rx Instructions: May cause drowsiness no driving for 8 hours after taking meloxicam 15 mg tablet 15 mg PO QAM Interventions: ED Discharge Assessment Last Done: 11/28/24 18:14 Discharge Date/Time: 11/28/24 18:15 Print Language: Venezuelan
--- NOTE | 2024-11-28 14:50 | ECG_ITS ---
Test Reason : SOB Blood Pressure : */* mmHG Vent. Rate : 106 BPM Atrial Rate : 106 BPM P-R Int : 166 ms QRS Dur : 74 ms QT Int : 326 ms P-R-T Axes : 45 -13 59 degrees QTcB Int : 433 ms Sinus tachycardia Nonspecific T wave abnormality Abnormal ECG When compared with ECG of 03-Dec-2023 12:07, T wave inversion more evident in Anterior leads Referred By: Luzma Saldana Electronically Signed By: COLIN JONES MD
[2024-11-28 15:08] VITALS: PULSE 104; RESP 27; O2SAT 92
[2024-11-28] MEDS: Albuterol Sulfate 2.5 MG, Albuterol/Iprat 2.5/0.5MG 3 ML 3 ML INHALE (15:13)
[2024-11-28 15:37] LABS: Basophils Absolute Auto 0.1 X10*3/uL (0.0-0.2); Basophils Percent Auto 0.6 % (0-2); Eosinophils Absolute Auto 0.2 X10*3/uL (0.0-0.4); Eosinophils Percent Auto 1.9 % (0-4); Hematocrit 41.5 % (42.0-52.0); Hemoglobin 14.5 g/dl (14.0-18.0); Imm Gran Abs Auto 0.06 X10*3/uL (0.00-0.03); Imm Gran Pct Auto 0.7 % (0.0-0.4); Lymphocytes Absolute Auto 1.2 X10*3/uL (1.2-4.9); Lymphocytes Percent Auto 14.5 % (20-40); MANUAL DIFF FLAG NO; Mean Corpuscular HGB Conc 34.9 g/dl (31.0-36.0); Mean Corpuscular Hemoglobin 31.8 pg (27.0-33.0); Mean Platelet Volume 8.7 fL (9.4-12.4); Monocytes Absolute Auto 0.8 X10*3/uL (0.1-1.2); Monocytes Percent Auto 9.5 % (2-11); Neutrophils Absolute Auto 6.1 x10*3/uL (2.0-8.3); Neutrophils Percent Auto 72.8 % (45-73); Platelet Count 256 X10*3/uL (160-400); Red Blood Count 4.56 X10*6/uL (4.60-5.80); Red Cell Distribution Width 12.5 % (11.0-16.0); White Blood Count 8.4 X10*3/uL (4.8-10.8)
[2024-11-28 15:51] LABS: Alanine Aminotransferase 26 U/L (0-40); Albumin Level 3.9 g/dL (3.5-5.0); Alkaline Phosphatase 68 U/L (39-117); Anion Gap 14 (12-20); Aspartate Amino Transferase 33 U/L (5-37); Bilirubin Total 0.8 mg/dL (0.0-1.0); Blood Urea Nitrogen 12 mg/dL (9-16); Calcium 8.9 mg/dL (8.4-10.2); Carbon Dioxide 20 mmol/L (22-29); Chloride 105 mmol/L (96-108); Creatinine Clr Calc Pharmacy 45.9; Estimated Glomerular Filt Rate 49; Glucose Random 90 mg/dL (60-115); Magnesium 1.9 mg/dL (1.6-2.6); Potassium 4.2 mmol/L (3.3-5.1); Sodium 135 mmol/L (135-145); Total Protein 6.9 g/dL (6.5-8.0)
[2024-11-28 15:58] LABS: Troponin-I High Sensitivity 5.1 ng/L (<3.5-35.0)
[2024-11-28 16:14] LABS: Influenza A PCR POSITIVE (Negative); Influenza B PCR NEGATIVE (Negative); Resp Syncy Virus RNA Qual PCR NEGATIVE (Negative); SARS COV2 PCR INHOUSE NEGATIVE (Negative)
--- OUTSIDE RECORDS SUMMARY | 2024-11-28 17:38 | XMS_ITS | Encounter Summary ---
Author Name [facility] [place] Address [address] [place] [address] Care Team Providers Care Leather Products Supervisor Name Role Phone MATTY RONDON Primary Care [...] Relationship to Policy Mccain RAQUEL BCBS OF [place] MEDICARE SUPPLEMEN [facility] [facility] [employer] Oct 14, 2018 [id number] MAKAYLA,Tito UANE PATIENT BCBS [place] MEDICARE SUPPLEMEN [facility] [facility] [employer] Oct 14, 2018 [id number] MAKAYLA,D UANE PATIENT BCBS OF [place] (BLUECARD) MEDICARE SUPPLEMEN JOHAN MEDEX BRONZ E Oct 14, 2018 [id number] MAKAYLA,D UANE PATIENT BCBS OF [facility] (BLUECARD) MEDIGAP PLAN C MEDEX BRONZ E-AB Oct 14, 2018 [id number] Tito BENAVIDES UANE PATIENT BLUE CROSS BLUE [place] MEDICARE SUPPLEMEN [facility] [facility] [employer] Oct 14, 2018 [id number] PARADAY,D UANE PATIENT [facility] [place] ([place] MEDICARE [facility] SUZIE REEVES Oct 14, 2018 [id number] [id number] PARADAY,D UANE PATIENT MEDICARE (WNR) MEDICARE () PART B Jul 14, 2007 PART B [id number] PARADAY,D UANE PATIENT MEDICARE (WNR) MEDICARE () PART B Jul 14, 2007 PART B [id number] PARADAY,D UANE PATIENT MEDICARE (WNR) MEDICARE () PART B Jul 14, 2007 PART B [id number] PARADAY,D UANE PATIENT MEDICARE (WNR) MEDICARE () PART B Jul 14, 2007 PART B [id number] PARADAY,D UANE PATIENT MEDICARE (WNR) MEDICARE () PART A Jun 14, 2007 PART A [id number] PARADAY,D UANE PATIENT MEDICARE (WNR) MEDICARE () PART A Jun 14, 2007 PART A [id number] [phone] PARADAY,D UANE PATIENT MEDICARE (WNR) MEDICARE () PART A Jun 14, 2007 PART A [id number] PARADAY,D UANE PATIENT MEDICARE ([place]) MEDICARE () PART A Jun 14, 2007 PART A [id number] [phone] PARADAY,D UANE PATIENT MEDICARE (WNR) MEDICARE () PART B Jun 14, 2007 PART B [id number] PARADAY,D UANE PATIENT MEDICARE (WNR) MEDICARE () PART A Jun 14, 2007 PART A [id number] PARADAY,D UANE PATIENT MEDICARE (WNR) MEDICARE () PART B Jun 14, 2007 PART B [id number] PARADAY,D UANE PATIENT MEDICARE (WNR) MEDICARE () PART A Jun 14, 2007 PART A [id number] CELINEELLIETito ADAM PATIENT Selected Encounter This section includes the information on record at [place] for the Encounter. Date/Time Encounter Type Encounter Description Reason Pro vider Source Oct 29, 2024 09:40 AM Outpatient Encounter OPTOMETRY IHE Encounter Template Text not used by [place] Plan of Treatment: Future Appointments (+ 6 months) and Future Tests (+/- 45 days) The Plan of Treatment section includes future care activities for the patient from all [place] treatmentfacilities. This section includes future appointments and future orders which are active, pending or scheduled. Future Appointments This section includes appointments that were scheduled to occur 6 months from the date of the Encounter, up to a maximum of 20 appointments. The data comes from all [place] treatment facilities. Appointment Date/Time Appointment Type Appointme nt Facility Name Dec 01, 2024 10:00 AM AMBULATORY - [facility] [facility] [place] [facility] Dec 15, 2024 11:00 AM AMBULATORY - MEDICINE [facility] Active, Pending, and Scheduled Orders This section includes a listing of several types of active, pending, and scheduled orders, including clinic medications orders, diagnostic test orders, procedure orders and consult orders; where the start date of the order is 45 days before the date of the Encounter or 45 days after the date of theEncounter. The data comes from all [place] treatment facilities. Test Date/Time Test Type Test Details Facility Name Nov 05, 2024 11:27 AM Consult Order COMMUNITY CARE-NEUROSURGERY Cons [place] [facility] Nov 05, 2024 11:17 PM Consult Order COMMUNITY CARE-PLAN EXAMINER Cons [place] [facility] Encounter Notes: All associated encounter notes This section contains the clinical notes associated to the Encounter. Date/Time Encounter Note(s) Provider Source Nov 04, 2024 09:27 AM ADDENDUM: LOCAL TITLE: Addendum STANDARD TITLE: ADDENDUM DATE OF NOTE: NOV 04, 2024@09:27:12 ENTRY DATE: NOV 04, 2024@09:27:12 AUTHOR: ONELIA RENDON EXP COSIGNER: URGENCY: STATUS: COMPLETED spoke with Dr. Kovacs today - he has not discussed the MRI findings with the patient as he is deferring to Primary care for management of this issue. Informed him that PACT team is aware of MRI findings and nursing staff has been directed to order appropriate consults. Per Dr. 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 Alerting PACT team that patient has still not been informed of these test results. /es/ ONELIA RENDON OD Slitter Creaser Slotter Operator Signed: 11/04/2024 11:04 Receipt Acknowledged By: 11/09/2024 09:37 /es/ ML DENG LPN LPN 11/05/2024 09:44 /es/ BRY PARKS RN REGISTERED NURSE --- Original Document --- 10/29/24 OPTOMETRY NOTE: MRI report 10/27/2024 received - MRI had been requested by Dr. Kovacs due to decreased vision of unclear etiology and bitemporal hemianopia. IMPRESSION: 1. There is a solid enhancing suprasellar/sellar mass measuring approximately 3.0 x 1.6 x 3.1 cm. This appears to displace the pituitary gland inferiorly. I believe it surrounds the pituitary infundibulum. There appears to be some duram extension of the mass, particularly anteriorly. This abuts and partially surrounds the suprasellar portions of the internal carotid arteries. I do not see clear evidence of narrowing of the distal ICAs. The A1 segment of the right anterior cerebral artery is not clearly visualized and there appears to be filling of both A2 segments from the left. The mass extends superiorly to contact the optic chiasm which appears displaced superiorly and posteriorly, but not surrrounded. 2. The mass is most likely a meningioma, although a pituitary macroadenoma cannot completely be excluded. Alerting PACT team for assistance with appropriate consults/next steps for patient. /samuel/ ONELIA RENDON OD Slitter Creaser Slotter Operator Signed: 10/29/2024 09:46 Receipt Acknowledged By: 11/02/2024 21:01 /es/ MATTY RONDON MD PHYSICIAN 11/05/2024 09:44 /samuel/ BRY PARKS RN REGISTERED NURSE 11/05/2024 ADDENDUM STATUS: COMPLETED Patient notified via phone call. Consult placed. /francisco javier PARKS RN REGISTERED NURSE Signed: 11/05/2024 09:43 ONELIA RENDON [place] [facility] [place] [facility] Oct 29, 2024 09:40 AM OPTOMETRY NOTE: LOCAL TITLE: OPTOMETRY NOTE STANDARD TITLE: OPTOMETRY NOTE DATE OF NOTE: OCT 29, 2024@09:40 ENTRY DATE: OCT 29, 2024@09:40:48 AUTHOR: ONELIA RENDON EXP COSIGNER: URGENCY: STATUS: COMPLETED OPTOMETRY NOTE Has ADDENDA MRI report 10/27/2024 received - MRI had been requested by Dr. Kovacs due to decreased vision of unclear etiology and bitemporal hemianopia. IMPRESSION: 1. There is a solid enhancing suprasellar/sellar mass measuring approximately 3.0 x 1.6 x 3.1 cm. This appears to displace the pituitary gland inferiorly. I believe it surrounds the pituitary infundibulum. There appears to be some duram extension of the mass, particularly anteriorly. This abuts and partially surrounds the suprasellar portions of the internal carotid arteries. I do not see clear evidence of narrowing of the distal ICAs. The A1 segment of the right anterior cerebral artery is not clearly visualized and there appears to be filling of both A2 segments from the left. The mass extends superiorly to contact the optic chiasm which appears displaced superiorly and posteriorly, but not surrrounded. 2. The mass is most likely a meningioma, although a pituitary macroadenoma cannot completely be excluded. Alerting PACT team for assistance with appropriate consults/next steps for patient. /samuel/ ONELIA RENDON OD Slitter Creaser Slotter Operator Signed: 10/29/2024 09:46 Receipt Acknowledged By: 11/02/2024 21:01 /samuel/ MATTY RONDON MD PHYSICIAN 11/05/2024 09:44 /samuel/ BRY PARKS RN REGISTERED NURSE 11/04/2024 ADDENDUM STATUS: COMPLETED spoke with Dr. Kovacs today - he has not discussed the MRI findings with the patient as he is deferring to Primary care for management of this issue. Informed him that PACT team is aware of MRI findings and nursing staff has been directed to order appropriate consults. Per Dr. 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 Alerting PACT team that patient has still not been informed of these test results. /samuel/ ONELIA RENDON OD Slitter Creaser Slotter Operator Signed: 11/04/2024 11:04 Receipt Acknowledged By: * AWAITING SIGNATURE * ML DENG 11/05/2024 09:44 /samuel/ BRY PARKS RN REGISTERED NURSE 11/05/2024 ADDENDUM STATUS: COMPLETED Patient notified via phone call. Consult placed. /samuel/ BRY PARKS RN REGISTERED NURSE Signed: 11/05/2024 09:43 ONELIA RENDON [facility]
--- OUTSIDE RECORDS SUMMARY | 2024-11-28 17:38 | XMS_ITS | Encounter Summary ---
Author Name [place] Address [address] [place] [address] Care Team Providers Care Button Breaker Name Role Phone MATTY RONDON Primary Care [...] Relationship to Policy Mccain RAQUEL BCBS OF [place] MEDICARE SUPPLEMEN [facility] [facility] [employer] Oct 14, 2018 [id number] Tito BENAVIDES UANE PATIENT BCBS [place] MEDICARE SUPPLEMEN [facility] Oct 14, 2018 [id number] [phone] Tito BENAVIDES UANE PATIENT BCBS OF [place] (BLUECARD) MEDICARE SUPPLEMEN JOHAN [facility]EX [facility] Oct 14, 2018 [id number] Tito BENAVIDES UANE PATIENT BCBS OF [facility] (BLUECARD) MEDIGAP PLAN C MEDEX BRONZ E-AB Oct 14, 2018 [id number] [phone] Tito BENAVIDES UANE PATIENT BLUE CROSS BLUE SHIELD OF [facility] MEDICARE SUPPLEMEN J[facility]AN [employer] [facility] [employer] Oct 14, 2018 [id number] PARADAY,D UANE PATIENT [place] MEDICARE [facility] SUZIE REEVES Oct 14, 2018 [id number] PARADAY,D UANE PATIENT MEDICARE (WNR) MEDICARE () PART B Jul 14, 2007 PART B [id number] PARADAY,D UANE PATIENT MEDICARE (WNR) MEDICARE () PART B Jul 14, 2007 PART B [id number] [phone] PARADAY,D UANE PATIENT MEDICARE (WNR) MEDICARE () PART B Jul 14, 2007 PART B [id number] PARADAY,D UANE PATIENT MEDICARE (WNR) MEDICARE () PART B Jul 14, 2007 PART B [id number] PARADAY,D UANE PATIENT MEDICARE (WNR) MEDICARE () PART A Jun 14, 2007 PART A [id number] [phone] PARADAY,D UANE PATIENT MEDICARE (WNR) MEDICARE () PART A Jun 14, 2007 PART A [id number] PARADAY,D UANE PATIENT MEDICARE (WNR) MEDICARE () PART A Jun 14, 2007 PART A [id number] PARADAY,D UANE PATIENT MEDICARE (WNR) MEDICARE () PART B Jun 14, 2007 PART B [id number] PARADAY,D UANE PATIENT MEDICARE (WNR) MEDICARE () PART A Jun 14, 2007 PART A [id number] PARADAY,D UANE PATIENT MEDICARE (WNR) MEDICARE () PART B Jun 14, 2007 PART B [id number] PARADAY,D UANE PATIENT MEDICARE (WNR) MEDICARE () PART A Jun 14, 2007 PART A [id number] PARADAY,D UANE PATIENT MEDICARE (WNR) MEDICARE () PART A Jun 14, 2007 PART A [id number] Tito BENAVIDES PATIENT Selected Encounter This section includes the information on record at [place] for the Encounter. Date/Time Encounter Type Encounter Description Reason Pro vider Source Oct 29, 2024 08:41 AM Outpatient Encounter ADMIN PAT ACTIVTIES (MASNONCT) IHE Encounter Template Text not used by [place] Plan of Treatment: Future Appointments (+ 6 months) and Future Tests (+/- 45 days) The Plan of Treatment section includes future care activities for the patient from all [place] treatmentfacilities. This section includes future appointments and future orders which are active, pending or scheduled. Future Appointments This section includes appointments that were scheduled to occur 6 months from the date of the Encounter, up to a maximum of 20 appointments. The data comes from all [place] treatment facilities. Appointment Date/Time Appointment Type Appointme nt Facility Name Dec 01, 2024 10:00 AM AMBULATORY - REHAB MEDICIN E [facility] [place] [facility] Dec 15, 2024 11:00 AM AM[facility]ATORY - MEDICINE [facility] [place] Active, Pending, and Scheduled Orders This section includes a listing of several types of active, pending, and scheduled orders, including clinic medications orders, diagnostic test orders, procedure orders and consult orders; where the start date of the order is 45 days before the date of the Encounter or 45 days after the date of theEncounter. The data comes from all [place] treatment facilities. Test Date/Time Test Type Test Details Facility Name Nov 05, 2024 11:27 AM Consult Order COMMUNITY CARE-NEUROSURGERY [facility] Nov 05, 2024 11:17 PM Consult Order COMMUNITY CARE-DYNAMICS AX TECHNICAL ARCHITECT [facility] Encounter Notes: All associated encounter notes This section contains the clinical notes associated to the Encounter. Date/Time Encounter Note(s) Provider Source Oct 29, 2024 08:41 AM ADMINISTRATIVE NOTE: LOCAL TITLE: CCC: SCHEDULING ADMINISTRATION STANDARD TITLE: ADMINISTRATIVE NOTE DATE OF NOTE: OCT 29, 2024@08:41:56 ENTRY DATE: OCT 29, 2024@08:41:56 AUTHOR: SUAD TINOCO COSIGNER: URGENCY: STATUS: COMPLETED CCC: SCHEDULING ADMINISTRATION Has ADDENDA Patient Demographics Patient Name: CARLOS BENAVIDES Patient Primary Phone: [phone] Patient Primary [address]: [address] [place] [address] Patient : 1940 Patient Age: 84 Caller/Recipient Relation to Patient: Self Caller Name: CARLOS BENAVIDES Scheduling Cannot Complete Scheduling Action Reason: Not Authorized in Service Line Agreement Requested Service(s): Primary Care Scheduling Note Reason: Cannot Complete Appointment Request Scheduling Note Comments: requesting follow up appointment from discharge from ER on 10/28/24. Please call [phone] to schedule Open Request: None of the above IMPORTANT: This note was created by [facility] staff. Please do not alert the staff member by adding them as a signer for future communications. Alerts are not monitored by this user. /es/ SUAD [place] [facility] ANIKAA Signed: 10/29/2024 08:41 Receipt Acknowledged By: 11/04/2024 12:34 /es/ ML DENG LPN LPN 10/29/2024 14:42 /es/ SARAH KEMP 10/29/2024 ADDENDUM STATUS: COMPLETED ER report and discharge summary requested from [facility] /samuel/ SARAH KEMP Signed: 10/29/2024 14:43 10/29/2024 ADDENDUM STATUS: COMPLETED Spoke with . He reports he went to the ER because he pulled his back. Waiting on ER note. /es/ BRY PARKS RN REGISTERED NURSE Signed: 10/29/2024 14:56 SUAD TINOCO [place] [facility]
--- OUTSIDE RECORDS SUMMARY | 2024-11-28 17:38 | XMS_ITS ---
Author Name [facility] [place] Address [address] [place] [address] Care Team Providers Care Wall And Floor Tiler Name Role Phone MATTY RONDON Primary Care [...] JOHAN [employer] Oct 14, 2018 [id number] [phone] Tito BENAVIDES UANE PATIENT [place] MEDICARE SUPPLEMEN [facility] [facility] [employer] Oct 14, 2018 [id number] [phone] Tito BENAVIDES UANE PATIENT BCBS OF [place] (BLUECARD) MEDICARE SUPPLEMEN JOHAN MEDEX [facility]ONZ E Oct 14, 2018 [id number] [phone] Tito BENAVIDES UANE PATIENT BCBS OF [facility] (BLUECARD) MEDIGAP PLAN C MEDEX BRONZ E-AB Oct 14, 2018 [id number] [phone] Tito BENAVIDES UANE PATIENT BLUE CROSS BLUE SHIELD OF [facility] MEDICARE SUPPLEMEN JOHAN PSEUD [employer] GROUP Oct 14, 2018 [id number] [phone] PARADAY,D UANE PATIENT [place] ([place] MEDICARE [facility] SUZIE REEVES Oct 14, 2018 [id number] PARADAY,D UANE PATIENT MEDICARE (WNR) MEDICARE () PART B Jul 14, 2007 PART B [id number] [phone] PARADAY,D UANE PATIENT MEDICARE (WNR) MEDICARE () PART B Jul 14, 2007 PART B [id number] PARADAY,D UANE PATIENT MEDICARE (WNR) MEDICARE () PART B Jul 14, 2007 PART B [id number] PARADAY,D UANE PATIENT MEDICARE (WNR) MEDICARE () PART B Jul 14, 2007 PART B [id number] PARADAY,D UANE PATIENT MEDICARE (WNR) MEDICARE () PART A Jun 14, 2007 PART A [id number] [id number] PARADAY,D UANE PATIENT MEDICARE (WNR) MEDICARE () PART A Jun 14, 2007 PART A [id number] PARADAY,D UANE PATIENT MEDICARE (WNR) MEDICARE () PART A Jun 14, 2007 PART A [id number] PARADAY,D UANE PATIENT MEDICARE (WNR) MEDICARE () PART B Jun 14, 2007 PART B [id number] PARADAY,D UANE PATIENT MEDICARE (WNR) MEDICARE () PART A Jun 14, 2007 PART A [id number] PARADAY,D UANE PATIENT MEDICARE (WNR) MEDICARE () PART B Jun 14, 2007 PART B [id number] PARADAY,D UANE PATIENT MEDICARE (WNR) MEDICARE () PART A Jun 14, 2007 PART A [id number] [phone] PARADAY,D UANE PATIENT MEDICARE (WNR) MEDICARE () PART A Jun 14, 2007 PART A [id number] CELINEELLIETito MEDINA PATIENT Selected Encounter This section includes the information on record at [place] for the Encounter. Date/Time Encounter Type Encounter Description Reason Pro vider Source Oct 30, 2024 01:22 PM Outpatient Encounter PRIMARY CARE/MEDICINE IHE Encounter [...] REHAB MEDICIN E [facility] [place] [facility] Dec 15, 2024 11:00 AM AMBULATORY - MEDICINE [facility] Active, Pending, and Scheduled Orders This section includes a listing of several types of active, pending, and scheduled orders, including clinic medications orders, diagnostic test orders, procedure orders and consult orders; where the start date of the order is 45 days before the date of the Encounter or 45 days after the date of theEncounter. The data comes from all [place] treatment facilities. Test Date/Time Test Type Test Details Facility Name Nov 05, 2024 11:27 AM Consult Order COMMUNITY CARE-NEUROSURGERY Cons Supervisor [facility] Nov 05, 2024 11:17 PM Consult Order COMMUNITY CARE-POWER HOUSE CONTROL ROOM OPERATOR Cons Supervisor Sewing Department's [facility] Encounter Notes: All associated encounter notes This section contains the clinical notes associated to the Encounter. Date/Time Encounter Note(s) Provider Source Oct 30, 2024 01:22 PM PRIMARY CARE NOTE: LOCAL TITLE: WALK-IN NOTE PRIMARY CARE (T) STANDARD TITLE: PRIMARY CARE NOTE DATE OF NOTE: OCT 30, 2024@13:22 ENTRY DATE: OCT 30, 2024@13:22:58 AUTHOR: DARIN SMITH EXP COSIGNER: URGENCY: STATUS: COMPLETED WALK-IN NOTE PRIMARY CARE (T) Has ADDENDA <====Click to Start Advanced Medical Support Belle presents to the Primary Care clinic with the following request: [ ]Medication Renewal/Refill [ ]Consultation with Team RN [ XX ]Symptoms [ ]Other The states they are: [ ]Waiting [ X ]Not Waiting No Walk in visit scheduled with PACT Nurse [ X ] At this encounter the Belle's demographics were verified. [ X ] At this encounter the Belle's Insurance information was verified. [ X ] At this encounter the below scheduled visits for the were discussed and appointment reminder card was offered. Future appointments: 12/15/2024 11:00 CWM/SO/PACT 5 05/24/2025 10:00 NHM/OPTOMETRY/[place] STOPPED IN LOOKING TO BE SEEN FOR AN ER FOLLOW UP FOR BACK PAIN 10/28/24 (NOTE PLACED IN PROVIDER MAIL BOX) WAS BOOKED w/PROVIDER FOR THE SOONEST APPT AVAILABLE 12/15/24 PLEASE CALL TO ADVISE. /samuel/ DARIN SMITH ADVANCE PRIVATE BRANCH EXCHANGE OPERATOR Signed: 10/30/2024 13:29 Receipt Acknowledged By: 11/04/2024 12:37 /samuel/ ML DENG LPN LPN 11/03/2024 13:44 /samuel/ BRY PARKS RN REGISTERED NURSE 11/03/2024 ADDENDUM STATUS: COMPLETED Note/prescription received from [facility] dated 10/28/24. Note sent to [facility] to scan into pt chart. Per note, Follow with primary doctor for referral to a back specialist as sacroiliac pain can sometimes benefit from an injection so ask for referral to a specialist. Spoke with who is requesting for a consult to see a specialist for his back while he is waiting to be seen by PCP. Consult will be placed and held for PCP signature if appropriate. /samuel/ BRY PARKS RN REGISTERED NURSE Signed: 11/03/2024 13:43 DARIN SMITH
--- OUTSIDE RECORDS SUMMARY | 2024-11-28 17:38 | XMS_ITS | Continuity of Care Document ---
Author Name [facility] Organization [facility] Care Team Providers Care Lap Polisher Name Role Phone [facility] Unavailable Unavailable Problems Combined list of problems from Department of Defense and Veterans Affairs facilities. It does not include entries that were removed or entered in error. 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) Active Condition Dec 11, 2023 Entered By: MATTY RONDON Comment: CT 2023 moderate to marked coronary artery calcific atherosclerosis [place] Cataract, Nuclear Sclerosis Active Condition [facility] Hiatal hernia Active Condition [facility] 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 [place] Peripheral neuropathic pain Active Condition March 09, 2021 Entered By: MATTY RONDON Comment: EMG 07/2020 ---> LE - feet b/l [place] Pulmonary emphysema Active Condition March 08, 2021 Entered By: MATTY RONDON Comment: Ct 2019 ; severe emphysema [place] Sleep apnea Active Condition [facility] Surgical Arthroscopy of the Shoulder Region with Limited Debridement Active Condition [place] Umbilical hernia Active Condition Nov 10, 2012 Entered By: DANISHA MALDONADO Comment: s/p repair [place] Community acquired pneumonia Inactive Condition 03/14/2015 [facility] Elevated blood pressure reading without diagnosis of hypertension (ICD-9-CM 796. Inactive Condition 03/14/2015 [place] Diagnosis: ICD-10-CM Z46.0 Encounter for fit/adjst of spectacles and contact lenses Active Diagnosis [facility] Diagnosis: ICD-10-CM H26.491 Other secondary cataract, right eye Active Diagnosis [facility] Diagnosis: ICD-10-CM I25.10 Athscl heart disease of [place] coronary artery w/o ang pctrs Active Diagnosis [place] Medications Combined list of outpatient medications from [...] FOR [place] RESPIR ATORY (INHAL ATION) 11/13/2024 [id number] MATTY VALENTINO 2023 1 [place] ALBUTEROL SO4 3MG/IPRATRO PIUM BR 0.5MG/3ML INHL,3ML INHALE 1 VIAL (3ML) IN NEBULIZE R FOUR TIMES A DAY FOR [place]ONCH[place] RESPIR ATORY (INHAL ATION) ACTIVE 02/19/2025 [id number] 4 MATTY VALENTINO 2023 360 [place] CYCLOBENZAP RINE HCL 5MG TAB TAKE ONE TABLET BY MOUTH THREE TIMES DAILY NEEDED FOR MUSCLE SPASMS. DO NOT DRIVE FOR 8 HOURS AFTER TAKING ORAL ACTIVE 11/27/2024 [id number] 5 AVERY VINSON 2024 10 [place] FLUTICASONE 500MCG/SALM ETEROL 50MCG INHL,ORAL,D ISKUS,60 INHALE 1 PUFF BY MOUTH TWICE DAILY FOR CONTROLL ER MEDICATI ON FOR ASTHMA - RINSE MOUTH AFTER USE RESPIR ATORY (INHAL ATION) 11/13/2024 [id number] 4 MATTY VALENTINO 2023 1 [place] FLUTICASONE PROPIONATE 50MCG/SPRAY SOLN,NASAL, 16GM INSTILL 1 SPRAY INTO EACH NOSTRIL TWICE DAILY NEEDED FOR NASAL IRRITATI ON/INFLA MMATION NASAL 03/28/2024 [id number] 4 MATTY VALENTINO 2022 2 [place] LIDOCAINE 5% PATCH APPLY 1 PATCH TOPICALL Y ONCE DAILY (LEAVE PATCH ON FOR 12 HOURS, THEN REMOVE PATCH) TOPICA L ACTIVE 11/27/2024 [id number] 5 AVERY VINSON 2024 30 [place] MODAFINIL 200MG TAB TAKE ONE TABLET BY MOUTH TWICE DAILY FOR NARCOLEP SY AND HYPERSOM KEE DESPITE CPAP ADHERENC E ORAL ACTIVE 01/11/2025 [id number] RA JENNIFER RICHTER 2023 60 [facility] MODAFINIL 200MG TAB TAKE ONE TABLET BY MOUTH TWICE DAILY FOR NARCOLEP SY AND HYPERSOM KEE DESPITE CPAP ADHERENC E ORAL DISCONT INUED 08/21/2024 [id number] 4 MATTY VALENTINO 2023 60 [place] MODAFINIL 200MG TAB TAKE ONE TABLET BY MOUTH TWICE DAILY FOR NARCOLEP SY AND HYPERSOM KEE DESPITE CPAP ADHERENC E ORAL DISCONT INUED 01/26/2024 [id number] 4 MATTY VALENTINO 2022 60 [place] TAMSULOSIN HCL 0.4MG CAP TAKE ONE CAPSULE BY MOUTH AT BEDTIME FOR ENLARGED PROSTATE ORAL ACTIVE 12/11/2024 [id number] 4 MATTY VALENTINO 2023 30 [place] TERAZOSIN HCL 5MG CAP TAKE ONE CAPSULE BY MOUTH AT BEDTIME FOR ENLARGED PROSTATE ORAL DISCONT INUED BY PROVIDE R 11/13/2024 [id number] 4 MATTY VALENTINO 2023 30 [place] Immunizations Combined list of available immunizations from the Department of Defense and Veterans Affairs facilities. Immunization Series Date Given Administered By Site Reaction Lot Number CVX Code Drug Quality Assistant Status Comments Source COVID-19 (MODERNA), MRNA, LNP-S, BIVALENT BOOSTER, PF, 50 MCG/0.5 ML OR 25MCG/0.25 ML DOSE 1 2021 229 complet ed [facility] ZOSTER RECOMBINANT 2 2020 187 complet ed [place] COVID-19 (MODERNA), MRNA, LNP-S, PF, 100 MCG/0.5 ML DOSE 2 2020 207 complet ed [facility] COVID-19 (MODERNA), MRNA, LNP-S, PF, 100 MCG/0.5 ML DOSE 1 2020 207 complet ed [facility] ZOSTER RECOMBINANT 1 2019 187 [...] Reference Range Date Interpretation Specimen Comments Source LIPID PANEL FASTING CHOLESTEROL [MASS/VOLUM E] IN SERUM OR PLASMA 182 mg/dL 11/28 Specimen Type: SERUM No comment entered. Ordering Provider: JOSE R LOCK Report Released Date/Time: Nov 22, 2023 12:26 PM Reporting Lab: [address] [address] Performing Lab: [address] [address] [facility] LIPID PANEL FASTING TRIGLYCERID E [MASS/VOLUM E] IN SERUM OR PLASMA 121 mg/dL 0 - 150 11/28 Specimen Type: SERUM No comment entered. Ordering Provider: JOSE R LOCK Report Released Date/Time: Nov 22, 2023 12:26 PM Reporting Lab: [address] [address] Performing Lab: [address] [address] [place] LIPID PANEL FASTING CHOLESTEROL IN LDL [MASS/VOLUM E] IN SERUM OR PLASMA BY CALCULATION 127 mg/dL 0 - 129 11/28 Specimen Type: SERUM No comment entered. Ordering Provider: JOSE R LOCK Report Released Date/Time: Nov 22, 2023 12:26 PM Reporting Lab: [address] [address] Performing Lab: [address] [address] [place] LIPID PANEL FASTING CHOLESTEROL .TOTAL/CHOL ESTEROL IN HDL [MASS RATIO] IN SERUM OR PLASMA 5.9 11/28 Specimen Type: SERUM No comment entered. Ordering Provider: JOSE R LOCK Report Released Date/Time: Nov 22, 2023 12:26 PM Reporting Lab: [address] [address] Performing Lab: [address] [address] [place] LIPID PANEL FASTING CHOLESTEROL IN HDL [MASS/VOLUM E] IN SERUM OR PLASMA 31 mg/dL 40 - 60 11/28 L Specimen Type: SERUM No comment entered. Ordering Provider: JOSE R LOCK Report Released Date/Time: Nov 22, 2023 12:26 PM Reporting Lab: [address] [address] Performing Lab: [address] [address] [place] BASIC METABOLIC PANEL (fasting) UREA NITROGEN [MASS/VOLUM E] IN SERUM OR PLASMA 18 mg/dL 7 - 25 11/28 Specimen Type: SERUM No comment entered. Ordering Provider: JOSE R LOCK Report Released Date/Time: Nov 22, 2023 12:26 PM Reporting [facility]: [facility] [address] [address] Performing Lab: [facility] [address] [facility] [address] [place] BASIC METABOLIC PANEL (fasting) GLUCOSE [MASS/VOLUM E] IN SERUM OR PLASMA 99 mg/dL 65 - 100 11/28 Specimen Type: SERUM No comment entered. Ordering Provider: JOSE R LOCK Report Released Date/Time: Nov 22, 2023 12:26 PM Reporting Lab: [address] [address] Performing Lab: [facility] [address] [address] [place] BASIC METABOLIC PANEL (fasting) SODIUM [MOLES/VOLU ME] IN SERUM OR PLASMA 136 mmol/L 135 - 145 11/28 Specimen Type: SERUM No comment entered. Ordering Provider: JOSE R LOCK Report Released Date/Time: Nov 22, 2023 12:26 PM Reporting Lab: [facility] [address] [address] Performing Lab: [facility] [address] [address] [place] BASIC METABOLIC PANEL (fasting) POTASSIUM [MOLES/VOLU ME] IN SERUM OR PLASMA 4.7 mmol/L 3.5 - 5.0 11/28 Specimen Type: SERUM No comment entered. Ordering Provider: JOSE R LOCK Report Released Date/Time: Nov 22, 2023 12:26 PM Reporting Lab: [facility] [address] [address] Performing Lab: [facility] [address] [address] [place] BASIC METABOLIC PANEL (fasting) CHLORIDE [MOLES/VOLU ME] IN SERUM OR PLASMA 103 mmol/L 100 - 110 11/28 Specimen Type: SERUM No comment entered. Ordering Provider: JOSE R LOCK Report Released Date/Time: Nov 22, 2023 12:26 PM Reporting Lab: [address] [address] Performing Lab: [address] [address] [place] BASIC METABOLIC PANEL (fasting) CARBON DIOXIDE, TOTAL [MOLES/VOLU ME] IN SERUM OR PLASMA 26 meq/L 20 - 30 11/28 Specimen Type: SERUM No comment entered. Ordering Provider: JOSE R LOCK Report Released Date/Time: Nov 22, 2023 12:26 PM Reporting Lab: [address] [address] Performing Lab: [address] [address] [place] BASIC METABOLIC PANEL (fasting) CREATININE [MASS/VOLUM E] IN SERUM OR PLASMA 0.99 mg/dL 0.50 - 1.40 11/28 Specimen Type: SERUM No comment entered. Ordering Provider: JOSE R LOCK Report Released Date/Time: Nov 22, 2023 12:26 PM Reporting Lab: [address] [address] Performing Lab: [address] [address] [place] BASIC METABOLIC PANEL (fasting) GLOMERULAR FILTRATION RATE/1.73 SQ M.PREDICTED [VOLUME RATE/AREA] IN SERUM, PLASMA OR BLOOD BY CREATININE- BASED FORMULA (CKD-EPI 2020) 76 mL/min 60 11/28 Specimen Type: SERUM No comment entered. Ordering Provider: JOSE R LOCK Report Released Date/Time: Nov 22, 2023 12:26 PM Reporting Lab: [address] [address] Performing Lab: [facility] [address] [facility] [address] [place] LIVER FUNCTION PROTEIN [MASS/VOLUM E] IN SERUM OR PLASMA 7.0 g/dL 6.0 - 8.3 11/28 Specimen Type: SERUM No comment entered. Ordering Provider: JOSE R LOCK Report Released Date/Time: Nov 22, 2023 12:26 PM Reporting Lab: [facility] [address] [address] Performing Lab: [address] [address] [place] LIVER FUNCTION ALBUMIN [MASS/VOLUM E] IN SERUM OR PLASMA 3.8 g/dL 3.5 - 5.0 11/28 Specimen Type: SERUM No comment entered. Ordering Provider: JOSE R LOCK Report Released Date/Time: Nov 22, 2023 12:26 PM Reporting Lab: [facility] [address] [address] Performing Lab: [facility] [address] [address] [facility] [place] LIVER FUNCTION ALKALINE PHOSPHATASE [ENZYMATIC ACTIVITY/VO LUME] IN SERUM OR PLASMA 68 U/L 40 - 150 11/28 Specimen Type: SERUM No comment entered. Ordering Provider: JOSE R LOCK Report Released Date/Time: Nov 22, 2023 12:26 PM Reporting Lab: [facility] [address] [address] Performing Lab: [address] [address] [facility] [place] LIVER FUNCTION ASPARTATE AMINOTRANSF ERASE [ENZYMATIC ACTIVITY/VO LUME] IN SERUM OR PLASMA 22 U/L 5 - 34 11/28 Specimen Type: SERUM No comment entered. Ordering Provider: JOSE R LOCK Report Released Date/Time: Nov 22, 2023 12:26 PM Reporting Lab: [facility] [address] [address] Performing Lab: [facility] [place] [address] [address] [place]IVER FUNCTION ALANINE AMINOTRANSF ERASE [ENZYMATIC ACTIVITY/VO LUME] IN SERUM OR PLASMA 25 U/L 11/28 Specimen Type: SERUM No comment entered. Ordering Provider: JOSE R LOCK Report Released Date/Time: Nov 22, 2023 12:26 PM Reporting Lab: [facility] [address] [address] Performing Lab: [facility] [address] [facility] LIVER FUNCTION BILIRUBIN.T OTAL [MASS/VOLUM E] IN SERUM OR PLASMA 0.7 mg/dL 0.2 - 1.2 11/28 Specimen Type: SERUM No comment entered. Ordering Provider: JOSE R LOCK Report Released Date/Time: Nov 22, 2023 12:26 PM Reporting Lab: [facility] [address] Performing Lab: [facility] [address] [place] HEMOGLOBI N A1C PANEL HEMOGLOBIN A1C/HEMOGLO [...] Nov 22, 2023 12:26 PM Reporting Lab: [facility] [address] [address] Performing Lab: [facility] [place] [facility] [address] [facility] [address] [place] TSH THYROTROPIN [UNITS/VOLU ME] IN SERUM OR PLASMA 2.45 u[IU]/ mL 0.35 - 5.00 11/28 Specimen Type: SERUM No comment entered. Ordering Provider: JOSE R LOCK Report Released Date/Time: Nov 22, 2023 12:26 PM Reporting Lab: [facility] [place] [address] [address] Performing Lab: [facility]ITALRL.[facility]N [facility] CHILDRENUSE[address] [address] [place] CBC AND DIFF (AUTO) LEUKOCYTES [#/VOLUME] IN BLOOD BY AUTOMATED COUNT 5.84 10*3/u L 4.50 - 11.00 11/28 Specimen Type: BLOOD No comment entered. Ordering Provider: JOSE R LOCK Report Released Date/Time: Nov 22, 2023 12:26 PM Reporting Lab: [facility] [place] [address] [address] Performing Lab: [facility]ITALRL.[facility]ITALN [facility] CHILDRENUSETS [address] [address] [place] CBC AND DIFF (AUTO) ERYTHROCYTE S [#/VOLUME] IN BLOOD BY AUTOMATED COUNT 4.91 10*6/u L 4.23 - 5.66 11/28 Specimen Type: BLOOD No comment entered. Ordering Provider: JOSE R LOCK Report Released Date/Time: Nov 22, 2023 12:26 PM Reporting Lab: [facility]N [facility] CHILDRENUSETS [address] [address] Performing Lab: [facility] CHILDRENUSE[address] [address] [place] CBC AND DIFF (AUTO) HEMOGLOBIN [MASS/VOLUM E] IN BLOOD 15.3 g/dL 12.8 - 17 11/28 Specimen Type: BLOOD No comment entered. Ordering Provider: JOSE R LOCK Report Released Date/Time: Nov 22, 2023 12:26 PM Reporting Lab: [facility]ITALRST. [facility] CHILTONTRN [address] [address] Performing Lab: [facility]PITALRST. VINCENT'[facility] CHILTONTRN [facility] CHILDRENUSE[address] [address] [place] CBC AND DIFF (AUTO) HEMATOCRIT [VOLUME FRACTION] OF BLOOD BY AUTOMATED COUNT 46.3 39.2 - 50.4 11/28 Specimen Type: BLOOD No comment entered. Ordering Provider: JOSE R LOCK Report Released Date/Time: Nov 22, 2023 12:26 PM Reporting Lab: [facility]ITALRL.[facility]OSPITALN [address] [address] Performing Lab: [facility]ITALRL.[facility] HOSPITALN [address] [address] [place] CBC AND DIFF (AUTO) MCV [ENTITIC VOLUME] BY AUTOMATED COUNT 94.3 fL 82 - 99 11/28 Specimen Type: BLOOD No comment entered. Ordering Provider: JOSE R LOCK Report Released Date/Time: Nov 22, 2023 12:26 PM Reporting Lab: [facility]ITALRST[facility] CHILTONTRN [facility] CHILDRENUSETS [address] [address] Performing Lab: [facility]ITALRL.[facility]OS[facility]ITALN [facility] CHILDRENUSE[address] [address] [place] CBC AND DIFF (AUTO) MCHC [MASS/VOLUM E] BY AUTOMATED COUNT 33.0 g/dL 30.8 - 35.1 11/28 Specimen Type: BLOOD No comment entered. Ordering Provider: JOSE R LOCK Report Released Date/Time: Nov 22, 2023 12:26 PM Reporting Lab: [facility]ITALRST. [facility] CHILTONTRN [address] [address] Performing Lab: [facility]ITALRL.V. [facility] HOSPITALN [address] [address] [place] CBC AND DIFF (AUTO) PLATELETS [#/VOLUME] IN BLOOD BY AUTOMATED COUNT 336 10*3/u L 140 - 360 11/28 Specimen Type: BLOOD No comment entered. Ordering Provider: JOSE R LOCK Report Released Date/Time: Nov 22, 2023 12:26 PM Reporting Lab: [facility] [place] [address] [address] Performing Lab: [facility] [place] [address] [address] [place] CBC AND DIFF (AUTO) ERYTHROCYTE DISTRIBUTIO N WIDTH [RATIO] BY AUTOMATED COUNT 12.6 12.0 - 16.0 11/28 Specimen Type: BLOOD No comment entered. Ordering Provider: JOSE R LOCK Report Released Date/Time: Nov 22, 2023 12:26 PM Reporting Lab: [facility] [place] [address] [address] Performing Lab: [facility] [place] [address] [address] [place] CBC AND DIFF (AUTO) MONOCYTES [#/VOLUME] IN BLOOD BY AUTOMATED COUNT 0.61 10*3/u L 0.30 - 1.10 11/28 Specimen Type: BLOOD No comment entered. Ordering Provider: JOSE R LOCK Report Released Date/Time: Nov 22, 2023 12:26 PM Reporting Lab: [facility] [place] [address] [address] Performing Lab: [facility] [place] [address] [address] [place] CBC AND DIFF (AUTO) MCH [ENTITIC MASS] BY AUTOMATED COUNT 31.2 pg 26.2 - 32.6 11/28 Specimen Type: BLOOD No comment entered. Ordering Provider: JOSE R LOCK Report Released Date/Time: Nov 22, 2023 12:26 PM Reporting Lab: [facility] [place] [address] [address] Performing Lab: [facility] [place] [address] [address] [place] CBC AND DIFF (AUTO) NEUTROPHILS /100 LEUKOCYTES IN BLOOD BY AUTOMATED COUNT 58.3 43.7 - 75.8 11/28 Specimen Type: BLOOD No comment entered. Ordering Provider: JOSE R LOCK Report Released Date/Time: Nov 22, 2023 12:26 PM Reporting Lab: [facility]ENUSETS [address] [address] Performing Lab: [facility] CHILDRENUSETS [address] [address] [place] CBC AND DIFF (AUTO) LYMPHOCYTES /100 LEUKOCYTES IN BLOOD BY AUTOMATED COUNT 23.8 14.0 - 42.3 11/28 Specimen Type: BLOOD No comment entered. Ordering Provider: JOSE R LOCK Report Released Date/Time: Nov 22, 2023 12:26 PM Reporting Lab: [facility]ITALRL WSTRN [facility] CHILDRENUSE[address] [address] Performing Lab: [facility] CHILDRENUSETS [address] [address] [place] CBC AND DIFF (AUTO) MONOCYTES/1 00 LEUKOCYTES IN BLOOD BY AUTOMATED COUNT 10.4 5.1 - 13.7 11/28 Specimen Type: BLOOD No comment entered. Ordering Provider: JOSE R LOCK Report Released Date/Time: Nov 22, 2023 12:26 PM Reporting Lab: [facility]RL WSTRN [facility] CHILDRENUSETS [address] [address] Performing Lab: [facility] [place] [address] [address] [place] CBC AND DIFF (AUTO) EOSINOPHILS /100 LEUKOCYTES IN BLOOD BY AUTOMATED COUNT 5.5 0.4 - 6.8 11/28 Specimen Type: BLOOD No comment entered. Ordering Provider: JOSE R LOCK Report Released Date/Time: Nov 22, 2023 12:26 PM Reporting Lab: [facility]ENUSETS [address] [address] Performing Lab: [facility] [address] [address] [place] CBC AND DIFF (AUTO) BASOPHILS/1 00 LEUKOCYTES IN BLOOD BY AUTOMATED COUNT 1.0 0.1 - 2.0 11/28 Specimen Type: BLOOD No comment entered. Ordering Provider: JOSE R LOCK Report Released Date/Time: Nov 22, 2023 12:26 PM Reporting Lab: [facility]ITALRL.V. [facility]OSPITALN [facility] CHILDRENUSE[address] [address] Performing Lab: [facility]ITALRL.[facility]. [facility] HOSPITALN [address] [address] [place] CBC AND DIFF (AUTO) NEUTROPHILS [#/VOLUME] IN BLOOD BY AUTOMATED COUNT 3.40 10*3/u L 2.20 - 7.60 11/28 Specimen Type: BLOOD No comment entered. Ordering Provider: JOSE R LOCK Report Released Date/Time: Nov 22, 2023 12:26 PM Reporting Lab: [facility]PITALRST[facility] CHILTONTRN [facility] CHILDRENUSE[address] [address] Performing Lab: [facility]ITALRL.[facility]. [facility] HOSPITALN [address] [address] [place] CBC AND DIFF (AUTO) LYMPHOCYTES [#/VOLUME] IN BLOOD BY AUTOMATED COUNT 1.39 10*3/u L 1.00 - 3.20 11/28 Specimen Type: BLOOD No comment entered. Ordering Provider: JOSE R LOCK Report Released Date/Time: Nov 22, 2023 12:26 PM Reporting Lab: [facility]ITALRL TRN [facility] CHILDRENUSE[address] [address] Performing Lab: [facility]ITALRL.[facility]ITALN [facility] CHILDRENUSE[address] [address] [place] CBC AND DIFF (AUTO) EOSINOPHILS [#/VOLUME] IN BLOOD BY AUTOMATED COUNT 0.32 10*3/u L 0.03 - 0.44 11/28 Specimen Type: BLOOD No comment entered. Ordering Provider: JOSE R LOCK Report Released Date/Time: Nov 22, 2023 12:26 PM Reporting Lab: [facility] [address] [address] Performing Lab: [facility] [place] [address] [address] [place] CBC AND DIFF (AUTO) BASOPHILS [#/VOLUME] IN BLOOD BY AUTOMATED COUNT 0.06 10*3/u L 0.01 - 0.13 11/28 Specimen Type: BLOOD No comment entered. Ordering Provider: JOSE R LOCK Report Released Date/Time: Nov 22, 2023 12:26 PM Reporting Lab: [facility]ENUSETS [address] [address] Performing Lab: [facility]ENUSETS [address] [address] [place] CBC AND DIFF (AUTO) IMMATURE GRANULOCYTE S/100 LEUKOCYTES IN BLOOD BY AUTOMATED COUNT 1.0 0.0 - 0.7 11/28 H Specimen Type: BLOOD No comment entered. Ordering Provider: JOSE R LOCK Report Released Date/Time: Nov 22, 2023 12:26 PM Reporting Lab: [facility] [address] [address] Performing Lab: [facility]ENUS[facility] [address] [address] [place] CBC AND DIFF (AUTO) IMMATURE GRANULOCYTE S [#/VOLUME] IN BLOOD 0.06 10*3/u L 0.00 - 0.06 11/28 Specimen Type: BLOOD No comment entered. Ordering Provider: JOSE R LOCK Report Released Date/Time: Nov 22, 2023 12:26 PM Reporting Lab: [facility]EN[facility] [address] [address] Performing Lab: [facility]TRN [facility] CHILDRENUSETS [address] [address] [place] Vital Signs Combined list of inpatient and outpatient Vital Signs from Department of Defense and Veterans Affairs, ranging from 12 months to all on record, depending upon the facility. Vital Sign Value Date Comments Source SYSTOLIC BLOOD PRESSURE 126 12/10/2023 08:30:00 [place] DIASTOLIC BLOOD PRESSURE 80 12/10/2023 08:30:00 [place] PULSE OXIMETRY 96 12/10/2023 08:30:00 Nathan BUSTILLOS WEIGHT 199.4 12/10/2023 08:30:00 [place] FRANK BMI 29 kg/m2 12/10/2023 08:30:00 E[place] RFANK PULSE 90 12/10/2023 08:30:00 EITAN FRANK RESPIRATION 16 12/10/2023 08:30:00 ELY PARKER Encounters Combined list of: 1) Encounters from Department of Veterans Affairs facilities going backup to the last 18 months, not all VA inpatient encounters are included; 2) Encounters from the Department of [facility] facilities going backup to 280 months. Location Location Details Encounter Type Encounter Number Reason For Visit Attending Provider ADM Date DC Date Status Disposition Source [facility]counter [id number] 07/26 [facility] [id number] 07/26 [facility] [id number] 11/06 [facility] [id number] 11/12 [facility] [id number] 11/12 [facility] [id number] 12/03 [facility] OFFICE O/P EST MOD 30 MIN [id number] Diagnos is: ICD-10- CM I25.10 Athscl heart disease of [place] for[place] coronar y artery w/o ang pctrs TRENT ARELLANO,OG MARIS M 12/10 [facility] ([place] [place] Out[facility]counter [id number] 12/11 [facility] [id number] 02/16 [facility] Outpatient Encounter [id number] 02/16 [facility] [place] [id number]/ [id number] 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, right eye ALONA ROJAS 05/22 [facility] FIT SPECTACLES MULTIFOCAL [id number] 1. Diagnos is: ICD-10- CM Z46.0 Encount er for fit/adj st of spectac les and contact lenses ALONA ROJAS 05/22 [facility] Outpatient Encounter [id number] 1.07/07 [facility] Outpatient Encounter [id number] 1.07/09 [facility] Outpatient Encounter [id number] 07/11 [facility] Outpatient Encounter [id number] 07/28 [facility] Outpatient Encounter [id number] 07/28 [facility] Outpatient Encounter [id number] 08/13 [facility] Out[facility] Encounter [id number] 10/27 [facility] Outpatient Encounter [id number] 10/28 [facility] Outpatient Encounter [id number] 10/28 [facility] Outpatient Encounter [id number] 10/29 [facility] Outpatient Encounter [id number] 10/29 [facility] Outpatient Encounter [id number] 10/30 [facility] Social History Combined list of available smoking, tobacco, and other social history from Department of Defense and [facility] facilities. Social History Type Response Date Comment [facility] e Tobacco smoking status PAIS [place]-TOBACCO QUIT 15 YRS OR MORE 12/10/2023 [place] History of tobacco use [place]-TOBACCO FORMER USER 12/10/2023 [place] History of tobacco use [place]-TOBACCO FORMER USER 10/30/2022 [place] History of tobacco use [place]-TOBACCO NEVER USED 05/09/2020 [facility] [place] [facility] History of tobacco use [place]-TOBACCO NEVER USED 02/03/2019 [place] [facility] History of tobacco use QUIT TOBACCO USE > 7 YEARS AGO 05/21/2017 reports quitting 1989 [place] History of tobacco use QUIT TOBACCO USE > 7 YEARS AGO 03/26/2016 quit in 1989 [place] History of tobacco use QUIT TOBACCO USE > 7 YEARS AGO 11/10/2012 Pt reports quitting 1989 [place] Plan of Care List of future care activities from Department of [facility] facilities. Additional future care activities may be listed in the Assessment and Plan section. Date/Time Care Activity Care Activity Detail Facili ty 12/01/2024 AMBULATORY - REHAB MEDICINE [facility] 12/15/2024 AMBULATORY - MEDICINE [facility] [place]IC[facility] [place] 05/24/2025 AMBULATORY - MEDIC[facility] 11/05/2024 Consult Order COMMUNITY CARE-NEUROSURGERY Cons Certified Medical Aide's Choice [place] 11/05/2024 Consult Order COMMUNITY CARE-DECATIZER Cons Certified Medical Aide's Choice [place]
[2024-11-28] MEDS: Oseltamivir Phosphate 75 MG CAPSULE PO (17:46)
[2024-11-28] MEDS: predniSONE 20 MG TABLET 60 MG PO (17:46)
[2024-11-28] MEDS: Amoxicillin/Potassium Clav 875 MG TABLET PO (17:46)
[2024-11-28] MEDS: Azithromycin 500 MG TABLET PO (17:46)
[2024-11-28 18:14] VITALS: BP 143/87; PULSE 112; RESP 20; TEMP 36.8; O2SAT 97
== END 2024-11-28 18:15 | disposition home or self-care (01) ==
PROVIDERS: Physician Assistant Medical; Emergency Provider Emergency Medicine Emergency Medical Services
DX: R06.02 Shortness of breath (principal); J18.9 Pneumonia, unspecified organism; J44.9 Chronic obstructive pulmonary disease, unspecified; R07.89 Other chest pain; J10.1 Influenza due to other identified influenza virus with other respiratory manifestations; Z03.818 Encounter for observation for suspected exposure to other biological agents ruled out; Z79.899 Other long term (current) drug therapy
CPT/HCPCS: 0241U; 71046; 80053; 83735; 84484; 85025; 93005; 94640; 99284

== ENCOUNTER → 2024-11-28 14:50 | Outpatient (BNV) | payer OTHER, SELFPAY | PROVIDERS: Emergency Provider Emergency Medicine Emergency Medical Services; Visit Provider Radiology Diagnostic Radiology | DX: R06.02 Shortness of breath (principal) | CPT/HCPCS: 71046 ==

== ENCOUNTER → 2024-11-28 14:50 | Outpatient (BNV) | payer OTHER, SELFPAY | PROVIDERS: Emergency Provider Emergency Medicine Emergency Medical Services; Visit Provider Internal Medicine Cardiovascular Disease | DX: R00.0 Tachycardia, unspecified (principal) | CPT/HCPCS: 93010 ==

== ENCOUNTER 2025-01-05 14:33 | Outpatient (AMB) | payer MEDICARE, SELFPAY ==
--- NOTE | 2025-01-05 15:08 | AM.OFFWIN_ITS ---
Intake Vital Signs 01/05/25 15:10 Height 5 ft 9 in Weight 200 lb BMI 29.5 BP 122/82 Blood Pressure Location Lt brachial Position Sitting Respiration 18 Pulse 96 Pulse Source Pulse Oximeter Temp 97.6 F Temp Source Oral Pulse Oximetry (%) 95 Oxygen Delivery Method Room Air Intake Visit Reasons: EP Something in rt eye Intake Note: Pt is here today c/o Rt eye irritation ?scratched Patient Tobacco Use Status: Former Tobacco user Allergies No Known Allergies Allergy (Verified 01/05/25 15:13) HPI HPI Comments History of Present Illness Details This is an 84-year-old male with a past medical history of emphysema not currently oxygen dependent, presenting for evaluation of irritation in his right eye that started yesterday. Patient flushed his eye with water several times without relief of his symptoms. Patient wears glasses for vision however denies any overt visual changes. Patient receives his ophthalmology care through the [facility]. He denies any known foreign body in his right eye. [facility] Medical History (Updated 01/05/25 @ 15:59 by Yary Márquez PA-C) Emphysema/COPD COPD exacerbation Former smoker, stopped smoking in distant past Pulmonary emphysema Multiple pulmonary nodules Social History Household Members: Spouse and Family Housing: House Do you presently have visiting nurse or other home services: No Alcohol intake: former Patient Tobacco Use Status: Former Tobacco user Tobacco use type: Cigarette Cigarette Packs Per Day: 3 Cigarettes Per Day: 60.0 Years Smoked: 37 e-Cigarette/Vaping Use: Never Used Second Hand Smoke Exposure: No Advance Directives Date on File: 05/15/22 service: No Current occupational status: retired Review of Systems Const All systems reviewed & are unremarkable except as noted in HPI and below Eyes Reports itchy eyes, Denies loss of peripheral vision, Denies loss of vision, Reports eye pain (discomfort, itchy right eye), Denies photophobia and Denies spots in vision ENT Reports no additional complaints Card Reports no additional complaints Resp Reports no additional complaints GI Reports no additional complaints Reports no additional complaints Musc Reports no additional complaints Skin/Breast Reports system reviewed and no additional complaints, except as documented Neuro Reports no additional complaints and Denies loss of vision Psych Reports no additional complaints Endo Reports no additional complaints Rambo/Lymph Reports no additional complaints Aller/Immun Reports no additional complaints and Reports itchy eyes Physical Exam Vital Signs: Last Vital Signs Temp 97.6 F 01/05/25 15:10 Pulse 96 01/05/25 15:10 Resp 18 01/05/25 15:10 BP 122/82 01/05/25 15:10 Pulse Ox 95 01/05/25 15:10 Oxygen Delivery Method Room Air 01/05/25 15:10 BMI result Body Mass Index 29.5 Const General: cooperative, healthy appearing, comfortable, no acute distress, well developed, alert, awake and Physically active Nutritional Appearance: average body habitus Orientation/consciousness: patient oriented x3 Limitations: no limitations Eyes Visual Yeh: normal visual yeh by confrontation Alignment and Position: alignment normal Periorbital: periorbital findings normal Eyelids: Yes eyelids normal Conjunctivae: conjunctival abnormal right conjunctival injection; without discharge and without subconjunctival hemmorhages Sclerae: sclerae normal Pupils: Equal, round and reactive pupils present EOM: EOMs intact bilaterally Direct Ophthalmoscopy: normal light reflex, no photophobia and No photophobia Neuro General: patient oriented x3 Cranial nerves: Yes Equal, round and reactive pupils present Psych Appearance: grossly normal Mental Status: mental status grossly normal Insight: Good insight present (Psych) Judgement: Good judgement present (Psych) Office Procedures Fluorescein eye exam Details: Right eye -- alacaine drops utilized prior to fluorescein staining; right corneal abrasion noted at 11:00 position; no evidence of a retained foreign body. Assessment & Plan Assessment & Plan (1) Corneal abrasion, right: Comment: Fluorescein staining is consistent with a right corneal abrasion. Code(s): S05.01XA - Injury of conjunctiva and corneal abrasion without foreign body, right eye, initial encounter Qualifiers: Encounter type: initial encounter Qualified Code(s): S05.01XA - Injury of conjunctiva and corneal abrasion without foreign body, right eye, initial encounter Plan: Erythromycin ointment 1 cm q.i.d. x5 days. Patient will call the [facility] tomorrow to schedule 72 hour follow-up with Ophthalmology. Medications: New erythromycin 1 cm ophthalmic-Right QID 5 days 3.5 grams 0RF Coding Level of Care Code Est Pt Level 4 (63781) Diagnoses Abrasion of right cornea, initial encounter S05.01XA Encounter type: initial encounter Time Spent (min) 25
[2025-01-05 15:10] VITALS: BP 122/82; PULSE 96; RESP 18; TEMP 36.4; O2SAT 95; BMI 29.5
== END 2025-01-05 15:58 | disposition home or self-care (01) ==
PROVIDERS: Visit Provider Physician Assistant
DX: S05.01XA Injury of conjunctiva and corneal abrasion without foreign body, right eye, initial encounter (principal)

== ENCOUNTER → 2025-01-05 14:33 | Outpatient (BNVA) | payer MEDICARE, SELFPAY | PROVIDERS: Visit Provider Physician Assistant | DX: S05.01XA Injury of conjunctiva and corneal abrasion without foreign body, right eye, initial encounter (principal) | CPT/HCPCS: 99212 ==